=== PATIENT | male | born 1945 | race Caucasian/White ===

== ENCOUNTER → 2017-01-16 | Day surgery (SDC) | payer BC, OTHER ==
[2017-01-11 08:15] VITALS: BMI 25.0
[~2017-01-16] VITALS: Ht 170.2 cm; Wt 75.0 kg
[~2017-01-16] MED LIST: ASPI325T45 PO; CHOL200027 PO; FLUT50SP22 INH; GARLTAB3 PO; GLUCTAB7 PO; LIDOCAINE HCL 2% 2 ML VIAL (20MG/ML) ONE; MELO15TA10 PO; MULT-506 PO; OMEG12006 PO; PROPOFOL IV EMULSION 10 MG/ML 20 ML VIAL IV ONE; SODIUM CHLORIDE 0.9% 500ML 500 ML IV ONE; VITAMIN D PO
[2017-01-16 09:34] VITALS: Ht 170.2 cm; Wt 75.0 kg
--- NOTE | 2017-01-16 09:48 | Endo History and Physical ---
History & Physical Date of Service: Jan 16, 2017. 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, ANAL AREA) Hx Thoracic Surgery: No Hx Orthopedic: No Hx Urinary Tract Surgery: No Family History None Social History Smoking Status: Current Every Day Smoker Hx Substance Use: No Hx Alcohol Use: Yes (OCCASIONALLY) Allergies Coded Allergies: NO KNOWN DRUG ALLERGIES (Verified Allergy, Unknown, ., 01/11/17) Current Medications Reported Home Medications Medications Dose Route/Sig Max Daily Dose Days Date Category [Vitamin D] 1 Tab PO QAM 01/11/17 Reported [Garlic] 1 Tab PO QAM 01/11/17 Reported Florence 3 (Florence-3 Fatty Acids) 1 Cap Cap 1 Cap PO QAM 01/11/17 Reported Multivitamin (Multivitamins) Tab 1 Tab PO QAM 01/11/17 Reported Mobic (Meloxicam) 15 Mg Tab 15 Mg PO QAM 01/11/17 [facility]orted [facility] Fluticasone Propriona (Fluticasone Propionate (Nasal)) 50 Mcg/Act Spr 1 [place] INH DAILY PRN 01/11/17 Reported Glucosamine Chondroitin (Igoskvjwzkz-Mnwgcpzccdl-Mnf C-) 1 Tab Tab 1 Tab PO BID 01/11/17 Reported Aspirin 325 Mg Tab 1 Tab PO QAM 01/11/17 Reported Vital Signs Weight (Kilograms): 75.00 Height (Feet): 5 Height (Inches): 7 Date Time Temp Pulse Resp B/P Pulse Ox O2 Delivery O2 Flow Rate FiO2 01/16/17 09:37 36.6 81 20 123/75 96 Room Air Physical Exam General Appearance: no apparent distress Respiratory/Chest: Auscultation: breath sounds normal Cardiovascular: Heart Auscultation: RRR Abdomen: Inspection & Palpation: soft, no masses Assessment and Plan stable for colonoscopy
--- NOTE | 2017-01-16 10:31 | Discharge Instructions ---
Endoscopy Patient Instructions Date / Procedure(s) Performed Jan 16, 2017. Colonoscopy Allergy Information Coded Allergies: NO KNOWN DRUG ALLERGIES (Verified Allergy, Unknown, ., 01/11/17) Discharge Date / Findings Jan 16, 2017. colon polyp and diverticulosis Medication Instructions Stopped Medication(s): ASPIRIN LAST DOSE 01/14/17 Provider Instructions Activity Restrictions - No exercising or heavy lifting for 24 hours. - Do not drink alcohol the day of the procedure. - Do not drive a car or operate machinery until the day after the procedure. - Do not make any important decisions or sign important papers in 24 hours after the procedure. Following Day: - Return to full activity which may include returning to work/school. Diet Start your diet with liquids and light foods (jello, soup, juice, toast). Then eat your usual diet if not nauseated. Treatment For Common After Affects For mild abdominal pain, bloating, or excessive gas: - Rest - Eat lightly - Lie on right side Follow-Up Information Follow-up with DR ROTH as scheduled Anesthesia Information What You Should Know You have had a procedure that required some medicine to reduce anxiety and discomfort. This treatment is called moderate sedation. After receiving the treatment, you may be sleepy, but you will be able to breathe on your own. The effects of the treatment may last for several hours. Follow these instructions along with Activity/Diet recommendations noted above: * Do NOT do anything where dizziness or clumsiness would be dangerous. * Rest quietly at home today, then you can be up and about tomorrow. * Have a responsible person stay with you the rest of today. * You may have had an I.V. today. If so, you may take the dressing off later today. Recommendations Call your doctor if: * Trouble breathing * Continuous vomiting for more than 24 hours * Temperature above 101 degrees * Severe abdominal pain or bloating * Pain not relieved by pain medicine ordered * There is increased drainage or redness from any incision * A large amount of rectal bleeding greater than 2-3 tablespoons. (If you had a polyp/s removed or have hemorrhoids, a small amount of blood - from the rectum is to be expected.) * You have any unanswered questions or concerns. IN THE EVENT OF A SERIOUS EMERGENCY, GO TO THE NEAREST EMERGENCY ROOM Your discharge instructions were prepared by provider Jamal Pierce. Patient Instructions Signature Page Raulito Magallanes Patient (or Guardian) Signature/Date: I have read and understand the instructions given to me by my caregivers. Caregiver/RN/Doctor Signature/Date: The above-named patient and/or guardian has received patient instructions on this date. + Original Patient Signature Page (only) stays with chart. Please make copy for patient.
--- NOTE | 2017-01-16 10:31 | GI REPORT ---
Procedure Date: 01/16/2017 9:36 AM Procedure: Colonoscopy Indications: Screening for colorectal malignant neoplasm Medicines: See the Anesthesia note for documentation of the administered medications Complications: No immediate complications. Estimated Blood Loss: Estimated blood loss was minimal. Procedure: Pre-Anesthesia Assessment: - Prior to the procedure, a History and Physical was performed, and patient medications, allergies and sensitivities were reviewed. The patient's tolerance of previous anesthesia was reviewed. - The risks and benefits of the procedure and the sedation options and risks were discussed with the patient. All questions were answered and informed consent was obtained. - Patient identification and proposed procedure were verified prior to the procedure by the physician and the nurse. The procedure was verified in the pre-procedure area. - Pre-procedure physical examination revealed no contraindications to sedation. - After reviewing the risks and benefits, the patient was deemed in satisfactory condition to undergo the procedure. After I obtained informed consent, the scope was passed under direct vision. Throughout the procedure, the patient's blood pressure, pulse, and oxygen saturations were monitored continuously. The scope was introduced through the anus and advanced to the terminal ileum, with identification of the appendiceal orifice and IC valve. The colonoscopy was performed without difficulty. The patient tolerated the procedure well. The quality of the bowel preparation was good. Findings: The perianal and digital rectal examinations were normal. The terminal ileum appeared normal. A diminutive polyp was found in the cecum. The polyp was sessile. The polyp was removed with a jumbo cold forceps. Resection and retrieval were complete. Verification of patient identification for the specimen was done by the physician and nurse using the patient's name and medical record number. Estimated blood loss was minimal. Multiple medium-mouthed diverticula were found in the sigmoid colon and in the descending colon. Internal hemorrhoids were found during retroflexion. Impression: - The examined portion of the ileum was normal. - One diminutive polyp in the cecum, removed with a jumbo cold forceps. Resected and retrieved. - Diverticulosis in the sigmoid colon and in the descending colon. - Internal hemorrhoids. Recommendation: - Await pathology results. - Discharge patient to home. Jamal Pierce M.D. Jamal Pierce MD 01/16/2017 10:30:09 AM This report has been signed electronically. Note Initiated On: 01/16/2017 9:36 AM I attest to the content of the Intraoperative Record and orders documented therein, exceptions below
--- NOTE | 2017-01-16 10:53 | Anesthesiology Progress Note ---
Anesthesia Post Op Note Date & Time Jan 16, 2017 at 10:52 Vital Signs Pain Intensity: 0 Vital Signs Past 12 Hours Date Time Temp Pulse Resp B/P Pulse Ox O2 Delivery O2 Flow Rate FiO2 01/16/17 10:47 76 20 100/68 96 Room Air 01/16/17 10:32 36.6 78 20 93/53 96 Room Air 01/16/17 09:37 36.6 81 20 123/75 96 Room Air Notes Mental Status: alert / awake / arousable, participated in evaluation Pt Amnestic to Procedure: Yes Nausea / Vomiting: adequately controlled Pain: adequately controlled Airway Patency, RR, SpO2: stable & adequate BP & HR: stable & adequate Hydration State: stable & adequate Anesthetic Complications: no major complications apparent
[2017-01-16 11:00] VITALS: BP 106/65; PULSE 75; O2SAT 98
== END | disposition home or self-care (01) ==
LOC: C.GI 08:51
PROVIDERS: ATTEND Internal Medicine Gastroenterology
DX: Z12.11 Encounter for screening for malignant neoplasm of colon (principal); D12.0 Benign neoplasm of cecum; K57.30 Diverticulosis of large intestine without perforation or abscess without bleeding; K57.32 Diverticulitis of large intestine without perforation or abscess without bleeding; K64.8 Other hemorrhoids; F17.210 Nicotine dependence, cigarettes, uncomplicated; Z79.82 Long term (current) use of aspirin; Z79.899 Other long term (current) drug therapy

== ENCOUNTER → 2017-03-20 | Outpatient (CLI) | payer BC ==
[~2017-03-20] MED LIST changes: -LIDOCAINE HCL 2% 2 ML VIAL (20MG/ML) ONE; -PROPOFOL IV EMULSION 10 MG/ML 20 ML VIAL IV ONE; -SODIUM CHLORIDE 0.9% 500ML 500 ML IV ONE
[2017-03-20 13:34] LABS: BASO % 0.4 %; BASO ABS # 0.03 K/uL (0-0.2); COMPLETE YES; EOS % 1.3 %; HEMATOCRIT 47.2 % (42-52); IG% 0.1 %; LYMPH % 36.8 %; LYMPH ABS # 2.92 K/uL (1.2-3.4); MEAN CELL VOLUME 96.1 fL (80-100); MEAN CORPUSCULAR HEMOGLOBIN 32.8 pg (25-34); MEAN CORPUSCULAR HGB CONC 34.1 g/dl (32-36); MEAN PLATELET VOLUME 9.7 fL (7.4-10.4); MONO % 9.3 %; NEUT % 52.1 %; PLATELET COUNT 271 K/uL (130-400); RED BLOOD COUNT 4.91 M/uL (4.7-6.1); WHITE BLOOD COUNT 7.93 K/uL (4.8-10.8)
[2017-03-20 14:08] LABS: ALT/SGPT 29 U/L (12-78); BLOOD UREA NITROGEN 13 mg/dl (7-18); BUN/CREATININE RATIO 14.6 (10-20); CARBON DIOXIDE 28 mmol/L (21-32); CHLORIDE 103 mmol/L (98-107); CHOLESTEROL 200 mg/dl (0-200); CREATININE 0.92 mg/dl (0.60-1.40); GLUCOSE 102 mg/dl (70-99); POTASSIUM 4.4 mmol/L (3.5-5.1); SODIUM 139 mmol/L (136-145); TRIGLYCERIDES 321 mg/dl (0-150); VERY LOW DENSITY LIPOPROT CALC 64 mg/dl
[2017-03-20 14:10] LABS: CALCIUM 9.2 mg/dl (8.5-10.1)
[2017-03-20 14:14] LABS: ALB/GLOB RATIO 0.9 (0.9-2); ALKALINE PHOSPHATASE 61 U/L (45-117); AST/SGOT 17 U/L (15-37); CHOLESTEROL/HDL RATIO 5.7; HDL CHOLESTEROL 35 mg/dl; LDL CHOLESTEROL CALCULATED 101 mg/dl
[2017-03-20 14:17] LABS: ESTIMATED AVERAGE GLUCOSE 123 mg/dl; HA1C FLAG Normal (Normal)
--- NOTE | 2017-03-27 07:20 | CODING QUERY MEDICAL NECESSITY ---
SUPPORTING DIAGNOSIS NEEDED A supporting diagnosis is required for the test/procedure performed on this patient in order for us to be reimbursed by the patient's insurance. Please provide a supporting diagnosis for the following test/procedure listed below next to the test name along with your signature. *If there is no additional diagnosis for this patient that would support the following test/procedure please document that below next to the test/procedure. Test(s)/Procedure(s) that require a supporting diagnosis: * HEMOGLOBIN A1C DIAGNOSIS: Provider Signature: Date: Thank you Keara Davenport [employer] Once completed, please kindly fax back to [phone] For questions please call [phone]
== END | disposition home or self-care (01) ==
LOC: C.LABBC 10:06
PROVIDERS: ATTEND Nurse Practitioner Family
DX: K21.9 Gastro-esophageal reflux disease without esophagitis (principal); E78.00 Pure hypercholesterolemia, unspecified; R73.03 Prediabetes; N40.0 Benign prostatic hyperplasia without lower urinary tract symptoms

== ENCOUNTER → 2017-06-26 | Day surgery (SDC) | payer BC ==
[2017-05-29 08:14] VITALS: Ht 170.2 cm; Wt 70.5 kg
[~2017-06-26] VITALS: Ht 170.2 cm; Wt 70.5 kg
[~2017-06-26] MED LIST changes: +500ML BSS 0.3ML EPI 1:1000PF IRRIG ONE; +ACETAMINOPHEN 325 MG TAB PO PRN; +AMVISC PLUS 0.8ML SYRINGE INT OCU ONE; +ATROPINE SULFATE 0.1 MG/ML 5ML SYR IV PRN; +BSS FLUSH ONE; +EpHEDrine SULFATE INJ 50 MG/ML AMP IV PRN; +EpINEphrine INJ 1MG/ML AMP 1 MG/ML AMP ONE; +LACTATED RINGER'S 1000ML 500 ML IV SCH; +LIDOCAINE 3.5% OPH GEL PER APPLICATION CHARGE ONE; +LIDOCAINE HCL 1% MPF 2 ML VIAL ONE; +MIDAZOLAM HCL 1 MG/ML 2ML VIAL ONE; +MIX: 4ML BSS 1ML EPI 1:1000 PF INSTIL ONE; +OCUCOAT 1 ML SOLN IO ONE; +POVIDONE-IODINE OP SOLN 30 ML BTL ONE; +PROPARACAINE 0.5% OP SOLN PER DROP CHARGE OPL SCH; +TOBRAMYCIN/DEXAMETHASONE OPH OINT PER APPLN CHARGE ONE; -VITAMIN D PO
[2017-06-26] MEDS: PHENYLEPHRINE HCL 2.5% OP SOLN PER DROP CHARGE OPL SCH ×2 (08:46→08:51)
[2017-06-26] MEDS: TROPICAMIDE 1% OP SOLN PER DROP CHARGE OPL SCH ×2 (08:47→08:52)
[2017-06-26] MEDS: CYCLOPENTOLATE HCL 1% OP SOLN PER DROP CHARGE OPL SCH ×2 (08:48→08:53)
[2017-06-26] MEDS: KETOROLAC 0.5% OP SOLN PER DROP CHARGE OPL SCH ×2 (08:49→08:54)
[2017-06-26] MEDS: GATIFLOXACIN OP SOLN PER DROP CHARGE OPL SCH ×2 (08:50→09:03)
--- NOTE | 2017-06-26 09:01 | History & Physical Bridge - [place] ---
H&P Re-Evaluation Bridge Note: I have examined the patient, reviewed the History & Physical and in the interval since the performance of the History & Physical I have noted the following changes of clinical significance: No changes noted
--- NOTE | 2017-06-26 09:43 | Discharge Instructions-SurgCtr ---
Discharge Instructions Date of Service Jun 26, 2017. Visit Reason for Visit: Cataract Left Eye Discharge Discharge Diagnosis / Problem: cataract Discharge Goals Goal(s): Improve function Medications Stopped Medications Name(s): METFORMIN HELD FOR THREE DAYS Activity Recommendations Activity Limitations: per Instructions/Follow-up section Anesthesia . Post Anesthesia Instructions: If you have had General Anesthesia or IV Sedation: * Do not drive today. * Resume driving when surgeon permits. * Do not make important decisions or sign legal documents today. * Call surgeon for: 1. Temperature elevations greater than 101 degrees F. 2. Uncontrollable pain. 3. Excessive bleeding. 4. Persistent nausea and vomiting. 5. Medication intolerance (nausea, vomiting or rash). * For nausea and vomiting use only clear liquids such as: tea, soda, bouillon until nausea subsides, then gradually increase diet as tolerated. * If you have any concerns or questions, call your surgeon's office. If physician is unavailable and it is an emergency, call 911 or go to the nearest emergency room. . Diet Recommendations Home Diet: resume previous diet Procedures Procedures Performed: Left Eye Cataract Phacoemulsification With Intraocular Lens Implant Pending Studies Studies pending at discharge: no Medical Emergencies . Who to Call and When: Medical Emergencies: If at any time you feel your situation is an emergency, please call 911 immediately. . Non-Emergent Contact Non-Emergency issues call your: Pharmaceutical Assistant . . "Provider Documentation" section prepared by Matt Lau. .
--- NOTE | 2017-06-26 09:44 | [facility] Operative Report ---
Operative Report Date of Service Jun 26, 2017. Operative Report 1. PREOPERATIVE DIAGNOSIS: Cataract of the right eye. 2. POSTOPERATIVE DIAGNOSIS: Same. 3. PROCEDURE: Phacoemulsification with intraocular lens implantation of the right eye. SURGEON: Dr. Matt Lau. ANESTHESIA: Topical Lidocaine gel, 1% Non- Preserved intracameral Lidocaine, and monitored intravenous sedation. INDICATIONS FOR THE PROCEDURE: The patient is a 72 - year-old male with a history of cataract of the right eye causing significant visual impairment. The details of the proposed procedure were explained to the patient who asked appropriate questions and following discussion of all risks, benefits and alternatives agreed to have the procedure done. 4. OPERATION AND FINDINGS: DESCRIPTION OF PROCEDURE: After informed consent was obtained, the patient was brought to the Operating Room at the [facility]. The patient was placed in a supine position and then the right eye was prepped and draped in the usual sterile fashion for intraocular surgery. A drop of topical Lidocaine gel was placed in the operative eye. A wire lid speculum was then placed in the fornices. A corneal paracentesis was then created temporally. The Non-Preserved Lidocaine was then instilled into the anterior chamber. The anterior chamber was then pressurized with viscoelastic. A 2.0 mm clear corneal incision was then created temporally. A cystotome was inserted into the anterior chamber and used to create a tear in the anterior lens capsule. This capsular tear was then used to create a small flap and the flap was dragged in a counterclockwise direction in order to create a continuous curvilinear capsulorrhexis. Hydrodissection was accomplished with balanced salt solution. Phacoemulsification of the lens nucleus was then performed in a standard nvswyf-iln-swaydle technique. The phaco time was 25 seconds with an average power of 16 %. The remaining cortical material was removed using irrigation aspiration. The capsular bag was then filled with viscoelastic. A [employer] MX60 +19.0 diopters lens was then loaded into the injector and injected into the capsular bag. The remaining viscoelastic was removed with the irrigation aspiration handpiece. The wound was hydrated and then checked and found to be watertight. The intraocular pressure was checked and found to be adequate. The wire lid speculum was removed and the patient's face was cleaned and dried. TobraDex ointment was placed in the inferior fornix. The patient was discharged to the Recovery Room having tolerated the procedure well. There were no complications. The patient will be seen tomorrow in the office for follow-up. I attest to the content of the Intraoperative Record and any orders documented therein. Any exceptions are noted below.
[2017-06-26 09:45] VITALS: TEMP 36.7
--- NOTE | 2017-06-26 10:04 | Anesthesia Progress Nt - [facility] ---
Anesthesia Post Op Note Date & Time Jun 26, 2017 at 10:04 Vital Signs Pain Intensity: 0 Vital Signs Past 12 Hours Date Time Temp Pulse Resp B/P (MAP) Pulse Ox O2 Delivery O2 Flow Rate FiO2 06/26/17 09:45 36.7 56 18 117/79 (92) 96 Room Air 06/26/17 08:37 36.6 59 16 110/78 (89) 95 Room Air Notes Mental Status: alert / awake / arousable, participated in evaluation Pt Amnestic to Procedure: Yes Nausea / Vomiting: adequately controlled Pain: adequately controlled Airway Patency, RR, SpO2: stable & adequate BP & HR: stable & adequate Hydration State: stable & adequate Anesthetic Complications: no major complications apparent
[2017-06-26 10:10] VITALS: BP 124/75; PULSE 57; O2SAT 96
== END | disposition home or self-care (01) ==
LOC: X.SURG 07:57
PROVIDERS: ATTEND Ophthalmology
DX: H25.9 Unspecified age-related cataract (principal); E78.00 Pure hypercholesterolemia, unspecified; Z79.899 Other long term (current) drug therapy

== ENCOUNTER → 2017-09-28 | Outpatient (CLI) | payer BC ==
[~2017-09-28] MED LIST changes: -500ML BSS 0.3ML EPI 1:1000PF IRRIG ONE; -ACETAMINOPHEN 325 MG TAB PO PRN; -AMVISC PLUS 0.8ML SYRINGE INT OCU ONE; +ASPECOTC PO; -ASPI325T45 PO; -ATROPINE SULFATE 0.1 MG/ML 5ML SYR IV PRN; -BSS FLUSH ONE; -EpHEDrine SULFATE INJ 50 MG/ML AMP IV PRN; -EpINEphrine INJ 1MG/ML AMP 1 MG/ML AMP ONE; -LACTATED RINGER'S 1000ML 500 ML IV SCH; -LIDOCAINE 3.5% OPH GEL PER APPLICATION CHARGE ONE; -LIDOCAINE HCL 1% MPF 2 ML VIAL ONE; -MIDAZOLAM HCL 1 MG/ML 2ML VIAL ONE; -MIX: 4ML BSS 1ML EPI 1:1000 PF INSTIL ONE; -OCUCOAT 1 ML SOLN IO ONE; -POVIDONE-IODINE OP SOLN 30 ML BTL ONE; -PROPARACAINE 0.5% OP SOLN PER DROP CHARGE OPL SCH; -TOBRAMYCIN/DEXAMETHASONE OPH OINT PER APPLN CHARGE ONE
[2017-09-28 11:13] LABS: ALBUMIN 3.3 gm/dl (3.4-5.0); ALT/SGPT 30 U/L (12-78); AST/SGOT 19 U/L (15-37); BLOOD UREA NITROGEN 16 mg/dl (7-18); CALCIUM 8.8 mg/dl (8.5-10.1); CARBON DIOXIDE 31 mmol/L (21-32); CHOLESTEROL 176 mg/dl (0-200); CREATININE 0.88 mg/dl (0.60-1.40); GLUCOSE 106 mg/dl (70-99); POTASSIUM 4.5 mmol/L (3.5-5.1); SODIUM 137 mmol/L (136-145); TOTAL PROTEIN 7.2 gm/dl (6.4-8.2)
[2017-09-28 11:14] LABS: ALKALINE PHOSPHATASE 67 U/L (45-117); LDL CHOLESTEROL CALCULATED 94 mg/dl
[2017-09-28 12:05] LABS: HEMOGLOBIN A1C 5.9 % (4.5-5.6)
== END | disposition home or self-care (01) ==
LOC: C.LABBC 07:53
PROVIDERS: ATTEND Nurse Practitioner Family
DX: K21.9 Gastro-esophageal reflux disease without esophagitis (principal); E78.00 Pure hypercholesterolemia, unspecified; R73.03 Prediabetes

== ENCOUNTER 2020-10-28 12:11 | Inpatient (IN) ==
[2020-10-28] MEDS ORDERED: ACETAMINOPHEN 500 MG TAB PO STA (13:02)
[2020-10-28] MEDS ORDERED: SODIUM CHLORIDE 0.9% 1000ML 1,000 ML IV ONE ×3 (13:02→16:27)
--- NOTE | 2020-10-28 13:03 | Emergency Department Note ---
Impression & Plan Sepsis, Nausea, Leukocytosis ED Provider Note NAME: ARTUR BLANCHARD AGE: 75 SEX: M : 1945 ARRIVES VIA: Walk-In INFORMANT: Patient ED PROVIDER(S): Alfredito Wise DO CHIEF COMPLAINT: Weak HPI: Patient is a 75-year-old male who presents the ER for diffuse myalgias and arthralgias and weakness associated with fevers. Symptoms initially started this past Sunday. He has had a runny nose. He has had intermittent headaches as well. Headaches are very mild off and on. No neck pain or stiff neck. No chest pain. No shortness of breath. He admits to nausea and upset stomach. No focal belly pain. Denies any dysuria, urgency or frequency. He was tested for Covid and notes it was negative. He has no other complaints at this time. Telehealth visit with his PCP several days ago. Has been exposed to Covid as his was diagnosed at the end of August and admitted to the hospital. ROS: See above HPI for pertinent positives & negatives. A total of 10 systems reviewed and were otherwise negative. PAST MEDICAL HISTORY:See Below PAST SURGICAL HISTORY:See Below FAMILY HISTORY:See Below SOCIAL HISTORY:See Below HOME MEDICATIONS:See Below ALLERGIES:See Below VITALS:See Below PHYSICAL EXAMINATION: GENERAL: Sitting up in bed, alert, well appearing, well nourished, no distress, non-toxic EYE EXAM: normal conjunctiva. OROPHARYNX: no exudate, no erythema, lips, buccal mucosa, and tongue normal and mucous membranes are moist NECK: supple, no nuchal rigidity, no adenopathy, non-tender LUNGS: Clear to auscultation. Normal chest wall mechanics HEART: no murmurs, S1 normal and S2 normal ABDOMEN: abdomen soft, non-tender, normo-active bowel sounds, no masses, no rebound or guarding. BACK: Back is symmetrical on inspection and there is no deformity, no midline tenderness, no CVA tenderness. SKIN: no rashes and no bruising UPPER EXTREMITIES: upper extremities are grossly normal. LOWER EXTREMITIES: No pitting edema. NEURO EXAM: Normal sensorium, cranial nerves II-XII grossly intact, normal speech, no gross weakness of arms, no gross weakness of legs. MEDICAL DECISION MAKING: Patient is a 75-year-old male who presents the ER for shaking chills and fevers. IV was established blood work was obtained. He has diffuse myalgias and arthralgias. He was found to be febrile initially tachycardic. Labs shows a leukocytosis of 20,000. No significant anemia. INR was unremarkable. BMP along with LFTs bilirubin magnesium were unremarkable. Patient was given 3 L IV fluids, as well as Tylenol and felt significantly better. Lactate was initially elevated and on repeat became normal. He was given a dose of Zosyn. There is no signs of meningitis or encephalitis on exam. Covid was negative. UA with ke tones and epithelial cells. Uncertain of the true cause of his symptoms with a CT of the belly which shows intrahepatic duct dilation. Patient was covered with Zosyn. He notes this has happened to him once before over the summer. He was updated bedside. Discussed with the hospitalist for further evaluation. Patient remained stable throughout the remainder of the stay in the ER. Triage Nursing notes reviewed. Limited review of prior medical records performed Vital Signs: reviewed and remarkable for febrile, tachycardic Differential diagnosis: Differential diagnosis includes etiologies such as sepsis, UTI, pneumonia, metabolic, electrolyte abnormalities, cardiac sources, intracerebral event, toxicologic, neurological, as well as others were entertained. ER treatment provided: See below Diagnostics interpreted by me: ECG: Sinus tachycardia rate of 104 Left axis No PVCs QTC 436 Cardiac Monitoring: An order was placed for continuous cardiac monitoring. The monitor shows a rate of 110 with sinus rhythm. Laboratory studies: As stated above and show below. Imaging studies: Double AP upright 1 view chest shows no focal infiltrate or pneumothorax CT abdomen pelvis shows a dilated intrahepatic bile duct and a left lower lobe pulmonary nodule Consultation(s): With Dr. Atul Guerin for further evaluation Procedures: none Critical Care: I have personally spent 32 minutes of critical care time in the direct management of this patient. This includes bedside care, interpretation of diagnostic studies, and testing, discussion with consultants, patient, and family members, and other required patient management activities. This 32 minutes is in excess of all separately billable procedures. 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 S/P wisdom tooth extraction Family History Father Myocardial infarction ASCVD (arteriosclerotic cardiovascular disease) Pacemaker Mother Diabetes Peripheral vascular disease Denies family history of Ovarian cancer Prostate cancer Breast cancer Colorectal cancer Social History Smoking Status: Current every day smoker Tobacco Type: Cigarettes Age Started Using Tobacco: 23; packs per day: 0.5; Years Smoked: 30; Second Hand Exposure: No; Hx Alcohol Use: Yes Alcohol type: beer and hard liquor Hx Substance Use: No Preferred Language: Armenian Communication Ability: Effective Visual Impairment: No Limitations Hearing Ability: Use of Hearing Aid marital status: Current Living Situation: Spouse current occupational status: retired Feels Safe at Home: Yes Childhood Exposure to Second-Hand Smoke: Yes Dental Care, Regularly: Yes Physical Activity Frequency: 3-4 Times per Week Physical Activity Frequency Comment: walking Seatbelt Use: always Sunscreen Use: No Allergies Allergies Allergy/AdvReac Type Severity Reaction Status Date / Time No Known Allergies Allergy Verified 10/28/20 16:20 Home Meds Home Medications Medication Instructions Recorded Confirmed cholecalciferol (vitamin D3) 50 2,000 unit PO DAILY tab 02/12/19 10/28/20 mcg (2,000 unit) tablet multivitamin 1 tab PO DAILY 02/27/19 10/28/20 garlic 500 mg PO DAILY 03/24/19 10/28/20 omega-3 acid ethyl esters 1 gram 1 cap PO BID cap 05/06/19 10/28/20 capsule aspirin [Ecotrin] 325 mg PO DAILY 10/28/20 10/28/20 glucos sul [id number] 1 cap PO DAILY 10/28/20 10/28/20 [Glucosamine Chondroitin] Previous Rx's Medication Instructions Recorded gabapentin 300 mg capsule 300 mg PO HS #30 cap 06/03/20 meloxicam 15 mg tablet 15 mg PO DAILY #90 tab 06/09/20 Results & Data (ED) Vital Signs Vital Signs - 24 hr 10/28/20 12:20 10/28/20 13:52 10/28/20 13:55 Temperature 38.2 C H Temperature Source Temporal Artery Scan Pulse Rate 118 H 105 H Pulse Rate from SpO2 Sensor 104 H Pulse Rhythm Regular Pulse Strength Normal Respiratory Rate 18 21 Respiratory Effort / Characteristics Non-Labored Spontaneous Respiratory Depth Normal Respiratory Pattern Regular Blood Pressure 129/75 Blood Pressure Mean 93 Blood Pressure Position Sitting Pulse Oximetry 94 94 94 Oxygen Delivery Method Room Air Room Air Sepsis Recent Fever Within 48 Hours Yes Sepsis New/Unexplained Change in Mental Status No Sepsis Action Taken by Nursing No Action Required 10/28/20 14:00 10/28/20 14:01 10/28/20 14:15 Temperature Temperature Source Pulse Rate 102 H 108 H 100 H Pulse Rate from SpO2 Sensor 102 H 107 H 99 H Pulse Rhythm Pulse Strength Respiratory Rate 25 H 17 25 H Respiratory Effort / Characteristics Respiratory Depth Respiratory Pattern Blood Pressure 129/58 L 90/47 L Blood Pressure Mean 81 61 Blood Pressure Position Pulse Oximetry 94 95 94 Oxygen Delivery Method Sepsis Recent Fever Within 48 Hours Sepsis New/Unexplained Change in Mental Status Sepsis Action Taken by Nursing 10/28/20 14:30 10/28/20 14:45 10/28/20 15:00 Temperature Temperature Source Pulse Rate 96 H 96 H 89 Pulse Rate from SpO2 Sensor 97 H 96 H 88 Pulse Rhythm Pulse Strength Respiratory Rate 20 20 20 Respiratory Effort / Characteristics Respiratory Depth Respiratory Pattern Blood Pressure 97/49 L 86/48 L 93/45 L Blood Pressure Mean 65 60 61 Blood Pressure Position Pulse Oximetry 94 93 94 Oxygen Delivery Method Sepsis Recent Fever Within 48 Hours Sepsis New/Unexplained Change in Mental Status Sepsis Action Taken by Nursing 10/28/20 15:15 10/28/20 15:28 10/28/20 15:30 Temperature Temperature Source Pulse Rate 86 Pulse Rate from SpO2 Sensor 102 H 84 84 Pulse Rhythm Pulse Strength Respiratory Rate 15 Respiratory Effort / Characteristics Respiratory Depth Respiratory Pattern Blood Pressure 93/58 L 80/45 L 88/42 L Blood Pressure Mean 69 56 57 Blood Pressure Position Pulse Oximetry 95 95 94 Oxygen Delivery Method Sepsis Recent Fever Within 48 Hours Sepsis New/Unexplained Change in Mental Status Sepsis Action Taken by Nursing 10/28/20 16:00 10/28/20 16:15 10/28/20 16:30 Temperature Temperature Source Pulse Rate 83 80 76 Pulse Rate from SpO2 Sensor 83 80 76 Pulse Rhythm Pulse Strength Respiratory Rate 20 19 22 Respiratory Effort / Characteristics Respiratory Depth Respiratory Pattern Blood Pressure 111/60 94/57 L 105/59 L Blood Pressure Mean 77 69 74 Blood Pressure Position Pulse Oximetry 95 95 96 Oxygen Delivery Method Sepsis Recent Fever Within 48 Hours Sepsis New/Unexplained Change in Mental Status Sepsis Action Taken by Nursing 10/28/20 16:45 10/28/20 17:00 Temperature Temperature Source Pulse Rate 76 Pulse Rate from SpO2 Sensor 76 78 Pulse Rhythm Pulse Strength Respiratory Rate 18 20 Respiratory Effort / Characteristics Respiratory Depth Respiratory Pattern Blood Pressure 106/61 130/68 Blood Pressure Mean 76 88 Blood Pressure Position Pulse Oximetry 96 97 Oxygen Delivery Method Sepsis Recent Fever Within 48 Hours Sepsis New/Unexplained Change in Mental Status Sepsis Action Taken by Nursing Laboratory Data Result diagrams: 10/28/20 13:52 10/28/20 13:52 Lab Results 10/28/20 10/28/20 10/28/20 Range/Units 13:52 13:52 13:52 WBC 20.94 H (4.8-10.8) K/uL RBC 4.30 L (4.7-6.1) M/uL Hgb 14.2 (14.0-18.0) g/dL Hct 41.1 L (42-52) % MCV 95.6 (80-100) fL MCH 33.0 (25-34) pg MCHC 34.5 (32-36) g/dL RDW Std Deviation 47.8 H (36.4-46.3) fL RDW Coeff of Aleisha 13.8 (11.5-14.5) % Plt Count 340 (130-400) K/uL MPV 9.3 (7.4-10.4) fL Immature Gran % (Auto) 0.8 % Neut % (Auto) 80.7 % Lymph % (Auto) 9.4 % Beaver % (Auto) 9.0 % Eos % (Auto) 0.0 % Baso % (Auto) 0.1 % Neut # (Auto) 16.90 H (1.4-6.5) K/uL Lymph # (Auto) 1.97 (1.2-3.4) K/uL Beaver # (Auto) 1.88 H (0.11-0.59) K/uL Eos # (Auto) 0.00 (0-0.5) K/uL Baso # (Auto) 0.02 (0-0.2) K/uL Immature Gran # (Auto) 0.17 H (0.00-0.02) K/uL PT Cancelled INR Cancelled APTT Cancelled PTT Ratio Cancelled Sodium 135 L (136-145) mmol/L Potassium 4.1 (3.5-5.1) mmol/L Chloride 102 (98-107) mmol/L Carbon Dioxide 25 (21-32) mmol/L Anion Gap 8.0 (3-11) BUN 18 (7-18) mg/dl Creatinine 0.99 (0.6-1.4) mg/dl Est Cr Clr Drug Dosing 59.4 ml/min Est GFR ( Amer) 84.8 Est GFR (Non-Af Amer) 73.2 BUN/Creatinine Ratio 18.4 (10-20) Glucose 145 H (70-99) mg/dl Lactate (0.4-2.0) mmol/L Calcium 9.2 (8.5-10.1) mg/dl Magnesium 2.1 (1.8-2.4) mg/dl Total Bilirubin 0.8 (0.2-1) mg/dl AST 19 (15-37) U/L ALT 41 (12-78) U/L Alkaline Phosphatase 72 (45-117) U/L Total Protein 7.5 (6.4-8.2) gm/dl Albumin 2.9 L (3.4-5.0) gm/dl Globulin 4.6 H (2.5-4.0) gm/dl Albumin/Globulin Ratio 0.6 L (0.9-2) Procalcitonin (0-0.5) ng/ml Urine Color Urine Appearance (Clear) Urine pH (4.5-7.5) Ur Specific Niland (1.000-1.030) Urine Protein (Negative) Urine Glucose (UA) (Negative) Urine Ketones (Negative) Urine Blood (Negative) Urine Nitrite (Negative) Urine Bilirubin (Negative) Urine Urobilinogen (Negative) Ur Leukocyte Esterase (Negative) Urine WBC (Auto) (0-5) /hpf Urine RBC (Auto) (0-4) /hpf U Hyaline Cast (Auto) (0-5) /lpf U Epithel Cells (Auto) (0-5) /lpf Urine Bacteria (Auto) (Negative) COVID-19 Eval Order SARS-CoV-2, RNA, NAAT (NEGATIVE) 10/28/20 10/28/20 10/28/20 Range/Units 13:58 13:59 14:00 WBC (4.8-10.8) K/uL RBC (4.7-6.1) M/uL Hgb (14.0-18.0) g/dL Hct (42-52) % MCV (80-100) fL MCH (25-34) pg MCHC (32-36) g/dL RDW Std Deviation (36.4-46.3) fL RDW Coeff of Aleisha (11.5-14.5) % Plt Count (130-400) K/uL MPV (7.4-10.4) fL Immature Gran % (Auto) % Neut % (Auto) % Lymph % (Auto) % Beaver % (Auto) % Eos % (Auto) % Baso % (Auto) % Neut # (Auto) (1.4-6.5) K/uL Lymph # (Auto) (1.2-3.4) K/uL Beaver # (Auto) (0.11-0.59) K/uL Eos # (Auto) (0-0.5) K/uL Baso # (Auto) (0-0.2) K/uL Immature Gran # (Auto) (0.00-0.02) K/uL PT 11.4 INR 1.1 APTT 33.9 H PTT Ratio 1.2 Sodium (136-145) mmol/L Potassium (3.5-5.1) mmol/L Chloride (98-107) mmol/L Carbon Dioxide (21-32) mmol/L Anion Gap (3-11) BUN (7-18) mg/dl Creatinine (0.6-1.4) mg/dl Est Cr Clr Drug Dosing ml/min Est GFR ( Amer) Est GFR (Non-Af Amer) BUN/Creatinine Ratio (10-20) Glucose (70-99) mg/dl Lactate 2.6 H* (0.4-2.0) mmol/L Calcium (8.5-10.1) mg/dl Magnesium (1.8-2.4) mg/dl Total Bilirubin (0.2-1) mg/dl AST (15-37) U/L ALT (12-78) U/L Alkaline Phosphatase (45-117) U/L Total Protein (6.4-8.2) gm/dl Albumin (3.4-5.0) gm/dl Globulin (2.5-4.0) gm/dl Albumin/Globulin Ratio (0.9-2) Procalcitonin (0-0.5) ng/ml Urine Color Urine Appearance (Clear) Urine pH (4.5-7.5) Ur Specific Niland (1.000-1.030) Urine Protein (Negative) Urine Glucose (UA) (Negative) Urine Ketones (Negative) Urine Blood (Negative) Urine Nitrite (Negative) Urine Bilirubin (Negative) Urine Urobilinogen (Negative) Ur Leukocyte Esterase (Negative) Urine WBC (Auto) (0-5) /hpf Urine RBC (Auto) (0-4) /hpf U Hyaline Cast (Auto) (0-5) /lpf U Epithel Cells (Auto) (0-5) /lpf Urine Bacteria (Auto) (Negative) COVID-19 Eval [email or web address] SARS-CoV-2, RNA, NAAT (NEGATIVE) 10/28/20 10/28/20 10/28/20 Range/Units 14:00 15:30 15:41 WBC (4.8-10.8) K/uL RBC (4.7-6.1) M/uL Hgb (14.0-18.0) g/dL Hct (42-52) % MCV (80-100) fL MCH (25-34) pg MCHC (32-36) g/dL RDW Std Deviation (36.4-46.3) fL RDW Coeff of Aleisha (11.5-14.5) % Plt Count (130-400) K/uL MPV (7.4-10.4) fL Immature Gran % (Auto) % Neut % (Auto) % Lymph % (Auto) % Beaver % (Auto) % Eos % (Auto) % Baso % (Auto) % Neut # (Auto) (1.4-6.5) K/uL Lymph # (Auto) (1.2-3.4) K/uL Beaver # (Auto) (0.11-0.59) K/uL Eos # (Auto) (0-0.5) K/uL Baso # (Auto) (0-0.2) K/uL Immature Gran # (Auto) (0.00-0.02) K/uL PT INR APTT PTT Ratio Sodium (136-145) mmol/L Potassium (3.5-5.1) mmol/L Chloride (98-107) mmol/L Carbon Dioxide (21-32) mmol/L Anion Gap (3-11) BUN (7-18) mg/dl Creatinine (0.6-1.4) mg/dl Est Cr Clr Drug Dosing ml/min Est GFR ( Amer) Est GFR (Non-Af Amer) BUN/Creatinine Ratio (10-20) Glucose (70-99) mg/dl Lactate 1.1 (0.4-2.0) mmol/L Calcium (8.5-10.1) mg/dl Magnesium (1.8-2.4) mg/dl Total Bilirubin (0.2-1) mg/dl AST (15-37) U/L ALT (12-78) U/L Alkaline Phosphatase (45-117) U/L Total Protein (6.4-8.2) gm/dl Albumin (3.4-5.0) gm/dl Globulin (2.5-4.0) gm/dl Albumin/Globulin Ratio (0.9-2) Procalcitonin (0-0.5) ng/ml Urine Color Dark Yellow Urine Appearance Clear (Clear) Urine pH 6.5 (4.5-7.5) Ur Specific Niland 1.025 (1.000-1.030) Urine Protein Trace H (Negative) Urine Glucose (UA) Negative (Negative) Urine Ketones 2+ H (Negative) Urine Blood Negative (Negative) Urine Nitrite Negative (Negative) Urine Bilirubin Negative (Negative) Urine Urobilinogen Negative (Negative) Ur Leukocyte Esterase Negative (Negative) Urine WBC (Auto) 1-5 (0-5) /hpf Urine RBC (Auto) 5-10 H (0-4) /hpf U Hyaline Cast (Auto) 1-5 (0-5) /lpf U Epithel Cells (Auto) 20-30 H (0-5) /lpf Urine Bacteria (Auto) Negative (Negative) COVID-19 Eval Order SARS-CoV-2, RNA, NAAT NEGATIVE (NEGATIVE) 10/28/20 Range/Units 16:45 WBC (4.8-10.8) K/uL RBC (4.7-6.1) M/uL Hgb (14.0-18.0) g/dL Hct (42-52) % MCV (80-100) fL MCH (25-34) pg MCHC (32-36) g/dL RDW Std Deviation (36.4-46.3) fL RDW Coeff of Aleisha (11.5-14.5) % Plt Count (130-400) K/uL MPV (7.4-10.4) fL Immature Gran % (Auto) % Neut % (Auto) % Lymph % (Auto) % Beaver % (Auto) % Eos % (Auto) % Baso % (Auto) % Neut # (Auto) (1.4-6.5) K/uL Lymph # (Auto) (1.2-3.4) K/uL Beaver # (Auto) (0.11-0.59) K/uL Eos # (Auto) (0-0.5) K/uL Baso # (Auto) (0-0.2) K/uL Immature Gran # (Auto) (0.00-0.02) K/uL PT INR APTT PTT Ratio Sodium (136-145) mmol/L Potassium (3.5-5.1) mmol/L Chloride (98-107) mmol/L Carbon Dioxide (21-32) mmol/L Anion Gap (3-11) BUN (7-18) mg/dl Creatinine (0.6-1.4) mg/dl Est Cr Clr Drug Dosing ml/min Est GFR ( Amer) Est GFR (Non-Af Amer) BUN/Creatinine Ratio (10-20) Glucose (70-99) mg/dl Lactate (0.4-2.0) mmol/L Calcium (8.5-10.1) mg/dl Magnesium (1.8-2.4) mg/dl Total Bilirubin (0.2-1) mg/dl AST (15-37) U/L ALT (12-78) U/L Alkaline Phosphatase (45-117) U/L Total Protein (6.4-8.2) gm/dl Albumin (3.4-5.0) gm/dl Globulin (2.5-4.0) gm/dl Albumin/Globulin Ratio (0.9-2) Procalcitonin 2.21 H (0-0.5) ng/ml Urine Color Urine Appearance (Clear) Urine pH (4.5-7.5) Ur Specific Niland (1.000-1.030) Urine Protein (Negative) Urine Glucose (UA) (Negative) Urine Ketones (Negative) Urine Blood (Negative) Urine Nitrite (Negative) Urine Bilirubin (Negative) Urine Urobilinogen (Negative) Ur Leukocyte Esterase (Negative) Urine WBC (Auto) (0-5) /hpf Urine RBC (Auto) (0-4) /hpf U Hyaline Cast (Auto) (0-5) /lpf U Epithel Cells (Auto) (0-5) /lpf Urine Bacteria (Auto) (Negative) COVID-19 Eval Order SARS-CoV-2, RNA, NAAT (NEGATIVE) Administered Medications Discontinued Medications Acetaminophen (Acetaminophen 500 Mg Tab) 1,000 mg PO NOW STA Stop: 10/28/20 13:03 Last Admin: 10/28/20 13:55 Dose: 1,000 mg Documented by: [id number] Sodium Chloride (Nss 1000ml) 1,000 mls @ 999 mls/hr IV .Q1H1M ONE Stop: 10/28/20 14:02 Last Infusion: 10/28/20 15:37 Dose: 0 mls/hr Documented by: [id number] Admin: 10/28/20 13:55 Dose: 999 mls/hr Documented by: [id number] Sodium Chloride (Nss 1000ml) 1,000 mls @ 999 mls/hr IV .Q1H1M ONE Stop: 10/28/20 15:27 Last Admin: 10/28/20 16:16 Dose: 999 mls/hr Documented by: [id number] Piperacillin Sod/Tazobactam Sod (Zosyn) 4.5 gm in 120 mls @ 240 mls/hr IV NOW ONE Stop: 10/28/20 14:56 Last Infusion: 10/28/20 17:08 Dose: 0 mls/hr Documented by: [id number] Admin: 10/28/20 16:16 Dose: 240 mls/hr Documented by: [id number] Sodium Chloride (Nss 1000ml) 1,000 mls @ 999 mls/hr IV .Q1H1M ONE Stop: 10/28/20 17:27 Last Admin: 10/28/20 17:08 Dose: 999 mls/hr Documented by: [id number] Ioversol (Ioversol 100ml) 95 ml IV ONCE ONE Stop: 10/28/20 15:52 Last Admin: 10/28/20 15:52 Dose: 95 ml Documented by: [id number] Discharge Plan Visit Data Chief Complaint: Illness Stated Complaint: FEVER/WEAK/SICK STOMACH TESTED NEGATIVE FOR COVID ED Provider: Alfredito Wise Discharge Problem: Sepsis, Nausea, Leukocytosis Forms Stand Alone Forms: [facility] Prescriptions Prescriptions: No Action gabapentin 300 mg capsule 300 mg PO HS Qty: 30 RF: 5 meloxicam 15 mg tablet 15 mg PO DAILY Qty: 90 RF: 1 garlic tablet 500 mg PO DAILY RF: 0 cholecalciferol (vitamin D3) 2,000 unit tablet 2,000 unit PO DAILY RF: 0 multivitamin [Multiple Vitamins] tablet 1 tab PO DAILY RF: 0 omega-3 acid ethyl esters 1 gram capsule 1 cap PO BID RF: 0 aspirin [Ecotrin] 325 mg Tablet,Delayed Release (Dr/Ec) 325 mg PO DAILY RF: 0 Glucosamine Chondroitin 550-30-1 mg Capsule 1 cap PO DAILY RF: 0 Discharge Problem: Sepsis Qualifiers: Sepsis type: sepsis due to unspecified organism Sepsis acute organ dysfunction status: unspecified Qualified Code(s): A41.9 - Sepsis, unspecified organism Leukocytosis Qualifiers: Leukocytosis type: unspecified Qualified Code(s): D72.829 - Elevated white blood cell count, unspecified
--- NOTE | 2020-10-28 13:22 | XRay Report ---
XR chest 1V portable CLINICAL HISTORY: SEPSIS COMPARISON STUDY: 04/18/2020 FINDINGS: The cardiac and mediastinal contours remain stable. There is no failure. There is no focal pulmonary consolidation. There are no pleural effusions. There are a few scattered areas of linear at electasis/scarring.[ IMPRESSION: No active disease in the chest. ACT 112: Negative or not required by law. Electronically signed by: Carlyle Nixon M.D. 10/28/2020 1:21 PM
[2020-10-28 14:09] LABS: Basophils # (auto) 0.02 K/uL (0-0.2); Basophils % (auto) 0.1 %; Hematocrit (blood only) 41.1 % (42-52); Hemoglobin 14.2 g/dL (14.0-18.0); Immature Granulocytes # (auto) 0.17 K/uL (0.00-0.02); Immature Granulocytes % (auto) 0.8 %; Lymphocytes # (auto) 1.97 K/uL (1.2-3.4); Lymphocytes % (auto) 9.4 %; Mean Corpuscular Hgb Conc 34.5 g/dL (32-36); Mean Corpuscular Volume 95.6 fL (80-100); Mean Platelet Volume 9.3 fL (7.4-10.4); Monocytes # (auto) 1.88 K/uL (0.11-0.59); Neutrophils % (auto) 80.7 %; Platelet Count 340 K/uL (130-400); RDW Coefficient of Variation 13.8 % (11.5-14.5); RDW Standard Deviation 47.8 fL (36.4-46.3); White Blood Count 20.94 K/uL (4.8-10.8)
[2020-10-28] MEDS ORDERED: PIPERACILL/TAZOBAC CONSULT ACTIVE PRN ×2 (14:27→19:07)
[2020-10-28] MEDS ORDERED: PIPERACILLIN/TAZOBACTAM 4.5 GM/120 ML BAG IV ONE (14:27)
[2020-10-28 14:30] LABS: Albumin Level 2.9 gm/dl (3.4-5.0); BUN Creatinine Ratio 18.4 (10-20); Calcium 9.2 mg/dl (8.5-10.1); Creatinine Clr Calc Pharmacy 59.4 ml/min; Est GFR (African American) 84.8; Est GFR (Non-African American) 73.2; Magnesium 2.1 mg/dl (1.8-2.4); Potassium 4.1 mmol/L (3.5-5.1)
[2020-10-28 14:33] LABS: Albumin Globulin Ratio 0.6 (0.9-2); Bilirubin,Total 0.8 mg/dl (0.2-1); Globulin 4.6 gm/dl (2.5-4.0); Total Protein 7.5 gm/dl (6.4-8.2)
[2020-10-28 14:40] LABS: INR 1.1 (0.9-1.1); Partial Thromboplastin Ratio 1.2; Partial Thromboplastin Time 33.9 Seconds (21.0-31.0); Prothrombin Time 11.4 Seconds (9.0-12.0)
[2020-10-28] MEDS ORDERED: IOVERSOL 100ml IV ONE (15:51)
[2020-10-28 16:02] LABS: Appearance Urine Clear (Clear); Bacteria Urine Automated Negative (Negative); Bilirubin Urine Negative (Negative); Blood Urine Negative (Negative); Color Urine Dark Yellow; Epithelial Cell Urine Auto 20-30 /lpf (0-5); Glucose Urine UA Negative (Negative); Ketones Urine 2+ (Negative); Leukocyte Esterase Urine Negative (Negative); Nitrite Urine Negative (Negative); Protein Urine Trace (Negative); Specific Gravity Urine 1.025 (1.000-1.030); Urobilinogen Urine Negative (Negative); pH Urine 6.5 (4.5-7.5)
--- NOTE | 2020-10-28 16:15 | CT Scan Report ---
ABDOMEN AND PELVIS CT WITH IV CONTRAST CT DOSE: 321.85 mGy.cm HISTORY: sepsis TECHNIQUE: Multiaxial CT images of the abdomen and pelvis were performed following the use of intrave nous contrast. A dose lowering technique was utilized adhering to the principles of ALARA. COMPARISON STUDY: Abdomen and pelvis CT 11/30/2010. FINDINGS: A 6 mm subpleural nodule within left lower lobe on image 18. Linear groundglass density wit hin the right lung base favors dependent change. No pneumoperitoneum. No pneumatosis. No suspicious l ytic are blastic osseous lesions. There is a small hiatus hernia. Single mildly dilated right intrahe patic bile duct. There is mild hepatic steatosis. No hepatic or splenic masses. The gallbladder, panc reas, adrenal glands, and kidneys are within normal limits. No hydronephrosis. No retroperitoneal lym phadenopathy. Tiny fat-containing umbilical hernia. There is a left circumaortic renal vein. The visu alized appendix is unremarkable. Colonic diverticulosis. No evidence for acute diverticulitis. No sanam dder wall thickening. There is a small posterior bladder diverticulum, unchanged. No bowel wall thick ening or obstruction. No pelvic free fluid. IMPRESSION: 1. No bowel wall thickening or obstruction. 2. Normal appendix. 3. Colonic diverticulosis. No CT evidence for acute diverticulitis. 4. A 6 mm indeterminate pulmonary nodule within the left lower lobe. Please refer to the chart below for recommended follow-up. 5. A single mildly dilated right intrahepatic bile duct. This is of uncertain clinical significance. Correlation with LFTs recommended to exclude the less likely possibility of an obstructive process. Please refer to below summary of Fleischner criteria recommendations for follow-up of incidental CT n odules ([facility], Guidelines for management of small pulmonary nodules detected on CT scans: A sta tement from the Fleischner Society, Radiology 237: [phone].) SOLID NODULES Solitary nodule size: <6 mm * Low risk patients: no follow-up needed * high risk patients: optional CT at 12 months Solitary nodule size: 6-8 mm * Low risk patients: follow-up at 6-12 months, then consider further follow-up at 18-24 months * high risk patients: initial follow-up CT at 6-12 months and then at 18-24 months if no change Solitary nodule size: >8 mm * either low or high risk patients - consider follow-up CT at 3 months, and/or CT-PET, and/or biopsy Multiple nodules size: <6 mm * Low risk patients: no routine follow-up * high risk patients: optional CT at 12 months Multiple nodules size: 6-8 mm * Low risk patients: follow-up at 3-6 months, then consider further follow-up at 18-24 months * high risk patients: follow-up at 3-6 months, then at 18-24 months if no change Multiple nodules size: >8 mm * Low risk patients: follow-up at 3-6 months, then consider further follow-up at 18-24 months * high risk patients: follow-up at 3-6 months, then at 18-24 months if no change Note: newly detected indeterminate nodule in persons 35 years of age or older. * Low risk patients: minimal or absent history of smoking and/or other known risk factors * high risk patients: history of smoking or of other known risk factors (e.g. first degree relative with lung cancer, or exposure to asbestos, radon, uranium) * if a nodule up to 8 mm is partly solid or is ground glass further follow-up is required after 24 m onths to exclude possible slow growing adenocarcinoma (LUZMA) SUBSOLID NODULES Solitary pure ground-glass nodule * nodule size <6 mm - no CT follow-up required * nodule size >=6 mm - follow-up CT at 6-12 months, then every 2 years until 5 years Solitary part-solid nodule * nodule size <6 mm - no CT follow-up required * nodule size >=6 mm - follow-up CT at 3-6 months. If unchanged, and solid component remains <6 mm, then annual follow-up for 5 years Multiple subsolid nodules * nodule size <6 mm - follow-up CT at 3-6 months, consider further follow-up at 2 and 4 years if sta ble * nodule size >=6 mm - follow-up CT at 3-6 months, subsequent management based on the most suspiciou s nodule(s) ACT 112: Negative or not required by law. Electronically signed by: Julian Steele M.D. 10/28/2020 4:14 PM
--- NOTE | 2020-10-28 17:14 | History & Physical Report ---
Date of Service October 28, 2020 Assessment & Plan (1) Sepsis: Mr. Magallanes is a 75-year-old male with a history of Prediabetes, Hypercholesterolemia, GERD, BPH, Anal Carcinoma in Situ, and Low Back Pain s/p Caudal Epidural Steroid Injections (last 1 was 07/01/2020) -- who presents to [facility] today complaining of Fever, Chills, Myalgias, Arthralgias, Intermittent Sinus Pressure, and Expectorating Mucous from his Throat and Upper Chest. He describes a fever and chills on the night of 10/21/2020 with a temperature of 101.8 degrees. He had a telemedicine visit with his PCP on 10/22/2020. He subsequently tested negative for COVID-19 (testing was done because his had COVID 19 in August 2020. Patient was feeling better when he spoke to his PCP that day. Unfortunately last evening, he again developed fever, shaking chills, rigors, myalgias, arthralgias, sinus pressure/headache (responds to Tylenol), and still getting some mucous from his throat. Patient denies any nausea, but he did have 1 episode of emesis described as small. He denies any focal abdominal pain, diarrhea, loose watery stools, or any recent foreign travel. He denies any loss and his sense of taste or smell. He has not had a cough or shortness of breath. He denies any hemoptysis. He denies any stiff neck. He has not had any chest discomfort pleuritic or otherwise. He has not had any actual swelling or erythema of his achy joints. He denies any embedded ticks, he has not had any rash or skin lesions. He denies any open wounds. He denies any urinary symptoms, specifically denying any urinary frequency, urgency, hesitancy, or dysuria. He has not had any recent invasive procedures such as dental work, colonoscopy, cystoscopy, etc.. He did have epidural steroid injections in the past, but the last injection was over 3 months ago. In the ER he is febrile and was transiently hypotensive, BP improved following IVF bolus. Blood cultures have been collected. Urine specimen obtained. His WBC# is > 20,000 with leftward shift. Procalcitonin is elevated, serum Lactate was initially elevated, but is now WNL. Recommend the following: -- Admit to PCU on Telemetry. -- Test for Influenza A&B, RSV, Lyme with reflex WB, and check for SARS CoV2 antibodies. -- Continue IV NSS. -- CT Scan of Sinuses as possible source of infection. -- Daily CBC with Diff. -- Daily CMP. -- Follow Procalcitonin levels. -- Continue IV Zosyn, pharmacy consulted. (2) Leukocytosis: -- As outlined above. (3) Prediabetes: -- Carb consistent diet. -- If BSG's elevated, use Novolog on a sliding scale. (4) Hypercholesterolemia: -- Take Garlic tablets at home. -- Consider adding a statin. (5) Intrahepatic bile duct dilation: -- Uncertain of clinical signifigance. -- Normal LFT's and no evidence or symptoms of hepatobiliary disease otherwise. -- Follow LFT's, consider further imaging. (6) Gastroesophageal reflux disease: -- Currently asymptomatic. -- Maalox as needed. History of Present Illness Chief Complaint: -- Sepsis. -- Fever, Chills, Myalgias, Arthralgias. Primary Care Provider: Chato Gonzales III, DARYL Mr. Magallanes is a 75-year-old male with a history of Prediabetes, Hypercholesterolemia, GERD, BPH, Anal Carcinoma in Situ, and Low Back Pain s/p Caudal Epidural Steroid Injections (last 1 was 07/01/2020) -- who presents to [facility] today complaining of Fever, Chills, Myalgias, Arthralgias, Intermittent Sinus Pressure, and Expectorating Mucous from his Throat and Upper Chest. He describes a fever and chills on the night of 10/21/2020 with a temperature of 101.8 degrees. He had a telemedicine visit with his PCP on 10/22/2020. He subsequently tested negative for COVID-19 (testing was done because his had COVID 19 in August 2020. Patient was feeling better when he spoke to his PCP that day. Unfortunately last evening, he again developed fever, shaking chills, rigors, myalgias, arthralgias, sinus pressure/headache (responds to Tylenol), and still getting some mucous from his throat. Patient denies any nausea, but he did have 1 episode of emesis described as small. He denies any focal abdominal pain, diarrhea, loose watery stools, or any recent foreign travel. He denies any loss and his sense of taste or smell. He has not had a cough or shortness of breath. He denies any hemoptysis. He denies any stiff neck. He has not had any chest discomfort pleuritic or otherwise. He has not had any actual swelling or erythema of his achy joints. He denies any embedded ticks, he has not had any rash or skin lesions. He denies any open wounds. He denies any urinary symptoms, specifically denying any urinary frequency, urgency, hesitancy, or dysuria. He has not had any recent invasive procedures such as dental work, colonoscopy, cystoscopy, etc.. He did have epidural steroid injections in the past, but the last injection was over 3 months ago. He denies any recent sick contacts. Allergies Allergy/AdvReac Type Severity Reaction Status Date / Time No Known Allergies Allergy Verified 10/28/20 16:20 Home Medications Medication Instructions Recorded Confirmed Type cholecalciferol (vitamin D3) 50 2,000 unit PO DAILY tab 02/12/19 10/28/20 His tory mcg (2,000 unit) tablet multivitamin 1 tab PO DAILY 02/27/19 10/28/20 History garlic 500 mg PO DAILY 03/24/19 10/28/20 History omega-3 acid ethyl esters 1 gram 1 cap PO BID cap 05/06/19 10/28/20 History capsule gabapentin 300 mg capsule 300 mg PO HS #30 cap 06/03/20 10/28/20 Rx meloxicam 15 mg tablet 15 mg PO DAILY #90 tab 06/09/20 10/28/20 Rx aspirin [Ecotrin] 325 mg PO DAILY 10/28/20 10/28/20 History glucos sul [id number] 1 cap PO DAILY 10/28/20 10/28/20 History [Glucosamine Chondroitin] Past Med/Surg History Medical History (Updated 10/28/20 @ 17:54 by Siva Camacho PA-C) History of carcinoma in situ of anal canal Surgical History History of cataract surgery History of colonoscopy History of excision of lesion 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 S/P wisdom tooth extraction Family History Father Myocardial infarction ASCVD (arteriosclerotic cardiovascular disease) Pacemaker Mother Diabetes Peripheral vascular disease Denies family history of Ovarian cancer Prostate cancer Breast cancer Colorectal cancer Social History Smoking Status: Unknown if ever smoked Tobacco Type: Cigarettes Age Started Using Tobacco: 23; packs per day: 0.5; Years Smoked: 30; Second Hand Exposure: No; Preferred Language: Lithuanian Communication Ability: Effective Visual Impairment: No Limitations Hearing Ability: Use of Hearing Aid Beliefs That Will Affect Care: None marital status: Current Living Situation: Family current occupational status: retired Other Information That Helps Us Care for You: No Feels Safe at Home: Yes Safety Concerns: Feels Safe At This Time Childhood Exposure to Second-Hand Smoke: Yes Dental Care, Regularly: Yes Physical Activity Frequency: 3-4 Times per Week Physical Activity Frequency Comment: walking Seatbelt Use: always Sunscreen Use: No Assistive Devices: Cane Review of Systems Review of Systems: All systems reviewed & are unremarkable except as noted in Subjective Physical Exam Physical Exam: Patient is febrile, T=38.2 degrees Celsius. BP is 130/68 at 1700. General: Patient in no acute distress. HEENT: Head is atraumatic, normocephalic. Sinuses are non-tender. EOMs intact. Sclerae anicteric. Facies symmetric. No perioral cyanosis. Neck: No JVD. Carotid upstrokes +2 bilaterally. JVP is nt elevated. Chest and Lungs: Clear to auscultation throughout all lung adrian, no wheezes, rales, or rhonchi. CVS: S1 and S2 are regular, distant without murmurs, gallops, or rubs. PMI is nondisplaced. No lifts, heaves, or thrills. No abdominal aortic or renal bruits. Abdominal Exam: Bowel sounds present. No masses, organomegaly, or tenderness. Extremities: No clubbing, cyanosis, or edema. Intact radial pulses bilaterally. Neurologic Exam: Patient is awake, alert, and oriented. Pleasant and cooperative. Answers questions appropriately. Speech is clear. Normal movement in all 4 extremities. Gait pattern was not assessed. Dermatologic Exam: No rashes or dermatologic lesions, No open area. No "bullseye" rash. No splinter hemorrhages. No Jan[place]ay lesions. Results & Data Results & Data ([facility]) Vital Signs (Past 12 Hours) Vital Signs Temp Pulse Resp BP Pulse Ox 10/28/20 16:15 80 19 94/57 L 95 10/28/20 16:00 83 20 111/60 95 10/28/20 15:30 88/42 L 94 10/28/20 15:28 86 15 80/45 L 95 10/28/20 15:15 93/58 L 95 10/28/20 15:00 89 20 93/45 L 94 10/28/20 14:45 96 H 20 86/48 L 93 10/28/20 14:30 96 H 20 97/49 L 94 10/28/20 14:15 100 H 25 H 90/47 L 94 10/28/20 14:01 108 H 17 129/58 L 95 10/28/20 14:00 102 H 25 H 94 10/28/20 13:55 105 H 21 94 10/28/20 13:52 94 10/28/20 12:20 38.2 C H 118 H 18 129/75 94 Laboratory Results Laboratory Results - last 24 hr 10/28/20 10/28/20 10/28/20 13:52 13:52 13:52 WBC 20.94 H RBC 4.30 L Hgb 14.2 Hct 41.1 L MCV 95.6 MCH 33.0 MCHC 34.5 RDW Std Deviation 47.8 H RDW Coeff of Aleisha 13.8 Plt Count 340 MPV 9.3 Immature Gran % (Auto) 0.8 Neut % (Auto) 80.7 Lymph % (Auto) 9.4 Stanton % (Auto) 9.0 Eos % (Auto) 0.0 Baso % (Auto) 0.1 Neut # (Auto) 16.90 H Lymph # (Auto) 1.97 Stanton # (Auto) 1.88 H Eos # (Auto) 0.00 Baso # (Auto) 0.02 Immature Gran # (Auto) 0.17 H PT Cancelled INR Cancelled APTT Cancelled PTT Ratio Cancelled Sodium 135 L Potassium 4.1 Chloride 102 Carbon Dioxide 25 Anion Gap 8.0 BUN 18 Creatinine 0.99 Est Cr Clr Drug Dosing 59.4 Est GFR ( Amer) 84.8 Est GFR (Non-Af Amer) 73.2 BUN/Creatinine Ratio 18.4 Glucose 145 H Lactate Calcium 9.2 Magnesium 2.1 Total Bilirubin 0.8 AST 19 ALT 41 Alkaline Phosphatase 72 Troponin I Total Protein 7.5 Albumin 2.9 L Globulin 4.6 H Albumin/Globulin Ratio 0.6 L Procalcitonin Urine Color Urine Appearance Urine pH Ur Specific [place] Urine Protein Urine Glucose (UA) Urine Ketones Urine Blood Urine Nitrite Urine Bilirubin Urine Urobilinogen Ur Leukocyte Esterase Urine WBC (Auto) Urine RBC (Auto) U Hyaline Cast (Auto) U Epithel Cells (Auto) Urine Bacteria (Auto) COVID-19 Eval Order SARS-CoV-2, RNA, NAAT 10/28/20 10/28/20 10/28/20 13:52 13:58 13:59 WBC RBC Hgb Hct MCV MCH MCHC RDW Std Deviation RDW Coeff of Aleisha Plt Count MPV Immature Gran % (Auto) Neut % (Auto) Lymph % (Auto) Stanton % (Auto) Eos % (Auto) Baso % (Auto) Neut # (Auto) Lymph # (Auto) Stanton # (Auto) Eos # (Auto) Baso # (Auto) Immature Gran # (Auto) PT 11.4 INR 1.1 APTT 33.9 H PTT Ratio 1.2 Sodium Potassium Chloride Carbon Dioxide Anion Gap BUN Creatinine Est Cr Clr Drug Dosing Est GFR ( Amer) Est GFR (Non-Af Amer) BUN/Creatinine Ratio Glucose Lactate 2.6 H* Calcium Magnesium Total Bilirubin AST ALT Alkaline Phosphatase Troponin I Pending Total Protein Albumin Globulin Albumin/Globulin Ratio Procalcitonin Urine Color Urine Appearance Urine pH Ur Specific [place] Urine Protein Urine Glucose (UA) Urine Ketones Urine Blood Urine Nitrite Urine Bilirubin Urine Urobilinogen Ur Leukocyte Esterase Urine WBC (Auto) Urine RBC (Auto) U Hyaline Cast (Auto) U Epithel Cells (Auto) Urine Bacteria (Auto) COVID-19 Eval Order SARS-CoV-2, RNA, NAAT 10/28/20 10/28/20 10/28/20 14:00 14:00 15:30 WBC RBC Hgb Hct MCV MCH MCHC RDW Std Deviation RDW Coeff of Aleisha Plt Count MPV Immature Gran % (Auto) Neut % (Auto) Lymph % (Auto) Stanton % (Auto) Eos % (Auto) Baso % (Auto) Neut # (Auto) Lymph # (Auto) Stanton # (Auto) Eos # (Auto) Baso # (Auto) Immature Gran # (Auto) PT INR APTT PTT Ratio Sodium Potassium Chloride Carbon Dioxide Anion Gap BUN Creatinine Est Cr Clr Drug Dosing Est GFR ( Amer) Est GFR (Non-Af Amer) BUN/Creatinine Ratio Glucose Lactate Calcium Magnesium Total Bilirubin AST ALT Alkaline Phosphatase Troponin I Total Protein Albumin Globulin Albumin/Globulin Ratio Procalcitonin Urine Color Dark Yellow Urine Appearance Clear Urine pH 6.5 Ur Specific [place] 1.025 Urine Protein Trace H Urine Glucose (UA) Negative Urine Ketones 2+ H Urine Blood Negative Urine Nitrite Negative Urine Bilirubin Negative Urine Urobilinogen Negative Ur Leukocyte Esterase Negative Urine WBC (Auto) 1-5 Urine RBC (Auto) 5-10 H U Hyaline Cast (Auto) 1-5 U Epithel Cells (Auto) 20-30 H Urine Bacteria (Auto) Negative COVID-19 Eval Order Covid19 IDNow [facility] SARS-CoV-2, RNA, NAAT NEGATIVE 10/28/20 10/28/20 15:41 16:45 WBC RBC Hgb Hct MCV MCH MCHC RDW Std Deviation RDW Coeff of Aleisha Plt Count MPV Immature Gran % (Auto) Neut % (Auto) Lymph % (Auto) Stanton % (Auto) Eos % (Auto) Baso % (Auto) Neut # (Auto) Lymph # (Auto) Stanton # (Auto) Eos # (Auto) Baso # (Auto) Immature Gran # (Auto) PT INR APTT PTT Ratio Sodium Potassium Chloride Carbon Dioxide Anion Gap BUN Creatinine Est Cr Clr Drug Dosing Est GFR ( Amer) Est GFR (Non-Af Amer) BUN/Creatinine Ratio Glucose Lactate 1.1 Calcium Magnesium Total Bilirubin AST ALT Alkaline Phosphatase Troponin I Total Protein Albumin Globulin Albumin/Globulin Ratio Procalcitonin 2.21 H Urine Color Urine Appearance Urine pH Ur Specific [place] Urine Protein Urine Glucose (UA) Urine Ketones Urine Blood Urine Nitrite Urine Bilirubin Urine Urobilinogen Ur Leukocyte Esterase Urine WBC (Auto) Urine RBC (Auto) U Hyaline Cast (Auto) U Epithel Cells (Auto) Urine Bacteria (Auto) COVID-19 Eval Order SARS-CoV-2, RNA, NAAT Diagnostic Findings CT SCAN Abd/Pelvis 10/28/2020: 1. No bowel wall thickening or obstruction. 2. Normal appendix. 3. Colonic diverticulosis. No CT evidence for acute diverticulitis. 4. A 6 mm indeterminate pulmonary nodule within the left lower lobe. Please refer to the chart below for recommended follow-up. 5. A single mildly dilated right intrahepatic bile duct. This is of uncertain clinical significance. Correlation with LFTs recommended to exclude the less likely possibility of an obstructive process. Medications Administered Discontinued Medications Acetaminophen (Acetaminophen 500 Mg Tab) 1,000 mg PO NOW STA Stop: 10/28/20 13:03 Last Admin: 10/28/20 13:55 Dose: 1,000 mg Documented by: [id number] Sodium Chloride (Nss 1000ml) 1,000 mls @ 999 mls/hr IV .Q1H1M ONE Stop: 10/28/20 14:02 Last Infusion: 10/28/20 15:37 Dose: 0 mls/hr Documented by: [id number] Admin: 10/28/20 13:55 Dose: 999 mls/hr Documented by: [id number] Sodium Chloride (Nss 1000ml) 1,000 mls @ 999 mls/hr IV .Q1H1M ONE Stop: 10/28/20 15:27 Last Admin: 10/28/20 16:16 Dose: 999 mls/hr Documented by: [id number] Piperacillin Sod/Tazobactam Sod (Zosyn) 4.5 gm in 120 mls @ 240 mls/hr IV NOW ONE Stop: 10/28/20 14:56 Last Infusion: 10/28/20 17:08 Dose: 0 mls/hr Documented by: [id number] Admin: 10/28/20 16:16 Dose: 240 mls/hr Documented by: [id number] Sodium Chloride (Nss 1000ml) 1,000 mls @ 999 mls/hr IV .Q1H1M ONE Stop: 10/28/20 17:27 Last Admin: 10/28/20 17:08 Dose: 999 mls/hr Documented by: [id number] Ioversol (Ioversol 100ml) 95 ml IV ONCE ONE Stop: 10/28/20 15:52 Last Admin: 10/28/20 15:52 Dose: 95 ml Documented by: [id number] Code Status & VTE Plan Code Status Full Code VTE Prophylaxis Plan VTE Prophylaxis will be ordered: Yes Supervising Physician Co-Signing Physician Notes Attending Attestation and Admit Note: Pt seen/examined, chart reviewed, care plan d/w LISA Camacho. I agree w/ the zheng components of admission documentation. 75yo male presents with fevers/chills. Had such last Sunday - was tested for COVID-19 -- testing was negative. Fevers/chills resolved, and then symptoms returned again last evening. Of note - when I spoke with pt's she reports that patient had lost his taste/smell in mid-August. This was the same time that his was sick with COVID-19. Patient never had COVID-19 testing in August, however. During my assessment patient was having severe rigors. He was having dyspnea as well but denies dyspnea or cough at home prior to presentation. PMH, PSH, allergies, meds, sochx, famhx - reviewed febrile, BP wnl gen - severe rigors, having dyspnea with moving in the bed, ill-appearing heart - tachy, s1 s2 lungs - CTA b/l, decrease bs left base, no rales abd - soft NT ND BS+ ext - no edema labs - wbc 20 COVID-19 PCR neg COVID serum ab's + LFTs wnl procal 2.2 A/P: 1. recurrent fevers/chills/SIRS - source uncertain. Blood cx's pending; lyme pending; RSV/flu pending. u/a not suggestive of UTI. CT abd/pelvis noted; cxr noted. 2. +COVID-19 serum ab's - patient likely had COVID-19 in August when he lost his taste & smell at that time. I believe he fully recovered from COVID. COVID PCR neg last week and again today. 3. dilated intrahepatic bile duct - check RUQ u/s, r/o biliary/hepatic disease as cause of fevers/chills. LFTs noted to be normal. 4. recent right hip and lower back injections - patient not reporting any pain in these locations. Doubt they are source for his fevers. However, if we cannot find other cause for illness, consider imaging of these locations. 5. dyspnea - repeat cxr in am. Imaging today could be missing early pneumonia. If he has brewing pneumonia will empirically treat with rocephin/doxycycline. updated by phone Chavo Guerin MD PG Care Time/CCT Total # of Minutes Spent Total Time Spent with Patient: Total time spent is greater than 50% in coordination of care (as documented) at patient's floor/unit and/or counseling patient:55 Coding Level of Care Code 11404 Initial Inpt Care Lvl 3 Diagnoses Sepsis A41.9 Sepsis acute organ dysfunction status: unspecified Sepsis type: sepsis due to unspecified organism Leukocytosis D72.829 Leukocytosis type: unspecified Prediabetes R73.03 Hypercholesterolemia E78.00 Intrahepatic bile duct dilation K83.8 Gastroesophageal reflux disease K21.9 Time Spent (min) 75 (1) Leukocytosis Leukocytosis type: unspecified Qualified Code(s): D72.829 - Elevated white blood cell count, unspecified (2) Sepsis Sepsis acute organ dysfunction status: unspecified Sepsis type: sepsis due to unspecified organism Qualified Code(s): A41.9 - Sepsis, unspecified organism
[2020-10-28] MEDS ORDERED: IBUPROFEN 800 MG TAB PO STA (18:00)
[2020-10-28] MEDS ORDERED: POLYETHYLENE (MIRALAX) 17 GM PACK PO PRN (19:07)
[2020-10-28] MEDS ORDERED: MAGNESIUM HYDROXIDE SUSP 30 ML UDC PO PRN (19:07)
[2020-10-28] MEDS ORDERED: ALUMINUM/MAGNESIUM SUSP 30 ML UDC PO PRN (19:07)
[2020-10-28] MEDS ORDERED: ACETAMINOPHEN 325 MG TAB PO PRN (19:07)
[2020-10-28] MEDS ORDERED: NITROGLYCERIN SL 0.4 MG/TAB TAB SL PRN (19:07)
[2020-10-28] MEDS ORDERED: PIPERACILLIN/TAZOBACTAM 3.375 GM in DEXTROSE 5% 100 ML IV SCH (19:07)
[2020-10-28] MEDS ORDERED: ZOLPIDEM TARTRATE 5 MG TAB PO PRN (19:07)
[2020-10-28] MEDS ORDERED: ENOXAPARIN INJ 40 MG/0.4 ML SYR SQ SCH ×2 (19:07→21:00)
[2020-10-28] MEDS ORDERED: PNEUMOCOCCAL ADMINISTRATION CHARGE ONE (19:23)
[2020-10-28] MEDS ORDERED: PNEUMOCOCCAL POLYSACCHARIDES 25 MCG/0.5 ML VIAL/SYR IM ONE (19:23)
[2020-10-28] MEDS ORDERED: INFLUENZA VACCINE HIGH DOSE 65+ 0.7 ML SYR IM ONE (19:23)
[2020-10-28] MEDS ORDERED: INFLUENZA ADMINISTRATION CHARGE ONE (19:23)
[2020-10-28 20:14] LABS: Lyme Ab IgG w/WB Rflx Negative (Negative); Lyme Ab IgM w/WB Rflx Negative (Negative)
[2020-10-28 20:26] LABS: CoV2 Total Antibody Positive (Negative)
--- NOTE | 2020-10-28 20:28 | Ultrasound Report ---
US gallbladder CLINICAL HISTORY: Fever, chills, abnormal CT scan. COMPARISON STUDY: CT scan performed the same day FINDINGS: There is fatty infiltration the pancreas. No focal hepatic masses are visualized. The gallbladder appears sonographically normal. There is no ductal dilatation. The common bile duct m easures 4 mm. There is no right-sided hydronephrosis. IMPRESSION: 1. Normal study. 2. Ultrasound fails to visualize the reported right hepatic lobe dilated duct ACT 112: Negative or not required by law. Electronically signed by: Carlyle Nixon M.D. 10/28/2020 8:27 PM
[2020-10-28] MEDS ORDERED: ALBUTEROL HFA 8 GM INHALER INH PRN (20:32)
--- NOTE | 2020-10-28 20:54 | CT Scan Report ---
CT sinus wo con CLINICAL HISTORY: Fever/Sepsis/sinus pressure COMPARISON STUDY: None. TECHNIQUE: CT scan of the paranasal sinuses was performed in the axial plane. Coronal reconstructed images were obtained and reviewed. A dose lowering technique was utilized adhering to the principles of ALARA. CT DOSE: 685.69 mGy.cm FINDINGS: No orbital lesions are visualized in this noncontrast study. There is no evidence of hydrocephalus. The middle ear cavities are well aerated. There is a small amount of fluid within the sphenoid sinus. There is minor bilateral maxillary sinus mucosal thickening. The ostiomeatal units are patent bilate rally. There is a minimal right mastoid effusion. IMPRESSION: 1. Small amount of fluid in the sphenoid sinus 2. Minor bilateral maxillary sinus mucosal thickening 3. Minimal right mastoid effusion 4. The ostiomeatal units are patent bilaterally ACT 112: Negative or not required by law. Electronically signed by: Carlyle Nixon M.D. 10/28/2020 8:53 PM
[2020-10-28] MEDS ORDERED: cefTRIAXone SODIUM 2,000 MG in DEXTROSE 5% 50 ML IV SCH (21:00)
[2020-10-28] MEDS ORDERED: GABAPENTIN 300 MG CAP PO SCH (21:00)
[2020-10-28] MEDS: SODIUM CHLORIDE 0.9% 1000ML 1,000 ML IV SCH (22:00)
[2020-10-28] MEDS: DOXYCYCLINE HYCLATE 100 MG in DEXTROSE 5% 100 ML IV SCH (22:02)
[2020-10-28] MEDS: OMEGA-3 (PURIFIED FISH OIL) 1 GM CAP PO SCH (22:11)
[2020-10-29] MEDS: SODIUM CHLORIDE 0.9% 1000ML 1,000 ML IV SCH (05:50)
[2020-10-29 06:02] LABS: Influenza A virus by PCR Negative (Negative); Influenza B virus by PCR Negative (Negative); RSV by PCR Negative (Negative)
[2020-10-29 07:09] LABS: Basophils # (auto) 0.03 K/uL (0-0.2); Basophils % (auto) 0.2 %; Eosinophils # (auto) 0.01 K/uL (0-0.5); Eosinophils % (auto) 0.1 %; Hematocrit (blood only) 38.9 % (42-52); Hemoglobin 12.7 g/dL (14.0-18.0); Immature Granulocytes # (auto) 0.05 K/uL (0.00-0.02); Immature Granulocytes % (auto) 0.3 %; Lymphocytes # (auto) 2.17 K/uL (1.2-3.4); Lymphocytes % (auto) 13.4 %; Mean Corpuscular Hemoglobin 31.7 pg (25-34); Mean Corpuscular Hgb Conc 32.6 g/dL (32-36); Mean Platelet Volume 9.4 fL (7.4-10.4); Monocytes # (auto) 1.44 K/uL (0.11-0.59); Monocytes % (auto) 8.9 %; Neutrophils # (auto) 12.46 K/uL (1.4-6.5); Neutrophils % (auto) 77.1 %; Platelet Count 310 K/uL (130-400); RDW Coefficient of Variation 13.9 % (11.5-14.5); RDW Standard Deviation 49.6 fL (36.4-46.3); Red Blood Count 4.01 M/uL (4.7-6.1); White Blood Count 16.16 K/uL (4.8-10.8)
[2020-10-29 07:42] LABS: Albumin Level 2.6 gm/dl (3.4-5.0); BUN Creatinine Ratio 24.9 (10-20); Calcium 8.9 mg/dl (8.5-10.1); Creatinine Clr Calc Pharmacy 78.2 ml/min; Est GFR (African American) 103.1; Potassium 3.5 mmol/L (3.5-5.1)
[2020-10-29 07:45] LABS: Albumin Globulin Ratio 0.6 (0.9-2); Bilirubin,Total 0.7 mg/dl (0.2-1); Total Protein 6.6 gm/dl (6.4-8.2)
[2020-10-29] MEDS: OMEGA-3 (PURIFIED FISH OIL) 1 GM CAP PO SCH (08:00)
[2020-10-29] MEDS: DOXYCYCLINE HYCLATE 100 MG in DEXTROSE 5% 100 ML IV SCH (08:01)
[2020-10-29] MEDS ORDERED: CHOLECALCIFEROL 1,000 UNITS 25 MCG TAB PO SCH (09:00)
[2020-10-29] MEDS ORDERED: MULTIVITAMIN TAB PO SCH (09:00)
[2020-10-29] MEDS ORDERED: MELOXICAM 7.5 MG TAB PO SCH (09:00)
[2020-10-29] MEDS ORDERED: NON-FORMULARY MEDICATION (Glucos Sul 2kcl-Msm-Chond-C-Mn [Glucosamine Chondroitin] 550-30- PO SCH (09:00)
[2020-10-29] MEDS ORDERED: ASPIRIN 325 MG ECTAB PO SCH (09:00)
--- NOTE | 2020-10-29 09:14 | XRay Report ---
XR chest 2V PA/lateral CLINICAL HISTORY: fever, dyspnea; eval for developing pneumonia COMPARISON STUDY: 10/20/2020 FINDINGS: The cardiac and mediastinal contours remain stable. There is apparent air beneath the right hemidiaphragm. This was not visualized the prior study. There is no focal pulmonary consolidation. T here are no pleural effusions. IMPRESSION: 1. Chest x-ray findings suspicious for free intraperitoneal air. 2. No evidence of focal pulmonary consolidation ACT 112: Negative or not required by law. Electronically signed by: Carlyle Nixon M.D. 10/29/2020 9:13 AM
[2020-10-29] MEDS ORDERED: ACETAMINOPHEN 1000 MG/100 ML IV IV ONE (09:51)
[2020-10-29] MEDS ORDERED: PIPERACILL/TAZOBAC CONSULT ACTIVE PRN (09:54)
[2020-10-29] MEDS ORDERED: VANCOMYCIN CONSULT ACTIVE PRN (09:54)
[2020-10-29] MEDS ORDERED: VANCOMYCIN HCL 1,000 MG in SODIUM CHLORIDE 0.9% 250 ML IV SCH (10:00)
--- NOTE | 2020-10-29 10:02 | Hospitalist Progress Note ---
Date of Service October 29, 2020 Assessment & Plan (1) Sepsis: Mr. Magallanes is a 75-year-old male with a history of Prediabetes, Hypercholesterolemia, Anal Carcinoma in Situ, and Low Back Pain s/p Caudal Epidural Steroid Injections (last 1 was 07/01/2020) -- who presents with Fever, Chills, Myalgias, Arthralgias, Intermittent Sinus Pressure, and Expectorating Mucous from his Throat and Upper Chest. He describes a fever and chills on the night of 10/21/2020 with a temperature of 101.8 degrees. He had a telemedicine visit with his PCP on 10/22/2020. He subsequently tested negative for COVID-19 (testing was done because his had COVID 19 in August 2020. Patient was feeling better when he spoke to his PCP that day. On the day of admission, he then developed recurrent fever, shaking chills, rigors, myalgias, arthralgias, sinus pressure/headache (responds to Tylenol), and still getting some mucous from his throat along with one episode of vomiting. He had no abdominal pain till the AM after admission. In the ER he is febrile and was transiently hypotensive, BP improved following IVF bolus. Blood cultures have been collected. Urine specimen obtained. His WBC# is > 20,000 with leftward shift. Procalcitonin is elevated, serum Lactate was initially elevated, but then normalized. At that time a CXR, CT abd/pel, CT sinuses, RUQ US were negative. Lyme titer negative. He was started on ceftriaxone and doxycycline empirically for PNA and tick borne illness. COVID-19/RSV/Flu all NEGATIVE. UA nega for infection. The AM after admission a repeat CXR was obtained which showed free air under the diaphragm. He was having high fevers and LLQ abdominal pain. CT abd/pel revealed acute sigmoid diverticulitis with free intraperitoneal air and inflamed small bowel consistent with peritonitis. Abx broadened to Zosyn and Vanco. PCT now elevated to 22, WBC count down to 16k. Surgery consulted and took pt for ex-lap with partial colectomy, end-colostomy. -transferred to ICU for post-op care -continue NPO status, IVFs -continue IV ZOsyn and Vanc -follow BCxs -pain control with Dilaudid -tylenol prn fevers -f/u pathology -greatly appreciate Surgery management -JONATHAN drain, Britney drain, Lunsford all in place -follow CBC, CMP, Mag, Phos (2) Portal vein thrombosis: noted to have thrombus of a branch of portal vein likely to do with acute peritonitis no systemic anticoagulation at this time consider repeat imaging after recovery from bowel surgery SQ heparin (3) Prediabetes: HgbA1C 6.0% on last check -insulin/hyperglycemia protocol as per ICU (4) Hypercholesterolemia: hold home meds (5) Intrahepatic bile duct dilation: -- Uncertain of clinical signifigance. -- Normal LFT's and no evidence or symptoms of hepatobiliary disease otherwise. CT abd/pel and RUQ US without liver issues but with branch of right portal vein thrombus (6) Peritonitis (acute) generalized: as above, continue abx, now s/p ex-lap and colon resection (7) Perforated bowel: as above, secondary to acute diverticulitis (8) Diverticulitis: as above, acute sigmoid diverticulitis (9) Free intraperitoneal air: as above (10) Ureteral stenosis: noted to have such intraoperatively with difficulty placing Lunsford-used 12 Mongolian f/u with Urology as outpt or sooner if fails TOV here post-op (11) Pulmonary nodule: 6mm nodule LLL noted plan to f/u with CT Chest in 6 months as is current smoker (12) Current smoker: encourage cessation nicotine patch prn (13) DVT prophylaxis: Heparin SQ Holding home vitamins, etc. Dispo-transferred to ICU after surgery Admission and Anticipated Discharge Date Admission Date: October 28, 2020 Subjective Pt noted to have rigors this AM and was having LLQ abd pain that recently started. He had eaten a small amount of breakfast this AM. No further nausea but reports he did vomit once yesterday. Denies CP or SOB. Had a small BM this AM that was nonbloody. No difficulty urinating. CXR image reviewed from this AM and showed free air under diaphragm. I discussed with him need for Surgical evaluation and CT abd/pel. CT A/P revealed free air and acute diverticulitis in descending colon. I discussed his care urgently with Surgery on two occasions today. He continued to spike fevers despite tylenol and adding broad-coverage antibiotics and Surgery decided to take him to the OR. Tele with NSR rates 70-80s Review of Systems Review of Systems: All systems reviewed & are unremarkable except as noted in HPI & below Physical Exam Constitutional: WD/WN, vitals as above (with ongoing rigors) not lethargic Eyes: PERRL, conjunctivae normal, anicteric sclerae ENMT: external ear and nose normal, oropharynx normal Neck: trachea midline, no thyromegaly Respiratory: normal respiratory effort, lungs clear to auscultation Cardiovascular: RRR, no murmur, no edema Chest (Breasts): Chest: normal inspection of chest Gastrointestinal (Abdomen): Inspection/Auscultation: abdomen normal to inspection and + hypoactive bowel sounds; abdomen not distended Percussion/Palpation: + abdomen tender (LLQ without guarding or rebound) and abdomen soft Musculoskeletal: Extremities: extremities normal to inspection; no cyanosis and no clubbing Skin: no rashes, warm and dry Neurologic: moves all extremities and awake; no focal motor deficits Psychiatric: A+Ox3, euthymic affect Lymphatic: no lymphedema Results & Data Results & Data ([facility]) Vital Signs (Past 12 Hours) Vital Signs Temp Pulse Pulse Resp BP Pulse Ox 10/29/20 07:55 37.0 C 77 18 100/63 98 10/29/20 04:32 36.3 C L 60 16 113/71 96 10/29/20 00:04 36.6 C 74 14 93/58 L 95 10/28/20 23:59 75 Laboratory Results 10/29/20 10/29/20 10/29/20 Range/Units Unknown 18:38 06:13 WBC (4.8-10.8) K/uL RBC (4.7-6.1) M/uL Hgb (14.0-18.0) g/dL Hct (42-52) % MCV (80-100) fL MCH (25-34) pg MCHC (32-36) g/dL RDW Std Deviation (36.4-46.3) fL RDW Coeff of Aleisha (11.5-14.5) % Plt Count (130-400) K/uL MPV (7.4-10.4) fL Immature Gran % (Auto) % Neut % (Auto) % Lymph % (Auto) % [place] % (Auto) % Eos % (Auto) % Baso % (Auto) % Neut # (Auto) (1.4-6.5) K/uL Lymph # (Auto) (1.2-3.4) K/uL [place] # (Auto) (0.11-0.59) K/uL Eos # (Auto) (0-0.5) K/uL Baso # (Auto) (0-0.2) K/uL Immature Gran # (Auto) (0.00-0.02) K/uL Absolute Nucleated RBC (0-0) K/uL Nucleated RBC % (auto) % Sodium (136-145) mmol/L Potassium (3.5-5.1) mmol/L Chloride (98-107) mmol/L Carbon Dioxide (21-32) mmol/L Anion Gap (3-11) BUN (7-18) mg/dl Creatinine (0.6-1.4) mg/dl Est Cr Clr Drug Dosing ml/min Est GFR ( Amer) Est GFR (Non-Af Amer) BUN/Creatinine Ratio (10-20) Glucose (70-99) mg/dl POC Glucose 121 H (70-99) mg/dl Calcium (8.5-10.1) mg/dl Total Bilirubin (0.2-1) mg/dl AST (15-37) U/L ALT (12-78) U/L Alkaline Phosphatase (45-117) U/L Total Protein (6.4-8.2) gm/dl Albumin (3.4-5.0) gm/dl Globulin (2.5-4.0) gm/dl Albumin/Globulin Ratio (0.9-2) Procalcitonin (0-0.5) ng/ml Nasal Screen MRSA (PCR) Negative (Negative) Anaplasma Smear A. phagocytophilum DNA Pending Influ A Molecular Assay (Negative) Influ B Molecular Assay (Negative) RSV (Molecular) (Negative) 10/29/20 10/29/20 10/29/20 Range/Units 06:13 06:13 06:13 WBC 16.16 H (4.8-10.8) K/uL RBC 4.01 L (4.7-6.1) M/uL Hgb 12.7 L (14.0-18.0) g/dL Hct 38.9 L (42-52) % MCV 97.0 (80-100) fL MCH 31.7 (25-34) pg MCHC 32.6 (32-36) g/dL RDW Std Deviation 49.6 H (36.4-46.3) fL RDW Coeff of Aleisha 13.9 (11.5-14.5) % Plt Count 310 (130-400) K/uL MPV 9.4 (7.4-10.4) fL Immature Gran % (Auto) 0.3 % Neut % (Auto) 77.1 % Lymph % (Auto) 13.4 % [place] % (Auto) 8.9 % Eos % (Auto) 0.1 % Baso % (Auto) 0.2 % Neut # (Auto) 12.46 H (1.4-6.5) K/uL Lymph # (Auto) 2.17 (1.2-3.4) K/uL [place] # (Auto) 1.44 H (0.11-0.59) K/uL Eos # (Auto) 0.01 (0-0.5) K/uL Baso # (Auto) 0.03 (0-0.2) K/uL Immature Gran # (Auto) 0.05 H (0.00-0.02) K/uL Absolute Nucleated RBC 0.00 (0-0) K/uL Nucleated RBC % (auto) 0.0 % Sodium 142 D (136-145) mmol/L Potassium 3.5 (3.5-5.1) mmol/L Chloride 109 H (98-107) mmol/L Carbon Dioxide 26 (21-32) mmol/L Anion Gap 8.0 (3-11) BUN 19 H (7-18) mg/dl Creatinine 0.74 (0.6-1.4) mg/dl Est Cr Clr Drug Dosing 78.2 ml/min Est GFR ( Amer) 103.1 Est GFR (Non-Af Amer) 89.0 BUN/Creatinine Ratio 24.9 H (10-20) Glucose 89 (70-99) mg/dl POC Glucose (70-99) mg/dl Calcium 8.9 (8.5-10.1) mg/dl Total Bilirubin 0.7 (0.2-1) mg/dl AST 41 H (15-37) U/L ALT 60 (12-78) U/L Alkaline Phosphatase 92 (45-117) U/L Total Protein 6.6 (6.4-8.2) gm/dl Albumin 2.6 L (3.4-5.0) gm/dl Globulin 4.0 (2.5-4.0) gm/dl Albumin/Globulin Ratio 0.6 L (0.9-2) Procalcitonin 22.62 H (0-0.5) ng/ml Nasal Screen MRSA (PCR) (Negative) Anaplasma Smear See Comment A. phagocytophilum DNA Influ A Molecular Assay (Negative) Influ B Molecular Assay (Negative) RSV (Molecular) (Negative) 10/29/20 Range/Units 05:35 WBC (4.8-10.8) K/uL RBC (4.7-6.1) M/uL Hgb (14.0-18.0) g/dL Hct (42-52) % MCV (80-100) fL MCH (25-34) pg MCHC (32-36) g/dL RDW Std Deviation (36.4-46.3) fL RDW Coeff of Aleisha (11.5-14.5) % Plt Count (130-400) K/uL MPV (7.4-10.4) fL Immature Gran % (Auto) % Neut % (Auto) % Lymph % (Auto) % [place] % (Auto) % Eos % (Auto) % Baso % (Auto) % Neut # (Auto) (1.4-6.5) K/uL Lymph # (Auto) (1.2-3.4) K/uL [place] # (Auto) (0.11-0.59) K/uL Eos # (Auto) (0-0.5) K/uL Baso # (Auto) (0-0.2) K/uL Immature Gran # (Auto) (0.00-0.02) K/uL Absolute Nucleated RBC (0-0) K/uL Nucleated RBC % (auto) % Sodium (136-145) mmol/L Potassium (3.5-5.1) mmol/L Chloride (98-107) mmol/L Carbon Dioxide (21-32) mmol/L Anion Gap (3-11) BUN (7-18) mg/dl Creatinine (0.6-1.4) mg/dl Est Cr Clr Drug Dosing ml/min Est GFR ( Amer) Est GFR (Non-Af Amer) BUN/Creatinine Ratio (10-20) Glucose (70-99) mg/dl POC Glucose (70-99) mg/dl Calcium (8.5-10.1) mg/dl Total Bilirubin (0.2-1) mg/dl AST (15-37) U/L ALT (12-78) U/L Alkaline Phosphatase (45-117) U/L Total Protein (6.4-8.2) gm/dl Albumin (3.4-5.0) gm/dl Globulin (2.5-4.0) gm/dl Albumin/Globulin Ratio (0.9-2) Procalcitonin (0-0.5) ng/ml Nasal Screen MRSA (PCR) (Negative) Anaplasma Smear A. phagocytophilum DNA Influ A Molecular Assay Negative (Negative) Influ B Molecular Assay Negative (Negative) RSV (Molecular) Negative (Negative) Diagnostic Findings CT A/P reviewed PG Care Time/CCT Total # of Minutes Spent Total Time Spent with Patient: Total time spent is greater than 50% in coordination of care (as documented) at patient's floor/unit and/or counseling patient: Coding Level of Care Code 13344 Subseq Hosp Care Lvl 3 Diagnoses Sepsis A41.9 Sepsis acute organ dysfunction status: unspecified Sepsis type: sepsis due to unspecified organism Portal vein thrombosis I81 Prediabetes R73.03 Hypercholesterolemia E78.00 Intrahepatic bile duct dilation K83.8 Peritonitis (acute) generalized K65.0 Perforated bowel K63.1 Diverticulitis K57.92 Free intraperitoneal air K66.8 Ureteral stenosis Q62.10 Pulmonary nodule R91.1 Current smoker F17.200 DVT prophylaxis Z29.9 (1) Sepsis Sepsis acute organ dysfunction status: unspecified Sepsis type: sepsis due to unspecified organism Qualified Code(s): A41.9 - Sepsis, unspecified organism
[2020-10-29] MEDS ORDERED: IOVERSOL 100ml IV ONE (10:11)
[2020-10-29] MEDS ORDERED: VANCOMYCIN HCL 1,750 MG in SODIUM CHLORIDE 0.9% 500 ML IV ONE (10:15)
[2020-10-29] MEDS ORDERED: PIPERACILLIN/TAZOBACTAM 4.5 GM in DEXTROSE 5% 100 ML IV ONE (10:15)
[2020-10-29] MEDS ORDERED: SODIUM CHLORIDE 0.9% 1000ML 1,000 ML IV SCH (10:15)
--- NOTE | 2020-10-29 10:31 | CT Scan Report ---
CT SCAN OF THE ABDOMEN AND PELVIS WITH IV CONTRAST CLINICAL HISTORY: Intraperitoneal free air seen by chest x-ray. COMPARISON STUDY: Abdominal CT dated 10/28/2020 in 11/30/2010. Chest x-ray dated 10/29/2020. TECHNIQUE: Following the IV administration of 94 cc of Optiray 320, CT scan of the abdomen and pelvi s is performed from the lung bases to the proximal femora. Images are reviewed in the axial, sagittal , and coronal planes. IV contrast was administered without complication. A dose lowering technique wa s utilized adhering to the principles of ALARA. CT DOSE: 395.75 mGy.cm FINDINGS: Lung bases: The heart is mildly enlarged and without pericardial effusion. The coronary arteries are densely calcified. A 6 mm pulmonary nodule is again seen in the left lower lobe on image #1. There is bibasilar scarring/atelectasis. No airspace consolidation is seen typical for pneumonia and there is no pleural effusion. There is a small hiatal hernia. Liver: The contrast-enhanced liver is normal in size, contour, and attenuation. There is no intrahepa tic biliary ductal dilatation. There is thrombus within a branch of the right portal vein, best seen on image #89. The main portal vein and the central portal veins are patent. Hepatic veins are clear. Gallbladder: Unremarkable. Spleen: Normal in size and attenuation. Pancreas: Mildly atrophic and grossly unremarkable. Adrenal glands: Unremarkable. Kidneys: The contrast enhanced kidneys demonstrate mild cortical atrophy and are without hydronephros is. The kidneys enhance symmetrically. Abdominal vasculature: The abdominal aorta is normal in course and caliber noting moderate atheroscle rotic calcification. Bowel: There is moderate to advanced colonic diverticulosis. There is mild wall thickening with surro unding inflammation involving the proximal sigmoid colon which likely represents acute diverticulitis . Additionally, there are thick-walled and hyperemic loops of adjacent small bowel in the upper pelvi s and lower abdomen seen on images #[id number]. There is no pneumatosis intestinalis or portal venous ga s. The appendix is well-visualized and normal. Peritoneum: There are numerous small foci of intraperitoneal free air seen below the diaphragm and in the ventral abdomen. A small fat-containing umbilical hernia is noted. There is no abdominal ascites . Lymphadenopathy: None. Pelvic viscera: The bladder is filled with excreted IV contrast. The wall appears thickened and trabe culated indicating chronic outlet obstruction. A posteriorly oriented diverticulum on the right measu res up to 3 cm. The prostate gland is mildly enlarged and heterogeneous. Skeletal structures: The skeletal structures are osteopenic. Mild lumbosacral spondylosis is observed . No lytic or blastic lesions are seen. There are healed left-sided rib fractures. IMPRESSION: 1. Findings are consistent with mild acute diverticulitis of the sigmoid colon. This represents a sig nificant change from yesterday. 2. There are numerous small foci of intraperitoneal free air scattered throughout the abdomen consist ent with perforation. This is new from yesterday. 3. No organized fluid collection is seen to suggest abscess. 4. There are mildly thick-walled and hyperemic loops of adjacent small bowel in the lower abdomen and pelvis. This is likely related to peritonitis/adjacent diverticulitis. 5. There is thrombus within intrahepatic branches of the right portal vein. The main portal vein and the central portal veins are clear. 6. Mild cardiomegaly. 7. Additional findings as above. ACT 112: Negative or not required by law. Electronically signed by: Artie Rowe M.D. 10/29/2020 10:29 AM
[2020-10-29] MEDS ORDERED: MoRPHine SULFATE 2 MG/ML CARP IV PRN (10:45)
--- NOTE | 2020-10-29 10:46 | Surgery Consultation ---
Date of Consultation October 29, 2020 Assessment & Plan (1) Free intraperitoneal air: This is a 75yM with a PMH of pre-DM, HLD, GERD who presented to the [facility] ED on 10/28/20 with complaints of fevers and myalgia's. Initial workup with a CT a/p revealed findings of colonic diverticulosis. WBC yesterday 20 and lactate 1.1. Vital signs improved with IVF resuscitation and the start of IV abx. Today a CXR revealed findings concerning for pneumoperitoneum. A follow up CT a/p obtained showed findings of mild acute diverticulitis of the sigmoid colon along with numerous small foci of intraperitoneal free air scattered throughout the abdomen consistent with perforation which is new from yesterday. There is no signs of abscess or fluid collection. Patient also has a thrombus within intrahepatic branches of the right portal vein. Surgery was consulted given findings. Today patient is complaining of a little more LLQ pain. On examination abdomen is soft with ttp in the LLQ. His abx have been adjusted to IV vanco/zosyn. Vital signs are improved compared to yesterday. For now would recommend giving patient a trial of conservative management. Keep NPO for bowel rest, continue IV abx, and IVF. We will continue to follow closely in the event patient's condition worsens indicating the need for urgent surgical intervention. This was discussed with the patient. Patient was seen and examined with Dr. Mills. History of Present Illness Attending Physician: Jackie Titus MD History of Present Illness This is a 75yM with a PMH of pre-DM, HLD, GERD who presented to the [facility] ED on 10/28/20 with complaints of fevers and myalgia's. On arrival patient also endorsed nausea with a small bout of emesis. Covid testing negative. Workup in the ER revealed a WBC of 20, tachycardia, with fever to 38.7, and a CT a/p showing colonic diverticulosis. A sinus CT was performed as patient also having sinus pressure that showed small amount of fluid in the sphenoid sinus, minor bilateral maxillary sinus mucosal thickening, and minimal right mastoid effusion. Patient was treated with IVF and started on IV abx and was beginning to feel better. He was admitted under the hospitalist service. Today a CXR was obtained to rule out pulmonary source of his fevers/WBC which revealed evidence of free intraperitoneal air. Surgery was consulted and a stat CT a/p was obtained. Today he does complain of more left lower quadrant abdominal pain. Dr. Mills-see information above. Patient is seen in his hospital room in his bed in no distress, awake alert responsive. He says his abdominal pain has subsided significantly-he did receive some Tylenol. His vital signs are stable His repeat CAT scan does show a small amount of free air and evidence in the left lower quadrant of some perisigmoid small bowel inflammation-likely consistent with acute diverticulitis. There is no fluid or abscess, there is no evidence of extraluminal gas in this area. His pain is isolated to the left lower quadrant and his abdomen is soft with active bowel sounds. At the present time the patient is stable-he has been placed back on Zosyn and is being kept n.p.o. for now. We will monitor him closely and if he does deteriorate he will require exploratory laparotomy and likely temporary colostomy. Allergies Allergy/AdvReac Type Severity Reaction Status Date / Time No Known Allergies Allergy Verified 10/28/20 16:20 Home Medications Medication Instructions Recorded Confirmed Type cholecalciferol (vitamin D3) 50 2,000 unit PO DAILY tab 02/12/19 10/28/20 History mcg (2,000 unit) tablet multivitamin 1 tab PO DAILY 02/27/19 10/28/20 History garlic 500 mg PO DAILY 03/24/19 10/28/20 History omega-3 acid ethyl esters 1 gram 1 cap PO BID cap 05/06/19 10/28/20 History capsule gabapentin 300 mg capsule 300 mg PO HS #30 cap 06/03/20 10/28/20 Rx meloxicam 15 mg tablet 15 mg PO DAILY #90 tab 06/09/20 10/28/20 Rx aspirin [Ecotrin] 325 mg PO DAILY 10/28/20 10/28/20 History glucos sul [id number]-Mn 1 cap PO DAILY 10/28/20 10/28/20 History [Glucosamine Chondroitin] Patient History Medical History (Updated 10/29/20 @ 10:56 by Fiona Isaacs PA-C) History of carcinoma in situ of anal canal Surgical History History of cataract surgery History of colonoscopy History of excision of lesion 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 S/P wisdom tooth extraction Family History Father Myocardial infarction ASCVD (arteriosclerotic cardiovascular disease) Pacemaker Mother Diabetes Peripheral vascular disease Denies family history of Ovarian cancer Prostate cancer Breast cancer Colorectal cancer Social History Smoking Status: Unknown if ever smoked Tobacco Type: Cigarettes Age Started Using Tobacco: 23; packs per day: 0.5; Years Smoked: 30; Second Hand Exposure: No; Preferred Language: Austrian Communication Ability: Effective Visual Impairment: No Limitations Hearing Ability: Use of Hearing Aid Beliefs That Will Affect Care: None marital status: Current Living Situation: Family current occupational status: retired Other Information That Helps Us Care for You: No Feels Safe at Home: Yes Safety Concerns: Feels Safe At This Time Childhood Exposure to Second-Hand Smoke: Yes Dental Care, Regularly: Yes Physical Activity Frequency: 3-4 Times per Week Physical Activity Frequency Comment: walking Seatbelt Use: always Sunscreen Use: No Assistive Devices: None Review of Systems Constitutional: + fever and + body aches Respiratory: no dyspnea Cardiovascular: no chest pain Gastrointestinal: + abdominal pain (left lower abdomen), + nausea and + vomiting Physical Exam Physical Exam: awake/alert Constitutional: well developed and well nourished; no acute distress Respiratory: normal respiratory effort Cardiovascular: Rate/Rhythm: regular rate Gastrointestinal (Abdomen): Inspection/Auscultation: abdomen not distended Percussion/Palpation: + abdomen tender (ttp in LLQ) and abdomen soft Results & Data ([facility]) Vital Signs (Past 12 Hours) Vital Signs Temp Pulse Pulse Resp BP Pulse Ox 10/29/20 07:55 37.0 C 77 18 100/63 98 10/29/20 04:32 36.3 C L 60 16 113/71 96 10/29/20 00:04 36.6 C 74 14 93/58 L 95 10/28/20 23:[address] SCAN OF THE ABDOMEN AND PELVIS WITH IV CONTRAST CLINICAL HISTORY: Intraperitoneal free air seen by chest x-ray. COMPARISON STUDY: Abdominal CT dated 10/28/2020 in 11/30/2010. Chest x-ray dated 10/29/2020. TECHNIQUE: Following the IV administration of 94 cc of Optiray 320, CT scan of the abdomen and pelvis is performed from the lung bases to the proximal femora. Images are reviewed in the axial, sagittal, and coronal planes. IV contrast was administered without complication. A dose lowering technique was utilized adhering to the principles of ALARA. CT DOSE: 395.75 mGy.cm FINDINGS: Lung bases: The heart is mildly enlarged and without pericardial effusion. The coronary arteries are densely calcified. A 6 mm pulmonary nodule is again seen in the left lower lobe on image #1. There is bibasilar scarring/atelectasis. No airspace consolidation is seen typical for pneumonia and there is no pleural effusion. There is a small hiatal hernia. Liver: The contrast-enhanced liver is normal in size, contour, and attenuation. There is no intrahepatic biliary ductal dilatation. There is thrombus within a branch of the right portal vein, best seen on image #89. The main portal vein and the central portal veins are patent. Hepatic veins are clear. Gallbladder: Unremarkable. Spleen: Normal in size and attenuation. Pancreas: Mildly atrophic and grossly unremarkable. Adrenal glands: Unremarkable. Kidneys: The contrast enhanced kidneys demonstrate mild cortical atrophy and are without hydronephrosis. The kidneys enhance symmetrically. Abdominal vasculature: The abdominal aorta is normal in course and caliber noting moderate atherosclerotic calcification. Bowel: There is moderate to advanced colonic diverticulosis. There is mild wall thickening with surrounding inflammation involving the proximal sigmoid colon which likely represents acute diverticulitis. Additionally, there are thick- walled and hyperemic loops of adjacent small bowel in the upper pelvis and lower abdomen seen on images #[id number]. There is no pneumatosis intestinalis or portal venous gas. The appendix is well-visualized and normal. Peritoneum: There are numerous small foci of intraperitoneal free air seen below the diaphragm and in the ventral abdomen. A small fat-containing umbilical hernia is noted. There is no abdominal ascites. Lymphadenopathy: None. Pelvic viscera: The bladder is filled with excreted IV contrast. The wall appears thickened and trabeculated indicating chronic outlet obstruction. A posteriorly oriented diverticulum on the right measures up to 3 cm. The prostate gland is mildly enlarged and heterogeneous. Skeletal structures: The skeletal structures are osteopenic. Mild lumbosacral spondylosis is observed. No lytic or blastic lesions are seen. There are healed left-sided rib fractures. IMPRESSION: 1. Findings are consistent with mild acute diverticulitis of the sigmoid colon. This represents a significant change from yesterday. 2. There are numerous small foci of intraperitoneal free air scattered throughout the abdomen consistent with perforation. This is new from yesterday. 3. No organized fluid collection is seen to suggest abscess. 4. There are mildly thick-walled and hyperemic loops of adjacent small bowel in the lower abdomen and pelvis. This is likely related to peritonitis/adjacent diverticulitis. 5. There is thrombus within intrahepatic branches of the right portal vein. The main portal vein and the central portal veins are clear. 6. Mild cardiomegaly. 7. Additional findings as above. ACT 112: Negative or not required by law. Electronically signed by: Artie Rowe M.D. 10/29/2020 10:29 AM PG Care Time/CCT Total # of Minutes Spent Total Time Spent with Patient: Total time spent is greater than 50% in coordination of care (as documented) at patient's floor/unit and/or counseling patient: Coding Level of Care Code 11787 Initial Inpt Care Lvl 1 Diagnoses Free intraperitoneal air K66.8
--- NOTE | 2020-10-29 11:19 | Pharmacy Report ---
Pharmacy Abx Initial Consult - Date of Service October 29, 2020 - Pharmacy Dosing Scope Date of Consult: 10/29/20 Consultation requested by: Dr. Titus Pharmacy is consulted to initiate vancomycin and Zosyn IV dosing therapy, order appropriate labs and adjust drug dose/frequency. - Subjective The patient is a 75 year old M admitted on 10/28/20 17:07. - Objective Height: 5 ft 7 in Weight: 73.3 kg Vital Signs (Past 12hrs): Vital Signs Temp Pulse Pulse Resp BP Pulse Ox 10/29/20 07:55 37.0 C 77 18 100/63 98 10/29/20 04:32 36.3 C L 60 16 113/71 96 10/29/20 00:04 36.6 C 74 14 93/58 L 95 10/28/20 23:59 75 Lab Results (24hrs): Laboratory Tests (24 Hours) 10/29/20 10/29/20 10/29/20 06:13 06:13 06:13 WBC 16.16 H Neut # (Auto) 12.46 H Creatinine 0.74 Est Cr Clr Drug Dosing 78.2 Procalcitonin 22.62 H 10/28/20 10/28/20 10/28/20 16:45 13:52 13:52 WBC 20.94 H Neut # (Auto) 16.90 H Creatinine 0.99 Est Cr Clr Drug Dosing 59.4 Procalcitonin 2.21 H Micro Results: 10/28/20 13:58 Aerobic Blood Culture - Pending Blood Anaerobic Blood Culture - Pending 10/28/20 13:52 Aerobic Blood Culture - Pending Blood Anaerobic Blood Culture - Pending - Assessment & Plan Assessment 75 year old M presented on 10/28 with CC of fever, chills, myalgias, and arthralgias. Abdominal/pelvis CT today revealed mild acute diverticulitis and numerous small foci of intraperitoneal free air scattered throughout the abdomen consistent with perforation (new finding). Empiric vancomycin and Zosyn initiated at this time. Leukocytosis noted with left-shift, today WBC of 16 and neutrophil count of 12. Blood cultures x 2 ordered and pending (10/28). Procalcitonin significantly elevated today (2 -> 22 ng/mL). Renal function appears to be near baseline. Plan Vancomycin IV * Patient meets criteria for vancomycin AUC dosing nomogram * AUC/NATHAN is the preferred PK/PD target for vancomycin * Target AUC/NATHAN = 400-600 * AUC guided dosing is effective and associated with decreased risk of nephrotoxicity Piperacillin/tazobactam * 4.5 g bolus administered over 30 minutes, then 3.375 g IV extended infusion every 8 hours for CrCl greater than 20 mL/min Pharmacy will continue to follow and will adjust dose/frequency as necessary. Thank you.
--- NOTE | 2020-10-29 13:02 | Electrocardiogram Report ---
Test Reason : Blood Pressure : / mmHG Vent. Rate : 104 BPM Atrial Rate : 104 BPM P-R Int : 144 ms QRS Dur : 090 ms QT Int : 332 ms P-R-T Axes : 049 -39 040 degrees QTc Int : 436 ms Sinus tachycardia Left axis deviation Abnormal ECG When compared with ECG of 18-APR-2020 15:00, Minimal criteria for Inferior infarct are no longer Present Confirmed by Fox Vidal ([id number]) on 10/29/2020 1:01:54 PM Referred By: REFERRED SELF Confirmed By:Miguel Vidal
--- NOTE | 2020-10-29 14:06 | Surgery Progress Note ---
Date of Service October 29, 2020 Assessment & Plan (1) Free intraperitoneal air: Patient continues with spiking high fevers today, he also has some chills I believe we need to proceed ahead with abdominal exploration possible bowel resection possible ostomy Drainage of intra-abdominal infection Patient does understand and wishes to proceed I am currently trying to locate his and discussed this with her Admission and Anticipated Discharge Date Admission Date: October 28, 2020 Subjective Please see assessment and plan Results & Data ([facility]) Vital Signs (Past 12 Hours) Vital Signs Temp Pulse Resp BP Pulse Ox 10/29/20 13:12 152/65 H 10/29/20 13:00 39.4 C H 10/29/20 12:09 36.5 C 84 18 133/61 98 10/29/20 07:55 37.0 C 77 18 100/63 98 10/29/20 04:32 36.3 C L 60 16 113/71 96 PG Care Time/CCT Total # of Minutes Spent Total Time Spent with Patient: Total time spent is greater than 50% in coordination of care (as documented) at patient's floor/unit and/or counseling patient: Coding Level of Care Code None Diagnoses Free intraperitoneal air K66.8
--- NOTE | 2020-10-29 14:41 | Anesthesiology Consultation ---
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 History Surgery Operation Date: 10/29/20 08:50 Proposed Procedures p Laparotomy Bowel Resection with Abscess Drainage - Humberto Mills MD, FACS Height/Weight Height: 5 ft 7 in Weight: 73.3 kg Allergies Allergy/AdvReac Type Severity Reaction Status Date / Time No Known Allergies Allergy Verified 10/28/20 16:20 Medications Home Medications Medication Instructions Recorded Confirmed Last Taken cholecalciferol (vitamin D3) 50 2,000 unit PO DAILY tab 02/12/19 10/28/20 10/27/20 mcg (2,000 unit) tablet multivitamin 1 tab PO DAILY 02/27/19 10/28/20 10/27/20 garlic 500 mg PO DAILY 03/24/19 10/28/20 10/27/20 omega-3 acid ethyl esters 1 gram 1 cap PO BID cap 05/06/19 10/28/20 10/27/20 capsule gabapentin 300 mg capsule 300 mg PO HS #30 cap 06/03/20 10/28/20 10/27/20 meloxicam 15 mg tablet 15 mg PO DAILY #90 tab 06/09/20 10/28/20 10/27/20 aspirin [Ecotrin] 325 mg PO DAILY 10/28/20 10/28/20 10/27/20 glucos sul [id number]-C-Mn 1 cap PO DAILY 10/28/20 10/28/20 10/27/20 [Glucosamine Chondroitin] Active Medications Generic Name Dose Route Start Last Admin Trade Name Mitulq PRN Reason Stop Dose Admin Aspirin 325 mg 10/29/20 09:00 10/29/20 08:00 Aspirin 325 Mg Ectab PO 11/28/20 08:59 325 mg DAILY ROBER Administration Enoxaparin Sodium 40 mg 10/28/20 21:00 10/28/20 22:12 Enoxaparin Inj 40 Mg/0.4 Ml Syr SQ 11/27/20 20:59 40 mg Q24H ROBER Administration Gabapentin 300 mg 10/28/20 21:00 10/28/20 22:09 Gabapentin 300 Mg Cap PO 11/27/20 20:59 300 mg HS ROBER Administration Sodium Chloride 1,000 mls @ 125 mls/hr 10/29/20 10:15 10/29/20 10:28 Nss 1000ml IV 11/28/20 10:14 125 mls/hr .Q8H ROBER Administration Meloxicam 15 mg 10/29/20 09:00 10/29/20 08:01 Meloxicam 7.5 Mg Tab PO 11/28/20 08:59 15 mg DAILY ROBER Administration Multivitamins 1 tab 10/29/20 09:00 10/29/20 08:01 Multivitamin Tab PO 11/28/20 08:59 1 tab DAILY ROBER Administration Vitamin D 2,000 units 10/29/20 09:00 10/29/20 08:01 Cholecalciferol 1,000 Units 25 Mcg Tab PO 11/28/20 08:59 2,000 units DAILY ROBER Administration Past Medical History Medical History (Updated 10/29/20 @ 14:43 by Quentin Ray DO) History of carcinoma in situ of anal canal Past Family History Family History Father Myocardial infarction ASCVD (arteriosclerotic cardiovascular disease) Pacemaker Mother Diabetes Peripheral vascular disease Denies family history of Ovarian cancer Prostate cancer Breast cancer Colorectal cancer Past Surgical History Surgical History History of cataract surgery History of colonoscopy History of excision of lesion 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 S/P wisdom tooth extraction Social History Smoking Status: Unknown if ever smoked tobacco type: cigarettes Alcohol type: beer and hard liquor Physical Exam Vital Signs Last Vital Signs Temp 102.6 F H 10/29/20 14:18 Pulse 84 10/29/20 12:09 Resp 18 10/29/20 12:09 BP 152/65 H 10/29/20 13:12 Pulse Ox 98 10/29/20 12:09 Testing Laboratory Results 10/29/20 06:13 10/29/20 06:13 PT 11.4 Seconds (9.0-12.0) 10/28/20 13:59 INR 1.1 (0.9-1.1) 10/28/20 13:59 APTT 33.9 Seconds (21.0-31.0) H 10/28/20 13:59 Urine Color Dark Yellow 10/28/20 15:30 Urine Appearance Clear (Clear) 10/28/20 15:30 Urine pH 6.5 (4.5-7.5) 10/28/20 15:30 Ur Specific [place] 1.025 (1.000-1.030) 10/28/20 15:30 Urine Protein Trace (Negative) H 10/28/20 15:30 Urine Glucose (UA) Negative (Negative) 10/28/20 15:30 Urine Ketones 2+ (Negative) H 10/28/20 15:30 Urine Nitrite Negative (Negative) 10/28/20 15:30 Ur Leukocyte Esterase Negative (Negative) 10/28/20 15:30 Urine WBC (Auto) 1-5 /hpf (0-5) 10/28/20 15:30 Urine RBC (Auto) 5-10 /hpf (0-4) H 10/28/20 15:30 U Hyaline Cast (Auto) 1-5 /lpf (0-5) 10/28/20 15:30 U Epithel Cells (Auto) 20-30 /lpf (0-5) H 10/28/20 15:30 Urine Bacteria (Auto) Negative (Negative) 10/28/20 15:30 10/28/20 13:52 Aerobic Blood Culture - Preliminary Blood No growth in Aerobic bottle after 24 hours. Anaerobic Blood Culture - Preliminary No growth in Anaerobic bottle after 24 hours. Electrocardiogram Date: 10/28/20 Sinus tachycardia, rate 104 bpm Left axis deviation Abnormal ECG When compared with ECG of 18-APR-2020 15:00, Minimal criteria for Inferior infarct are no longer Present Confirmed by Fox Vidal ([id number]) on 10/29/2020 1:01:54 PM Chest X-Ray Date: 10/29/20 IMPRESSION: 1. Chest x-ray findings suspicious for free intraperitoneal air. 2. No evidence of focal pulmonary consolidation
[2020-10-29] MEDS ORDERED: GLYCOPYRROLATE 0.2 MG/ML VIAL ONE ×2 (14:42→16:53)
[2020-10-29] MEDS ORDERED: LIDOCAINE HCL 2% 2 ML VIAL/AMP(20MG/ML) INFIL ONE (14:42)
[2020-10-29] MEDS ORDERED: PROPOFOL IV EMULSION 10 MG/ML 20 ML VIAL IV ONE (14:42)
[2020-10-29] MEDS ORDERED: ROCURONIUM BROMIDE 10 MG/ML 5 ML VIAL IV ONE ×4 (14:42→16:53)
[2020-10-29] MEDS ORDERED: fentaNYL citrate 100 MCG/2 ML VIAL ONE ×2 (14:42→15:48)
[2020-10-29] MEDS ORDERED: NEOSTIGMINE METHYLSULFATE 5 MG/5 ML SYR ONE (14:42)
[2020-10-29] MEDS ORDERED: ONDANSETRON INJ 2 MG/ML 2 ML VIAL ONE (14:42)
[2020-10-29] MEDS ORDERED: fentaNYL citrate 100 MCG/2 ML VIAL IV PRN ×2 (14:44→15:02)
[2020-10-29] MEDS ORDERED: ePHEDrine sulfate 50 MG/ML AMP IV PRN ×2 (14:44→15:02)
[2020-10-29] MEDS ORDERED: ONDANSETRON INJ 2 MG/ML 2 ML VIAL IV PRN ×2 (14:44→15:02)
[2020-10-29] MEDS ORDERED: ATROPINE SULFATE 0.1 MG/ML 10ML SYR IV PRN ×2 (14:44→15:02)
[2020-10-29] MEDS ORDERED: HYDROmorphone INJ 2 MG/ML SYR/VIAL IV PRN (15:02)
[2020-10-29] MEDS ORDERED: PHENYLEPHRINE HCL 10 MG/ML VIAL ONE (16:39)
--- NOTE | 2020-10-29 17:02 | Post Operative Brief Note ---
PG Immediate Post Op with CF Date of Surgery October 29, 2020 Pre & Post Diagnosis Operation Date: 10/29/20 08:50 Pre-Op Diagnosis: perforated diverticulitis Post-Op Diagnosis: perforated diverticulitis, peritonitis I identified the patient and participated in the time-out.: Yes Procedure Operation Date: 10/29/20 08:50 Actual Procedures p Exploratory Laparotomy; abdominal wash out; colectomy; ostomy(Not Applicable) - Humberto Mills MD, FACS Surgeon Humberto Mills MD, FACS Professional Architect [place] Estimated Blood Loss 20 Findings Consistent with Post-Op Diagnosis Specimens Specimen Description: Permanent Specimen: A: Portion of colon; silk suture distal Drains Lunsford Catheter
[2020-10-29] MEDS ORDERED: ICU PROTOCOL FOR HYPERGLYCEMIA PRN (17:03)
--- NOTE | 2020-10-29 17:41 | Anesthesiology Progress Note ---
Date of Service October 29, 2020 Anesthesia Post Procedure Vital Signs Vital Signs: Temp Pulse Pulse Resp BP BP Pulse Ox 10/29/20 17:35 85 17 125/64 98 10/29/20 17:25 88 20 125/69 98 10/29/20 17:15 82 20 111/64 98 10/29/20 17:08 37.3 C 81 15 113/64 98 10/29/20 14:58 38.4 C H 94 H 18 116/60 94 10/29/20 14:18 39.2 C H 10/29/20 13:12 152/65 H 10/29/20 13:00 39.4 C H 10/29/20 12:09 36.5 C 84 18 133/61 98 10/29/20 07:55 37.0 C 77 18 100/63 98 10/29/20 04:32 36.3 C L 60 16 113/71 96 10/29/20 00:04 36.6 C 74 14 93/58 L 95 10/28/20 23:59 75 10/28/20 20:00 117 H 10/28/20 19:10 38.7 C H 118 H 20 112/62 93 10/28/20 18:01 88 24 124/66 98 10/28/20 17:45 82 17 143/80 H 98 Pain Intensity Abdomen: Pain Intensity: 1 Transfer of Care Handoff Completed per policy Notes Mental Status: alert / awake / arousable and participated in evaluation Patient Amnestic to Procedure: Yes Nausea / Vomiting: adequately controlled Pain: adequately controlled Airway Patency, RR, SpO2: stable & adequate BP & HR: stable & adequate Hydration State: stable & adequate Anesthetic Complications: no major complications apparent and Pt Satisfied with anesthetic care
[2020-10-29] MEDS ORDERED: PROMETHAZINE HCL 25 MG in SODIUM CHLORIDE 0.9% 50 ML IV PRN (18:03)
[2020-10-29] MEDS ORDERED: PROMETHAZINE HCL 12.5 MG in SODIUM CHLORIDE 0.9% 50 ML IV PRN (18:03)
[2020-10-29] MEDS: HYDROmorphone INJ 0.5 MG/0.5 ML SYR IV PRN (18:17)
[2020-10-29] MEDS: PIPERACILLIN/TAZOBACTAM 3.375 GM in DEXTROSE 5% 100 ML IV SCH (18:18)
[2020-10-29] MEDS: NSS + 20MEQ KCL 20 MEQ/1,000 ML BAG IV SCH (18:25)
--- NOTE | 2020-10-29 18:54 | Operative Report (OR) ---
DATE OF OPERATION: 10/29/2020 NAME OF OPERATION: Exploratory laparotomy, colon resection, colostomy and abdominal washout. PREOPERATIVE DIAGNOSIS: Perforated diverticulitis. POSTOPERATIVE DIAGNOSES: Perforated diverticulitis with peritonitis. STAFF SURGEON: Humberto Mills MD. OPERATOR CAVITY PUMP: Jose Angel [place] PA-C. ANESTHESIA: General. DESCRIPTION OF PROCEDURE: The patient was brought in the operating room and placed on the operating table in supine position. His abdomen was prepped and draped in usual fashion. We did place a 12-Yi Lunsford catheter, the patient did have a ureteral stenosis. A midline incision was made below the umbilicus, carrying dissection down into the abdomen. The patient's colon was very inflamed. In the left lower quadrant descending left colon, he had an area of perforation with exudate and peritonitis in the surrounding tissue and mild peritonitis involving small bowel loops. This part of the colon was mobilized with some difficulty secondary to the extensive chronic diverticulosis, which shortened his mesentery. We transected the rectosigmoid using an Endo-PRIYANKA stapler and then oversewed the rectum using 2-0 Prolene suture. The patient's perforation was relatively high in the left colon. Therefore, we had to mobilize the mid left colon extending the incision above the umbilicus. At this point, we performed a bowel resection at the area of perforation and then brought up the colon through the left abdomen as an end colostomy. It was secured to the fascia using 2-0 chromic suture and to the skin using 2-0 chromic suture. This was done at the end. At this point, the abdomen was washed out with saline solution and then Mefoxin antibiotic. A 19 round Feliciano-Castro drain was placed through the right lower quadrant, secured using 3-0 nylon suture, placed into the pelvis and left lower quadrant. The peritoneum was reapproximated using running #1 chromic suture and the fascia was reapproximated using both running and interrupted #1 PDS suture. Half-inch Britney drain was placed in the subcutaneous space, secured to the skin using 4-0 nylon suture. Skin was reapproximated using 4-0 nylon suture and eulalio. Sterile dressings were applied. Stoma bag applied. The patient was transferred to recovery room in stable condition. My compounding assistant helped with prepping, draping, performance of the operation and closure of the wounds. I attest to the content of the Intraoperative Record and any orders documented therein. Any exception s are noted below.
[2020-10-29] MEDS: ONDANSETRON INJ 2 MG/ML 2 ML VIAL IV PRN (19:22)
[2020-10-29] MEDS: HYDROmorphone INJ 1 MG/ML SYRINGE IV PRN ×2 (19:22→22:41)
--- NOTE | 2020-10-29 20:10 | Critical Care Consultation ---
Date of Consultation October 29, 2020 Assessment & Plan (1) Admitted to intensive care unit: Impression: 75-year-old male presents to the ICU postop for acute perforated diverticulitis and peritonitis now status post exploratory laparotomy with abdominal washout and colectomy and ostomy. CAM ICU: Negative Cardiac - Currently hemodynamically stable without use of vasopressors and normal sinus rhythm on monitor. Continuous monitoring on telemetry Continue ASA Pain management: Dilaudid as needed Nausea: Phenergan as needed Respiratory - Patient reports current smoking with half pack per day. No history of pulmonary disease. Lungs clear to auscultation. Currently maintaining sats on 2 L nasal cannula, continuous monitoring on pulse ox. Wean oxygen as tolerated GI - Perforated diverticulitis and peritonitisnow status post exploratory laparotomy and abdominal washout with colectomy and ostomy. -Abdominal exam as above -Strict n.p.o. for now -We will follow surgery recommendations -Admitted to ICU for close observation and hemodynamic monitoring overnight -Continue IV fluid resuscitation -Continue antibiotics as below GERDIV famotidine RENAL/LYTES - Creatinine within normal limits, monitor routine BMPs and replete electrolytes as indicated - BPHcontinue home meds when able to take p.o. Strict I's and O's ENDO - History of prediabetes, currently euglycemic. ICU hyperglycemic protocol No history of thyroid disease HEME - H&H unremarkable, monitor routine CBCs. EBL 20 from surgery. ID - Sepsispatient with significant leukocytosis and fevers, found to have perforated diverticulitis Zosyn now status post surgical intervention with washout, colectomy and ostomy. -Blood cultures pending -Urinalysis unremarkable -Continue broad-spectrum antibiotics Vanco and Zosyn LINES/IV ACCESS - Peripheral IVs DVT PROPHYLAXIS - SCDs, heparin Thank you for allowing us to participate in the care of this patient. Please refer to my attending physician's documentation for any further recommendations. (2) Leukocytosis: (3) Prediabetes: (4) Hypercholesterolemia: (5) Gastroesophageal reflux disease: (6) BPH (benign prostatic hyperplasia): (7) Nausea: (8) Sepsis: (9) Intrahepatic bile duct dilation: (10) Free intraperitoneal air: (11) Diverticulitis: (12) Perforated bowel: (13) Peritonitis (acute) generalized: History of Present Illness Attending Physician: Jackie Titus MD History of Present Illness The patient is a 75-year-old male with a past medical history including BPH, prediabetes, GERD, lumbar stenosis who presented to the emergency department on 10/28 with complaints of fever and myalgia, and nausea and vomiting. He had leukocytosis and tachycardia and was found to be febrile. CT the abdomen revealed colonic diverticulosis and he was treated with IV fluids and antibiotics and admitted to the floor. This morning the patient had a chest x- ray that revealed evidence of intraperitoneal air and he was sent for a CT which showed a small amount of free air and evidence of small bowel inflammation consistent with acute diverticulitis. Patient continued to have fevers throughout the day and decision was made for general surgery to take him for an ex lap this afternoon. He will underwent exploratory laparotomy with abdominal washout; colectomy and ostomy for perforated diverticulitis and peritonitis for which he now presents to the ICU postop. Currently the patient is alert and oriented and appears comfortable on exam. He complains of mild to moderate pain in the abdomen and abdominal tenderness with light touch. He is hemodynamically stable and maintaining oxygen saturation on 2 L nasal cannula, is not requiring vasopressors. Patient confirms previously reported symptoms of fever, nausea and vomiting but currently asymptomatic. He reports mild shortness of breath but respiratory effort is nonlabored. He reports mild abdominal discomfort and tenderness with light palpation. He currently denies headache, dizziness, congestion or sore throat, chest pain, nausea or vomiting or diarrhea. Patient to remain in ICU overnight for further monitoring postoperatively at this time. Would expect he can downgrade in the a.m. if no acute events overnight. Allergies Allergy/AdvReac Type Severity Reaction Status Date / Time No Known Allergies Allergy Verified 10/28/20 16:20 Home Medications Medication Instructions Recorded Confirmed Type cholecalciferol (vitamin D3) 50 2,000 unit PO DAILY tab 02/12/19 10/28/20 History mcg (2,000 unit) tablet multivitamin 1 tab PO DAILY 02/27/19 10/28/20 History garlic 500 mg PO DAILY 03/24/19 10/28/20 History omega-3 acid ethyl esters 1 gram 1 cap PO BID cap 05/06/19 10/28/20 History capsule gabapentin 300 mg capsule 300 mg PO HS #30 cap 06/03/20 10/28/20 Rx meloxicam 15 mg tablet 15 mg PO DAILY #90 tab 06/09/20 10/28/20 Rx aspirin [Ecotrin] 325 mg PO DAILY 10/28/20 10/28/20 History glucos sul [id number] 1 cap PO DAILY 10/28/20 10/28/20 History [Glucosamine Chondroitin] Patient History Medical History (Updated 10/29/20 @ 20:58 by DARYL Uriarte) History of carcinoma in situ of anal canal Surgical History History of cataract surgery History of colonoscopy History of excision of lesion 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 S/P wisdom tooth extraction Family History Father Myocardial infarction ASCVD (arteriosclerotic cardiovascular disease) Pacemaker Mother Diabetes Peripheral vascular disease Denies family history of Ovarian cancer Prostate cancer Breast cancer Colorectal cancer Social History Smoking Status: Unknown if ever smoked Tobacco Type: Cigarettes Age Started Using Tobacco: 23; packs per day: 0.5; Years Smoked: 30; Second Hand Exposure: No; Preferred Language: Frisian Communication Ability: Effective Visual Impairment: No Limitations Hearing Ability: Use of Hearing Aid Beliefs That Will Affect Care: None marital status: Current Living Situation: Family current occupational status: retired Other Information That Helps Us Care for You: No Feels Safe at Home: Yes Safety Concerns: Feels Safe At This Time Childhood Exposure to Second-Hand Smoke: Yes Dental Care, Regularly: Yes Physical Activity Frequency: 3-4 Times per Week Physical Activity Frequency Comment: walking Seatbelt Use: always Sunscreen Use: No Assistive Devices: None Review of Systems Review of Systems: All systems reviewed & are unremarkable except as noted in HPI & below Physical Exam Constitutional: WD/WN, vitals as above cooperative and comfortable Eyes: PERRL, conjunctivae normal, anicteric sclerae ENMT: external ear and nose normal, oropharynx normal Neck: trachea midline, no thyromegaly Respiratory: normal respiratory effort, lungs clear to auscultation Cardiovascular: RRR, no murmur, no edema Heart Sounds: normal S1 and normal S2 Vessels: no JVD Extremities: normal capillary refill; no edema Gastrointestinal (Abdomen): There is a colostomy in the left upper quadrant which is producing scant amounts of serosanguineous drainage and appears healthy with bright pink coloration. Midline surgical incision with dressing intact and without significant drainage. Abdomen tender to palpation in all quadrants. Bowel sounds hypoactive in all 4 quadrants. No abdominal distention and abdomen is soft. Skin: no rashes, warm and dry Neurologic: PERRL, EOMI, accommodation nl, no face palsy, no dysarthria Psychiatric: A+Ox3, euthymic affect Results & Data Results & Data ([facility]) Vital Signs (Past 12 Hours) Vital Signs Temp Pulse Pulse Resp BP BP Pulse Ox 10/29/20 18:45 82 12 112/64 91 10/29/20 18:00 37.5 C 82 17 121/69 95 10/29/20 17:45 37.8 C H 82 23 120/69 95 10/29/20 17:35 85 17 125/64 98 10/29/20 17:25 88 20 125/69 98 10/29/20 17:15 82 20 111/64 98 10/29/20 17:08 37.3 C 81 15 113/64 98 10/29/20 14:58 38.4 C H 94 H 18 116/60 94 10/29/20 14:18 39.2 C H 10/29/20 13:12 152/65 H 10/29/20 13:00 39.4 C H 10/29/20 12:09 36.5 C 84 18 133/61 98 Coding Level of Care Code 43389 Inpt Consult Level 5 Diagnoses Admitted to intensive care unit Z78.9 Leukocytosis D72.829 Leukocytosis type: unspecified Prediabetes R73.03 Hypercholesterolemia E78.00 Gastroesophageal reflux disease K21.9 BPH (benign prostatic hyperplasia) N40.0 Nausea R11.0 Sepsis A41.9 Sepsis acute organ dysfunction status: unspecified Sepsis type: sepsis due to unspecified organism Intrahepatic bile duct dilation K83.8 Free intraperitoneal air K66.8 Diverticulitis K57.92 Perforated bowel K63.1 Peritonitis (acute) generalized K65.0 (1) Leukocytosis Leukocytosis type: unspecified Qualified Code(s): D72.829 - Elevated white blood cell count, unspecified (2) Sepsis Sepsis acute organ dysfunction status: unspecified Sepsis type: sepsis due to unspecified organism Qualified Code(s): A41.9 - Sepsis, unspecified organism
[2020-10-29] MEDS ORDERED: VANCOMYCIN HCL 1,250 MG in SODIUM CHLORIDE 0.9% 250 ML IV SCH (22:00)
[2020-10-30] MEDS: PIPERACILLIN/TAZOBACTAM 3.375 GM in DEXTROSE 5% 100 ML IV SCH ×4 (00:02→23:19)
[2020-10-30] MEDS: NSS + 20MEQ KCL 20 MEQ/1,000 ML BAG IV SCH ×3 (04:29→23:19)
[2020-10-30] MEDS: HYDROmorphone INJ 0.5 MG/0.5 ML SYR IV PRN ×2 (04:30→21:33)
[2020-10-30 05:21] LABS: Basophils # (auto) 0.01 K/uL (0-0.2); Basophils % (auto) 0.1 %; Hematocrit (blood only) 35.1 % (42-52); Hemoglobin 11.7 g/dL (14.0-18.0); Immature Granulocytes # (auto) 0.03 K/uL (0.00-0.02); Immature Granulocytes % (auto) 0.2 %; Lymphocytes # (auto) 1.36 K/uL (1.2-3.4); Lymphocytes % (auto) 9.3 %; Mean Corpuscular Hemoglobin 32.1 pg (25-34); Mean Corpuscular Hgb Conc 33.3 g/dL (32-36); Mean Corpuscular Volume 96.2 fL (80-100); Mean Platelet Volume 9.4 fL (7.4-10.4); Monocytes # (auto) 0.53 K/uL (0.11-0.59); Monocytes % (auto) 3.6 %; Neutrophils # (auto) 12.71 K/uL (1.4-6.5); Neutrophils % (auto) 86.8 %; Platelet Count 299 K/uL (130-400); RDW Standard Deviation 49.8 fL (36.4-46.3); Red Blood Count 3.65 M/uL (4.7-6.1); White Blood Count 14.64 K/uL (4.8-10.8)
--- NOTE | 2020-10-30 06:06 | Surgery Progress Note ---
Date of Service October 30, 2020 Assessment & Plan (1) Perforated bowel: Patient required colostomy secondary to perforated diverticulitis. We will keep patient n.p.o. until his bowel function returns Continue antibiotics Continue pain control measures Increase activity as able Dr. Mills-please see above-patient has been afebrile since his operation. He is awake and alert his vital signs are stable We will give him some ice chips and popsicles for today-possibly advance his diet tomorrow. Continue [place] catheter. May be out of bed to chair-continue ICU care for now-if bed needed we may consider [facility] floor- Admission and Anticipated Discharge Date Admission Date: October 28, 2020 Subjective Patient notes he is doing well. He denies any fevers, shakes, chills. He has not had any nausea or vomiting since his surgery. He notes he does have some postoperative pain but it is improved from what he was experiencing preoperatively. Case was discussed with the bedside nurse and she notes that the patient had an uneventful night and no acute issues have been identified. Physical Exam Constitutional: well developed and well nourished; no acute distress Respiratory: normal respiratory effort; no respiratory distress and no labored breathing Gastrointestinal (Abdomen): Abdomen is tender to palpation near surgical incisions. Bowel sounds are hypoactive. Patient's colostomy is viable and pink. No stool noted in the collection bag. Results & Data ([facility]) Vital Signs (Past 12 Hours) Vital Signs Temp Pulse Resp BP Pulse Ox Pulse Ox 10/30/20 04:00 36.8 C 58 L 17 96 10/30/20 03:30 65 14 94 10/30/20 03:28 61 19 103/59 L 95 10/30/20 03:00 68 20 95 10/30/20 02:30 65 20 94 10/30/20 02:28 63 18 102/58 L 95 10/30/20 02:00 68 14 94 10/30/20 01:30 67 15 97 10/30/20 01:29 64 24 117/65 99 10/30/20 01:15 70 18 101/61 95 10/30/20 01:00 70 18 95 10/30/20 00:46 74 19 93 10/30/20 00:45 75 16 107/61 92 10/30/20 00:30 75 18 92 01/30/21 00:15 76 14 107/66 93 10/30/20 00:00 37.2 C 75 14 92 10/29/20 23:46 75 18 93 10/29/20 23:45 78 16 114/68 94 10/29/20 23:30 79 12 93 10/29/20 23:15 79 16 104/63 92 10/29/20 23:00 79 17 95 10/29/20 22:45 79 20 109/63 95 10/29/20 22:30 79 14 92 10/29/20 22:15 81 23 122/66 95 10/29/20 22:00 79 16 94 10/29/20 21:45 71 18 114/65 92 10/29/20 21:30 80 24 93 10/29/20 21:15 79 16 107/63 92 10/29/20 21:00 80 20 92 10/29/20 20:45 83 17 117/66 94 10/29/20 20:30 81 15 93 10/29/20 20:15 84 13 117/65 92 10/29/20 20:00 37.5 C 80 20 93 10/29/20 19:45 84 15 127/67 92 10/29/20 19:30 79 15 94 10/29/20 19:15 82 17 117/59 L 93 10/29/20 19:07 92 10/29/20 19:00 86 15 92 10/29/20 18:46 82 16 92 10/29/20 18:45 82 12 112/64 91 PG Care Time/CCT Total # of Minutes Spent Total Time Spent with Patient: Total time spent is greater than 50% in coordination of care (as documented) at patient's floor/unit and/or counseling patient: Coding Level of Care Code None Diagnoses Perforated bowel K63.1
[2020-10-30 06:14] LABS: Albumin Globulin Ratio 0.6 (0.9-2); Albumin Level 2.2 gm/dl (3.4-5.0); BUN Creatinine Ratio 31.5 (10-20); Bilirubin,Total 0.6 mg/dl (0.2-1); Calcium 7.8 mg/dl (8.5-10.1); Creatinine Clr Calc Pharmacy 86.3 ml/min; Est GFR (African American) 107.4; Est GFR (Non-African American) 92.7; Globulin 3.9 gm/dl (2.5-4.0); Magnesium 2.3 mg/dl (1.8-2.4); Potassium 4.3 mmol/L (3.5-5.1); Total Protein 6.1 gm/dl (6.4-8.2)
--- NOTE | 2020-10-30 07:53 | Critical Care Progress Note ---
Date of Service October 30, 2020 Assessment & Plan (1) Admitted to intensive care unit: Impression: 75-year-old male presents to the ICU postop for acute perforated diverticulitis and peritonitis now status post exploratory laparotomy with abdominal washout and colectomy and ostomy. CAM ICU: Negative Cardiac - Currently hemodynamically stable without use of vasopressors and normal sinus rhythm on monitor. Continuous monitoring on telemetry Continue ASA Pain management: Dilaudid as needed Nausea: Phenergan as needed Respiratory - Patient reports current smoking with half pack per day. No history of pulmonary disease. Lungs clear to auscultation. Currently maintaining sats on 2 L nasal cannula, continuous monitoring on pulse ox. Wean oxygen as tolerated GI - Perforated diverticulitis and peritonitisnow status post exploratory laparotomy and abdominal washout with colectomy and ostomy. -Abdominal exam as above -Okay for ice chips and popsicle as per surgery. Possibly advance diet tomorrow. -We will follow surgery recommendations -Admitted to ICU for close observation and hemodynamic monitoring overnight -Continue IV fluid resuscitation -Continue antibiotics as below -Thrombus was noted in the intrahepatic branches of the right portal vein. We will need to discuss with surgery regarding full dose anticoagulation. GERDIV famotidine RENAL/LYTES - Creatinine within normal limits, monitor routine BMPs and replete electrolytes as indicated - BPHcontinue home meds when able to take p.o. Strict I's and O's ENDO - History of prediabetes, currently euglycemic. ICU hyperglycemic protocol No history of thyroid disease HEME - H&H unremarkable, monitor routine CBCs. EBL 20 from surgery. ID - Sepsispatient with significant leukocytosis and fevers, found to have perforated diverticulitis Zosyn now status post surgical intervention with washout, colectomy and ostomy. -Blood cultures pending -Urinalysis unremarkable -Continue Zosyn. I have discontinued the vancomycin as his MRSA screen was negative. -Procalcitonin is trending down. LINES/IV ACCESS - Peripheral IVs DVT PROPHYLAXIS - SCDs, heparin 5000 units twice daily (2) Leukocytosis: (3) Prediabetes: (4) Hypercholesterolemia: (5) Gastroesophageal reflux disease: (6) BPH (benign prostatic hyperplasia): (7) Nausea: (8) Sepsis: (9) Intrahepatic bile duct dilation: (10) Free intraperitoneal air: (11) Diverticulitis: (12) Perforated bowel: (13) Peritonitis (acute) generalized: (14) Portal vein thrombosis: Admission and Anticipated Discharge Date Admission Date: October 28, 2020 Subjective Patient doing well this morning. Denies any significant abdominal pain. He is requesting ice chips and a popsicle. Pain is well controlled with IV medications. No chest pain. No fevers. Review of Systems Review of Systems: All systems reviewed & are unremarkable except as noted in HPI & below Physical Exam Constitutional: WD/WN, vitals as above cooperative and comfortable Eyes: PERRL, conjunctivae normal, anicteric sclerae ENMT: external ear and nose normal, oropharynx normal Neck: trachea midline, no thyromegaly Respiratory: normal respiratory effort, lungs clear to auscultation Cardiovascular: RRR, no murmur, no edema Heart Sounds: normal S1 and normal S2 Vessels: no JVD Extremities: normal capillary refill; no edema Gastrointestinal (Abdomen): There is a colostomy in the left upper quadrant which is producing scant amounts of serosanguineous drainage and appears healthy with bright pink coloration. Midline surgical incision with dressing intact and without significant drainage. Abdomen tender to palpation in all quadrants. Bowel sounds hypoactive in all 4 quadrants. No abdominal distention and abdomen is soft. Skin: no rashes, warm and dry Neurologic: PERRL, EOMI, accommodation nl, no face palsy, no dysarthria Psychiatric: A+Ox3, euthymic affect Results & Data Results & Data ([facility]) Vital Signs (Past 12 Hours) Vital Signs Temp Pulse Resp BP Pulse Ox 10/30/20 06:30 72 23 96 10/30/20 06:29 68 26 H 117/56 L 96 10/30/20 06:00 79 14 92 10/30/20 05:30 61 16 94 10/30/20 05:28 67 23 112/64 94 10/30/20 05:00 64 15 94 10/30/20 04:30 57 L 21 95 10/30/20 04:28 61 18 106/59 L 95 10/30/20 04:00 98.2 F 58 L 17 96 10/30/20 03:30 65 14 94 10/30/20 03:28 61 19 103/59 L 95 10/30/20 03:00 68 20 95 10/30/20 02:30 65 20 94 10/30/20 02:28 63 18 102/58 L 95 10/30/20 02:00 68 14 94 10/30/20 01:30 67 15 97 10/30/20 01:29 64 24 117/65 99 10/30/20 01:15 70 18 101/61 95 10/30/20 01:00 70 18 95 10/30/20 00:46 74 19 93 10/30/20 00:45 75 16 107/61 92 10/30/20 00:30 75 18 92 10/30/20 00:15 76 14 107/66 93 10/30/20 00:00 99.0 F 75 14 92 10/29/20 23:46 75 18 93 10/29/20 23:45 78 16 114/68 94 10/29/20 23:30 79 12 93 10/29/20 23:15 79 16 104/63 92 10/29/20 23:00 79 17 95 10/29/20 22:45 79 20 109/63 95 10/29/20 22:30 79 14 92 10/29/20 22:15 81 23 122/66 95 10/29/20 22:00 79 16 94 10/29/20 21:45 71 18 114/65 92 10/29/20 21:30 80 24 93 10/29/20 21:15 79 16 107/63 92 10/29/20 21:00 80 20 92 10/29/20 20:45 83 17 117/66 94 10/29/20 20:30 81 15 93 10/29/20 20:15 84 13 117/65 92 10/29/20 20:00 99.5 F 80 20 93 reviewed the vital signs, labs and imaging Coding Level of Care Code 43298 Subseq Hosp Care Lvl 3 Diagnoses Admitted to intensive care unit Z78.9 Leukocytosis D72.829 Leukocytosis type: unspecified Prediabetes R73.03 Hypercholesterolemia E78.00 Gastroesophageal reflux disease K21.9 BPH (benign prostatic hyperplasia) N40.0 Nausea R11.0 Sepsis A41.9 Sepsis acute organ dysfunction status: unspecified Sepsis type: sepsis due to unspecified organism Intrahepatic bile duct dilation K83.8 Free intraperitoneal air K66.8 Diverticulitis K57.92 Perforated bowel K63.1 Peritonitis (acute) generalized K65.0 Portal vein thrombosis I81 (1) Leukocytosis Leukocytosis type: unspecified Qualified Code(s): D72.829 - Elevated white blood cell count, unspecified (2) Sepsis Sepsis acute organ dysfunction status: unspecified Sepsis type: sepsis due to unspecified organism Qualified Code(s): A41.9 - Sepsis, unspecified organism
[2020-10-30] MEDS: FAMOTIDINE 20 MG in SYRINGE 3 ML IV SCH ×2 (08:48→21:33)
[2020-10-30] MEDS: HEPARIN SOD 5,000 UNIT/0.5 ML VIAL SQ SCH ×2 (08:49→21:33)
[2020-10-30] MEDS: HYDROmorphone INJ 1 MG/ML SYRINGE IV PRN ×3 (09:08→17:35)
--- NOTE | 2020-10-30 18:30 | Hospitalist Progress Note ---
Date of Service October 30, 2020 Assessment & Plan (1) Sepsis: Mr. Magallanes is a 75-year-old male with a history of Prediabetes, Hypercholesterolemia, Anal Carcinoma in Situ, and Low Back Pain s/p Caudal Epidural Steroid Injections (last 1 was 07/01/2020) -- who presents with Fever, Chills, Myalgias, Arthralgias, Intermittent Sinus Pressure, and Expectorating Mucous from his Throat and Upper Chest. He describes a fever and chills on the night of 10/21/2020 with a temperature of 101.8 degrees. He had a telemedicine visit with his PCP on 10/22/2020. He subsequently tested negative for COVID-19 (testing was done because his had COVID 19 in August 2020. Patient was feeling better when he spoke to his PCP that day. On the day of admission, he then developed recurrent fever, shaking chills, rigors, myalgias, arthralgias, sinus pressure/headache and still getting some mucous from his throat along with one episode of vomiting. He had no abdominal pain till the AM after admission. In the ER he is febrile and was transiently hypotensive, BP improved following IVF bolus. Blood cultures have been collected. Urine specimen obtained. His WBC# is > 20,000 with leftward shift. Procalcitonin is elevated, serum Lactate was initially elevated, but then normalized. At that time a CXR, CT abd/pel, CT sinuses, RUQ US were negative. Lyme titer negative. He was started on ceftriaxone and doxycycline empirically for PNA and tick borne illness. COVID- 19/RSV/Flu all NEGATIVE. UA neg for infection. The AM after admission a repeat CXR was obtained which showed free air under the diaphragm. He was having high fevers and LLQ abdominal pain. CT abd/pel revealed acute sigmoid diverticulitis with free intraperitoneal air and inflamed small bowel consistent with peritonitis. Abx broadened to Zosyn and Vanco. PCT became elevated to 22, WBC count down to 16k. Surgery consulted and took pt for ex-lap with partial colectomy, end-colostomy on 10/29. Now POD #1 and doing very well. Tolerating ice chips and popsicles only. -Continued stay in ICU for post-op care -continue ice chips and popsicles only, IVFs -continue IV ZOsyn but can discontinue vancomycin as MRSA swab is negative -follow BCxs-no growth to date -pain control with Dilaudid -tylenol prn fevers -f/u pathology -greatly appreciate Surgery management -JONATHAN drain, Britney drain, Lunsford all in place -follow CBC, CMP, Mag, Phos (2) Portal vein thrombosis: noted to have thrombus of a branch of portal vein likely to do with acute peritonitis, but also had Covid-19 presumably about 1 month ago which makes him hypercoagulable no systemic anticoagulation at this time due to recent exlap consider repeat imaging after recovery from bowel surgery versus starting therapeutic anticoagulation with heparin drip Will likely need anticoagulation for least 3 months SQ heparin at DVT prophylaxis dosing only for now (3) Prediabetes: HgbA1C 6.0% on last check -insulin/hyperglycemia protocol as per ICU (4) Hypercholesterolemia: hold home meds (5) Intrahepatic bile duct dilation: -- Uncertain of clinical signifigance. -- Normal LFT's and no evidence or symptoms of hepatobiliary disease otherwise. CT abd/pel and RUQ US without liver issues but with branch of right portal vein thrombus (6) Peritonitis (acute) generalized: as above, continue abx, now s/p ex-lap and colon resection (7) Perforated bowel: as above, secondary to acute diverticulitis (8) Diverticulitis: as above, acute sigmoid diverticulitis (9) Free intraperitoneal air: as above (10) Ureteral stenosis: noted to have such intraoperatively with difficulty placing Lunsford-used 12 [place] f/u with Urology as outpt or sooner if fails TOV here post-op Patient reports that he was circumcised later in childhood and had a urethral stricture at that time that was dilated but has never had any difficulty since then with urination (11) Pulmonary nodule: 6mm nodule LLL noted plan to f/u with CT Chest in 6 months as is current smoker (12) Current smoker: encourage cessation nicotine patch prn (13) DVT prophylaxis: Heparin SQ Holding home vitamins, etc. Dispo-continued stay in ICU overnight likely downgrade to medical/surgical floor tomorrow Admission and Anticipated Discharge Date Admission Date: October 28, 2020 Subjective Patient doing well today, was out of bed to the chair for 4 5 hours. He had some ice chips and a popsicle. He has some abdominal pain and has been taking Dilaudid. Denies chest pain or shortness of breath, no other complaints. Telemetry with normal sinus rhythm Review of Systems Review of Systems: All systems reviewed & are unremarkable except as noted in HPI & below Physical Exam Constitutional: WD/WN, vitals as above Eyes: + anicteric sclerae Neck: trachea midline, no thyromegaly Respiratory: normal respiratory effort, lungs clear to auscultation Cardiovascular: RRR, no murmur, no edema Chest (Breasts): Chest: normal inspection of chest Gastrointestinal (Abdomen): Inspection/Auscultation: + hypoactive bowel sounds; + abdomen abnormal to inspection (Dressing in place over mid abdomen, JONATHAN drain with serosanguineous fluid) Percussion/Palpation: + abdomen tender (Minimal around incision site) and abdomen soft; no guarding Colostomy in place Musculoskeletal: Extremities: extremities normal to inspection; no cyanosis and no clubbing Skin: no rashes, warm and dry Neurologic: moves all extremities and awake; no focal motor deficits Psychiatric: A+Ox3, euthymic affect Genitourinary: no testicular masses, no penis abnormality (With Lunsford catheter in place draining clear yellow urine) Lymphatic: no lymphedema Results & Data Results & Data ([facility]) Vital Signs (Past 12 Hours) Vital Signs Pulse Resp BP Pulse Ox 10/30/20 17:49 66 26 H 139/70 98 10/30/20 17:30 69 18 86 L 10/30/20 17:00 64 20 96 10/30/20 16:30 57 L 20 95 10/30/20 16:29 57 L 19 101/81 95 10/30/20 16:00 58 L 10 L 95 10/30/20 15:30 72 21 96 10/30/20 15:29 70 22 124/67 96 10/30/20 15:00 76 25 H 82 L 10/30/20 14:30 63 20 96 10/30/20 14:29 63 20 113/75 95 10/30/20 14:00 73 20 92 10/30/20 13:30 73 13 95 10/30/20 13:29 76 15 111/85 95 10/30/20 13:16 73 28 H 129/79 95 10/30/20 13:00 64 18 96 10/30/20 12:30 56 L 19 95 10/30/20 12:29 55 L 14 116/69 96 10/30/20 12:00 54 L 19 96 10/30/20 11:30 57 L 17 96 10/30/20 11:29 56 L 21 96/67 L 88 L 10/30/20 11:00 60 14 93 10/30/20 10:30 57 L 16 97 10/30/20 10:29 58 L 16 92/60 L 97 10/30/20 10:00 70 21 96 10/30/20 09:30 66 22 97 10/30/20 09:29 73 18 123/65 96 10/30/20 09:00 59 L 26 H 97 10/30/20 08:30 60 8 L 97 10/30/20 08:29 59 L 16 104/61 97 10/30/20 08:00 55 L 22 97 10/30/20 07:30 63 10 L 97 10/30/20 07:29 56 L 6 L 102/60 97 10/30/20 07:00 60 19 96 10/30/20 06:45 66 22 96 10/30/20 06:30 72 23 96 Laboratory Results 10/30/20 10/30/20 10/30/20 Range/Units 05:59 04:38 04:38 WBC (4.8-10.8) K/uL RBC (4.7-6.1) M/uL Hgb (14.0-18.0) g/dL Hct (42-52) % MCV (80-100) fL MCH (25-34) pg MCHC (32-36) g/dL RDW Std Deviation (36.4-46.3) fL RDW Coeff of Aleisha (11.5-14.5) % Plt Count (130-400) K/uL MPV (7.4-10.4) fL Immature Gran % (Auto) % Neut % (Auto) % Lymph % (Auto) % [place] % (Auto) % Eos % (Auto) % Baso % (Auto) % Neut # (Auto) (1.4-6.5) K/uL Lymph # (Auto) (1.2-3.4) K/uL [place] # (Auto) (0.11-0.59) K/uL Eos # (Auto) (0-0.5) K/uL Baso # (Auto) (0-0.2) K/uL Immature Gran # (Auto) (0.00-0.02) K/uL Sodium 141 (136-145) mmol/L Potassium 4.3 D (3.5-5.1) mmol/L Chloride 114 H (98-107) mmol/L Carbon Dioxide 21 (21-32) mmol/L Anion Gap 6.0 (3-11) BUN 21 H (7-18) mg/dl Creatinine 0.67 (0.6-1.4) mg/dl Est Cr Clr Drug Dosing 86.3 ml/min Est GFR ( Amer) 107.4 Est GFR (Non-Af Amer) 92.7 BUN/Creatinine Ratio 31.5 H (10-20) Glucose 145 H (70-99) mg/dl POC Glucose 128 H (70-99) mg/dl Calcium 7.8 L (8.5-10.1) mg/dl Phosphorus 3.0 (2.5-4.9) mg/dl Magnesium 2.3 (1.8-2.4) mg/dl Total Bilirubin 0.6 (0.2-1) mg/dl AST 27 (15-37) U/L ALT 48 (12-78) U/L Alkaline Phosphatase 67 (45-117) U/L Total Protein 6.1 L (6.4-8.2) gm/dl Albumin 2.2 L (3.4-5.0) gm/dl Globulin 3.9 (2.5-4.0) gm/dl Albumin/Globulin Ratio 0.6 L (0.9-2) Procalcitonin 16.79 H (0-0.5) ng/ml Nasal Screen MRSA (PCR) (Negative) 10/30/20 10/29/20 10/29/20 Range/Units 04:38 Unknown 23:42 WBC 14.64 H (4.8-10.8) K/uL RBC 3.65 L (4.7-6.1) M/uL Hgb 11.7 L (14.0-18.0) g/dL Hct 35.1 L (42-52) % MCV 96.2 (80-100) fL MCH 32.1 (25-34) pg MCHC 33.3 (32-36) g/dL RDW Std Deviation 49.8 H (36.4-46.3) fL RDW Coeff of Aleisha 14.0 (11.5-14.5) % Plt Count 299 (130-400) K/uL MPV 9.4 (7.4-10.4) fL Immature Gran % (Auto) 0.2 % Neut % (Auto) 86.8 % Lymph % (Auto) 9.3 % [place] % (Auto) 3.6 % Eos % (Auto) 0.0 % Baso % (Auto) 0.1 % Neut # (Auto) 12.71 H (1.4-6.5) K/uL Lymph # (Auto) 1.36 (1.2-3.4) K/uL [place] # (Auto) 0.53 (0.11-0.59) K/uL Eos # (Auto) 0.00 (0-0.5) K/uL Baso # (Auto) 0.01 (0-0.2) K/uL Immature Gran # (Auto) 0.03 H (0.00-0.02) K/uL Sodium (136-145) mmol/L Potassium (3.5-5.1) mmol/L Chloride (98-107) mmol/L Carbon Dioxide (21-32) mmol/L Anion Gap (3-11) BUN (7-18) mg/dl Creatinine (0.6-1.4) mg/dl Est Cr Clr Drug Dosing ml/min Est GFR ( Amer) Est GFR (Non-Af Amer) BUN/Creatinine Ratio (10-20) Glucose (70-99) mg/dl POC Glucose 130 H (70-99) mg/dl Calcium (8.5-10.1) mg/dl Phosphorus (2.5-4.9) mg/dl Magnesium (1.8-2.4) mg/dl Total Bilirubin (0.2-1) mg/dl AST (15-37) U/L ALT (12-78) U/L Alkaline Phosphatase (45-117) U/L Total Protein (6.4-8.2) gm/dl Albumin (3.4-5.0) gm/dl Globulin (2.5-4.0) gm/dl Albumin/Globulin Ratio (0.9-2) Procalcitonin (0-0.5) ng/ml Nasal Screen MRSA (PCR) Negative (Negative) Blood cultures-no growth to date PG Care Time/CCT Total # of Minutes Spent Total Time Spent with Patient: Total time spent is greater than 50% in coordination of care (as documented) at patient's floor/unit and/or counseling patient: Coding Level of Care Code 26650 Subseq Hosp Care Lvl 3 Diagnoses Sepsis A41.9 Sepsis acute organ dysfunction status: unspecified Sepsis type: sepsis due to unspecified organism Portal vein thrombosis I81 Prediabetes R73.03 Hypercholesterolemia E78.00 Intrahepatic bile duct dilation K83.8 Peritonitis (acute) generalized K65.0 Perforated bowel K63.1 Diverticulitis K57.92 Free intraperitoneal air K66.8 Ureteral stenosis Q62.10 Pulmonary nodule R91.1 Current smoker F17.200 DVT prophylaxis Z29.9 (1) Sepsis Sepsis acute organ dysfunction status: unspecified Sepsis type: sepsis due to unspecified organism Qualified Code(s): A41.9 - Sepsis, unspecified organism
[2020-10-31] MEDS: HYDROmorphone INJ 1 MG/ML SYRINGE IV PRN ×2 (02:56→17:49)
[2020-10-31 05:10] LABS: Basophils # (auto) 0.01 K/uL (0-0.2); Basophils % (auto) 0.1 %; Hematocrit (blood only) 34.2 % (42-52); Hemoglobin 11.3 g/dL (14.0-18.0); Immature Granulocytes # (auto) 0.04 K/uL (0.00-0.02); Immature Granulocytes % (auto) 0.3 %; Lymphocytes # (auto) 2.47 K/uL (1.2-3.4); Lymphocytes % (auto) 17.3 %; Mean Corpuscular Hemoglobin 31.9 pg (25-34); Mean Corpuscular Volume 96.6 fL (80-100); Mean Platelet Volume 9.3 fL (7.4-10.4); Monocytes # (auto) 0.94 K/uL (0.11-0.59); Monocytes % (auto) 6.6 %; Neutrophils # (auto) 10.79 K/uL (1.4-6.5); Neutrophils % (auto) 75.7 %; Platelet Count 348 K/uL (130-400); RDW Standard Deviation 49.9 fL (36.4-46.3); Red Blood Count 3.54 M/uL (4.7-6.1); White Blood Count 14.25 K/uL (4.8-10.8)
--- NOTE | 2020-10-31 05:45 | Surgery Progress Note ---
Date of Service October 31, 2020 Assessment & Plan (1) Perforated bowel: Patient is postoperative day #2. He required colostomy secondary to perforated diverticulitis We will consider advancing to clear liquids today We will continue antibiotics as ordered We will continue analgesics We will advance his activity as tolerated He is receiving subcutaneous heparin for DVT prophylaxis Dr. Millspatient doing very well his vital signs are stable-try him on some clear liquids Will transfer him to the [facility] floor. Continue Lunsford for now. Order physical therapy Monitor for DI function. Continue IV antibiotics. Continue on subcu heparin for now Admission and Anticipated Discharge Date Admission Date: October 28, 2020 Subjective Patient reports an uneventful night. He denies any nausea or vomiting. He denies any fever shakes or chills. He does have some pain in his abdomen at his surgical site. He denies shortness of breath. I discussed with the nurse and she does not know any issues that require immediate attention. Physical Exam Constitutional: well developed and well nourished; no acute distress Respiratory: normal respiratory effort; no respiratory distress and no labored breathing Gastrointestinal (Abdomen): Bowel sounds are hypoactive. Abdomen is tender to palpation near his surgical incisions. Patient's ostomy was examined and is noted to be pink and viable. There is a small amount of stool in the collection bag. Musculoskeletal: No calf tenderness Results & Data ([facility]) Vital Signs (Past 12 Hours) Vital Signs Temp Pulse Pulse Resp BP BP Pulse Ox 10/31/20 03:09 37.2 C 77 20 127/81 97 10/31/20 00:00 36.9 C 80 20 139/76 96 10/30/20 22:00 76 22 123/83 97 10/30/20 19:45 37.0 C 77 20 134/72 98 10/30/20 18:30 75 23 96 10/30/20 18:00 78 24 96 10/30/20 17:50 80 25 H 97 10/30/20 17:49 66 26 H 139/70 98 PG Care Time/CCT Total # of Minutes Spent Total Time Spent with Patient: Total time spent is greater than 50% in coordination of care (as documented) at patient's floor/unit and/or counseling patient: Coding Level of Care Code None Diagnoses Perforated bowel K63.1
[2020-10-31 05:50] LABS: Albumin Level 2.1 gm/dl (3.4-5.0); BUN Creatinine Ratio 36.8 (10-20); Calcium 7.8 mg/dl (8.5-10.1); Creatinine Clr Calc Pharmacy 90.4 ml/min; Est GFR (African American) 109.5; Est GFR (Non-African American) 94.4; Magnesium 2.4 mg/dl (1.8-2.4); Potassium 4.2 mmol/L (3.5-5.1)
[2020-10-31 05:55] LABS: Albumin Globulin Ratio 0.6 (0.9-2); Bilirubin,Total 0.5 mg/dl (0.2-1); Globulin 3.6 gm/dl (2.5-4.0); Phosphorus 1.9 mg/dl (2.5-4.9); Total Protein 5.7 gm/dl (6.4-8.2)
[2020-10-31] MEDS: HEPARIN SOD 5,000 UNIT/0.5 ML VIAL SQ SCH ×2 (07:00→20:18)
[2020-10-31] MEDS: PIPERACILLIN/TAZOBACTAM 3.375 GM in DEXTROSE 5% 100 ML IV SCH ×2 (07:00→16:10)
[2020-10-31] MEDS: FAMOTIDINE 20 MG in SYRINGE 3 ML IV SCH ×2 (07:00→20:18)
[2020-10-31] MEDS ORDERED: SODIUM PHOSPHATE 3 MMOL/1 ML INFUSION IV STA (07:47)
--- NOTE | 2020-10-31 07:49 | Hospitalist Progress Note ---
Date of Service October 31, 2020 Assessment & Plan (1) Sepsis: Mr. Magallanes is a 75-year-old male with a history of Prediabetes, Hypercholesterolemia, Anal Carcinoma in Situ, and Low Back Pain s/p Caudal Epidural Steroid Injections (last 1 was 07/01/2020) -- who presents with Fever, Chills, Myalgias, Arthralgias, Intermittent Sinus Pressure, and Expectorating Mucous from his Throat and Upper Chest. He describes a fever and chills on the night of 10/21/2020 with a temperature of 101.8 degrees. He had a telemedicine visit with his PCP on 10/22/2020. He subsequently tested negative for COVID-19 (testing was done because his had COVID 19 in August 2020. Patient was feeling better when he spoke to his PCP that day. On the day of admission, he then developed recurrent fever, shaking chills, rigors, myalgias, arthralgias, sinus pressure/headache and still getting some mucous from his throat along with one episode of vomiting. He had no abdominal pain till the AM after admission. In the ER he is febrile and was transiently hypotensive, BP improved following IVF bolus. Blood cultures have been collected. Urine specimen obtained. His WBC# is > 20,000 with leftward shift. Procalcitonin is elevated, serum Lactate was initially elevated, but then normalized. At that time a CXR, CT abd/pel, CT sinuses, RUQ US were negative. Lyme titer negative. He was started on ceftriaxone and doxycycline empirically for PNA and tick borne illness. COVID- 19/RSV/Flu all NEGATIVE. UA neg for infection. The AM after admission a repeat CXR was obtained which showed free air under the diaphragm. He was having high fevers and LLQ abdominal pain. CT abd/pel revealed acute sigmoid diverticulitis with free intraperitoneal air and inflamed small bowel consistent with peritonitis. Abx broadened to Zosyn and Vanco. PCT became elevated to 22, WBC count down to 16k. Surgery consulted and took pt for ex-lap with partial colectomy, end-colostomy on 10/29. Now POD #2 and doing very well. Tolerating small amounts of clear liquids today as advanced by surgery. Has low appetite, intermittent nausea. -Transferred out of ICU to medical/surgical floor -continue clear liquids -Continue IV fluid hydration but decrease to 70 mL/h -continue IV Zosyn -follow BCxs-no growth to date -pain control with Dilaudid -f/u pathology -greatly appreciate Surgery management -JONATHAN drain, Morse drain, Lunsford all in place -follow CBC, CMP, Mag, Phos in the morning (2) Portal vein thrombosis: noted to have thrombus of a branch of portal vein Possibly secondary to acute peritonitis, but also had Covid-19 presumably about 1 month ago which makes him hypercoagulable no systemic anticoagulation at this time due to recent exlap-surgery wants him to remain on subcu heparin only for now consider repeat imaging after recovery from bowel surgery versus starting therapeutic anticoagulation with heparin drip when okay with surgery Will likely need anticoagulation for least 3 months SQ heparin at DVT prophylaxis dosing only for now (3) Peritonitis (acute) generalized: as above, continue abx, now s/p ex-lap and colon resection (4) Perforated bowel: as above, secondary to acute diverticulitis (5) Diverticulitis: as above, acute sigmoid diverticulitis (6) Free intraperitoneal air: as above (7) Hypophosphatemia: Replete today with IV phosphorus Follow phosphorus level in the morning (8) Hypercholesterolemia: hold home meds (9) Intrahepatic bile duct dilation: -- Uncertain of clinical signifigance. -- Normal LFT's and no evidence or symptoms of hepatobiliary disease otherwise. CT abd/pel and RUQ US without liver issues but with branch of right portal vein thrombus (10) Ureteral stenosis: noted to have such intraoperatively with difficulty placing Lunsford-used 12 [place] f/u with Urology as outpt or sooner if fails TOV here post-op Patient reports that he was circumcised later in childhood and had a urethral stricture at that time that was dilated but has never had any difficulty since then with urination (11) Pulmonary nodule: 6mm nodule LLL noted plan to f/u with CT Chest in 6 months as is current smoker (12) Current smoker: encouraged cessation He declines nicotine patch at this time (13) Prediabetes: HgbA1C 6.0% on last check Blood glucose on morning labs is normal No need for insulin (14) DVT prophylaxis: Heparin SQ Holding home vitamins, etc. Dispo-stable for downgrade to medical/surgical floor today, expect at least 3-4 more days stay and then may need rehab versus home with home health PT/OT consults ordered Admission and Anticipated Discharge Date Admission Date: October 28, 2020 Subjective Patient reports he is feeling well today, has some pain but it is controlled with pain medication. An occasional wave of nausea but is tolerating ice chips and water and is about to try joy joaquin. Denies chest pain or shortness of breath. Otherwise he is joking around and wants me to draw him a diagram of what body parts were removed during his surgery. He was doing well and was transferred out of the ICU to the medical/surgical floor by the surgeon this morning. Review of Systems Review of Systems: All systems reviewed & are unremarkable except as noted in HPI & below Physical Exam Constitutional: WD/WN, vitals as above Eyes: + anicteric sclerae Neck: trachea midline, no thyromegaly Respiratory: normal respiratory effort, lungs clear to auscultation Cardiovascular: RRR, no murmur, no edema Chest (Breasts): Chest: normal inspection of chest Gastrointestinal (Abdomen): Inspection/Auscultation: normal bowel sounds and + hypoactive bowel sounds; + abdomen abnormal to inspection (Dressing in place over mid abdomen, JONATHAN drain with serosanguineous fluid) Percussion/Palpation: + abdomen tender (Minimal around incision site) and abdomen soft; no guarding With colostomy bag in place with scant amount of pink liquid Musculoskeletal: Extremities: extremities normal to inspection; no cyanosis and no clubbing Skin: no rashes, warm and dry Neurologic: moves all extremities and awake; no focal motor deficits Psychiatric: A+Ox3, euthymic affect Lymphatic: no lymphedema Results & Data Results & Data ([facility]) Vital Signs (Past 12 Hours) Vital Signs Temp Pulse Pulse Resp BP BP Pulse Ox 10/31/20 07:17 75 18 129/111 H 10/31/20 07:00 77 19 93 10/31/20 06:30 74 20 94 10/31/20 06:20 79 22 136/79 96 10/31/20 06:00 66 81 13 136/79 93 10/31/20 03:09 37.2 C 77 20 127/81 97 10/31/20 00:00 36.9 C 80 20 139/76 96 10/30/20 22:00 76 22 123/83 97 Laboratory Results 10/31/20 10/31/20 Range/Units 04:36 04:36 WBC 14.25 H (4.8-10.8) K/uL RBC 3.54 L (4.7-6.1) M/uL Hgb 11.3 L (14.0-18.0) g/dL Hct 34.2 L (42-52) % MCV 96.6 (80-100) fL MCH 31.9 (25-34) pg MCHC 33.0 (32-36) g/dL RDW Std Deviation 49.9 H (36.4-46.3) fL RDW Coeff of Aleisha 14.0 (11.5-14.5) % Plt Count 348 (130-400) K/uL MPV 9.3 (7.4-10.4) fL Immature Gran % (Auto) 0.3 % Neut % (Auto) 75.7 % Lymph % (Auto) 17.3 % [place] % (Auto) 6.6 % Eos % (Auto) 0.0 % Baso % (Auto) 0.1 % Neut # (Auto) 10.79 H (1.4-6.5) K/uL Lymph # (Auto) 2.47 (1.2-3.4) K/uL [place] # (Auto) 0.94 H (0.11-0.59) K/uL Eos # (Auto) 0.00 (0-0.5) K/uL Baso # (Auto) 0.01 (0-0.2) K/uL Immature Gran # (Auto) 0.04 H (0.00-0.02) K/uL Sodium 143 (136-145) mmol/L Potassium 4.2 (3.5-5.1) mmol/L Chloride 116 H (98-107) mmol/L Carbon Dioxide 22 (21-32) mmol/L Anion Gap 5.0 (3-11) BUN 24 H (7-18) mg/dl Creatinine 0.64 (0.6-1.4) mg/dl Est Cr Clr Drug Dosing 90.4 ml/min Est GFR ( Amer) 109.5 Est GFR (Non-Af Amer) 94.4 BUN/Creatinine Ratio 36.8 H (10-20) Glucose 99 (70-99) mg/dl Calcium 7.8 L (8.5-10.1) mg/dl Phosphorus 1.9 L D (2.5-4.9) mg/dl Magnesium 2.4 (1.8-2.4) mg/dl Total Bilirubin 0.5 (0.2-1) mg/dl AST 28 (15-37) U/L ALT 43 (12-78) U/L Alkaline Phosphatase 60 (45-117) U/L Total Protein 5.7 L (6.4-8.2) gm/dl Albumin 2.1 L (3.4-5.0) gm/dl Globulin 3.6 (2.5-4.0) gm/dl Albumin/Globulin Ratio 0.6 L (0.9-2) PG Care Time/CCT Total # of Minutes Spent Total Time Spent with Patient: Total time spent is greater than 50% in coordination of care (as documented) at patient's floor/unit and/or counseling patient: Coding Level of Care Code 97452 Subseq Hosp Care Lvl 3 Diagnoses Sepsis A41.9 Sepsis acute organ dysfunction status: unspecified Sepsis type: sepsis due to unspecified organism Portal vein thrombosis I81 Peritonitis (acute) generalized K65.0 Perforated bowel K63.1 Diverticulitis K57.92 Free intraperitoneal air K66.8 Hypophosphatemia E83.39 Hypercholesterolemia E78.00 Intrahepatic bile duct dilation K83.8 Ureteral stenosis Q62.10 Pulmonary nodule R91.1 Current smoker F17.200 Prediabetes R73.03 DVT prophylaxis Z29.9 (1) Sepsis Sepsis acute organ dysfunction status: unspecified Sepsis type: sepsis due to unspecified organism Qualified Code(s): A41.9 - Sepsis, unspecified organism
[2020-10-31] MEDS ORDERED: SODIUM PHOSPHATE 15 MMOL in SODIUM CHLORIDE 0.9% 250 ML IV ONE (08:00)
[2020-10-31] MEDS: HYDROmorphone INJ 0.5 MG/0.5 ML SYR IV PRN ×2 (08:53→12:58)
[2020-10-31] MEDS ORDERED: VANCOMYCIN TROUGH ONE (09:30)
[2020-10-31] MEDS: NSS + 20MEQ KCL 20 MEQ/1,000 ML BAG IV SCH (13:51)
[2020-11-01] MEDS: PIPERACILLIN/TAZOBACTAM 3.375 GM in DEXTROSE 5% 100 ML IV SCH ×3 (01:05→16:22)
[2020-11-01] MEDS: NSS + 20MEQ KCL 20 MEQ/1,000 ML BAG IV SCH ×2 (01:22→02:36)
[2020-11-01] MEDS: HYDROmorphone INJ 0.5 MG/0.5 ML SYR IV PRN (04:19)
[2020-11-01] MEDS: ONDANSETRON INJ 2 MG/ML 2 ML VIAL IV PRN (04:20)
[2020-11-01] MEDS ORDERED: HYDROCODONE/ACETAMOPHEN 5/325MG TAB PO PRN ×3 (06:02→09:34)
[2020-11-01 06:35] LABS: Basophils # (auto) 0.01 K/uL (0-0.2); Basophils % (auto) 0.1 %; Eosinophils # (auto) 0.01 K/uL (0-0.5); Eosinophils % (auto) 0.1 %; Hematocrit (blood only) 33.2 % (42-52); Hemoglobin 11.2 g/dL (14.0-18.0); Immature Granulocytes # (auto) 0.03 K/uL (0.00-0.02); Immature Granulocytes % (auto) 0.3 %; Lymphocytes # (auto) 2.11 K/uL (1.2-3.4); Lymphocytes % (auto) 20.1 %; Mean Corpuscular Hemoglobin 32.5 pg (25-34); Mean Corpuscular Hgb Conc 33.7 g/dL (32-36); Mean Corpuscular Volume 96.2 fL (80-100); Mean Platelet Volume 9.2 fL (7.4-10.4); Monocytes # (auto) 0.87 K/uL (0.11-0.59); Monocytes % (auto) 8.3 %; Neutrophils # (auto) 7.45 K/uL (1.4-6.5); Neutrophils % (auto) 71.1 %; Platelet Count 366 K/uL (130-400); Red Blood Count 3.45 M/uL (4.7-6.1); White Blood Count 10.48 K/uL (4.8-10.8)
[2020-11-01 07:22] LABS: Albumin Globulin Ratio 0.6 (0.9-2); Albumin Level 2.2 gm/dl (3.4-5.0); BUN Creatinine Ratio 22.5 (10-20); Bilirubin,Total 0.7 mg/dl (0.2-1); Calcium 7.8 mg/dl (8.5-10.1); Est GFR (African American) 113.2; Est GFR (Non-African American) 97.7; Globulin 3.5 gm/dl (2.5-4.0); Magnesium 2.2 mg/dl (1.8-2.4); Phosphorus 2.5 mg/dl (2.5-4.9); Potassium 4.1 mmol/L (3.5-5.1); Total Protein 5.7 gm/dl (6.4-8.2)
[2020-11-01] MEDS: HYDROmorphone INJ 1 MG/ML SYRINGE IV PRN (07:49)
--- NOTE | 2020-11-01 08:35 | Hospitalist Progress Note ---
Date of Service November 01, 2020 Assessment & Plan (1) Peritonitis (acute) generalized: Patient is a 75 year old male with PMHx nicotine use, BPH, Hypercholesterolemia, GERD, who presented initially with fever, chills, myalgias and arthralgias found to have acute diverticulitis of the sigmoid colon and intraperitoneal free air throughout the abdomen consistent with perforation of the bowel. Sepsis and Peritonitis secondary to diverticulitis and perforated bowel -Diverticulitis and bowel perforation initially noted on CT abdomen/pelvis on 10/29/20 -General Surgery was consulted -S/P Ex-lap and ostomy on 10/29/20 -Will continue with IV Zosyn for antibiotic coverage, likely transition to PO Augmentin for 10-14 complete antibiotic course -IV Dilaudid and PO norco for pain. -Diet advanced today -PT/OT -Ostomy care to be taught to patient prior to discharge Portal Vein Thrombosis -Noted on abdomen/pelvis CT with thrombus within intrahepatic branches of the R portal vein -Will require anticoagulation x3 months once -Will hold until OK from surgery to start anticoagulation Hypercholesterolemia -Will resume home meds in AM now that patient is taking PO Pulmonary nodule -6mm nodule in the LLL -Repeat CT chest in 6 months Dispo: Med/Surg FEN: Low fiber diet DVT: Subq Heparin 5000 Code: Full Admission and Anticipated Discharge Date Admission Date: October 28, 2020 Supervising Physician Co-Signing Physician Notes I personally examined the patient and verified all zheng points of history and exam, discussed case, and agree with decision making with Dr Cano. feeling better stomach gurgling. 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 Patient noted that he was feeling much better in regards to no longer having any fevers, chills, rigors since his surgery, though still rates his abdominal pain and discomfort a 6-8/10 this morning in the LLQ. He states he has started to try eating and has been able to keep down liquids and jello. Notes that he has had output in his ostomy bag. Review of Systems Constitutional: no fever, no chills and no fatigue Eyes: no photophobia and no worsening vision Ear, Nose, Mouth, Throat: no dizziness Respiratory: no cough, no chest congestion, no dyspnea, no dyspnea on exertion and no pain on inspiration Cardiovascular: no chest pain, no chest pain at rest, no radiating jaw, neck or arm pain, no dyspnea, no dyspnea on exertion, no palpitations, no lightheadedness, no edema and no calf pain Gastrointestinal: + abdominal pain; no nausea and no vomiting Genitourinary: no dysuria Musculoskeletal: no muscle weakness Neurologic: no headache(s) Physical Exam Constitutional: WD/WN, vitals as above Eyes: PERRL, conjunctivae normal, anicteric sclerae Respiratory: normal respiratory effort, lungs clear to auscultation Cardiovascular: RRR, no murmur, no edema Gastrointestinal (Abdomen): Inspection/Auscultation: abdomen normal to inspection, normal bowel sounds and + abdominal surgical incision (dressings clean and dry, ostomy site non-erythematous and w/o discharge); abdomen not distended Percussion/Palpation: + abdomen tender (mildly in LUQ and LLQ ) and abdomen soft; no guarding and abdomen not rigid Results & Data Results & Data ([facility]) Vital Signs (Past 12 Hours) Vital Signs Temp Pulse Resp BP Pulse Ox 11/01/20 07:34 37.1 C 52 L 18 126/75 95 10/31/20 23:27 37.5 C 75 16 129/75 95 Resident Activity Tracking Resident Involvement: Resident Care Provided Care Provided: Adult Hospital Medicine
--- NOTE | 2020-11-01 09:37 | Surgery Progress Note ---
Date of Service November 01, 2020 Assessment & Plan (1) H/O colectomy: Patient progressing well-colostomy beginning to function Remove Lunsford catheter Advance his diet Stop his IV fluids Continue IV antibiotics Patient needs to ambulate Admission and Anticipated Discharge Date Admission Date: October 28, 2020 Results & Data ([facility]) Vital Signs (Past 12 Hours) Vital Signs Temp Pulse Resp BP Pulse Ox 11/01/20 07:34 37.1 C 52 L 18 126/75 95 10/31/20 23:27 37.5 C 75 16 129/75 95 PG Care Time/CCT Total # of Minutes Spent Total Time Spent with Patient: Total time spent is greater than 50% in coordination of care (as documented) at patient's floor/unit and/or counseling patient: Coding Level of Care Code None Diagnoses H/O colectomy Z90.49
[2020-11-01] MEDS: FAMOTIDINE 20 MG in SYRINGE 3 ML IV SCH ×2 (09:47→20:35)
[2020-11-01] MEDS: HEPARIN SOD 5,000 UNIT/0.5 ML VIAL SQ SCH ×2 (09:48→20:33)
[2020-11-01] MEDS: HYDROCODONE/ACETAMOPHEN 5/325MG TAB PO PRN ×2 (16:25→20:35)
--- NOTE | 2020-11-01 16:27 | Billing Data ---
Date of Service November 01, 2020 Coding Level of Care Code 17050 Subseq Hosp Care Lvl 3
[2020-11-02] MEDS: PIPERACILLIN/TAZOBACTAM 3.375 GM in DEXTROSE 5% 100 ML IV SCH ×4 (00:41→23:47)
[2020-11-02] MEDS: HYDROCODONE/ACETAMOPHEN 5/325MG TAB PO PRN ×3 (06:19→20:10)
--- NOTE | 2020-11-02 06:54 | Hospitalist Progress Note ---
Date of Service November 02, 2020 Assessment & Plan (1) Peritonitis (acute) generalized: Patient is a 75 year old male with PMHx nicotine use, BPH, Hypercholesterolemia, GERD, who presented initially with fever, chills, myalgias and arthralgias found to have acute diverticulitis of the sigmoid colon and intraperitoneal free air throughout the abdomen consistent with perforation of the bowel. Sepsis and Peritonitis secondary to diverticulitis and perforated bowel -Diverticulitis and bowel perforation initially noted on CT abdomen/pelvis on 10/29/20 -General Surgery was consulted -S/P Ex-lap and ostomy on 10/29/20 -Will continue with IV Zosyn for antibiotic coverage, likely transition to PO Augmentin for 10-14 complete antibiotic course upon discharge -IV Dilaudid and PO norco for pain. -Tolerating diet -PT/OT -Ostomy care to be taught to patient prior to discharge -Lunsford removed 11/01/20 Portal Vein Thrombosis -Noted on abdomen/pelvis CT with thrombus within intrahepatic branches of the R portal vein -Will require anticoagulation x3 months once -Plan to start anticoagulation prior to discharge, likely with DOAC Hypercholesterolemia -Resume home fish oil Pulmonary nodule -6mm nodule in the LLL -Repeat CT chest in 6 months Dispo: Med/Surg FEN: Low fiber diet DVT: Lovenox 40mg QD Code: Full Admission and Anticipated Discharge Date Admission Date: October 28, 2020 Supervising Physician Co-Signing Physician Notes I personally examined the patient and verified all zheng points of history and exam, discussed case, and agree with decision making with Dr Cano. continues to slowly feel better. eating a little better still just no appetite but able to eat. belly pain reasonable, meds help. vitals noted nad heent nc at mmm breathing unlabored no accessory muscles good effort skin no rashes no pallor or icterus neuro no focal deficits peritonitis due to perforated diverticulitis -continues to improve. continue abx, continue current care. portal vein thrombosis - anticoagulation once safe (in next few days), but far less urgent/more nebulous benefit given overall situation otherwise as above Subjective Patient evaluated at the bedside this AM. Noting slightly improved abdominal discomfort that is well controlled with oral analgesics. Has been able to eat and keep down solid food with minimal discomfort. Notes he is not eating as much though because "I don't have an appetite." Denies any fever, chills, SOB, chest pain. Review of Systems Constitutional: no fever, no chills and no fatigue Eyes: no photophobia and no worsening vision Ear, Nose, Mouth, Throat: no dizziness Respiratory: no cough, no chest congestion, no dyspnea, no dyspnea on exertion and no pain on inspiration Cardiovascular: no chest pain, no chest pain at rest, no radiating jaw, neck or arm pain, no dyspnea, no dyspnea on exertion, no palpitations, no lightheadedness, no edema and no calf pain Gastrointestinal: + abdominal pain; no nausea and no vomiting Genitourinary: no dysuria Musculoskeletal: no muscle weakness Neurologic: no headache(s) Physical Exam Constitutional: WD/WN, vitals as above Eyes: PERRL, conjunctivae normal, anicteric sclerae ENMT: external ear and nose normal, oropharynx normal Neck: trachea midline, no thyromegaly Respiratory: normal respiratory effort, lungs clear to auscultation Cardiovascular: RRR, no murmur, no edema Gastrointestinal (Abdomen): Inspection/Auscultation: abdomen normal to inspection, normal bowel sounds and + abdominal surgical incision (Clean, Dry, intact, no erythema or discharge noted); abdomen not distended Percussion/Palpation: + abdomen tender (mildly in LUQ and LLQ ) and abdomen soft; no guarding and abdomen not rigid Results & Data Results & Data ([facility]) Vital Signs (Past 12 Hours) Vital Signs Temp Pulse Resp BP Pulse Ox 11/02/20 00:06 36.9 C 71 16 143/81 H 94 Resident Activity Tracking Resident Involvement: Resident Care Provided Care Provided: Adult [facility] Medicine
[2020-11-02 07:37] LABS: Basophils # (auto) 0.01 K/uL (0-0.2); Basophils % (auto) 0.1 %; Eosinophils # (auto) 0.04 K/uL (0-0.5); Eosinophils % (auto) 0.4 %; Hemoglobin 11.6 g/dL (14.0-18.0); Immature Granulocytes # (auto) 0.02 K/uL (0.00-0.02); Immature Granulocytes % (auto) 0.2 %; Lymphocytes # (auto) 2.09 K/uL (1.2-3.4); Lymphocytes % (auto) 22.2 %; Mean Corpuscular Hemoglobin 32.2 pg (25-34); Mean Corpuscular Hgb Conc 34.1 g/dL (32-36); Mean Corpuscular Volume 94.4 fL (80-100); Mean Platelet Volume 9.3 fL (7.4-10.4); Monocytes # (auto) 0.76 K/uL (0.11-0.59); Monocytes % (auto) 8.1 %; Neutrophils # (auto) 6.48 K/uL (1.4-6.5); Platelet Count 408 K/uL (130-400); RDW Coefficient of Variation 13.6 % (11.5-14.5); RDW Standard Deviation 47.4 fL (36.4-46.3)
--- NOTE | 2020-11-02 07:38 | Surgery Progress Note ---
Date of Service November 02, 2020 Assessment & Plan (1) H/O colectomy: Patient appears to be tolerating his diet relatively well He is voiding well He is on IV antibiotics with a history of sepsis from his perforated diverticulitis He continues to have drains in place-subcutaneous and a pelvic JONATHAN drain I have switched him to subcu Lovenox once daily-May consider anticoagulation tomorrow however I do not want the patient on Lovenox and Coumadin-we need to be very careful Possible discharge later in the week /Sunday-the patient needs help with his colostomy care and will need visiting nurse Admission and Anticipated Discharge Date Admission Date: October 28, 2020 Results & Data ([facility]) Vital Signs (Past 12 Hours) Vital Signs Temp Pulse Resp BP Pulse Ox 11/02/20 00:06 36.9 C 71 16 143/81 H 94 PG Care Time/CCT Total # of Minutes Spent Total Time Spent with Patient: Total time spent is greater than 50% in coordination of care (as documented) at patient's floor/unit and/or counseling patient: Coding Level of Care Code None Diagnoses H/O colectomy Z90.49
[2020-11-02] MEDS: FAMOTIDINE 20 MG in SYRINGE 3 ML IV SCH ×2 (08:06→20:10)
[2020-11-02] MEDS: ENOXAPARIN INJ 40 MG/0.4 ML SYR SQ SCH (08:36)
--- NOTE | 2020-11-02 16:29 | Billing Data ---
Date of Service November 02, 2020 Coding Level of Care Code 75085 Subseq Hosp Care Lvl 2
--- NOTE | 2020-11-02 16:30 | Billing Data ---
Date of Service November 02, 2020 Coding Level of Care Code 34067 Subseq Hosp Care Lvl 3
[2020-11-02] MEDS: OMEGA-3 (PURIFIED FISH OIL) 1 GM CAP PO SCH (20:10)
[2020-11-02] MEDS: ONDANSETRON INJ 2 MG/ML 2 ML VIAL IV PRN (20:12)
[2020-11-03 07:02] LABS: Basophils # (auto) 0.01 K/uL (0-0.2); Basophils % (auto) 0.1 %; Eosinophils # (auto) 0.11 K/uL (0-0.5); Eosinophils % (auto) 1.1 %; Hematocrit (blood only) 35.8 % (42-52); Hemoglobin 12.2 g/dL (14.0-18.0); Immature Granulocytes # (auto) 0.02 K/uL (0.00-0.02); Immature Granulocytes % (auto) 0.2 %; Lymphocytes % (auto) 23.1 %; Mean Corpuscular Hemoglobin 32.2 pg (25-34); Mean Corpuscular Hgb Conc 34.1 g/dL (32-36); Mean Corpuscular Volume 94.5 fL (80-100); Mean Platelet Volume 9.3 fL (7.4-10.4); Monocytes # (auto) 1.03 K/uL (0.11-0.59); Monocytes % (auto) 10.4 %; Neutrophils # (auto) 6.47 K/uL (1.4-6.5); Neutrophils % (auto) 65.1 %; Platelet Count 463 K/uL (130-400); RDW Coefficient of Variation 13.5 % (11.5-14.5); RDW Standard Deviation 46.6 fL (36.4-46.3); Red Blood Count 3.79 M/uL (4.7-6.1); White Blood Count 9.94 K/uL (4.8-10.8)
--- NOTE | 2020-11-03 07:21 | Hospitalist Progress Note ---
Date of Service November 03, 2020 Assessment & Plan (1) Peritonitis (acute) generalized: Patient is a 75 year old male with PMHx nicotine use, BPH, Hypercholesterolemia, GERD, who presented initially with fever, chills, myalgias and arthralgias found to have acute diverticulitis of the sigmoid colon and intraperitoneal free air throughout the abdomen consistent with perforation of the bowel. Sepsis and Peritonitis secondary to diverticulitis and perforated bowel -Diverticulitis and bowel perforation initially noted on CT abdomen/pelvis on 10/29/20 -General Surgery was consulted -S/P Ex-lap and ostomy on 10/29/20 -Will continue with IV Zosyn for antibiotic coverage, likely transition to PO Augmentin 875mg BID for 10-14 complete antibiotic course upon discharge -PO norco for pain, well controlled -Tolerating diet -PT/OT -Ostomy care to be taught to patient prior to discharge -Lunsford removed 11/01/20 Portal Vein Thrombosis -Noted on abdomen/pelvis CT with thrombus within intrahepatic branches of the R portal vein -Will require anticoagulation x3 months once -Will start with Xarelto 15mg QD for anticoagulation Hypercholesterolemia -Continue home fish oil Pulmonary nodule -6mm nodule in the LLL -Repeat CT chest in 6 months Dispo: Med/Surg FEN: Low fiber diet DVT: Xarelto Code: Full Admission and Anticipated Discharge Date Admission Date: October 28, 2020 Supervising Physician Co-Signing Physician Notes I personally examined the patient and verified all zheng points of history and exam, discussed case, and agree with decision making with Dr Cano. getting dressing changed when i enter. having drains pulled hurt, otherwise doing ok vitals noted nad heent nc at mmm breathing unlabored no accessory muscles good effort skin no rashes no pallor or icterus neuro no focal deficits. wound appears healing well peritonitis due to perforated diverticulitis -continues to improve. continue IV abx for now, probably change to augmentin in 1-2 days, continue current care. portal vein thrombosis - start DOAC otherwise as above Subjective Patient evaluated at the bedside this AM. Very talkative and interested in social interaction. Noting improvement in his pain over all. Discussion of addition of blood thinner today in regards to treatment of his portal vein thro mbosis. Patient agreeable, noted that his has been on blood thinners for her DVT. No fever, chills, SOB, chest pain. Review of Systems Review of Systems: All systems reviewed & are unremarkable except as noted in Subjective Physical Exam Constitutional: WD/WN, vitals as above Eyes: PERRL, conjunctivae normal, anicteric sclerae ENMT: external ear and nose normal, oropharynx normal Neck: trachea midline, no thyromegaly Respiratory: normal respiratory effort, lungs clear to auscultation Cardiovascular: RRR, no murmur, no edema Gastrointestinal (Abdomen): Inspection/Auscultation: abdomen normal to inspection, normal bowel sounds and + abdominal surgical incision (dressing clean, dry, intact); abdomen not distended Percussion/Palpation: + abdomen tender (mildly in LUQ and LLQ ) and abdomen soft; no guarding and abdomen not rigid Results & Data Results & Data ([facility]) Vital Signs (Past 12 Hours) Vital Signs Temp Pulse Resp BP Pulse Ox 11/02/20 23:03 37.1 C 71 18 124/71 93 Resident Activity Tracking Resident Involvement: Resident Care Provided Care Provided: Adult Hospital Medicine
[2020-11-03 07:46] LABS: BUN Creatinine Ratio 10.6 (10-20); Calcium 8.4 mg/dl (8.5-10.1); Creatinine Clr Calc Pharmacy 82.6 ml/min; Est GFR (African American) 105.5; Potassium 3.8 mmol/L (3.5-5.1)
[2020-11-03] MEDS: ENOXAPARIN INJ 40 MG/0.4 ML SYR SQ SCH (07:47)
[2020-11-03] MEDS: HYDROCODONE/ACETAMOPHEN 5/325MG TAB PO PRN ×2 (07:48→19:47)
[2020-11-03] MEDS: FAMOTIDINE 20 MG in SYRINGE 3 ML IV SCH (07:48)
[2020-11-03] MEDS: OMEGA-3 (PURIFIED FISH OIL) 1 GM CAP PO SCH ×2 (07:49→21:50)
[2020-11-03] MEDS: PIPERACILLIN/TAZOBACTAM 3.375 GM in DEXTROSE 5% 100 ML IV SCH ×3 (07:49→23:38)
--- NOTE | 2020-11-03 07:52 | Surgery Progress Note ---
Date of Service November 03, 2020 Assessment & Plan (1) H/O colectomy: Patient tolerating his diet colostomy is functioning He does not have much desire in caring for his colostomy He is in training IV antibiotics continue Possible discharge in 1 to 2 days-Augmentin 875 twice daily Medical team to begin anticoagulation Admission and Anticipated Discharge Date Admission Date: October 28, 2020 Results & Data ([facility]) Vital Signs (Past 12 Hours) Vital Signs Temp Pulse Resp BP Pulse Ox 11/02/20 23:03 37.1 C 71 18 124/71 93 PG Care Time/CCT Total # of Minutes Spent Total Time Spent with Patient: Total time spent is greater than 50% in coordination of care (as documented) at patient's floor/unit and/or counseling patient: Coding Level of Care Code None Diagnoses H/O colectomy Z90.49
[2020-11-03] MEDS: ONDANSETRON INJ 2 MG/ML 2 ML VIAL IV PRN ×2 (15:21→21:50)
--- NOTE | 2020-11-03 18:17 | Billing Data ---
Date of Service November 03, 2020 Coding Level of Care Code 63671 Subseq Hosp Care Lvl 3
--- NOTE | 2020-11-04 07:17 | Hospitalist Progress Note ---
Date of Service November 04, 2020 Assessment & Plan (1) Peritonitis (acute) generalized: Patient is a 75 year old male with PMHx nicotine use, BPH, Hypercholesterolemia, GERD, who presented initially with fever, chills, myalgias and arthralgias found to have acute diverticulitis of the sigmoid colon and intraperitoneal free air throughout the abdomen consistent with perforation of the bowel. Sepsis and Peritonitis secondary to diverticulitis and perforated bowel -Diverticulitis and bowel perforation initially noted on CT abdomen/pelvis on 10/29/20 -General Surgery was consulted -S/P Ex-lap and ostomy on 10/29/20 -Will continue with IV Zosyn for antibiotic coverage, likely transition to PO Augmentin 875mg BID for 10-14 complete antibiotic course upon discharge -PO norco for pain, well controlled -Tolerating diet -PT/OT -Ostomy care to be taught to patient prior to discharge -Lunsford removed 11/01/20 -Plan for rehab at [facility], tentative discharge 11/06/20 Portal Vein Thrombosis -Noted on abdomen/pelvis CT with thrombus within intrahepatic branches of the R portal vein -Will require anticoagulation x3 months once -Continue Xarelto 15mg QD for anticoagulation Hypercholesterolemia -Continue home fish oil Pulmonary nodule -6mm nodule in the LLL -Repeat CT chest in 6 months Dispo: Med/Surg, plan for DC to [facility] tentatively 11/06/20 FEN: Low fiber diet DVT: Xarelto Code: Full Admission and Anticipated Discharge Date Admission Date: October 28, 2020 Supervising Physician Co-Signing Physician Notes I personally examined the patient and verified all zheng points of history and exam, discussed case, and agree with decision making with Dr Cano. resting comfortably nad vitals noted nad heent nc at mmm breathing unlabored no accessory muscles good effort skin no rashes no pallor or icterus neuro no focal deficits. peritonitis due to perforated diverticulitis -continues to improve. continue abx portal vein thrombosis - DOAC otherwise as above, for [facility] once bed available Subjective Patient evaluated at the bedside. Noting improvement in his abdominal pain tod ay. States he is hesitant to clean his own ostomy. No fever, chills, SOB, chest pain, nausea, vomiting. Review of Systems Review of Systems: All systems reviewed & are unremarkable except as noted in Subjective Physical Exam Constitutional: WD/WN, vitals as above Eyes: PERRL, conjunctivae normal, anicteric sclerae ENMT: external ear and nose normal, oropharynx normal Neck: trachea midline, no thyromegaly Respiratory: normal respiratory effort, lungs clear to auscultation Cardiovascular: RRR, no murmur, no edema Gastrointestinal (Abdomen): Inspection/Auscultation: abdomen normal to inspection, normal bowel sounds and + abdominal surgical incision (dressing clean, dry, intact); abdomen not distended Percussion/Palpation: + abdomen tender (mildly in LUQ and LLQ, improving ) and abdomen soft; no guarding and abdomen not rigid Psychiatric: A+Ox3, euthymic affect Results & Data Results & Data ([facility]) Vital Signs (Past 12 Hours) Vital Signs Temp Pulse Resp BP Pulse Ox 11/03/20 23:33 37.1 C 62 18 127/81 93 Resident Activity Tracking Resident Involvement: Resident Care Provided Care Provided: Adult Hospital Medicine
[2020-11-04] MEDS: OMEGA-3 (PURIFIED FISH OIL) 1 GM CAP PO SCH ×2 (07:45→20:47)
[2020-11-04] MEDS: HYDROCODONE/ACETAMOPHEN 5/325MG TAB PO PRN ×4 (07:47→23:17)
[2020-11-04] MEDS: PIPERACILLIN/TAZOBACTAM 3.375 GM in DEXTROSE 5% 100 ML IV SCH ×3 (07:52→23:18)
[2020-11-04] MEDS: RIVAROXABAN 15 MG TAB PO SCH (07:52)
--- NOTE | 2020-11-04 08:52 | Surgery Progress Note ---
Date of Service November 04, 2020 Assessment & Plan (1) H/O colectomy: Doing well He is unable to take care of his colostomy Somewhat weak is not unexpected It appears he may be going to [facility] for a week or 2 which would be very helpful New IV antibiotics for now switch to p.o. on discharge, drains have been removed Is required some care drain sites in his incision Admission and Anticipated Discharge Date Admission Date: October 28, 2020 Results & Data ([facility]) Vital Signs (Past 12 Hours) Vital Signs Temp Pulse Resp BP Pulse Ox 11/04/20 08:00 36.5 C 76 16 142/85 H 93 11/03/20 23:33 37.1 C 62 18 127/81 93 PG Care Time/CCT Total # of Minutes Spent Total Time Spent with Patient: Total time spent is greater than 50% in coordination of care (as documented) at patient's floor/unit and/or counseling patient: Coding Level of Care Code None Diagnoses H/O colectomy Z90.49
--- NOTE | 2020-11-04 18:47 | Billing Data ---
Date of Service November 04, 2020 Coding Level of Care Code 65499 Subseq Hosp Care Lvl 2
[2020-11-05 06:55] LABS: Calcium 8.6 mg/dl (8.5-10.1); Creatinine Clr Calc Pharmacy 77.1 ml/min; Est GFR (African American) 102.6; Est GFR (Non-African American) 88.5; Potassium 3.9 mmol/L (3.5-5.1)
[2020-11-05] MEDS: HYDROCODONE/ACETAMOPHEN 5/325MG TAB PO PRN ×3 (07:59→20:26)
[2020-11-05] MEDS: OMEGA-3 (PURIFIED FISH OIL) 1 GM CAP PO SCH ×2 (08:01→20:27)
[2020-11-05] MEDS: RIVAROXABAN 15 MG TAB PO SCH (08:29)
[2020-11-05] MEDS: AMOXICILLIN/CLAVULANATE 875 MG TAB PO SCH ×2 (08:29→17:13)
--- NOTE | 2020-11-05 09:53 | Surgery Progress Note ---
Date of Service November 05, 2020 Assessment & Plan (1) H/O colectomy: Pt with some nausea this AM that is improving. He is otherwise tolerating a diet and having + ostomy function Patient's VSS Surgical incisions c/d/i; continue daily packing to superior/inferior portions of midline incision with wet-to-dry 1/4" nu-gauze; cover with dry 4x4 gauze and adhere with medipore tape Patient still needs ostomy teaching prior to discharge; may benefit from getting involved for teaching Plan to discharge on course of Augmentin Appears plans in place to go to [facility] upon discharge either today vs tomorrow Follow up with Dr. Mills within 1-2 weeks [facility] surgeons covering over the weekend Admission and Anticipated Discharge Date Admission Date: October 28, 2020 Subjective Patient states he is feeling a little nauseated today. He did eat breakfast and says it is getting better. He is curious about his plans for discharge. Physical Exam Physical Exam: awake/alert Gastrointestinal (Abdomen): Inspection/Auscultation: + abdominal surgical incision (c/d/i with eulalio/sutures in place, no signs of infection) Percussion/Palpation: abdomen soft; abdomen nontender + gas and stool contents in ostomy bag Results & Data ([facility]) Vital Signs (Past 12 Hours) Vital Signs Temp Pulse Pulse Resp BP Pulse Ox 11/05/20 07:29 37.2 C 78 18 157/90 H 93 11/04/20 23:12 37.1 C 78 16 141/86 H 93 PG Care Time/CCT Total # of Minutes Spent Total Time Spent with Patient: Total time spent is greater than 50% in coordination of care (as documented) at patient's floor/unit and/or counseling patient: Coding Level of Care Code None Diagnoses H/O colectomy Z90.49
--- NOTE | 2020-11-05 12:15 | Hospitalist Progress Note ---
Date of Service November 05, 2020 Assessment & Plan (1) Peritonitis (acute) generalized: Patient is a 75 year old male with PMHx nicotine use, BPH, Hypercholesterolemia, GERD, who presented initially with fever, chills, myalgias and arthralgias found to have acute diverticulitis of the sigmoid colon and intraperitoneal free air throughout the abdomen consistent with perforation of the bowel. Sepsis and Peritonitis secondary to diverticulitis and perforated bowel -Diverticulitis and bowel perforation on presentation 10/29 S/P Ex-lap and ostomy -Initially on IV Zosyn transitioned to PO Augmentin 875mg BID for 10-14 days to complete course will need outpatient primary care and surgery follow up -PO norco for pain, well controlled -Tolerating diet -Plan for rehab at [facility] medically stable for discharge Portal Vein Thrombosis -Noted on abdomen/pelvis CT with thrombus within intrahepatic branches of the R portal vein -Will require anticoagulation x3 months -Continue Xarelto 15mg QD for anticoagulation Hypercholesterolemia -Continue home fish oil Pulmonary nodule -6mm nodule in the LLL -Repeat CT chest in 6 months Dispo: Med/Surg, plan for DC to [facility] when bed ready FEN: Low fiber diet DVT: Xarelto Code: Full Admission and Anticipated Discharge Date Admission Date: October 28, 2020 Supervising Physician Co-Signing Physician Notes I personally examined the patient and verified all zheng points of history and exam, discussed case, and agree with decision making with Dr Butts. No new problems. No new complaints. For [facility] Sunday now unfortunately due to their bureaucracy. vitals noted nad heent nc at mmm breathing unlabored no accessory muscles good effort skin no rashes no pallor or icterus neuro no focal deficits. Abdomen soft only mildly distended nontender, wounds appear clean dry and intact, no erythema peritonitis due to perforated diverticulitis -continues to improve. continue abxstable for SNFchanged to p.o. Augmentin portal vein thrombosis - DOAC otherwise as above, for [facility] once bed available Subjective Mr. Magallanes doing pretty well today, complaining of some mild nausea but otherwise his pain is doing well. Just some discomfort at incision site when folks are pushing on his belly. He denies any fevers or chills and is wondering when he's going to be able to leave. No acute concerns. Review of Systems Review of Systems: All systems reviewed & are unremarkable except as noted in HPI & below Physical Exam Constitutional: WD/WN, vitals as above Eyes: PERRL, conjunctivae normal, anicteric sclerae ENMT: external ear and nose normal, oropharynx normal Neck: trachea midline, no thyromegaly Respiratory: normal respiratory effort, lungs clear to auscultation Cardiovascular: RRR, no murmur, no edema Gastrointestinal (Abdomen): Inspection/Auscultation: abdomen normal to inspection, + abdomen distended (Mildly distended), normal bowel sounds and + abdominal surgical incision (dressing clean, dry, intact) Percussion/Palpation: + abdomen tender (Particularly on left side,but mild) and abdomen soft; no guarding and abdomen not rigid Ostomy in place draining brown stool, bowel sounds normal. Psychiatric: A+Ox3, euthymic affect Results & Data Results & Data ([facility]) Vital Signs (Past 12 Hours) Vital Signs Temp Pulse Resp BP Pulse Ox 11/05/20 07:29 37.2 C 78 18 157/90 H 93 Resident Activity Tracking Resident Involvement: Resident Care Provided Care Provided: Adult Hospital Medicine
--- NOTE | 2020-11-05 16:14 | Billing Data ---
Date of Service November 05, 2020 Coding Level of Care Code 28918 Subseq Hosp Care Lvl 2
[2020-11-06] MEDS: HYDROCODONE/ACETAMOPHEN 5/325MG TAB PO PRN ×3 (04:39→17:25)
[2020-11-06] MEDS ORDERED: ACETAMINOPHEN 500 MG TAB PO PRN (06:41)
[2020-11-06] MEDS ORDERED: HYDROmorphone INJ 0.5 MG/0.5 ML SYR IV PRN (06:42)
[2020-11-06 07:08] LABS: Basophils # (auto) 0.02 K/uL (0-0.2); Basophils % (auto) 0.2 %; Eosinophils # (auto) 0.13 K/uL (0-0.5); Eosinophils % (auto) 1.5 %; Hematocrit (blood only) 38.6 % (42-52); Hemoglobin 12.8 g/dL (14.0-18.0); Immature Granulocytes # (auto) 0.03 K/uL (0.00-0.02); Immature Granulocytes % (auto) 0.3 %; Lymphocytes # (auto) 1.96 K/uL (1.2-3.4); Lymphocytes % (auto) 22.3 %; Mean Corpuscular Hemoglobin 31.8 pg (25-34); Mean Corpuscular Hgb Conc 33.2 g/dL (32-36); Mean Corpuscular Volume 95.8 fL (80-100); Mean Platelet Volume 9.1 fL (7.4-10.4); Monocytes % (auto) 10.2 %; Neutrophils # (auto) 5.75 K/uL (1.4-6.5); Neutrophils % (auto) 65.5 %; Platelet Count 524 K/uL (130-400); RDW Coefficient of Variation 14.1 % (11.5-14.5); RDW Standard Deviation 49.2 fL (36.4-46.3); Red Blood Count 4.03 M/uL (4.7-6.1); White Blood Count 8.79 K/uL (4.8-10.8)
[2020-11-06 07:40] LABS: BUN Creatinine Ratio 14.5 (10-20); Calcium 9.2 mg/dl (8.5-10.1); Creatinine Clr Calc Pharmacy 107.1 ml/min; Est GFR (African American) 117.4; Est GFR (Non-African American) 101.3; Potassium 3.8 mmol/L (3.5-5.1)
[2020-11-06] MEDS: OMEGA-3 (PURIFIED FISH OIL) 1 GM CAP PO SCH ×2 (07:57→20:12)
[2020-11-06] MEDS: RIVAROXABAN 15 MG TAB PO SCH (07:58)
[2020-11-06] MEDS: AMOXICILLIN/CLAVULANATE 875 MG TAB PO SCH ×2 (07:59→17:25)
--- NOTE | 2020-11-06 11:27 | Hospitalist Progress Note ---
Date of Service November 06, 2020 Assessment & Plan (1) Peritonitis (acute) generalized: Patient is a 75 year old male with PMHx nicotine use, BPH, Hypercholesterolemia, GERD, who presented initially with fever, chills, myalgias and arthralgias found to have acute diverticulitis of the sigmoid colon and intraperitoneal free air throughout the abdomen consistent with perforation of the bowel. Sepsis and Peritonitis secondary to diverticulitis and perforated bowel -Diverticulitis and bowel perforation on presentation 10/29 S/P Ex-lap and ostomy -Initially on IV Zosyn transitioned to PO Augmentin 875mg BID for 10-14 days to complete course will need outpatient primary care and surgery follow up -PO norco for pain, well controlled -Tolerating diet -Plan for rehab at [facility] as soon as they will accept him. medically stable for discharge Portal Vein Thrombosis -Noted on abdomen/pelvis CT with thrombus within intrahepatic branches of the R portal vein -Will require anticoagulation x3 months -Continue Xarelto 15mg QD for anticoagulation Hypercholesterolemia -Continue home fish oil Pulmonary nodule -6mm nodule in the LLL -Repeat CT chest in 6 months Dispo: Med/Surg, plan for DC to [facility] when bed ready FEN: Low fiber diet DVT: Xarelto Code: Full Admission and Anticipated Discharge Date Admission Date: October 28, 2020 Supervising Physician Co-Signing Physician Notes I personally examined the patient and verified all zheng points of history and exam, discussed case, and agree with decision making with Dr Butts. Abdomen doing better, less pain. No new complaints. vitals noted nad heent nc at mmm breathing unlabored no accessory muscles good effort skin no rashes no pallor or icterus neuro no focal deficits. Abdomen soft only mildly distended nontender, wounds appear clean dry and intact, no erythema peritonitis due to perforated diverticulitis -continues to improve. On p.o. antibiotics. portal vein thrombosis - DOAC, probably for about 3 months depending on his progress. otherwise as above, for [facility] once bed available (appears to be Sunday) Vineet Cabezas is doing well today, no new complaints, nausea from yesterday totally resolved. He is ready to get to SNF so he can be closer to getting home. Review of Systems Review of Systems: All systems reviewed & are unremarkable except as noted in HPI & below Physical Exam Constitutional: WD/WN, vitals as above Eyes: PERRL, conjunctivae normal, anicteric sclerae ENMT: external ear and nose normal, oropharynx normal Neck: trachea midline, no thyromegaly Respiratory: normal respiratory effort, lungs clear to auscultation Cardiovascular: RRR, no murmur, no edema Gastrointestinal (Abdomen): Inspection/Auscultation: abdomen normal to inspection, + abdomen distended (Mildly distended), normal bowel sounds and + abdominal surgical incision (dressing clean, dry, intact) Percussion/Palpation: + abdomen tender (Particularly on left side,but mild) and abdomen soft; no guarding and abdomen not rigid Colostomy in place, draining dark brown stool Psychiatric: A+Ox3, euthymic affect Results & Data Results & Data ([facility]) Vital Signs (Past 12 Hours) Vital Signs Temp Pulse Resp BP Pulse Ox 11/06/20 07:09 37.1 C 82 18 155/81 H 93 Resident Activity Tracking Resident Involvement: Resident Care Provided Care Provided: Adult Hospital Medicine
--- NOTE | 2020-11-06 14:29 | Surgery Progress Note ---
Date of Service colectomy:stoma, pt is doing better, no nausea, no fever, tolerated diet, November 06, 2020 Assessment & Plan Admission and Anticipated Discharge Date Admission Date: October 28, 2020 Supervising Physician Co-Signing Physician Notes I personally examined the patient and verified all zheng points of history and exam, discussed case, and agree with decision making with Dr Butts. No new problems. No new complaints. For [facility] Sunday now unfortunately due to their bureaucracy. vitals noted nad heent nc at mmm breathing unlabored no accessory muscles good effort skin no rashes no pallor or icterus neuro no focal deficits. Abdomen soft only mildly distended nontender, wounds appear clean dry and intact, no erythema peritonitis due to perforated diverticulitis -continues to improve. continue abxstable for SNFchanged to p.o. Augmentin portal vein thrombosis - DOAC otherwise as above, for [facility] once bed available Dr. Serrano, 11/06/2020 2:58PM F/U colectomy, colostomy, doing, pt will be discharged on Sunday. will F/U Subjective Mr. Magallanes doing pretty well today, complaining of some mild nausea but otherwise his pain is doing well. Just some discomfort at incision site when folks are pushing on his belly. He denies any fevers or chills and is wondering when he's going to be able to leave. No acute concerns. Physical Exam Constitutional: WD/WN, vitals as above well developed and well nourished Respiratory: normal respiratory effort, lungs clear to auscultation Cardiovascular: RRR, no murmur, no edema Gastrointestinal (Abdomen): normal bowel sounds, soft, nontender, no hepatosplenomegaly packing middle incision, no redness, no drainage, colostomy is working, Musculoskeletal: no cyanosis or clubbing, extremities motor strength 5/5 Neurologic: awake Psychiatric: Orientation: alert and oriented x 3 Results & Data ([facility]) Vital Signs (Past 12 Hours) Vital Signs Temp Pulse Resp BP Pulse Ox 11/06/20 07:09 37.1 C 82 18 155/81 H 93 Laboratory Results Abnormal lab results 11/06/20 11/06/20 Range/Units 06:11 06:11 RBC 4.03 L (4.7-6.1) M/uL Hgb 12.8 L (14.0-18.0) g/dL Hct 38.6 L (42-52) % RDW Std Deviation 49.2 H (36.4-46.3) fL Plt Count 524 H (130-400) K/uL Moore # (Auto) 0.90 H (0.11-0.59) K/uL Immature Gran # (Auto) 0.03 H (0.00-0.02) K/uL Creatinine 0.54 L (0.6-1.4) mg/dl Glucose 103 H (70-99) mg/dl
[2020-11-06] MEDS: ONDANSETRON INJ 2 MG/ML 2 ML VIAL IV PRN (17:21)
--- NOTE | 2020-11-06 19:18 | Billing Data ---
Date of Service November 06, 2020 Coding Level of Care Code 54669 Subseq Hosp Care Lvl 2
[2020-11-06] MEDS: DOCUSATE SODIUM 100 MG CAP PO SCH (20:13)
[2020-11-07] MEDS: HYDROCODONE/ACETAMOPHEN 5/325MG TAB PO PRN ×4 (00:03→19:56)
[2020-11-07 07:58] LABS: Basophils # (auto) 0.04 K/uL (0-0.2); Basophils % (auto) 0.4 %; Eosinophils # (auto) 0.12 K/uL (0-0.5); Eosinophils % (auto) 1.3 %; Hemoglobin 13.3 g/dL (14.0-18.0); Immature Granulocytes # (auto) 0.02 K/uL (0.00-0.02); Immature Granulocytes % (auto) 0.2 %; Lymphocytes # (auto) 2.58 K/uL (1.2-3.4); Mean Corpuscular Hgb Conc 33.3 g/dL (32-36); Mean Corpuscular Volume 96.2 fL (80-100); Mean Platelet Volume 8.8 fL (7.4-10.4); Monocytes # (auto) 0.84 K/uL (0.11-0.59); Monocytes % (auto) 8.8 %; Neutrophils # (auto) 5.97 K/uL (1.4-6.5); Neutrophils % (auto) 62.3 %; Platelet Count 467 K/uL (130-400); RDW Standard Deviation 48.7 fL (36.4-46.3); Red Blood Count 4.16 M/uL (4.7-6.1); White Blood Count 9.57 K/uL (4.8-10.8)
[2020-11-07 08:17] LABS: BUN Creatinine Ratio 13.1 (10-20); Calcium 9.4 mg/dl (8.5-10.1); Creatinine Clr Calc Pharmacy 80.3 ml/min; Est GFR (African American) 104.3; Potassium 4.1 mmol/L (3.5-5.1)
[2020-11-07] MEDS: DOCUSATE SODIUM 100 MG CAP PO SCH ×2 (08:57→19:58)
[2020-11-07] MEDS: AMOXICILLIN/CLAVULANATE 875 MG TAB PO SCH ×2 (08:57→16:59)
[2020-11-07] MEDS: RIVAROXABAN 15 MG TAB PO SCH (08:58)
[2020-11-07] MEDS: OMEGA-3 (PURIFIED FISH OIL) 1 GM CAP PO SCH ×2 (08:58→19:58)
--- NOTE | 2020-11-07 09:35 | Surgery Progress Note ---
Date of Service F/U S/P colectomy:stoma, pt is doing better, no nausea, no fever, tolerated diet, November 07, 2020 Assessment & Plan Admission and Anticipated Discharge Date Admission Date: October 28, 2020 Supervising Physician Co-Signing Physician Notes I personally examined the patient and verified all zheng points of history and exam, discussed case, and agree with decision making with Dr Butts. Abdomen doing better, less pain. No new complaints. vitals noted nad heent nc at mmm breathing unlabored no accessory muscles good effort skin no rashes no pallor or icterus neuro no focal deficits. Abdomen soft only mildly distended nontender, wounds appear clean dry and intact, no erythema peritonitis due to perforated diverticulitis -continues to improve. On p.o. antibiotics. portal vein thrombosis - DOAC, probably for about 3 months depending on his progress. otherwise as above, for [facility] once bed available (appears to be Sunday) Dr. Serrano, 11/07/2020 9:31AM F/U S/P colectomy:stoma, pt is doing better, no nausea, no fever, tolerated diet, pt can be discharged from [facility], teach pt for colostomy dressing change, F/U [facility] wound care center, F/U DR. Mills 2 weeks, Subjective Raulito is doing well today, no new complaints, nausea from yesterday totally resolved. He is ready to get to SNF so he can be closer to getting home. Physical Exam Constitutional: WD/WN, vitals as above well developed and well nourished Respiratory: normal respiratory effort, lungs clear to auscultation Cardiovascular: RRR, no murmur, no edema Gastrointestinal (Abdomen): normal bowel sounds, soft, nontender, no hepatosplenomegaly incision dry, no redness, colostomy is working, NT, ND, no distend, Musculoskeletal: no cyanosis or clubbing, extremities motor strength 5/5 Neurologic: awake Psychiatric: Orientation: alert and oriented x 3 Results & Data ([facility]) Vital Signs (Past 12 Hours) Vital Signs Temp Pulse Pulse Resp BP BP Pulse Ox 11/07/20 07:52 36.9 C 72 16 137/82 90 11/06/20 23:13 36.7 C 80 19 137/79 92 Laboratory Results Abnormal lab results 11/07/20 11/07/20 Range/Units 07:45 07:45 RBC 4.16 L (4.7-6.1) M/uL Hgb 13.3 L (14.0-18.0) g/dL Hct 40.0 L (42-52) % RDW Std Deviation 48.7 H (36.4-46.3) fL Plt Count 467 H (130-400) K/uL [place] # (Auto) 0.84 H (0.11-0.59) K/uL Glucose 101 H (70-99) mg/dl
--- NOTE | 2020-11-07 15:37 | Hospitalist Progress Note ---
Date of Service November 07, 2020 Assessment & Plan (1) Peritonitis (acute) generalized: Patient is a 75 year old male with PMHx nicotine use, BPH, Hypercholesterolemia, GERD, who presented initially with fever, chills, myalgias and arthralgias found to have acute diverticulitis of the sigmoid colon and intraperitoneal free air throughout the abdomen consistent with perforation of the bowel. Sepsis and Peritonitis secondary to diverticulitis and perforated bowel -Diverticulitis and bowel perforation on presentation 10/29 S/P Ex-lap and ostomy -Initially on IV Zosyn transitioned to PO Augmentin 875mg BID for 10-14 days to complete course will need outpatient primary care and surgery follow up -PO norco for pain, well controlled -Tolerating diet -Plan for rehab at [facility] as soon as they will accept him. medically stable for discharge Portal Vein Thrombosis -Noted on abdomen/pelvis CT with thrombus within intrahepatic branches of the R portal vein -Will require anticoagulation x3 months -Continue Xarelto 15mg QD for anticoagulation Hypercholesterolemia -Continue home fish oil Pulmonary nodule -6mm nodule in the LLL -Repeat CT chest in 6 months Dispo: Med/Surg, plan for DC to [facility] when bed ready FEN: Low fiber diet DVT: Xarelto Code: Full Admission and Anticipated Discharge Date Admission Date: October 28, 2020 Supervising Physician Co-Signing Physician Notes I personally examined the patient and verified all zheng points of history and exam, discussed case, and agree with decision making with Dr Butts. pain off and on. oob. vitals noted nad heent nc at mmm breathing unlabored no accessory muscles good effort skin no rashes no pallor or icterus neuro no focal deficits. Abdomen soft only mildly distended nontender, wounds appear clean dry and intact, no erythema peritonitis due to perforated diverticulitis -continues to improve. pain off and on. continue pain meds but exam reassuring. On p.o. antibiotics. portal vein thrombosis - DOAC, probably for about 3 months depending on his progress. otherwise as above, for [facility] once bed available (appears to be Sunday) Subjective patient with some pain complaints today, but has been trying not to take his pain meds. [place] relieves pain almost completely. He has been working on getting out of bed and up to chair. Wants to get to SNF so he can get home. No other concerns. Review of Systems Review of Systems: All systems reviewed & are unremarkable except as noted in HPI & below Physical Exam Constitutional: WD/WN, vitals as above Eyes: PERRL, conjunctivae normal, anicteric sclerae ENMT: external ear and nose normal, oropharynx normal Neck: trachea midline, no thyromegaly Respiratory: normal respiratory effort, lungs clear to auscultation Cardiovascular: RRR, no murmur, no edema Gastrointestinal (Abdomen): Inspection/Auscultation: abdomen normal to inspection, + abdomen distended (Mildly distended), normal bowel sounds and + abdominal surgical incision (dressing clean, dry, intact) Percussion/Palpation: + abdomen tender (Particularly on left side,but mild) and abdomen soft; no guarding and abdomen not rigid Psychiatric: A+Ox3, euthymic affect Results & Data Results & Data ([facility]) Vital Signs (Past 12 Hours) Vital Signs Temp Pulse Resp BP BP Pulse Ox 11/07/20 14:58 36.9 C 79 16 136/82 94 11/07/20 07:52 36.9 C 72 16 137/82 90 Resident Activity Tracking Resident Involvement: Resident Care Provided Care Provided: Adult Hospital Medicine
--- NOTE | 2020-11-07 18:39 | Billing Data ---
Date of Service November 07, 2020 Coding Level of Care Code 04312 Subseq Hosp Care Lvl 2
[2020-11-08] MEDS: HYDROCODONE/ACETAMOPHEN 5/325MG TAB PO PRN ×2 (05:45→13:54)
[2020-11-08 06:31] LABS: Creatinine Clr Calc Pharmacy 79.2 ml/min; Est GFR (African American) 103.7; Est GFR (Non-African American) 89.5
[2020-11-08] MEDS: AMOXICILLIN/CLAVULANATE 875 MG TAB PO SCH (07:39)
--- NOTE | 2020-11-08 08:47 | Surgery Progress Note ---
Date of Service November 08, 2020 Assessment & Plan (1) H/O colectomy: Patient tolerating diet well Colostomy functioning Wound care ongoing Oral antibiotics Awaiting bed at [facility] Admission and Anticipated Discharge Date Admission Date: October 28, 2020 Results & Data ([facility]) Vital Signs (Past 12 Hours) Vital Signs Temp Pulse Pulse Resp BP Pulse Ox 11/08/20 07:09 36.6 C 74 16 150/83 H 93 11/07/20 22:42 36.9 C 70 16 127/77 93 PG Care Time/CCT Total # of Minutes Spent Total Time Spent with Patient: Total time spent is greater than 50% in coordination of care (as documented) at patient's floor/unit and/or counseling patient: Coding Level of Care Code None Diagnoses H/O colectomy Z90.49
[2020-11-08] MEDS: OMEGA-3 (PURIFIED FISH OIL) 1 GM CAP PO SCH (08:51)
[2020-11-08] MEDS: DOCUSATE SODIUM 100 MG CAP PO SCH (08:51)
[2020-11-08] MEDS: RIVAROXABAN 15 MG TAB PO SCH (08:52)
--- NOTE | 2020-11-08 09:25 | Discharge Summary ---
Date of Service November 08, 2020 Admission HPI Per Admitting Provider Mr. Magallanes is a 75-year-old male with a history of Prediabetes, Hypercholesterolemia, GERD, BPH, Anal Carcinoma in Situ, and Low Back Pain s/p Caudal Epidural Steroid Injections (last 1 was 07/01/2020) -- who presents to [facility] today complaining of Fever, Chills, Myalgias, Arthralgias, Intermittent Sinus Pressure, and Expectorating Mucous from his Throat and Upper Chest. He describes a fever and chills on the night of 10/21/2020 with a temperature of 101.8 degrees. He had a telemedicine visit with his PCP on 10/22/2020. He subsequently tested negative for COVID-19 (testing was done because his had COVID 19 in August 2020. Patient was feeling better when he spoke to his PCP that day. Unfortunately last evening, he again developed fever, shaking chills, rigors, myalgias, arthralgias, sinus pressure/headache (responds to Tylenol), and still getting some mucous from his throat. Patient denies any nausea, but he did have 1 episode of emesis described as small. He denies any focal abdominal pain, diarrhea, loose watery stools, or any recent foreign travel. He denies any loss and his sense of taste or smell. He has not had a cough or shortness of breath. He denies any hemoptysis. He denies any stiff neck. He has not had any chest discomfort pleuritic or otherwise. He has not had any actual swelling or erythema of his achy joints. He denies any embedded ticks, he has not had any rash or skin lesions. He denies any open wounds. He denies any urinary symptoms, specifically denying any urinary frequency, urgency, hesitancy, or dysuria. He has not had any recent invasive procedures such as dental work, colonoscopy, cystoscopy, etc.. He did have epidural steroid injections in the past, but the last injection was over 3 months ago. He denies any recent sick contacts. Admission Exam Per Admitting Provider Patient is febrile, T=38.2 degrees Celsius. BP is 130/68 at 1700. General: Patient in no acute distress. HEENT: Head is atraumatic, normocephalic. Sinuses are non-tender. EOMs intact. Sclerae anicteric. Facies symmetric. No perioral cyanosis. Neck: No JVD. Carotid upstrokes +2 bilaterally. JVP is nt elevated. Chest and Lungs: Clear to auscultation throughout all lung adrian, no wheezes, rales, or rhonchi. CVS: S1 and S2 are regular, distant without murmurs, gallops, or rubs. PMI is nondisplaced. No lifts, heaves, or thrills. No abdominal aortic or renal bruits. Abdominal Exam: Bowel sounds present. No masses, organomegaly, or tenderness. Extremities: No clubbing, cyanosis, or edema. Intact radial pulses bilaterally. Neurologic Exam: Patient is awake, alert, and oriented. Pleasant and cooperative. Answers questions appropriately. Speech is clear. Normal movement in all 4 extremities. Gait pattern was not assessed. Dermatologic Exam: No rashes or dermatologic lesions, No open area. No "bullseye" rash. No splinter hemorrhages. No Janeway lesions. Principal Diagnosis Sepsis secondary to peritonitis in the setting of perforated diverticulitis Discharge Exam General: No acute distress HEENT: Normocephalic atraumatic Neck: No significant lymphadenopathy, trachea midline, normal to visual inspection Cardiac: Regular rate and rhythm, normal S1, normal S2, I did not appreciated any significant murmurs rubs or gallops, I did not appreciate any significant pedal edema, No calf tenderness, capillary refill is less than 3 seconds Respiratory: Clear to auscultation bilaterally with symmetrical chest rise, I did not appreciate any significant wheezes, rales, rhonchi, no increased work of breathing GI: Normal bowel sounds, soft, nontender in all 4 quadrants, nondistended, ostomy site clean dry and intact with good output MSK: No sensory or motor changes, moves all extremities without issue, extremities are warm and well-perfused Skin: [place], clean, dry, intact. Psych: Calm, cooperative, logical thought process Discharge Data Allergies Allergy/AdvReac Type Severity Reaction Status Date / Time No Known Allergies Allergy Verified 10/28/20 16:20 Consultations 10/28/20 16:28 ED Decision to Admit Stat 10/29/20 09:30 Consult General Surgery Stat 10/29/20 17:03 Consult Case Management - Discharge Planning Routine Consult Special Service Representative Routine Procedures Performed Operation Date: 10/29/20 08:50 Actual Procedures p Exploratory Laparotomy; abdominal wash out; colectomy; ostomy(Not Applicable) - Humberto Mills MD, FACS Ordered Studies 10/28/20 13:02 CT abd pelvis IV con only Stat 10/28/20 18:45 US gallbladder Urgent 10/28/20 19:07 CT sinus wo con Routine 10/29/20 09:30 CT abd pelvis IV con only Stat Hospital Course (1) Peritonitis (acute) generalized: Patient is a 75 year old male with PMHx nicotine use, BPH, Hypercholesterolemia, GERD, who presented initially with fever, chills, myalgias and arthralgias found to have acute diverticulitis of the sigmoid colon and intraperitoneal free air throughout the abdomen consistent with perforation of the bowel. Sepsis and Peritonitis secondary to diverticulitis and perforated bowel Patient presented to the hospital and was admitted with sepsis. Subsequently diagnosised as sepsis secondary to peritonitis in the setting of diverticulitis and perforated bowel. On 10/29 he underwent ex lap and ostomy he tolerated the procedure well and did well in the immediate postoperative period. He was started on IV Zosyn and subsequently transitioned to p.o. Augmentin 875 mg p.o. twice daily to be completed on 11/15/2020. His pain has been well controlled with p.o. Littcarr, he has been tolerating his diet, voiding, stooling. He is being discharged from the hospital to complete rehab at [facility]. 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 In the postoperative period patient was started on rivaroxaban 15 mg p.o. daily, will require anticoagulation for 3 months and then a discussion with his family doctor regarding discontinuation.. -Continue Xarelto 15mg QD for anticoagulation Hypercholesterolemia -Continued home fish oil Pulmonary nodule -6mm nodule in the LLL -Repeat CT chest in 6 months Dispo: [facility] FEN: Low fiber diet DVT: Xarelto Code: Full Total Time Total Time Spent Total Time Spent (In Minutes): 46 Discharge Plan Discharge Items Patient Disposition: Transfer [facility] Fac Reason For Visit: SEPSIS Discharge Diagnosis: Perforated colon, peritonitis Activity: Per Instructions section Activity Comment: light activity for 4 weeks Lifting: No more than 10 pounds Bathing Comment: may shower; no soaking in tubs/pools Sexual Activity: When tolerated Exercise/Sports: Wait until after follow-up appointment Exercise Comment: light activity for 4 weeks Non-emergency contact: Primary Care Provider and Surgeon Call non-emergency contact if: you have any medication questions, your symptoms worsen, your pain is worsening, you have a fever, your temperature is above 101.5, your wound has increased redness, your wound has increased drainage and your wound pain has increased Follow-up/Referrals: Humberto Mills MD, FACS [Physician] - Chato Gonzales III, CRNP [Primary Care Provider] - Diet: Regular Addtl Attending Provider Instructions: SPECIAL CARE INSTRUCTIONS: * Cover incisions and change daily for comfort/drainage. * Empty drain 2-3 times per day and record. * May use ibuprofen for pain as tolerated. * Expect some swelling and bruising. Call your doctor if: * Temperature above 101 degrees * Pain not relieved by pain medicine ordered * There is increased drainage or redness from any incision * You have any unanswered questions or concerns [phone]. FOLLOW UP VISIT: If not already scheduled, please call the office for a follow-up visit. For next week-staple removal OFFICE PHONE NUMBER: Dr. Mills Office Patient is a 75 year old male with PMHx nicotine use, BPH, Hypercholesterolemia, GERD, who presented initially with fever, chills, myalgias and arthralgias found to have acute diverticulitis of the sigmoid colon and intraperitoneal free air throughout the abdomen consistent with perforation of the bowel. Sepsis and Peritonitis secondary to diverticulitis and perforated bowel Patient presented to the hospital and was admitted with sepsis. Subsequently diagnosised as sepsis secondary to peritonitis in the setting of diverticulitis and perforated bowel. On 10/29 he underwent ex lap and ostomy he tolerated the procedure well and did well in the immediate postoperative period. He was started on IV Zosyn and subsequently transitioned to p.o. Augmentin 875 mg p.o. twice daily to be completed on 11/15/2020. His pain has been well controlled with p.o. Littcarr, he has been tolerating his diet, voiding, stooling. He will be discharged from the hospital to complete rehab at [facility]. 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 In the postoperative period patient was started on rivaroxaban 15 mg p.o. daily, will require anticoagulation for 3 months and then a discussion with his family doctor regarding discontinuation.. -Continue Xarelto 15mg QD for anticoagulation Hypercholesterolemia -Continued home fish oil Pulmonary nodule -6mm nodule in the LLL -Repeat CT chest in 6 months Dispo: [facility] FEN: Low fiber diet DVT: Xarelto Code: Full Pending Studies at Discharge: Yes Studies:: surgical pathology Stand-Alone Forms: My [facility] Skilled Items Patient informed of condition?: Yes DNR: No Discharge Level of Care: Acute rehab Communicable Disease: No Discharge Prognosis: Stable Lines: None Urinary Catheter: No Medications and DC Order Prescriptions: New amoxicillin-pot clavulanate [Augmentin] 875-125 mg Tablet 1 tab PO BIDM Qty: 7 RF: 0 hydrocodone-acetaminophen 5-325 mg tablet 1 - 2 tab PO Q6H PRN (Reason: pain) Qty: 30 RF: 0 amoxicillin-pot clavulanate [Augmentin] 875-125 mg tablet 1 tab PO BID 7 Days Qty: 14 RF: 0 Continued gabapentin 300 mg capsule 300 mg PO HS Qty: 30 RF: 5 meloxicam 15 mg tablet 15 mg PO DAILY Qty: 90 RF: 1 garlic tablet 500 mg PO DAILY RF: 0 cholecalciferol (vitamin D3) 2,000 unit tablet 2,000 unit PO DAILY RF: 0 multivitamin [Multiple Vitamins] tablet 1 tab PO DAILY RF: 0 omega-3 acid ethyl esters 1 gram capsule 1 cap PO BID RF: 0 aspirin [Ecotrin] 325 mg Tablet,Delayed Release (Dr/Ec) 325 mg PO DAILY RF: 0 Glucosamine Chondroitin 550-30-1 mg Capsule 1 cap PO DAILY RF: 0 Discharge Orders: Discharge Order (Routine); Ordered 11/08/20 Ordered By: Smith Garcia Admission Data Admit Date/Time: 10/28/20 17:07 Attending Provider: Sarita Conley Admit Provider: Chavo Guerin Primary Care Provider: Chato Gonzales III Other Providers: Chavo Guerin ; Humberto Mills ; Jon Lazo ; Aliya Cueva at [place] ; Alfredito Coronado ; [place] Other Interventions: Discharge Summary Assessment (RN) Last Done: 11/08/20 12:37 Supervising Physician Co-Signing Physician Notes Resident Physician Supervision Note: I independently interviewed and examined the patient and verified the zheng history and physical, reviewed labs and image studies, discussed the case with the resident Dr. Garcia and agree with the findings and care plan. Resident Activity Tracking Resident Involvement: Resident Care Provided Care Provided: Adult Hospital Medicine
--- NOTE | 2020-11-18 13:27 | Coding Query ---
To promote full compliance with coding requirements relating to patient care, provider participation is requested in all cases of rn admission uncertainty. Please assist us with the question(s) below: Coding Question(s): The diagnosis below was documented in the H&P through Progress Note on 10/31/20, then subsequently fell off all further documentation. Please indicate if it is still a possible diagnosis or ruled out. Physician's Response(s): POSSIBLE PNEUMONIA ( ) Diagnosed and POA ( ) Diagnosed and not POA ( x ) Ruled out ( ) Other (please specify) MTDD
== END 2020-11-08 14:16 | DRG 853 ==
LOC: ED 12:11 → 2S 17:07 → SUATTDRO 17:07 → 2S 18:15 → 1E 10-29 17:03 → 3W 10-31 08:40

== ENCOUNTER 2021-03-28 06:48 | Inpatient (IN) ==
--- NOTE | 2021-03-22 12:30 | Anesthesiology Consultation ---
Date of Service March 22, 2021 Assessment & Plan (1) Encounter for pre-operative examination: Chart Review Chart Review: Acceptable Risk for Surgery (pending preop Covid testing results ) and Patient NOT seen in Pre Admission Testing -PRP ordered for AM of surgery. Will leave to anesthesia's discretion if EKG and/or CXR needed repeated DOS Per nursing assessment 03/22/2021, patient admits to travel to [place] in [facility] visiting family. Patient is vaccinated. No known Covid infection in the past 90 days. No known Covid positive contacts or Covid related symptoms. Preop Covid testing scheduled 03/24/2021 = will await results. Exploratory laparotomy, abdominal washout, colectomy, colostomy 10/28/2020 = done under [place]. DL x1 with MAC #3 blade grade 2 view 3 with cricoidchanged to Viveros #2 with MDA successful ETT placement. History Surgery Operation Date: 03/28/21 10:15 Proposed Procedures p Open Colostomy Closure with Colorectal Anastomosis - Humberto Mills MD, FACS Height/Weight Height: 5 ft 7 in Weight: 65.771 kg Allergies Allergy/AdvReac Type Severity Reaction Status Date / Time No Known Allergies Allergy Verified 03/22/21 11:06 Medications Home Medications Medication Instructions Recorded Confirmed Last Taken cholecalciferol (vitamin D3) 50 2,000 unit PO BID tab 02/12/19 03/22/21 02/15/21 mcg (2,000 unit) tablet multivitamin 1 tab PO QAM 02/27/19 03/22/21 02/15/21 garlic 500 mg PO BID 03/24/19 03/22/21 02/15/21 omega-3 acid ethyl esters 1 gram 1 cap PO BID cap 05/06/19 03/22/21 02/15/21 capsule gabapentin 300 mg capsule 300 mg PO HS #30 cap 06/03/20 03/22/21 02/15/21 meloxicam 15 mg tablet 15 mg PO DAILY #90 tab 06/09/20 03/22/21 02/15/21 Glucosamine Chondroitin 1 cap PO BID 10/28/20 03/22/21 02/15/21 aspirin [Ecotrin] 325 mg PO QAM 10/28/20 03/22/21 02/15/21 acetaminophen 325 mg tablet 650 mg PO QID PRN tab 11/19/20 03/22/21 Unknown zinc 50 mg tablet 50 mg PO DAILY 11/19/20 03/22/21 02/15/21 ostomy pouch filter #90 ea 01/03/21 02/03/21 Unknown Past Medical History Medical History (Updated 03/22/21 @ 12:29 by Lala Childress PA-C) Anal carcinoma History of per records BPH (benign prostatic hyperplasia) Colostomy present PLANS FOR REVERSAL 03/28/21 Elevated cholesterol HX Gastroesophageal reflux disease H/O blood clots 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) Oct 2020 while admitted for sepsis secondary to perforated diverticula- was on Xarelto- has since been d/c'ed History of bleeding ulcers Hx of diverticulitis of colon Hx of perforation which resulted in sepsis and admission to [facility] Oct 2020 - had subsequent colostomy Lung collapse HX 1996 (NO SURGERY) Osteoarthritis Prediabetes Past Family History Family History Father ASCVD (arteriosclerotic cardiovascular disease) Myocardial infarction Pacemaker Mother Diabetes Peripheral vascular disease Family history of diabetes mellitus Brother Family history of diabetes mellitus Other No family history of adverse response to anesthesia Denies family history of Ovarian cancer Prostate cancer Breast cancer Colorectal cancer Past Surgical History Surgical History H/O exploratory laparotomy (10/29/20) Exploratory laparotomy, colon resection, colostomy and abdominal washout. 10/29/20 Dr. 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 (NODULE) Hx of vasectomy [place] teeth removed Social History Smoking Status: Current every day smoker tobacco type: cigarettes Smoking cigarettes per day: 1/2ppd Do You Dip or Chew Tobacco: No Hx Alcohol Use: No Alcohol type: beer alcohol intake frequency: a few times a week Hx Substance Use: No substance use type: does not use Lab Results Anesthesia Preop Results Results Anesthesia Widget: WBC 6.93 K/uL (4.8-10.8) 02/15/21 Hgb 15.1 g/dL (14.0-18.0) 02/15/21 Hct 45.5 % (42-52) 02/15/21 Plt 313 K/uL (130-400) 02/15/21 BUN 19 mg/dl (7-18) H 02/15/21 Creat 0.92 mg/dl (0.6-1.4) 02/15/21 Testing Electrocardiogram Date: 10/28/20 Sinus tachycardia at 104 bpm. Left axis deviation. When compared to EKG from April 18imal criteria for inferior infarct are no longer present per cardio. (Pt admitted for sepsis at time of EKG) Chest X-Ray Date: 10/28/20 Chest x-rays finding suspicious for free intraperitoneal air. No evidence of local pulmonary consolidation. (Pt admitted for sepsis/perforated diverticula at time of CXR) Stress Test Date: 05/19/19 Type: exercise (Echo) Resting EF: 60-65% Resting LV Function: normal Resting RWMA: + none Valvular Disease: no significant valvular disease Negative stress echo for ischemia at 85% MPHR. Negative exercise EKG for ischemia at 80% MPHR. Poor exercise tolerance. 5 METS achieved. No LVH. Type I diastolic dysfunction.
[~2021-03-28 06:48] MED LIST changes: -ASPECOTC PO; -CHOL200027 PO; -FLUT50SP22 INH; -GARLTAB3 PO; -GLUCTAB7 PO; +LR 15ML/HR IV SCH; -MELO15TA10 PO; -MULT-506 PO; -OMEG12006 PO
[2021-03-28] MEDS ORDERED: cefOXitin 2,000 MG in DEXTROSE 5% 50 ML IV SCH (07:00)
[2021-03-28] MEDS ORDERED: LIDOCAINE 2% 2 ML VIAL/AMP(20MG/ML) INFIL ONE (07:34)
[2021-03-28] MEDS ORDERED: GLYCOPYRROLATE 0.2 MG/ML VIAL ONE (07:34)
[2021-03-28] MEDS ORDERED: ONDANSETRON INJ 2 MG/ML 2 ML VIAL ONE (07:34)
[2021-03-28] MEDS ORDERED: fentaNYL citrate 100 MCG/2 ML VIAL ONE ×2 (07:34→10:57)
[2021-03-28] MEDS ORDERED: MIDAZOLAM HCL 1 MG/ML 2ML VIAL ONE (07:34)
[2021-03-28] MEDS ORDERED: NEOSTIGMINE METHYLSULFATE 1 MG/ML 10ML VIAL ONE (07:34)
[2021-03-28] MEDS ORDERED: DEXAMETHASONE SOD INJ 4 MG/ML VIAL ONE (07:34)
[2021-03-28] MEDS ORDERED: PROPOFOL IV EMULSION 10 MG/ML 20 ML VIAL IV ONE (07:34)
[2021-03-28] MEDS ORDERED: BUPIVACAINE 0.5 % 5 MG/1 ML MPF 30ML VIAL ONE (08:00)
[2021-03-28 08:24] LABS: BUN Creatinine Ratio 19.7 (10-20); Calcium 9.3 mg/dl (8.5-10.1); Creatinine Clr Calc Pharmacy 79.2 ml/min; Est GFR (African American) 103.7 ml/min; Est GFR (Non-African American) 89.5 ml/min; Potassium 4.2 mmol/L (3.5-5.1)
[2021-03-28] MEDS ORDERED: ONDANSETRON INJ 2 MG/ML 2 ML VIAL IV PRN (08:24)
[2021-03-28] MEDS ORDERED: ATROPINE SULFATE 0.1 MG/ML 10ML SYR IV PRN (08:24)
[2021-03-28] MEDS ORDERED: ePHEDrine sulfate 50 MG/ML AMP IV PRN (08:24)
[2021-03-28] MEDS ORDERED: PROMETHAZINE HCL 12.5 MG in SODIUM CHLORIDE 0.9% 50 ML IV PRN ×2 (08:24→13:45)
[2021-03-28] MEDS ORDERED: fentaNYL citrate 100 MCG/2 ML VIAL IV PRN ×2 (08:24→12:53)
[2021-03-28] MEDS ORDERED: HYDROmorphone INJ 2 MG/ML SYR/VIAL IV PRN (08:24)
[2021-03-28] MEDS ORDERED: METOCLOPRAMIDE HCL INJ 5 MG/ML 2 ML VIAL IV PRN (08:24)
[2021-03-28] MEDS ORDERED: ePHEDrine sulfate 50 MG/ML SYR ONE (09:09)
[2021-03-28] MEDS ORDERED: ACETAMINOPHEN 1000 MG/100 ML IV IV ONE (09:15)
[2021-03-28] MEDS ORDERED: HYDROmorphone INJ 2 MG/ML SYR/VIAL ONE (11:51)
--- NOTE | 2021-03-28 11:54 | Post Operative Brief Note ---
PG Immediate Post Op with CF Date of Surgery March 28, 2021 Pre & Post Diagnosis Operation Date: 03/28/21 08:40 Pre-Op Diagnosis: colostomy Post-Op Diagnosis: colostomy, small bowel adhesions I identified the patient and participated in the time-out.: Yes Procedure Operation Date: 03/28/21 08:40 Actual Procedures p Laparoscopic Assisted Open Colostomy Closure with Colorectal Anastomosis(Not Applicable) - Humberto Mills MD, FACS Laparoscopy, laparotomy with lysis of adhesions/enterolysis, small bowel resection with anastomosis, partial colectomy Reversal colostomy with colorectal anastomosis Surgeon Humberto Mills MD, FACS [employer] [place] Estimated Blood Loss 20 Findings Consistent with Post-Op Diagnosis Specimens Specimen Description: a. segment of small bowel b rectosigmoid -suture is proximal c. transverse and descending colon Drains Lunsford Catheter and Feliciano-Castro Drain
[2021-03-28] MEDS ORDERED: ACETAMINOPHEN 1,000 MG/100 ML VIAL IV ONE (11:55)
--- NOTE | 2021-03-28 12:54 | Anesthesiology Progress Note ---
Date of Service March 28, 2021 Anesthesia Post Procedure Vital Signs Vital Signs: Temp Pulse Pulse Resp BP BP Pulse Ox 03/28/21 12:50 74 14 98/65 L 96 03/28/21 12:40 36.4 C L 80 14 108/67 96 03/28/21 12:30 81 14 108/63 97 03/28/21 12:20 75 14 113/59 L 97 03/28/21 12:13 36.0 C L 75 12 117/65 100 03/28/21 07:48 36.5 C 61 18 128/75 98 Pain Intensity Abdomen: Pain Intensity: 8 Transfer of Care Handoff Completed per policy Notes Mental Status: alert / awake / arousable and participated in evaluation Patient Amnestic to Procedure: Yes Nausea / Vomiting: adequately controlled Pain: adequately controlled Airway Patency, RR, SpO2: stable & adequate BP & HR: stable & adequate Hydration State: stable & adequate Anesthetic Complications: no major complications apparent
--- NOTE | 2021-03-28 14:07 | Operative Report (OR) ---
DATE OF PROCEDURE: 03/28/2021 NAME OF THE PROCEDURE: Laparoscopy, laparotomy, lysis of adhesions with enterolysis, small bowel res ection with anastomosis, partial colectomy, colorectal anastomosis with reversal of colostomy. STAFF SURGEON: Humberto Mills MD. MUSIC ORCHESTRATOR: Jose Angel [place] PA-C. ANESTHESIA: General. DESCRIPTION OF PROCEDURE: The patient was brought in the operating room and placed on the operating table in supine position. He was then placed in lithotomy in a modified manner using the fins. Nasog astric tube and Lunsford catheter were placed. I did have to dilate his urethra some with a hemostat to have the Lunsford placed. The patient did have a colostomy on the left side. I placed a Prolene sutur e there to occlude the colostomy. A midline incision was made just above the umbilicus, carrying dissection down and placing a balloon cannula producing pneumoperitoneum. Camera was passed. The patient did have some adhesions to the a nterior abdominal wall. Three 5 mm ports were placed, one in right upper quadrant, right lower quad rant, left lower quadrant. At this point, we did use the heating device to mobilize the left colon. At one point, I came in contact with significant adhesions. I felt like we should just open and ther efore, we did. We made the incision higher through the umbilical area down to the symphysis pubis entering the abdom inal cavity. At this point, we mobilized the small bowel. It was severely adherent with 2 loops to the rectal stump and there was some question on the CAT scan whether he had a fistula. On mobilizing the small bowel, in one segment, I felt that we should do a small bowel resection, the other segment appeared to be viable. I did place some seromuscular sutures of 3-0 silk. The small bowel segment I did resect approximately 2 inches of small bowel with a [id number] anastomosis using a PRIYANKA 60 sta pler. The enteric defect was closed in 2 layers using 2-0 chromic for the mucosal layer and 3-0 silk for the seromuscular layer. The small bowel was completely viable. At this point, we mobilized the sigmoid colon and rectum. The patient had significant diverticulosis . We did take the colon down to the area of the rectosigmoid junction and excised the colon. It was marked with a suture proximal. At this point, we mobilized the stoma away from the skin and fascia and then we had to mobilize the left colon, splenic flexure and distal transverse colon as well as th e mid transverse colon. The patient had a very large diverticula of the descending colon. This was taken to the distal transverse colon, then the distal transverse colon brought down to the rectum whe re a colorectal anastomosis was performed in a side-to-end fashion using 2 layers, 3-0 silk for the s eromuscular layer, 2-0 chromic for the mucosal layer. At this point, the abdomen was irrigated. A 15 round Feliciano-Castro drain placed into the pelvis, sec ured to the skin using 3-0 nylon suture. Colostomy site was closed, posterior layer closed using int errupted 0 chromic, anterior fascia closed using interrupted #1 PDS. The fascia was closed in the mi dline using both interrupted and running #1 PDS. A quarter-inch Britney drain placed in the lower pa rt of the subcutaneous space, secured to the skin using 4-0 nylon suture and eulalio for the midline incision and then some 4-0 nylon sutures for the umbilical area. The skin at the colostomy was close d loosely using 2-0 nylon suture. The port sites were closed using 4-0 nylon suture. The patient was transferred to recovery room in stable condition. Lunsford in place, drain in place. Christine singh baking assistant did help with prepping and draping the abdominal operation and closure of the wounds. Job ID: [id number]
[2021-03-28] MEDS: NSS + 20MEQ KCL 20 MEQ/1,000 ML BAG IV SCH (15:42)
[2021-03-28] MEDS: HYDROmorphone INJ 0.5 MG/0.5 ML SYR IV PRN ×2 (15:42→20:45)
--- NOTE | 2021-03-28 16:15 | Consultation ---
Date of Consultation March 28, 2021 Assessment & Plan (1) H/O colectomy: Status post laparotomy with lysis of adhesions and enterolysis, small bowel resection, partial colectomy and reversal of colostomy on 03/[address] Mills This is now 5 months status post exploratory laparotomy, colon resection, colostomy and abdominal washout for perforated diverticulitis in 10/2020. Postoperative management as per general surgery Keep n.p.o. Continue IV fluids -Pain control Follow CBC, CMP, electrolytes Antiemetics as needed Continue cefoxitin 1 g IV every 6 hours as per surgery Maintain Luns[place] catheter for now (2) Current smoker: Counseled extensively on cessation Can add nicotine patch if needed (3) Hypercholesterolemia: Holding home omega-3 fish oil Hold home aspirin (4) Portal vein thrombosis: Recently completed 3-4 months of treatment with Xarelto for a thrombus of a branch of the portal vein This was thought to be secondary to acute illness with perforated diverticulitis back in October 2020 as well as he recently had Covid-19 just before that Repeat CT abdomen/pelvis on 03/25 shows persistent thrombus, but this is likely chronic at this point (5) Prediabetes: Hemoglobin A1c 6.0% 1 year ago Blood sugars here are acceptable No need for Accu-Cheks or insulin (6) BPH (benign prostatic hyperplasia): Noted in the chart but also noted on previous hospitalization have difficulty with Lunsford catheter placement CT abdomen/pelvis on 03/25 also notes evidence of chronic bladder outlet obstruction as well as enlarged heterogenous prostate gland with median lobe hypertrophy Follow for urinary retention after Luns[place] catheter is removed Should follow-up with urology as an outpatient (7) Lumbar spinal stenosis: Holding home gabapentin while n.p.o. Restart home dose when able to to avoid withdrawal although it is a low dose (8) DVT prophylaxis: Heparin SQ, SCDs Disposition-continued stay medical/surgical floor Hospital service will follow along History of Present Illness Requesting Physician: Dr. Mills Reason for Consultation: Postop medical management Attending Physician: Humberto Mills MD, [facility] History of Present Illness This patient is a 75-year-old male with a history of perforated diverticulitis status post colostomy, portal vein thrombosis recently completed 3 months of Xarelto, anal cancer, GERD, PUD, prediabetes, BPH, hyperlipidemia, and current smoker who is admitted to the hospital status post laparotomy with lysis of adhesions with enterolysis, small bowel resection with anastomosis, partial colectomy, and colorectal anastomosis with reversal of colostomy with Dr. Mills on 03/28. When I saw him, he reported some pain in the abdomen but was overall doing fairly well and had just received pain medicine. He denied chest pain or shortness of breath. He was a little bit drowsy due to pain medicine but easily woke up and was answering questions. Allergies Allergy/AdvReac Type Severity Reaction Status Date / Time No Known Allergies Allergy Verified 03/28/21 07:42 Home Medications Medication Instructions Recorded Confirmed Type cholecalciferol (vitamin D3) 50 2,000 unit PO BID tab 02/12/19 03/28/21 History mcg (2,000 unit) tablet multivitamin 1 tab PO QAM 02/27/19 03/28/21 History garlic 500 mg PO BID 03/24/19 03/28/21 History omega-3 acid ethyl esters 1 gram 1 cap PO BID cap 05/06/19 03/28/21 History capsule gabapentin 300 mg capsule 300 mg PO HS #30 cap 06/03/20 03/28/21 Rx meloxicam 15 mg tablet 15 mg PO DAILY #90 tab 06/09/20 03/28/21 Rx Glucosamine Chondroitin 1 cap PO BID 10/28/20 03/28/21 History acetaminophen 325 mg tablet 650 mg PO QID PRN tab 11/19/20 03/28/21 History zinc 50 mg tablet 50 mg PO DAILY 11/19/20 03/28/21 History ostomy pouch filter #90 ea 01/03/21 02/03/21 Rx aspirin 325 mg PO DAILY 03/28/21 03/28/21 History Patient History Medical History Anal carcinoma History of per records BPH (benign prostatic hyperplasia) Colostomy present PLANS FOR REVERSAL 03/28/21 Elevated cholesterol HX Gastroesophageal reflux disease H/O blood clots 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) Oct 2020 while admitted for sepsis secondary to perforated diverticula- was on Xarelto- has since been d/c'ed History of bleeding ulcers Hx of diverticulitis of colon Hx of perforation which resulted in sepsis and admission to [facility] Oct 2020 - had subsequent colostomy Lung collapse HX 1996 (NO SURGERY) Osteoarthritis Prediabetes Surgical History H/O exploratory laparotomy (10/29/20) Exploratory laparotomy, colon resection, colostomy and abdominal washout. 10/29/20 Dr. 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 (NODULE) Hx of vasectomy Ray teeth removed Family History Father ASCVD (arteriosclerotic cardiovascular disease) Myocardial infarction Pacemaker Mother Diabetes Peripheral vascular disease Family history of diabetes mellitus Brother Family history of diabetes mellitus Other No family history of adverse response to anesthesia Denies family history of Ovarian cancer Prostate cancer Breast cancer Colorectal cancer Social History (Updated 03/28/21 @ 22:16 by Jackie Titus MD) Smoking Status: Current every day smoker (STARTED AT 23 YEARS OLD) Tobacco Type: Cigarettes Age Started Using Tobacco: 23; packs per day: 0.5; Years Smoked: 30; Cigarettes Per Day: 1/2ppd; Second Hand Exposure: No; Do You Dip or Chew Tobacco: No; Tobacco Cessation Education Requested by Patient: No Hx Alcohol Use: Yes Alcohol type: beer Alcohol Intake Frequency: 4 or More x per/Week Alcohol Intake Frequency Comment: 2-3 beers daily Preferred Language: Zambian Communication Ability: Effective Visual Impairment: No Limitations Hearing Ability: Use of Hearing Aid In Store Banker Required: No Beliefs That Will Affect Care: None marital status: Current Living Situation: Family current occupational status: retired Other Information That Helps Us Care for You: No Feels Safe at Home: Yes Safety Concerns: Feels Safe At This Time Childhood Exposure to Second-Hand Smoke: Yes Dental Care, Regularly: Yes Physical Activity Frequency: 3-4 Times per Week Physical Activity Frequency Comment: walking Seatbelt Use: always Sunscreen Use: No Assistive Devices: Glasses and Hearing Aid - Bilateral Review of Systems Review of Systems: All systems reviewed & are unremarkable except as noted in HPI & below Physical Exam Constitutional: WD/WN, vitals as above Eyes: + anicteric sclerae ENMT: external ear and nose normal, oropharynx normal Neck: trachea midline, no thyromegaly Respiratory: normal respiratory effort, lungs clear to auscultation Cardiovascular: RRR, no murmur, no edema Chest (Breasts): Chest: normal inspection of chest Gastrointestinal (Abdomen): Inspection/Auscultation: + hypoactive bowel sounds; + abdomen abnormal to inspection (Large dressing over entire abdomen clean dry and intact, not removed) and abdomen not distended Percussion/Palpation: + abdomen tender (Mild without guarding) and abdomen soft Musculoskeletal: Extremities: extremities normal to inspection; no cyanosis and no clubbing Skin: no rashes, warm and dry Neurologic: moves all extremities and awake; no focal motor deficits Psychiatric: A+Ox3, euthymic affect Lymphatic: no lymphedema Results & Data ([facility]) Vital Signs (Past 12 Hours) Vital Signs Temp Pulse Pulse Resp BP BP Pulse Ox 03/28/21 15:52 36.2 C L 82 17 121/72 98 03/28/21 14:33 77 16 111/68 97 03/28/21 14:01 73 14 110/68 96 03/28/21 13:15 36.4 C L 72 14 110/64 96 03/28/21 13:00 66 14 115/63 95 03/28/21 12:50 74 14 98/65 L 96 03/28/21 12:40 36.4 C L 80 14 108/67 96 03/28/21 12:30 81 14 108/63 97 03/28/21 12:20 75 14 113/59 L 97 03/28/21 12:13 36.0 C L 75 12 117/65 100 03/28/21 07:48 36.5 C 61 18 128/75 98 Laboratory Results 03/28/21 03/28/21 03/28/21 Range/Units 07:49 07:41 07:22 Sodium 138 (136-145) mmol/L Potassium 4.2 (3.5-5.1) mmol/L Chloride 105 (98-107) mmol/L Carbon Dioxide 29 (21-32) mmol/L Anion Gap 5.0 (3-11) BUN 14 (7-18) mg/dl Creatinine 0.73 (0.6-1.4) mg/dl Est Cr Clr Drug Dosing 79.2 ml/min Est GFR ( Amer) 103.7 ml/min Est GFR (Non-Af Amer) 89.5 ml/min BUN/Creatinine Ratio 19.7 (10-20) Glucose 101 H (70-99) mg/dl POC Glucose 107 H (70-99) mg/dl Calcium 9.3 (8.5-10.1) mg/dl COVID-19 Eval Order SARS-CoV-2, RNA, NAAT NEGATIVE (NEGATIVE) 03/28/21 Range/Units 07:22 Sodium (136-145) mmol/L Potassium (3.5-5.1) mmol/L Chloride (98-107) mmol/L Carbon Dioxide (21-32) mmol/L Anion Gap (3-11) BUN (7-18) mg/dl Creatinine (0.6-1.4) mg/dl Est Cr Clr Drug Dosing ml/min Est GFR ( Amer) ml/min Est GFR (Non-Af Amer) ml/min BUN/Creatinine Ratio (10-20) Glucose (70-99) mg/dl POC Glucose (70-99) mg/dl Calcium (8.5-10.1) mg/dl COVID-19 Eval Order Covid19 IDNow [facility] SARS-CoV-2, RNA, NAAT (NEGATIVE) PG Care Time/CCT Total # of Minutes Spent Total Time Spent with Patient: Total time spent is greater than 50% in coordination of care (as documented) at patient's floor/unit and/or counseling patient: Coding Level of Care Code 24595 Inpt Consult Level 3 Diagnoses H/O colectomy Z90.49 Current smoker F17.200 Hypercholesterolemia E78.00 Portal vein thrombosis I81 Prediabetes R73.03 BPH (benign prostatic hyperplasia) N40.0 Lumbar spinal stenosis M48.061 DVT prophylaxis Z29.9
[2021-03-29] MEDS: HYDROmorphone INJ 0.5 MG/0.5 ML SYR IV PRN ×2 (01:11→05:42)
[2021-03-29] MEDS: NSS + 20MEQ KCL 20 MEQ/1,000 ML BAG IV SCH ×2 (03:43→15:57)
[2021-03-29 06:29] LABS: Basophils # (auto) 0.01 K/uL (0-0.2); Basophils % (auto) 0.1 %; Hematocrit (blood only) 39.7 % (42-52); Hemoglobin 13.5 g/dL (14.0-18.0); Immature Granulocytes # (auto) 0.04 K/uL (0.00-0.02); Immature Granulocytes % (auto) 0.3 %; Lymphocytes # (auto) 2.96 K/uL (1.2-3.4); Lymphocytes % (auto) 19.3 %; Mean Corpuscular Hemoglobin 31.8 pg (25-34); Mean Corpuscular Volume 93.4 fL (80-100); Mean Platelet Volume 9.2 fL (7.4-10.4); Monocytes # (auto) 1.42 K/uL (0.11-0.59); Monocytes % (auto) 9.2 %; Neutrophils # (auto) 10.94 K/uL (1.4-6.5); Neutrophils % (auto) 71.1 %; Platelet Count 241 K/uL (130-400); RDW Coefficient of Variation 14.1 % (11.5-14.5); RDW Standard Deviation 48.3 fL (36.4-46.3); Red Blood Count 4.25 M/uL (4.7-6.1); White Blood Count 15.37 K/uL (4.8-10.8)
[2021-03-29] MEDS ORDERED: ACETAMINOPHEN 1,000 MG/100 ML VIAL IV PRN (06:30)
--- NOTE | 2021-03-29 06:34 | Surgery Progress Note ---
Date of Service March 29, 2021 Assessment & Plan (1) H/O exploratory laparotomy: Patient required small bowel resection with anastomosis and colon resection with anastomosis He required significant mobilization of the colon up to the transverse colon because of diverticulosis I suspect he may develop an ileus although he is likely better off without the NG tube for now Ice and IV meds only Leave Lunsford until discontinued by physician Ambulate Check a.m. labs Admission and Anticipated Discharge Date Admission Date: March 28, 2021 Results & Data ([facility]) Vital Signs (Past 12 Hours) Vital Signs Temp Pulse Resp BP Pulse Ox 03/29/21 04:02 37.0 C 93 H 17 120/69 94 03/28/21 22:34 37.2 C 99 H 17 117/67 94 03/28/21 20:47 36.9 C 96 H 17 148/77 H 92 03/28/21 19:17 95 PG Care Time/CCT Total # of Minutes Spent Total Time Spent with Patient: Total time spent is greater than 50% in coordination of care (as documented) at patient's floor/unit and/or counseling patient: Coding Level of Care Code None Diagnoses H/O exploratory laparotomy Z98.890
[2021-03-29 06:45] LABS: Albumin Level 2.4 gm/dl (3.4-5.0); BUN Creatinine Ratio 24.3 (10-20); Calcium 8.1 mg/dl (8.5-10.1); Creatinine Clr Calc Pharmacy 94.8 ml/min; Est GFR (African American) 111.6 ml/min; Est GFR (Non-African American) 96.3 ml/min; Magnesium 1.7 mg/dl (1.8-2.4); Potassium 4.3 mmol/L (3.5-5.1)
[2021-03-29 06:47] LABS: Albumin Globulin Ratio 0.7 (0.9-2); Bilirubin,Total 0.8 mg/dl (0.2-1); Globulin 3.4 gm/dl (2.5-4.0); Phosphorus 2.6 mg/dl (2.5-4.9); Total Protein 5.8 gm/dl (6.4-8.2)
[2021-03-29] MEDS: HYDROmorphone INJ 1 MG/ML SYRINGE IV PRN ×3 (08:14→20:18)
[2021-03-29] MEDS: HEPARIN SOD 5,000 UNIT/0.5 ML VIAL SQ SCH ×2 (08:24→20:18)
--- NOTE | 2021-03-29 08:48 | Hospitalist Progress Note ---
Date of Service March 29, 2021 Assessment & Plan (1) H/O colectomy: POD#1 s/p laparotomy with lysis of adhesions and enterolysis, small bowel resection, partial colectomy and reversal of colostomy on 03/[address] Mills. EBL 20cc. Pre-op h/h 15.1/45.5 (This is now 5 months status post exploratory laparotomy, colon resection, colostomy and abdominal washout for perforated diverticulitis in 10/2020) Postoperative management as per general surgery -- likely with post-operative ileus but per surgery holding off on NGT at this time Ambulation encouraged. Continue NPO x ice chips/IV meds for now. NOW PASSING GAS THIS AFTERNOON Pain control Follow CBC, CMP, electrolytes --> Hypomagnesemia Mag 1.7 and replacement with IV to keep >2.0. Ordered 20mg IV Lasix by primary during same period Antiemetics as needed Continue cefoxitin 1 g IV every 6 hours as per surgery Maintain [place] catheter for now until directed by primary for removal -- hopefully tomorrow as patient increases ambulation (2) Current smoker: Counseled extensively on cessation Can add nicotine patch if needed (3) Hypercholesterolemia: Holding home omega-3 fish oil Hold home aspirin (4) Portal vein thrombosis: Recently completed 3-4 months of treatment with Xarelto for a thrombus of a branch of the portal vein This was thought to be secondary to acute illness with perforated diverticulitis back in October 2020 as well as he recently had Covid-19 just before that Repeat CT abdomen/pelvis on 03/25 shows persistent thrombus, but this is likely chronic at this point (5) Prediabetes: Hemoglobin A1c 6.0% 1 year ago Blood sugars here are acceptable No need for Accu-Cheks or insulin (6) BPH (benign prostatic hyperplasia): Noted in the chart but also noted on previous hospitalization have difficulty with Luns[place] catheter placement CT abdomen/pelvis on 03/25 also notes evidence of chronic bladder outlet obstruction as well as enlarged heterogenous prostate gland with median lobe hypertrophy Follow for urinary retention after Luns[place] catheter is removed Should follow-up with urology as an outpatient (7) Lumbar spinal stenosis: Holding home gabapentin while n.p.o. Restart home dose when able to to avoid withdrawal although it is a low dose, hopefully by tomorrow (8) DVT prophylaxis: Heparin SQ, SCDs Disposition-continued stay medical/surgical floor Hospital service will follow along while inpatient Admission and Anticipated Discharge Date Admission Date: March 28, 2021 Subjective Patient evaluated this afternoon. Feeling alright. Pain reported but tolerable with ordered medications. Has been up to chair but not ambulated in the halls yet. Passing gas this afternoon but no BM yet. Continues to have ice chips to wet mouth but no food. Very happy about reversal of colostomy as he had been dealing with this since November. Plans on walking either later tonight or tomorrow. Discussed to alert RN if flatus ceases or pain increases. Questions/concerns addressed at this time. Review of Systems Review of Systems: All systems reviewed & are unremarkable except as noted in HPI & below Physical Exam Constitutional: WD/WN, vitals as above (resting in bed upon arrival) Eyes: + anicteric sclerae ENMT: external ear and nose normal, oropharynx normal Neck: trachea midline, no thyromegaly Respiratory: normal respiratory effort, lungs clear to auscultation Cardiovascular: RRR, no murmur, no edema Chest (Breasts): Chest: normal inspection of chest Gastrointestinal (Abdomen): Inspection/Auscultation: + hypoactive bowel sounds; + abdomen abnormal to inspection (Large dressing over entire abdomen clean dry and intact, not removed) and abdomen not distended Percussion/Palpation: + abdomen tender (Mild without guarding) and abdomen soft Musculoskeletal: Extremities: extremities normal to inspection; no cyanosis and no clubbing Skin: no rashes, warm and dry Neurologic: moves all extremities and awake; no focal motor deficits Psychiatric: A+Ox3, euthymic affect Lymphatic: no lymphedema Results & Data Results & Data ([facility]) Vital Signs (Past 12 Hours) Vital Signs Temp Pulse Resp BP Pulse Ox 03/29/21 08:30 37.2 C 82 16 95/64 L 93 03/29/21 04:02 37.0 C 93 H 17 120/69 94 03/28/21 22:34 37.2 C 99 H 17 117/67 94 Laboratory Results 03/29/21 03/29/21 Range/Units 05:52 05:52 WBC 15.37 H (4.8-10.8) K/uL RBC 4.25 L (4.7-6.1) M/uL Hgb 13.5 L (14.0-18.0) g/dL Hct 39.7 L (42-52) % MCV 93.4 (80-100) fL MCH 31.8 (25-34) pg MCHC 34.0 (32-36) g/dL RDW Std Deviation 48.3 H (36.4-46.3) fL RDW Coeff of Aleisha 14.1 (11.5-14.5) % Plt Count 241 (130-400) K/uL MPV 9.2 (7.4-10.4) fL Immature Gran % (Auto) 0.3 % Neut % (Auto) 71.1 % Lymph % (Auto) 19.3 % [place] % (Auto) 9.2 % Eos % (Auto) 0.0 % Baso % (Auto) 0.1 % Neut # (Auto) 10.94 H (1.4-6.5) K/uL Lymph # (Auto) 2.96 (1.2-3.4) K/uL [place] # (Auto) 1.42 H (0.11-0.59) K/uL Eos # (Auto) 0.00 (0-0.5) K/uL Baso # (Auto) 0.01 (0-0.2) K/uL Immature Gran # (Auto) 0.04 H (0.00-0.02) K/uL Sodium 137 (136-145) mmol/L Potassium 4.3 (3.5-5.1) mmol/L Chloride 106 (98-107) mmol/L Carbon Dioxide 28 (21-32) mmol/L Anion Gap 3.0 (3-11) BUN 15 (7-18) mg/dl Creatinine 0.61 (0.6-1.4) mg/dl Est Cr Clr Drug Dosing 94.8 ml/min Est GFR ( Amer) 111.6 ml/min Est GFR (Non-Af Amer) 96.3 ml/min BUN/Creatinine Ratio 24.3 H (10-20) Glucose 105 H (70-99) mg/dl Calcium 8.1 L (8.5-10.1) mg/dl Phosphorus 2.6 (2.5-4.9) mg/dl Magnesium 1.7 L (1.8-2.4) mg/dl Total Bilirubin 0.8 (0.2-1) mg/dl AST 15 (15-37) U/L ALT 19 (12-78) U/L Alkaline Phosphatase 54 (45-117) U/L Total Protein 5.8 L (6.4-8.2) gm/dl Albumin 2.4 L (3.4-5.0) gm/dl Globulin 3.4 (2.5-4.0) gm/dl Albumin/Globulin Ratio 0.7 L (0.9-2) PG Care Time/CCT Total # of Minutes Spent Total Time Spent with Patient: Total time spent is greater than 50% in coordination of care (as documented) at patient's floor/unit and/or counseling patient: Coding Level of Care Code 13817 Subseq Hosp Care Lvl 3 Diagnoses H/O colectomy Z90.49 Current smoker F17.200 Hypercholesterolemia E78.00 Portal vein thrombosis I81 Prediabetes R73.03 BPH (benign prostatic hyperplasia) N40.0 Lumbar spinal stenosis M48.061 DVT prophylaxis Z29.9
[2021-03-29] MEDS ORDERED: FUROSEMIDE 20 MG in SYRINGE 0 ML IV ONE (09:30)
[2021-03-29] MEDS: MAGNESIUM SULFATE / D5W 1 GM/100 ML BAG IV SCH ×3 (10:55→14:34)
[2021-03-29] MEDS: KETOROLAC TROMETHAMINE 15 MG/ML VIAL IV PRN (16:05)
[2021-03-29 17:20] LABS: Potassium 4.3 mmol/L (3.5-5.1)
[2021-03-29 17:21] LABS: Magnesium 2.4 mg/dl (1.8-2.4)
[2021-03-30] MEDS: HYDROmorphone INJ 1 MG/ML SYRINGE IV PRN ×2 (01:05→05:28)
[2021-03-30] MEDS: NSS + 20MEQ KCL 20 MEQ/1,000 ML BAG IV SCH ×2 (04:24→19:33)
--- NOTE | 2021-03-30 06:20 | Surgery Progress Note ---
Date of Service March 30, 2021 Assessment & Plan (1) H/O colectomy: Status post colostomy reversal with partial colectomy Small bowel resection with small bowel anastomosis Patient is doing relatively well, he seems to be receiving significant Dilaudid which we will try to limit As this will limit his GI function Patient needs to walk in the hallway We will DC his [place] Continue IV fluids Continue n.p.o.-patient has 2 anastomoses 1 in the small bowel and one in the colon Awaiting some GI function Check a.m. labs -especially Phos and mag Admission and Anticipated Discharge Date Admission Date: March 28, 2021 Results & Data ([facility]) Vital Signs (Past 12 Hours) Vital Signs Temp Pulse Resp BP Pulse Ox 03/29/21 23:02 37.4 C 95 H 18 152/81 H 92 PG Care Time/CCT Total # of Minutes Spent Total Time Spent with Patient: Total time spent is greater than 50% in coordination of care (as documented) at patient's floor/unit and/or counseling patient: Coding Level of Care Code None Diagnoses H/O colectomy Z90.49
[2021-03-30 06:25] LABS: Basophils # (auto) 0.02 K/uL (0-0.2); Basophils % (auto) 0.2 %; Eosinophils # (auto) 0.02 K/uL (0-0.5); Eosinophils % (auto) 0.2 %; Hematocrit (blood only) 38.3 % (42-52); Hemoglobin 13.1 g/dL (14.0-18.0); Immature Granulocytes # (auto) 0.02 K/uL (0.00-0.02); Immature Granulocytes % (auto) 0.2 %; Lymphocytes # (auto) 2.74 K/uL (1.2-3.4); Lymphocytes % (auto) 22.2 %; Mean Corpuscular Hemoglobin 31.8 pg (25-34); Mean Corpuscular Hgb Conc 34.2 g/dL (32-36); Mean Platelet Volume 9.2 fL (7.4-10.4); Monocytes # (auto) 1.16 K/uL (0.11-0.59); Monocytes % (auto) 9.4 %; Neutrophils # (auto) 8.41 K/uL (1.4-6.5); Neutrophils % (auto) 67.8 %; Platelet Count 239 K/uL (130-400); RDW Coefficient of Variation 13.9 % (11.5-14.5); RDW Standard Deviation 47.7 fL (36.4-46.3); Red Blood Count 4.12 M/uL (4.7-6.1); White Blood Count 12.37 K/uL (4.8-10.8)
[2021-03-30 06:41] LABS: BUN Creatinine Ratio 20.7 (10-20); Creatinine Clr Calc Pharmacy 103.3 ml/min; Est GFR (African American) 115.6 ml/min; Est GFR (Non-African American) 99.8 ml/min; Magnesium 2.1 mg/dl (1.8-2.4); Potassium 4.1 mmol/L (3.5-5.1)
[2021-03-30 06:42] LABS: Phosphorus 2.3 mg/dl (2.5-4.9)
[2021-03-30] MEDS ORDERED: POTASSIUM PHOS 3 MMOL/1 ML INFUSION IV STA (08:14)
--- NOTE | 2021-03-30 08:15 | Hospitalist Progress Note ---
Date of Service March 30, 2021 Assessment & Plan (1) H/O colectomy: POD#2 s/p laparotomy with lysis of adhesions and enterolysis, small bowel resection, partial colectomy and reversal of colostomy on 03/[address] Mills. SBO-SBO anastomosis EBL 20cc. Pre-op h/h 15.1/45.5 (This is now 5 months status post exploratory laparotomy, colon resection, colostomy and abdominal washout for perforated diverticulitis in 10/2020) Postoperative management as per general surgery -- likely with post-operative ileus but per surgery holding off on NGT at this time Ambulation encouraged. Limiting dilaudid as much as possible Continue NPO x ice chips/IV meds for now. Continues to pass gas, hypoactive BS Hypomagnesemia Mag 1.7 and replacement with IV to keep >2.0. Repeat wnl Phos low 2.3 -- ordered K phos and will monitor AM labs IVF continued Antiemetics as needed Continue cefoxitin 1 g IV every 6 hours as per surgery Follow CBC, CMP, electrolytes L[place] removed this morning -- monitor for retention (2) Current smoker: Counseled extensively on cessation Can add nicotine patch if needed (3) Hypercholesterolemia: Holding home omega-3 fish oil Hold home aspirin (4) Portal vein thrombosis: Recently completed 3-4 months of treatment with Xarelto for a thrombus of a branch of the portal vein This was thought to be secondary to acute illness with perforated diverticulitis back in October 2020 as well as he recently had Covid-19 just before that Repeat CT abdomen/pelvis on 03/25 shows persistent thrombus, but this is likely chronic at this point (5) Prediabetes: Hemoglobin A1c 6.0% 1 year ago Blood sugars here are acceptable No need for Accu-Cheks or insulin (6) BPH (benign prostatic hyperplasia): Noted in the chart but also noted on previous hospitalization have difficulty with Luns[place] catheter placement CT abdomen/pelvis on 03/25 also notes evidence of chronic bladder outlet obstruction as well as enlarged heterogenous prostate gland with median lobe hypertrophy Follow for urinary retention after Luns[place] catheter is removed Should follow-up with urology as an outpatient (7) Lumbar spinal stenosis: Holding home gabapentin while n.p.o. Restart home dose when able to to avoid withdrawal although it is a low dose, hopefully by tomorrow (8) DVT prophylaxis: Heparin SQ, SCDs Disposition-continued stay medical/surgical floor Hospital service will follow along while inpatient Admission and Anticipated Discharge Date Admission Date: March 28, 2021 Subjective Patient evaluated this morning. Doing well. Little more pain with movement but controlled with ordered medications. Passing gas, tolerating ice chips. Slightly sore throat from airway from surgery, blood tinged sputum x 1 this morning, nothing since that time. Would like lozenge to moisten mouth. Will get up with nursing this morning once finishes his 'power nap' and encouraged frequent ambulation. No fever, chills, chest pain, shortness of breath, nausea, vomiting. Lunsford removed this morning just before entry and has not urinated just yet but will continue to monitor. Review of Systems Review of Systems: All systems reviewed & are unremarkable except as noted in HPI & below Physical Exam Constitutional: WD/WN, vitals as above (resting in bed upon arrival) Eyes: + anicteric sclerae ENMT: external ear and nose normal, oropharynx normal Neck: trachea midline, no thyromegaly Respiratory: normal respiratory effort, lungs clear to auscultation Cardiovascular: RRR, no murmur, no edema Chest (Breasts): Chest: normal inspection of chest Gastrointestinal (Abdomen): Inspection/Auscultation: + hypoactive bowel sounds; + abdomen abnormal to inspection (Large dressing over abdomen- c/d/i, not removed. JONATHAN serosang drainage) and abdomen not distended Percussion/Palpation: + abdomen tender (Mild-mod without guarding) and abdomen soft Musculoskeletal: Extremities: extremities normal to inspection; no cyanosis and no clubbing Skin: no rashes, warm and dry Neurologic: moves all extremities and awake; no focal motor deficits Psychiatric: A+Ox3, euthymic affect Lymphatic: no lymphedema Results & Data Results & Data ([facility]) Vital Signs (Past 12 Hours) Vital Signs Temp Pulse Pulse Resp BP Pulse Ox 03/30/21 07:20 37.0 C 93 H 14 155/83 H 92 03/29/21 23:02 37.4 C 95 H 18 152/81 H 92 Laboratory Results 03/30/21 03/30/21 03/29/21 Range/Units 05:58 05:58 16:46 WBC 12.37 H (4.8-10.8) K/uL RBC 4.12 L (4.7-6.1) M/uL Hgb 13.1 L (14.0-18.0) g/dL Hct 38.3 L (42-52) % MCV 93.0 (80-100) fL MCH 31.8 (25-34) pg MCHC 34.2 (32-36) g/dL RDW Std Deviation 47.7 H (36.4-46.3) fL RDW Coeff of Aleisha 13.9 (11.5-14.5) % Plt Count 239 (130-400) K/uL MPV 9.2 (7.4-10.4) fL Immature Gran % (Auto) 0.2 % Neut % (Auto) 67.8 % Lymph % (Auto) 22.2 % Andrew % (Auto) 9.4 % Eos % (Auto) 0.2 % Baso % (Auto) 0.2 % Neut # (Auto) 8.41 H (1.4-6.5) K/uL Lymph # (Auto) 2.74 (1.2-3.4) K/uL Andrew # (Auto) 1.16 H (0.11-0.59) K/uL Eos # (Auto) 0.02 (0-0.5) K/uL Baso # (Auto) 0.02 (0-0.2) K/uL Immature Gran # (Auto) 0.02 (0.00-0.02) K/uL Sodium 135 L (136-145) mmol/L Potassium 4.1 4.3 (3.5-5.1) mmol/L Chloride 103 (98-107) mmol/L Carbon Dioxide 29 (21-32) mmol/L Anion Gap 3.0 (3-11) BUN 12 (7-18) mg/dl Creatinine 0.56 L (0.6-1.4) mg/dl Est Cr Clr Drug Dosing 103.3 ml/min Est GFR ( Amer) 115.6 ml/min Est GFR (Non-Af Amer) 99.8 ml/min BUN/Creatinine Ratio 20.7 H (10-20) Glucose 90 (70-99) mg/dl Calcium 8.0 L (8.5-10.1) mg/dl Phosphorus 2.3 L (2.5-4.9) mg/dl Magnesium 2.1 2.4 (1.8-2.4) mg/dl PG Care Time/CCT Total # of Minutes Spent Total Time Spent with Patient: Total time spent is greater than 50% in coordination of care (as documented) at patient's floor/unit and/or counseling patient: Coding Level of Care Code 31441 Subseq Hosp Care Lvl 3 Diagnoses H/O colectomy Z90.49 Current smoker F17.200 Hypercholesterolemia E78.00 Portal vein thrombosis I81 Prediabetes R73.03 BPH (benign prostatic hyperplasia) N40.0 Lumbar spinal stenosis M48.061 DVT prophylaxis Z29.9
[2021-03-30] MEDS ORDERED: POTASSIUM PHOSPHATE 15 MMOL in SODIUM CHLORIDE 0.9% 250 ML IV ONE (08:30)
[2021-03-30] MEDS: HEPARIN SOD 5,000 UNIT/0.5 ML VIAL SQ SCH ×2 (08:39→21:05)
[2021-03-30] MEDS: HYDROmorphone INJ 0.5 MG/0.5 ML SYR IV PRN (09:21)
[2021-03-30] MEDS ORDERED: Nursing to Pharmacy Communication SCH (10:15)
[2021-03-30] MEDS ORDERED: COUGH DROP (SUGAR FREE) LOZ 24 LOZ/1 BOX BUCCAL PRN (10:39)
[2021-03-30] MEDS: ONDANSETRON INJ 2 MG/ML 2 ML VIAL IV PRN ×2 (12:43→19:36)
[2021-03-30] MEDS: KETOROLAC TROMETHAMINE 15 MG/ML VIAL IV PRN ×2 (13:52→22:44)
[2021-03-31] MEDS: ONDANSETRON INJ 2 MG/ML 2 ML VIAL IV PRN ×2 (05:48→18:12)
[2021-03-31 06:08] LABS: Basophils # (auto) 0.02 K/uL (0-0.2); Basophils % (auto) 0.2 %; Eosinophils # (auto) 0.04 K/uL (0-0.5); Eosinophils % (auto) 0.4 %; Hematocrit (blood only) 38.5 % (42-52); Hemoglobin 13.1 g/dL (14.0-18.0); Immature Granulocytes # (auto) 0.02 K/uL (0.00-0.02); Immature Granulocytes % (auto) 0.2 %; Lymphocytes # (auto) 2.16 K/uL (1.2-3.4); Mean Corpuscular Hemoglobin 31.5 pg (25-34); Mean Corpuscular Volume 92.5 fL (80-100); Monocytes # (auto) 0.94 K/uL (0.11-0.59); Monocytes % (auto) 9.2 %; Neutrophils # (auto) 7.09 K/uL (1.4-6.5); Platelet Count 249 K/uL (130-400); RDW Coefficient of Variation 13.4 % (11.5-14.5); RDW Standard Deviation 45.2 fL (36.4-46.3); Red Blood Count 4.16 M/uL (4.7-6.1); White Blood Count 10.27 K/uL (4.8-10.8)
[2021-03-31] MEDS ORDERED: LORazepam 0.5 MG/1 ML VIAL IV PRN (06:14)
--- NOTE | 2021-03-31 06:18 | Surgery Progress Note ---
Date of Service March 31, 2021 Assessment & Plan (1) H/O colectomy: Likely has a mild ileus and also to anastomoses Can try some popsicles and [place] ice May try promethazine for nausea but this will make him drowsy He does not seem to want to walk in the hallway He is taking less pain medication which is good We will stop his antibiotics Try to encourage him to ambulate Await return of GI function Admission and Anticipated Discharge Date Admission Date: March 28, 2021 Subjective Patient is awake and alert says he is having nausea-received some Zofran Says he is passing flatus No overt emesis Wants more than ice chips He is somewhat frustrated Physical Exam Physical Exam: Abdomen is not significantly distended Has decreased bowel sounds Drain is serous Results & Data ([facility]) Vital Signs (Past 12 Hours) Vital Signs Temp Pulse Resp BP Pulse Ox 03/30/21 22:33 36.8 C 88 16 152/79 H 92 PG Care Time/CCT Total # of Minutes Spent Total Time Spent with Patient: Total time spent is greater than 50% in coordination of care (as documented) at patient's floor/unit and/or counseling patient: Coding Level of Care Code None Diagnoses H/O colectomy Z90.49
[2021-03-31 06:27] LABS: Albumin Level 2.4 gm/dl (3.4-5.0); BUN Creatinine Ratio 25.8 (10-20); Calcium 8.2 mg/dl (8.5-10.1); Est GFR (African American) 122.2 ml/min; Est GFR (Non-African American) 105.4 ml/min; Magnesium 1.9 mg/dl (1.8-2.4); Potassium 4.2 mmol/L (3.5-5.1)
[2021-03-31 06:30] LABS: Albumin Globulin Ratio 0.6 (0.9-2); Bilirubin,Total 0.8 mg/dl (0.2-1); Globulin 3.7 gm/dl (2.5-4.0); Phosphorus 2.7 mg/dl (2.5-4.9); Total Protein 6.1 gm/dl (6.4-8.2)
[2021-03-31] MEDS ORDERED: METOCLOPRAMIDE HCL INJ 5 MG/ML 2 ML VIAL IV ONE (07:30)
[2021-03-31] MEDS: KETOROLAC TROMETHAMINE 15 MG/ML VIAL IV PRN (07:55)
[2021-03-31] MEDS: NSS + 20MEQ KCL 20 MEQ/1,000 ML BAG IV SCH ×2 (07:55→21:04)
[2021-03-31] MEDS: HEPARIN SOD 5,000 UNIT/0.5 ML VIAL SQ SCH ×2 (07:56→21:05)
--- NOTE | 2021-03-31 08:43 | Hospitalist Progress Note ---
Date of Service March 31, 2021 Assessment & Plan (1) H/O colectomy: POD#3 s/p laparotomy with lysis of adhesions and enterolysis, small bowel resection, partial colectomy and reversal of colostomy on 03/[address] Mills. SBO-SBO anastomosis EBL 20cc. Pre-op h/h 15.1/45.5 (This is now 5 months status post exploratory laparotomy, colon resection, colostomy and abdominal washout for perforated diverticulitis in 10/2020) Postoperative management as per general surgery -- likely with post-operative ileus but per surgery holding off on NGT at this time Ambulation encouraged -- walked halls last night Limiting dilaudid as much as possible Continue NPO x ice chips/IV meds for now. Continues to pass gas, hypoactive BS Hypomagnesemia Mag 1.7 and replacement with IV to keep >2.0. Repeat wnl Phos low 2.3 and now wnl with replacement IVF continued but given dose of lasix 20mg IV for overload/low Cr Antiemetics as needed, add phenergan. Got dose of reglan by primary service Hgb stable 13.1 WBC now 10.27k wnl Abx completed with cefoxitin Follow CBC, CMP, electrolytes (2) Current smoker: Counseled extensively on cessation Can add nicotine patch if needed (3) Hypercholesterolemia: Holding home omega-3 fish oil Hold home aspirin (4) Portal vein thrombosis: Recently completed 3-4 months of treatment with Xarelto for a thrombus of a branch of the portal vein This was thought to be secondary to acute illness with perforated diverticulitis back in October 2020 as well as he recently had Covid-19 just before that Repeat CT abdomen/pelvis on 03/25 shows persistent thrombus, but this is likely chronic at this point (5) Prediabetes: Hemoglobin A1c 6.0% 1 year ago Blood sugars here are acceptable No need for Accu-Cheks or insulin (6) BPH (benign prostatic hyperplasia): Noted in the chart but also noted on previous hospitalization have difficulty with [place] catheter placement CT abdomen/pelvis on 03/25 also notes evidence of chronic bladder outlet obstruction as well as enlarged heterogenous prostate gland with median lobe hypertrophy Follow for urinary retention after [place] catheter is removed --> UO 1.72ml/kg/hr, acceptable Should follow-up with urology as an outpatient (7) Lumbar spinal stenosis: Holding home gabapentin while n.p.o. Restart home dose when able to to avoid withdrawal although it is a low dose, hopefully by tomorrow (8) DVT prophylaxis: Heparin SQ, SCDs ENCOURAGING AMBULATION Disposition-continued stay medical/surgical floor Hospital service will follow along while inpatient Admission and Anticipated Discharge Date Admission Date: March 28, 2021 Subjective Patient evaluated this morning. Pain slightly decreased compared to yesterday. Did walk halls last night but has not been up yet today. Had been nauseous overnight and didn't get much sleep but no emesis. Will add Phenergan if needed. He was ordered a dose of Reglan by surgical service. Discussed likely ileus and ambulation will help. No fever, chills, chest pain,shortness of breath, dysuria at this time. Review of Systems Review of Systems: All systems reviewed & are unremarkable except as noted in HPI & below Physical Exam Constitutional: WD/WN, vitals as above (resting in bed upon arrival) Eyes: + anicteric sclerae ENMT: external ear and nose normal, oropharynx normal Neck: trachea midline, no thyromegaly Respiratory: normal respiratory effort, lungs clear to auscultation Cardiovascular: RRR, no murmur, no edema Chest (Breasts): Chest: normal inspection of chest Gastrointestinal (Abdomen): Inspection/Auscultation: + hypoactive bowel sounds; + abdomen abnormal to inspection (Large dressing over abdomen- c/d/i, not removed. JONATHAN serosang drainage) and abdomen not distended Percussion/Palpation: + abdomen tender (Mild without guarding) and abdomen soft Musculoskeletal: Extremities: extremities normal to inspection; no cyanosis and no clubbing Skin: no rashes, warm and dry Neurologic: moves all extremities and awake; no focal motor deficits Psychiatric: A+Ox3, euthymic affect Lymphatic: no lymphedema Results & Data Results & Data ([facility]) Vital Signs (Past 12 Hours) Vital Signs Temp Pulse Resp BP BP Pulse Ox 03/31/21 07:15 36.9 C 79 16 154/83 H 95 03/30/21 22:33 36.8 C 88 16 152/79 H 92 Laboratory Results 03/31/21 03/31/21 Range/Units 05:45 05:45 WBC 10.27 (4.8-10.8) K/uL RBC 4.16 L (4.7-6.1) M/uL Hgb 13.1 L (14.0-18.0) g/dL Hct 38.5 L (42-52) % MCV 92.5 (80-100) fL MCH 31.5 (25-34) pg MCHC 34.0 (32-36) g/dL RDW Std Deviation 45.2 (36.4-46.3) fL RDW Coeff of Aleisha 13.4 (11.5-14.5) % Plt Count 249 (130-400) K/uL MPV 9.0 (7.4-10.4) fL Immature Gran % (Auto) 0.2 % Neut % (Auto) 69.0 % Lymph % (Auto) 21.0 % [place] % (Auto) 9.2 % Eos % (Auto) 0.4 % Baso % (Auto) 0.2 % Neut # (Auto) 7.09 H (1.4-6.5) K/uL Lymph # (Auto) 2.16 (1.2-3.4) K/uL [place] # (Auto) 0.94 H (0.11-0.59) K/uL Eos # (Auto) 0.04 (0-0.5) K/uL Baso # (Auto) 0.02 (0-0.2) K/uL Immature Gran # (Auto) 0.02 (0.00-0.02) K/uL Sodium 134 L (136-145) mmol/L Potassium 4.2 (3.5-5.1) mmol/L Chloride 104 (98-107) mmol/L Carbon Dioxide 25 (21-32) mmol/L Anion Gap 5.0 (3-11) BUN 13 (7-18) mg/dl Creatinine 0.49 L (0.6-1.4) mg/dl Est Cr Clr Drug Dosing 118.0 ml/min Est GFR ( Amer) 122.2 ml/min Est GFR (Non-Af Amer) 105.4 ml/min BUN/Creatinine Ratio 25.8 H (10-20) Glucose 86 (70-99) mg/dl Calcium 8.2 L (8.5-10.1) mg/dl Phosphorus 2.7 (2.5-4.9) mg/dl Magnesium 1.9 (1.8-2.4) mg/dl Total Bilirubin 0.8 (0.2-1) mg/dl AST 26 (15-37) U/L ALT 19 (12-78) U/L Alkaline Phosphatase 58 (45-117) U/L Total Protein 6.1 L (6.4-8.2) gm/dl Albumin 2.4 L (3.4-5.0) gm/dl Globulin 3.7 (2.5-4.0) gm/dl Albumin/Globulin Ratio 0.6 L (0.9-2) PG Care Time/CCT Total # of Minutes Spent Total Time Spent with Patient: Total time spent is greater than 50% in coordination of care (as documented) at patient's floor/unit and/or counseling patient: Coding Level of Care Code 22990 Subseq Hosp Care Lvl 2 Diagnoses H/O colectomy Z90.49 Current smoker F17.200 Hypercholesterolemia E78.00 Portal vein thrombosis I81 Prediabetes R73.03 BPH (benign prostatic hyperplasia) N40.0 Lumbar spinal stenosis M48.061 DVT prophylaxis Z29.9
[2021-03-31] MEDS ORDERED: FUROSEMIDE 20 MG in SYRINGE 0 ML IV ONE (09:00)
[2021-03-31] MEDS ORDERED: PROMETHAZINE HCL 12.5 MG in SODIUM CHLORIDE 0.9% 50 ML IV PRN (10:01)
--- NOTE | 2021-04-01 07:02 | Surgery Progress Note ---
Date of Service April 01, 2021 Assessment & Plan (1) H/O colectomy: Status post small bowel resection with anastomosis and partial colectomy with reversal of colostomy Patient continues to have some nausea but no significant emesis We will try some clear liquids Advance diet very slowly over the weekend We will place him on some Reglan twice daily Continue IV fluids for now Leave JONATHAN drain and [place] drain for now Dr. King is covering over the weekend Admission and Anticipated Discharge Date Admission Date: March 28, 2021 Results & Data ([facility]) Vital Signs (Past 12 Hours) Vital Signs Temp Pulse Resp BP Pulse Ox 03/31/21 22:00 37.2 C 70 18 156/82 H 94 PG Care Time/CCT Total # of Minutes Spent Total Time Spent with Patient: Total time spent is greater than 50% in coordination of care (as documented) at patient's floor/unit and/or counseling patient: Coding Level of Care Code None Diagnoses H/O colectomy Z90.49
[2021-04-01] MEDS: HEPARIN SOD 5,000 UNIT/0.5 ML VIAL SQ SCH ×2 (07:47→20:50)
[2021-04-01] MEDS: NSS + 20MEQ KCL 20 MEQ/1,000 ML BAG IV SCH ×2 (07:48→23:48)
[2021-04-01] MEDS: METOCLOPRAMIDE HCL INJ 5 MG/ML 2 ML VIAL IV SCH ×2 (07:48→20:51)
--- NOTE | 2021-04-01 08:36 | Hospitalist Progress Note ---
Date of Service April 01, 2021 Assessment & Plan (1) H/O colectomy: POD#4 s/p laparotomy with lysis of adhesions and enterolysis, small bowel resection, partial colectomy and reversal of colostomy on 03/[address] Mills. SBO-SBO anastomosis EBL 20cc. Pre-op h/h 15.1/45.5 (This is now 5 months status post exploratory laparotomy, colon resection, colostomy and abdominal washout for perforated diverticulitis in 10/2020) Advanced to clear liquid diet today by primary service as he continues to pass gas but no BM. Placed on reglan BID by primary I ordered mag 2gm IV for mag 1.8 this am to get >2 Increased discomfort following this but no emesis -- he wants to avoid NGT but I did message primary about possible need for insertion [place] unable to get warm this morning with chills -- no fever initially but this afternoon temp up to 38.5C WBC 10.7 and not on any further abx. will add diff to am CBC Ordered KUB -- pending Blood cultures obtained, alerted general surgery, awaiting response Only got dose of toradol yesterday morning and nothing until today but he did state help with this Has not been ambulating much but did take a lap in halls yesterday and up into chair x3 today Continue to monitor daily labs (2) Current smoker: Counseled extensively on cessation Can add nicotine patch if needed (3) Hypercholesterolemia: Holding home omega-3 fish oil Hold home aspirin (4) Portal vein thrombosis: Recently completed 3-4 months of treatment with Xarelto for a thrombus of a branch of the portal vein This was thought to be secondary to acute illness with perforated diverticulitis back in October 2020 as well as he recently had Covid-19 just before that Repeat CT abdomen/pelvis on 03/25 shows persistent thrombus, but this is likely chronic at this point (5) Prediabetes: Hemoglobin A1c 6.0% 1 year ago Blood sugars here are acceptable No need for Accu-Cheks or insulin (6) BPH (benign prostatic hyperplasia): Noted in the chart but also noted on previous hospitalization have difficulty with [place] catheter placement CT abdomen/pelvis on 03/25 also notes evidence of chronic bladder outlet obstruction as well as enlarged heterogenous prostate gland with median lobe hypertrophy Follow for urinary retention after S[place] catheter is removed --> UO 0.84ml/kg/hr, acceptable Should follow-up with urology as an outpatient (7) Lumbar spinal stenosis: Holding home gabapentin while n.p.o. Restart home dose when able to to avoid withdrawal although it is a low dose (8) DVT prophylaxis: Heparin SQ, SCDs ENCOURAGING AMBULATION Disposition-continued stay medical/surgical floor Hospital service will follow along while inpatient (9) Ileus, postoperative: complication of surgery, pain control ambulation as above possible SBO today and obtaining KUB -- alerted primary service Admission and Anticipated Discharge Date Admission Date: March 28, 2021 Subjective Patient evaluated this afternoon. Patient states he has had jellos, lao ice, two bites of broth from soup but nothing more than that, joy joaquin. He states he is passing gas but has increased pain. Had not been given anything for pain since yesterday but got a dose this morning with some improvement. Nauseous but attempting to hold himself off from vomiting as it would be "too much for his body". Discussed NGT for decompression -- he is adamantly against this but will discuss this with Dr. Mills. Will obtain KUB. He was placed on Reglan scheduled for motility as well as ordered magnesium replacement which should hopefully help as well. Will order Pepcid IVP daily to help with reflux if this is contributing as he has not been on GI prophylaxis. Endorses feeling cold and has warm blanket on but no fever. No chest pain or shortness of breath. No dysuria at this time. Questions/concerns addressed. Review of Systems Review of Systems: All systems reviewed & are unremarkable except as noted in HPI & below Physical Exam Physical Exam: laying in bed resting upon entry to room. well developed/well nourished male, NAD while laying flat under multiple blankets. Thermostat up the whole way in the room. ENT: mmm Resp: CTAB, no w/c/d CV: RRR, no m/r/g ABD: + absent-hypoactive bowel sounds, + abdomen abnormal to inspection (dressing c/d/i, JONATHAN with serosang drainage), tender to palpation throughout, voluntary guarding without rigidity Neuro/MSK: moves all extremities Psych: AOx3 : No sosa Results & Data Results & Data ([facility]) Vital Signs (Past 12 Hours) Vital Signs Temp Pulse Resp BP BP Pulse Ox 04/01/21 07:20 36.9 C 80 16 163/87 H 95 03/31/21 22:00 37.2 C 70 18 156/82 H 94 Laboratory Results 04/01/21 04/01/21 Range/Units 08:50 08:50 WBC 10.73 (4.8-10.8) K/uL RBC 4.21 L (4.7-6.1) M/uL Hgb 13.6 L (14.0-18.0) g/dL Hct 39.3 L (42-52) % MCV 93.3 (80-100) fL MCH 32.3 (25-34) pg MCHC 34.6 (32-36) g/dL RDW Std Deviation 45.3 (36.4-46.3) fL RDW Coeff of Aleisha 13.2 (11.5-14.5) % Plt Count 316 (130-400) K/uL MPV 9.2 (7.4-10.4) fL Sodium 136 (136-145) mmol/L Potassium 4.2 (3.5-5.1) mmol/L Chloride 105 (98-107) mmol/L Carbon Dioxide 20 L (21-32) mmol/L Anion Gap 11.0 (3-11) BUN 15 (7-18) mg/dl Creatinine 0.43 L (0.6-1.4) mg/dl Est Cr Clr Drug Dosing 134.5 ml/min Est GFR ( Amer) 128.9 ml/min Est GFR (Non-Af Amer) 111.2 ml/min BUN/Creatinine Ratio 34.2 H (10-20) Glucose 94 (70-99) mg/dl Calcium 8.3 L (8.5-10.1) mg/dl Phosphorus 2.5 (2.5-4.9) mg/dl Magnesium 1.8 (1.8-2.4) mg/dl PG Care Time/CCT Total # of Minutes Spent Total Time Spent with Patient: Total time spent is greater than 50% in coordination of care (as documented) at patient's floor/unit and/or counseling patient: Coding Level of Care Code 84664 Subseq Hosp Care Lvl 3 Diagnoses H/O colectomy Z90.49 Current smoker F17.200 Hypercholesterolemia E78.00 Portal vein thrombosis I81 Prediabetes R73.03 BPH (benign prostatic hyperplasia) N40.0 Lumbar spinal stenosis M48.061 DVT prophylaxis Z29.9 Ileus, postoperative K91.89; K56.7
[2021-04-01 09:25] LABS: Hematocrit (blood only) 39.3 % (42-52); Hemoglobin 13.6 g/dL (14.0-18.0); Mean Corpuscular Hemoglobin 32.3 pg (25-34); Mean Corpuscular Hgb Conc 34.6 g/dL (32-36); Mean Corpuscular Volume 93.3 fL (80-100); Mean Platelet Volume 9.2 fL (7.4-10.4); Platelet Count 316 K/uL (130-400); RDW Coefficient of Variation 13.2 % (11.5-14.5); RDW Standard Deviation 45.3 fL (36.4-46.3); Red Blood Count 4.21 M/uL (4.7-6.1); White Blood Count 10.73 K/uL (4.8-10.8)
[2021-04-01 09:52] LABS: BUN Creatinine Ratio 34.2 (10-20); Calcium 8.3 mg/dl (8.5-10.1); Creatinine Clr Calc Pharmacy 134.5 ml/min; Est GFR (African American) 128.9 ml/min; Est GFR (Non-African American) 111.2 ml/min; Magnesium 1.8 mg/dl (1.8-2.4); Phosphorus 2.5 mg/dl (2.5-4.9); Potassium 4.2 mmol/L (3.5-5.1)
[2021-04-01] MEDS: KETOROLAC TROMETHAMINE 15 MG/ML VIAL IV PRN ×3 (12:27→23:48)
[2021-04-01] MEDS: MAGNESIUM SULFATE / D5W 1 GM/100 ML BAG IV SCH ×2 (14:16→16:09)
[2021-04-01] MEDS: FAMOTIDINE 20 MG in SYRINGE 3 ML IV SCH (14:45)
--- NOTE | 2021-04-01 15:26 | XRay Report ---
KUB CLINICAL HISTORY: Abdominal pain, hypoactive/absent BS. Status post laparoscopy with bowel resection and colostomy reversal on March 28, 2021. COMPARISON STUDY: CT of the abdomen and pelvis March 25, 2021. FINDINGS: Surgical drains are in place. There are skin eulalio. There is oral contrast within portion s of the colon. There is no evidence for a bowel obstruction. Note is made of contrast within several right colon diverticula. Sensitivity for detection of free air is diminished on this supine exam. Parvin cency projects over the upper abdomen on the second image. IMPRESSION: 1. No evidence for a bowel obstruction. 2. Lucency projecting over the upper abdomen. This may be artifactual. Pneumoperitoneum could appear similar however would not be unexpected given recent surgery. ACT 112: Negative or not required by law. Electronically signed by: Filippo Castillo M.D. 04/01/2021 3:24 PM
[2021-04-01] MEDS: ACETAMINOPHEN 1000 MG/100 ML IV IV PRN (15:29)
[2021-04-01 16:05] LABS: Basophils # (auto) 0.02 K/uL (0-0.2); Basophils % (auto) 0.2 %; Eosinophils # (auto) 0.05 K/uL (0-0.5); Eosinophils % (auto) 0.5 %; Immature Granulocytes # (auto) 0.02 K/uL (0.00-0.02); Immature Granulocytes % (auto) 0.2 %; Lymphocytes # (auto) 1.91 K/uL (1.2-3.4); Lymphocytes % (auto) 18.3 %; Monocytes # (auto) 0.83 K/uL (0.11-0.59); Neutrophils % (auto) 72.8 %
--- NOTE | 2021-04-01 17:57 | XRay Report ---
XR chest 1V portable HISTORY: fever COMPARISON: KUB 04/01/2021. FINDINGS: Redemonstration of the pneumoperitoneum. This favors expected postoperative change given th e recent abdominal surgery. No pneumothorax. No pleural effusions. The heart is top normal in size. A few left basilar linear densities consistent with subsegmental atelectasis/scarring. No new focal tori ng consolidations to suggest pneumonia. No evidence for pulmonary edema. IMPRESSION: 1. Redemonstration of the pneumoperitoneum. This favors expected postoperative change given the recen t abdominal surgery. 2. No new focal lung consolidations to suggest pneumonia. ACT 112: Negative or not required by law. Electronically signed by: Julian Steele M.D. 04/01/2021 5:56 PM
[2021-04-01 18:36] LABS: Eosinophils # (auto) 0.01 K/uL (0-0.5); Eosinophils % (auto) 0.1 %; Hematocrit (blood only) 39.5 % (42-52); Hemoglobin 13.9 g/dL (14.0-18.0); Immature Granulocytes # (auto) 0.05 K/uL (0.00-0.02); Immature Granulocytes % (auto) 0.4 %; Lymphocytes # (auto) 1.11 K/uL (1.2-3.4); Lymphocytes % (auto) 7.8 %; Mean Corpuscular Hemoglobin 31.9 pg (25-34); Mean Corpuscular Hgb Conc 35.2 g/dL (32-36); Mean Corpuscular Volume 90.6 fL (80-100); Monocytes # (auto) 0.73 K/uL (0.11-0.59); Monocytes % (auto) 5.1 %; Neutrophils # (auto) 12.35 K/uL (1.4-6.5); Neutrophils % (auto) 86.6 %; Platelet Count 289 K/uL (130-400); RDW Coefficient of Variation 13.1 % (11.5-14.5); RDW Standard Deviation 43.3 fL (36.4-46.3); Red Blood Count 4.36 M/uL (4.7-6.1); White Blood Count 14.25 K/uL (4.8-10.8)
[2021-04-01 18:53] LABS: Calcium 8.2 mg/dl (8.5-10.1); Creatinine Clr Calc Pharmacy 81.5 ml/min; Est GFR (African American) 104.9 ml/min; Est GFR (Non-African American) 90.5 ml/min
--- NOTE | 2021-04-02 05:57 | Surgery Progress Note ---
Date of Service April 02, 2021 Assessment & Plan (1) H/O exploratory laparotomy: Postoperative day #5 colostomy reversal We will maintain the patient on clear liquids for the present time until his appetite improves and until about improved bowel function is noted. Continue JONATHAN drain Continue analgesics Encourage use of incentive spirometer and increased ambulation Subcutaneous heparin is in place for DVT prevention Admission and Anticipated Discharge Date Admission Date: March 28, 2021 Supervising Physician Co-Signing Physician Notes pnt s&e, agree with above. s/p colostomy takedown and small bowel resection. Fever yesterday, resolved with tylenol. initially refused labs and heparin this morning. passing flatus, tolerating liquids but not hungry. toradol overnight and tylenol yesterday helps with pain. on exam afvss. nad, aaox3. abs soft, appropriately ttp, no guarding or rebound. incisions healing well, no infection. drain with ss drainage. labs eventually drawn and show wbc 16. kub/cxr yesterday with residual pneumoperitoneum. Will monitor today, if worsening leukocytosis or fevers perform ct with iv and oral contrast tomorrow. continue clears for now. encourage is, ambulation, oobtc as patient has not been moving around much per his report. Subjective Patient is resting comfortably in bed. He notes overnight he was able to tolerate clear liquids without any nausea or vomiting. He does note a poor appetite. He has not had a bowel movement since surgery but notes he is passing flatus. He says he has been able to ambulate without difficulty. Physical Exam Gastrointestinal (Abdomen): Bowel sounds are hypoactive. His abdomen is soft and nondistended. There is pain with palpation near surgical incisions. Results & Data ([facility]) Vital Signs (Past 12 Hours) Vital Signs Temp Pulse Resp BP Pulse Ox 04/02/21 00:25 37 C 89 16 125/80 94 PG Care Time/CCT Total # of Minutes Spent Total Time Spent with Patient: Total time spent is greater than 50% in venue coordinator rdination of care (as documented) at patient's floor/unit and/or counseling patient: Coding Level of Care Code None Diagnoses H/O exploratory laparotomy Z98.890
[2021-04-02 07:02] LABS: Appearance Urine Clear (Clear); Blood Urine Negative (Negative); Color Urine Dark Yellow; Glucose Urine UA Trace (Negative); Ketones Urine 1+ (Negative); Leukocyte Esterase Urine Negative (Negative); Nitrite Urine Negative (Negative); Protein Urine Negative (Negative); Specific Gravity Urine 1.021 (1.000-1.030); Urobilinogen Urine Negative (Negative)
[2021-04-02 07:07] LABS: Bilirubin Urine 1+ (Negative)
[2021-04-02 09:12] LABS: Basophils # (auto) 0.01 K/uL (0-0.2); Basophils % (auto) 0.1 %; Hematocrit (blood only) 37.5 % (42-52); Hemoglobin 13.1 g/dL (14.0-18.0); Immature Granulocytes # (auto) 0.03 K/uL (0.00-0.02); Immature Granulocytes % (auto) 0.2 %; Lymphocytes # (auto) 1.29 K/uL (1.2-3.4); Mean Corpuscular Hemoglobin 31.6 pg (25-34); Mean Corpuscular Hgb Conc 34.9 g/dL (32-36); Mean Corpuscular Volume 90.6 fL (80-100); Mean Platelet Volume 8.8 fL (7.4-10.4); Neutrophils # (auto) 13.98 K/uL (1.4-6.5); Neutrophils % (auto) 86.7 %; Platelet Count 296 K/uL (130-400); RDW Coefficient of Variation 13.3 % (11.5-14.5); RDW Standard Deviation 43.8 fL (36.4-46.3); Red Blood Count 4.14 M/uL (4.7-6.1); White Blood Count 16.11 K/uL (4.8-10.8)
[2021-04-02] MEDS: ACETAMINOPHEN 1000 MG/100 ML IV IV PRN ×2 (09:19→17:00)
[2021-04-02] MEDS: FAMOTIDINE 20 MG in SYRINGE 3 ML IV SCH ×2 (09:20→21:00)
[2021-04-02] MEDS: METOCLOPRAMIDE HCL INJ 5 MG/ML 2 ML VIAL IV SCH ×2 (09:20→20:59)
[2021-04-02] MEDS: HEPARIN SOD 5,000 UNIT/0.5 ML VIAL SQ SCH ×2 (09:20→21:00)
--- NOTE | 2021-04-02 09:33 | Hospitalist Progress Note ---
Date of Service April 02, 2021 Assessment & Plan (1) H/O colectomy: POD#5 s/p laparotomy with lysis of adhesions and enterolysis, small bowel resection, partial colectomy and reversal of colostomy on 03/[address] Mills. SBO-SBO anastomosis EBL 20cc. Pre-op h/h 15.1/45.5 (This is now 5 months status post exploratory laparotomy, colon resection, colostomy and abdominal washout for perforated diverticulitis in 10/2020) Clear liquid diet but not much appetite WBC 16.1k today -- CXR yesterday clear. UA without obv infection. Possible reactive given ileus but did have temp 39.5C yesterday (thermostat all the way up and repeat wnl...however low grade 37.6C this morning likely atelectasis) Of note, CTA/P from 03/25 There is wall thickening with surrounding inflammatory change involving the proximal aspect of the sigmoid stump. 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 Blood cultures pending -- monitor KUB without obstruction Continues to pass flatus, no BM Continues on reglan IV BID per primary NSS @ 80cc/hr for 500cc today for decreased appetite Famotidine added yesterday and increasing to BID today for continued reflux symptoms but improved compared to yesterday Given 2gm IV mag for 1.8 yesterday --> repeat wnl 2.1 Continue supportive care, electrolyte replacement per primary service To ambulate with this afternoon and discussed increased ambulation should help (2) Current smoker: Counseled extensively on cessation Can add nicotine patch if needed (3) Hypercholesterolemia: Holding home omega-3 fish oil Hold home aspirin (4) Portal vein thrombosis: Recently completed 3-4 months of treatment with Xarelto for a thrombus of a branch of the portal vein This was thought to be secondary to acute illness with perforated diverticulitis back in October 2020 as well as he recently had Covid-19 just before that Repeat CT abdomen/pelvis on 03/25 shows persistent thrombus, but this is likely chronic at this point --> consideration for repeat imaging given fever however pain decreased and only temp 37.6C since that point. If repeat temp will repeat abd imaging with discussion with surgery prior (5) Prediabetes: Hemoglobin A1c 6.0% 1 year ago Blood sugars here are acceptable No need for Accu-Cheks or insulin (6) BPH (benign prostatic hyperplasia): Noted in the chart but also noted on previous hospitalization have difficulty with Sosa catheter placement CT abdomen/pelvis on 03/25 also notes evidence of chronic bladder outlet obstruction as well as enlarged heterogenous prostate gland with median lobe hypertrophy Follow for urinary retention after Sosa catheter is removed --> UO Should follow-up with urology as an outpatient (7) Lumbar spinal stenosis: Holding home gabapentin while n.p.o. Restart home dose when able to to avoid withdrawal although it is a low dose --> resuming for today (8) DVT prophylaxis: Heparin SQ, SCDs ENCOURAGING AMBULATION Disposition-continued stay medical/surgical floor Hospital service will follow along while inpatient (9) Ileus, postoperative: complication of surgery, pain control ambulation as above possible SBO today and obtaining KUB -- alerted primary service KUB without obstruction Passing gas Tolerating clears Further management per surgery Admission and Anticipated Discharge Date Admission Date: March 28, 2021 Subjective Patient evaluated this morning. Pain better today. Some nausea but no emesis. Decreased reflux with the famotidine and will increase to BID. WBC elevated but he states he is feeling best compared to previous days. Discussed will continue to monitor for now but if develops worsening fevers would rec repeat imaging. He notes passing lots of gas and more to come currently. He does endorse some depression regarding things not moving as quickly but states he spoke with his son and maybe had some unrealistic expectations and is better now. He plans on walking with his this afternoon -- discussed more ambulation the better. No further fever, chills, chest pain, shortness of breath. Was seen by surgery PA who undid his dressing and stated everything looked good. Questions/concerns addressed at this time. Rib pain prior, improving. Probably from gas from belly surgery as resolving but pneumo noted on KUB yesterday. Physical Exam Physical Exam: laying in bed resting upon entry to room. well developed/well nourished male, NAD , appears more comfortable today ENT: mmm Resp: CTAB with fine bibasilar crackles improved with cough, decreased respiratory effort CV: RRR, no m/r/g ABD: + hypoactive bowel sounds RLQ/RUQ, +BS LLQ, + abdomen abnormal to inspection (dressing c/d/i, JONATHAN with serosang drainage), tender to palpation throughout (less), voluntary guarding without rigidity Neuro/MSK: moves all extremities Psych: AOx3 : No sosa but has urinal with darkened urine Results & Data Results & Data ([facility]) Vital Signs (Past 12 Hours) Vital Signs Temp Pulse Resp BP BP Pulse Ox 04/02/21 07:43 37.6 C H 83 18 145/82 H 95 04/02/21 00:25 37 C 89 16 125/80 94 Laboratory Results 04/02/21 04/02/21 04/02/21 Range/Units Unknown 08:54 08:54 WBC (4.8-10.8) K/uL RBC (4.7-6.1) M/uL Hgb (14.0-18.0) g/dL Hct (42-52) % MCV (80-100) fL MCH (25-34) pg MCHC (32-36) g/dL RDW Std Deviation (36.4-46.3) fL RDW Coeff of Aleisha (11.5-14.5) % Plt Count (130-400) K/uL MPV (7.4-10.4) fL Immature Gran % (Auto) % Neut % (Auto) % Lymph % (Auto) % [place] % (Auto) % Eos % (Auto) % Baso % (Auto) % Neut # (Auto) (1.4-6.5) K/uL Lymph # (Auto) (1.2-3.4) K/uL [place] # (Auto) (0.11-0.59) K/uL Eos # (Auto) (0-0.5) K/uL Baso # (Auto) (0-0.2) K/uL Immature Gran # (Auto) (0.00-0.02) K/uL Sodium 135 L (136-145) mmol/L Potassium 4.0 (3.5-5.1) mmol/L Chloride 105 (98-107) mmol/L Carbon Dioxide 24 (21-32) mmol/L Anion Gap 6.0 (3-11) BUN 14 (7-18) mg/dl Creatinine 0.56 L (0.6-1.4) mg/dl Est Cr Clr Drug Dosing 103.3 ml/min Est GFR ( Amer) 115.6 ml/min Est GFR (Non-Af Amer) 99.8 ml/min BUN/Creatinine Ratio 24.3 H (10-20) Glucose 127 H (70-99) mg/dl Calcium 8.2 L (8.5-10.1) mg/dl Phosphorus 2.6 (2.5-4.9) mg/dl Magnesium 2.1 (1.8-2.4) mg/dl Total Bilirubin 0.9 (0.2-1) mg/dl Direct Bilirubin 0.4 H (0-0.2) mg/dl AST 13 L (15-37) U/L ALT 20 (12-78) U/L Alkaline Phosphatase 53 (45-117) U/L Total Protein 5.9 L (6.4-8.2) gm/dl Albumin 2.2 L (3.4-5.0) gm/dl Urine Color Dark Yellow Urine Appearance Clear (Clear) Urine pH 6.0 (4.5-7.5) Ur Specific [place] 1.021 (1.000-1.030) Urine Protein Negative (Negative) Urine Glucose (UA) Trace H (Negative) Urine Ketones 1+ H (Negative) Urine Blood Negative (Negative) Urine Nitrite Negative (Negative) Urine Bilirubin 1+ H (Negative) Urine Urobilinogen Negative (Negative) Ur Leukocyte Esterase Negative (Negative) 04/02/21 04/01/21 04/01/21 Range/Units 08:54 18:21 18:21 WBC 16.11 H 14.25 H (4.8-10.8) K/uL RBC 4.14 L 4.36 L (4.7-6.1) M/uL Hgb 13.1 L 13.9 L (14.0-18.0) g/dL Hct 37.5 L 39.5 L (42-52) % MCV 90.6 90.6 (80-100) fL MCH 31.6 31.9 (25-34) pg MCHC 34.9 35.2 (32-36) g/dL RDW Std Deviation 43.8 43.3 (36.4-46.3) fL RDW Coeff of Aleisha 13.3 13.1 (11.5-14.5) % Plt Count 296 289 (130-400) K/uL MPV 8.8 9.0 (7.4-10.4) fL Immature Gran % (Auto) 0.2 0.4 % Neut % (Auto) 86.7 86.6 % Lymph % (Auto) 8.0 7.8 % [place] % (Auto) 5.0 5.1 % Eos % (Auto) 0.0 0.1 % Baso % (Auto) 0.1 0.0 % Neut # (Auto) 13.98 H 12.35 H (1.4-6.5) K/uL Lymph # (Auto) 1.29 1.11 L (1.2-3.4) K/uL [place] # (Auto) 0.80 H 0.73 H (0.11-0.59) K/uL Eos # (Auto) 0.00 0.01 (0-0.5) K/uL Baso # (Auto) 0.01 0.00 (0-0.2) K/uL Immature Gran # (Auto) 0.03 H 0.05 H (0.00-0.02) K/uL Sodium 132 L (136-145) mmol/L Potassium 4.0 (3.5-5.1) mmol/L Chloride 102 (98-107) mmol/L Carbon Dioxide 25 (21-32) mmol/L Anion Gap 5.0 (3-11) BUN 14 (7-18) mg/dl Creatinine 0.71 (0.6-1.4) mg/dl Est Cr Clr Drug Dosing 81.5 ml/min Est GFR ( Amer) 104.9 ml/min Est GFR (Non-Af Amer) 90.5 ml/min BUN/Creatinine Ratio 20.0 (10-20) Glucose 242 H (70-99) mg/dl Calcium 8.2 L (8.5-10.1) mg/dl Phosphorus (2.5-4.9) mg/dl Magnesium (1.8-2.4) mg/dl Total Bilirubin (0.2-1) mg/dl Direct Bilirubin (0-0.2) mg/dl AST (15-37) U/L ALT (12-78) U/L Alkaline Phosphatase (45-117) U/L Total Protein (6.4-8.2) gm/dl Albumin (3.4-5.0) gm/dl Urine Color Urine Appearance (Clear) Urine pH (4.5-7.5) Ur Specific [place] (1.000-1.030) Urine Protein (Negative) Urine Glucose (UA) (Negative) Urine Ketones (Negative) Urine Blood (Negative) Urine Nitrite (Negative) Urine Bilirubin (Negative) Urine Urobilinogen (Negative) Ur Leukocyte Esterase (Negative) 04/01/21 Range/Units 08:50 WBC 10.73 (4.8-10.8) K/uL RBC 4.21 L (4.7-6.1) M/uL Hgb 13.6 L (14.0-18.0) g/dL Hct 39.3 L (42-52) % MCV 93.3 (80-100) fL MCH 32.3 (25-34) pg MCHC 34.6 (32-36) g/dL RDW Std Deviation 45.3 (36.4-46.3) fL RDW Coeff of Aleisha 13.2 (11.5-14.5) % Plt Count 316 (130-400) K/uL MPV 9.2 (7.4-10.4) fL Immature Gran % (Auto) 0.2 % Neut % (Auto) 72.8 % Lymph % (Auto) 18.3 % [place] % (Auto) 8.0 % Eos % (Auto) 0.5 % Baso % (Auto) 0.2 % Neut # (Auto) 7.60 H (1.4-6.5) K/uL Lymph # (Auto) 1.91 (1.2-3.4) K/uL [place] # (Auto) 0.83 H (0.11-0.59) K/uL Eos # (Auto) 0.05 (0-0.5) K/uL Baso # (Auto) 0.02 (0-0.2) K/uL Immature Gran # (Auto) 0.02 (0.00-0.02) K/uL Sodium (136-145) mmol/L Potassium (3.5-5.1) mmol/L Chloride (98-107) mmol/L Carbon Dioxide (21-32) mmol/L Anion Gap (3-11) BUN (7-18) mg/dl Creatinine (0.6-1.4) mg/dl Est Cr Clr Drug Dosing ml/min Est GFR ( Amer) ml/min Est GFR (Non-Af Amer) ml/min BUN/Creatinine Ratio (10-20) Glucose (70-99) mg/dl Calcium (8.5-10.1) mg/dl Phosphorus (2.5-4.9) mg/dl Magnesium (1.8-2.4) mg/dl Total Bilirubin (0.2-1) mg/dl Direct Bilirubin (0-0.2) mg/dl AST (15-37) U/L ALT (12-78) U/L Alkaline Phosphatase (45-117) U/L Total Protein (6.4-8.2) gm/dl Albumin (3.4-5.0) gm/dl Urine Color Urine Appearance (Clear) Urine pH (4.5-7.5) Ur Specific [place] (1.000-1.030) Urine Protein (Negative) Urine Glucose (UA) (Negative) Urine Ketones (Negative) Urine Blood (Negative) Urine Nitrite (Negative) Urine Bilirubin (Negative) Urine Urobilinogen (Negative) Ur Leukocyte Esterase (Negative) Diagnostic Findings KUB X-Ray 04/01/21 14:13 KUB CLINICAL HISTORY: Abdominal pain, hypoactive/absent BS. Status post laparoscopy with bowel resection and colostomy reversal on March 28, 2021. COMPARISON STUDY: CT of the abdomen and pelvis March 25, 2021. FINDINGS: Surgical drains are in place. There are skin eulalio. There is oral contrast within portions of the colon. There is no evidence for a bowel obst ruction. Note is made of contrast within several right colon diverticula. Sensitivity for detection of free air is diminished on this supine exam. Lucency projects over the upper abdomen on the second image. IMPRESSION: 1. No evidence for a bowel obstruction. 2. Lucency projecting over the upper abdomen. This may be artifactual. Pneumoperitoneum could appear similar however would not be unexpected given recent surgery. ACT 112: Negative or not required by law. Electronically signed by: Filippo Castillo M.D. 04/01/2021 3:24 PM Chest X-Ray 04/01/21 16:37 XR chest 1V portable HISTORY: fever COMPARISON: KUB 04/01/2021. FINDINGS: Redemonstration of the pneumoperitoneum. This favors expected postoperative change given the recent abdominal surgery. No pneumothorax. No pleural effusions. The heart is top normal in size. A few left basilar linear densities consistent with subsegmental atelectasis/scarring. No new focal lung consolidations to suggest pneumonia. No evidence for pulmonary edema. IMPRESSION: 1. Redemonstration of the pneumoperitoneum. This favors expected postoperative change given the recent abdominal surgery. 2. No new focal lung consolidations to suggest pneumonia. ACT 112: Negative or not required by law. Electronically signed by: Julian Steele M.D. 04/01/2021 5:56 PM PG Care Time/CCT Total # of Minutes Spent Total Time Spent with Patient: Total time spent is greater than 50% in coordination of care (as documented) at patient's floor/unit and/or counseling patient: Coding Level of Care Code 26664 Subseq Hosp Care Lvl 2 Diagnoses H/O colectomy Z90.49 Current smoker F17.200 Hypercholesterolemia E78.00 Portal vein thrombosis I81 Prediabetes R73.03 BPH (benign prostatic hyperplasia) N40.0 Lumbar spinal stenosis M48.061 DVT prophylaxis Z29.9 Ileus, postoperative K91.89; K56.7
[2021-04-02 09:35] LABS: BUN Creatinine Ratio 24.3 (10-20); Calcium 8.2 mg/dl (8.5-10.1); Creatinine Clr Calc Pharmacy 103.3 ml/min; Est GFR (African American) 115.6 ml/min; Est GFR (Non-African American) 99.8 ml/min; Magnesium 2.1 mg/dl (1.8-2.4); Phosphorus 2.6 mg/dl (2.5-4.9)
[2021-04-02 10:24] LABS: Albumin Level 2.2 gm/dl (3.4-5.0); Bilirubin Direct 0.4 mg/dl (0-0.2); Bilirubin,Total 0.9 mg/dl (0.2-1); Total Protein 5.9 gm/dl (6.4-8.2)
[2021-04-02] MEDS ORDERED: SODIUM CHLORIDE 0.9% 500 ML IV SCH (12:30)
[2021-04-02] MEDS: NSS + 20MEQ KCL 20 MEQ/1,000 ML BAG IV SCH ×2 (13:54→21:24)
[2021-04-02] MEDS: HYDROmorphone INJ 0.5 MG/0.5 ML SYR IV PRN ×2 (15:30→20:57)
[2021-04-02] MEDS: KETOROLAC TROMETHAMINE 15 MG/ML VIAL IV PRN (19:46)
[2021-04-02] MEDS ORDERED: GABAPENTIN 300 MG CAP PO SCH (21:00)
[2021-04-02] MEDS ORDERED: KETOROLAC TROMETHAMINE 15 MG/ML VIAL IV ONE (21:21)
--- NOTE | 2021-04-03 00:09 | Communication Note ---
Date of Service: April 03, 2021 I was notified by nurse that patient was having worsening abdominal pain as well as the patient feeling "feverish". Upon assessment the nurse notes that the patient was noted hemodynamically stable and afebrile. He notes earlier in the evening the patient did receive 1000 mg of Tylenol along with Ativan and 15 mg of Toradol. She noted that the patient was complaining of worsening abdominal pain. You have labs show the patient's creatinine is normal. I instructed her to give an additional 15 mg of IV Toradol for pain control. Shortly thereafter I visited the patient at the bedside and he noted that his abdominal pain had markedly improved. He was again noted to be afebrile. His abdomen was examined and was noted be tender to palpation near surgical incisions which were clean dry and intact. I discussed with the nurse and the patient. We will continue to monitor him clinically overnight. Patient again has worsening abdominal pain, any fevers, or any episodes of diaphoresis or sweating we will order stat labs and if his white blood cell count remains elevated will consider performing CT scan of his abdomen with oral and IV contrast. Otherwise will await morning labs which are ordered for 4:00 AM this morning.
[2021-04-03 04:31] LABS: BUN Creatinine Ratio 29.9 (10-20); Calcium 7.8 mg/dl (8.5-10.1); Creatinine Clr Calc Pharmacy 96.4 ml/min; Est GFR (African American) 112.4 ml/min; Potassium 3.8 mmol/L (3.5-5.1)
[2021-04-03 04:32] LABS: Hematocrit (blood only) 37.3 % (42-52); Hemoglobin 13.1 g/dL (14.0-18.0); Mean Corpuscular Hemoglobin 31.6 pg (25-34); Mean Corpuscular Hgb Conc 35.1 g/dL (32-36); Mean Corpuscular Volume 89.9 fL (80-100); Mean Platelet Volume 8.8 fL (7.4-10.4); Platelet Count 290 K/uL (130-400); RDW Coefficient of Variation 13.6 % (11.5-14.5); RDW Standard Deviation 44.9 fL (36.4-46.3); Red Blood Count 4.15 M/uL (4.7-6.1); White Blood Count 2.25 K/uL (4.8-10.8)
[2021-04-03 04:50] LABS: Dohle Bodies 1+; Immature Granulocytes # (auto) 0.01 K/uL (0.00-0.02); Immature Granulocytes % (auto) 0.4 %; Lymphocytes # (auto) 0.43 K/uL (1.2-3.4); Lymphocytes % (auto) 19.1 %; Monocytes # (auto) 0.14 K/uL (0.11-0.59); Monocytes % (auto) 6.2 %; Neutrophils # (auto) 1.67 K/uL (1.4-6.5); Neutrophils % (auto) 74.3 %
--- NOTE | 2021-04-03 04:57 | Surgery Progress Note ---
Date of Service April 03, 2021 Assessment & Plan (1) H/O colectomy: Patient is status post colostomy reversal on 03/28/2021. Patient was noted to have leukocytosis yesterday with a white blood cell count of 16,000. Due to this lab value, his abdominal pain, and the fact that he has been febrile on several occasions we will proceed as follows: We will check stat labs. CBC result did show that his leukocytosis had resolved. Due to the significant change in his white blood cell count I will repeat this lab to ensure that this is not a lab error. Patient's creatinine is noted to be within the normal range. We will perform a CT scan of the abdomen and pelvis utilizing IV and oral contr ast to evaluate for intra-abdominal abscess. As we are scanning the patient's abdomen we will also get a CT scan of his chest to evaluate for PE particularly in light of his tachycardia. Patient has been receiving subcutaneous heparin for DVT prevention but he has not been very mobile since his surgery. I have discussed with the CT scan department and they note that performing a PE study will not utilize any additional contrast numbers were also required with abdominal CT scan. Patient does have a 20-gauge IV in and CT notes that this may work for the PE study however would be preferable to have a least an 18-gauge. I discussed with RN and IV team has been notified to place a larger IV. We will make the patient n.p.o. for the present time We will await CT scan results with further recommendations to follow Admission and Anticipated Discharge Date Admission Date: March 28, 2021 Supervising Physician Co-Signing Physician Notes pnt s&e, agree with above. s/p colostomy takedown and small bowel resection. Had another fever overnight with some tachycardia. Also some increased abdominal pain, mostly on right. Fever resolved with tylenol. on exam currently af with mild tachycardia to 101. abd mildly distended, soft, ttp in rlq. miguel with ss drainage, incision with marissa, no infection. labs with wbc down to [address] personally reviewed with pneumoperitoneum which is more than expected post op, but no contrast extravasation. RLQ stranding and inflammatory changes of bowel. See full report below. At this point it is unclear if this represents a anastomotic leak or other etiology as there was less severe inflammation of his bowel on CT Mar. Will plan on npo, iv abx, fluids, and close observation. Will likely need tpn. currently stable, if clinically deteriorates then takeback to OR. Subjective The patient notes intermittent lower abdominal pain with varying severity that does seem to respond to analgesics when provided. Patient denies any nausea or vomiting. I was notified by the nurse that patient again was noted to be febrile at this time with an axillary temperature of 38.9. Patient was also noted to be tachycardic. No hypoxic episodes were reported. No additional concerns were noted by the RN. Physical Exam Constitutional: no acute distress Cardiovascular: Rate/Rhythm: regular rate, regular rhythm and + tachycardic Gastrointestinal (Abdomen): Abdomen is nondistended. Bowel sounds are hypoactive. Patient did have pain with palpation of his lower abdomen near surgical incisions. Results & Data ([facility]) Vital Signs (Past 12 Hours) Vital Signs Temp Pulse Resp BP BP Pulse Ox 04/03/21 03:36 38.9 C H 128 H 20 127/65 92 04/02/21 23:19 36.6 C 102 H 16 109/68 94 PG Care Time/CCT Total # of Minutes Spent Total Time Spent with Patient: Total time spent is greater than 50% in coordination of care (as documented) at patient's floor/unit and/or counseling patient: Coding Level of Care Code None Diagnoses H/O colectomy Z90.49
[2021-04-03] MEDS: ACETAMINOPHEN 1000 MG/100 ML IV IV PRN ×2 (05:02→12:06)
[2021-04-03 05:15] LABS: Hematocrit (blood only) 38.4 % (42-52); Hemoglobin 13.5 g/dL (14.0-18.0); Mean Corpuscular Hemoglobin 32.5 pg (25-34); Mean Corpuscular Hgb Conc 35.2 g/dL (32-36); Mean Corpuscular Volume 92.3 fL (80-100); Mean Platelet Volume 8.9 fL (7.4-10.4); Platelet Count 327 K/uL (130-400); RDW Coefficient of Variation 13.7 % (11.5-14.5); Red Blood Count 4.16 M/uL (4.7-6.1); White Blood Count 3.49 K/uL (4.8-10.8)
[2021-04-03] MEDS: HYDROmorphone INJ 0.5 MG/0.5 ML SYR IV PRN ×2 (05:31→20:29)
[2021-04-03 05:49] LABS: Dohle Bodies 1+; Echinocytes 1+; Eosinophils # (auto) 0.02 K/uL (0-0.5); Eosinophils % (auto) 0.6 %; Immature Granulocytes # (auto) 0.01 K/uL (0.00-0.02); Immature Granulocytes % (auto) 0.3 %; Lymphocytes # (auto) 0.55 K/uL (1.2-3.4); Lymphocytes % (auto) 15.8 %; Monocytes # (auto) 0.22 K/uL (0.11-0.59); Monocytes % (auto) 6.3 %; Neutrophils # (auto) 2.69 K/uL (1.4-6.5)
[2021-04-03] MEDS ORDERED: OPTIRAY 320 125ml IV ONE (06:03)
--- NOTE | 2021-04-03 07:39 | Hospitalist Progress Note ---
Date of Service April 03, 2021 Assessment & Plan (1) H/O colectomy: POD#6 s/p laparotomy with lysis of adhesions and enterolysis, small bowel resection, partial colectomy and reversal of colostomy on 03/[address] Mills. SBO-SBO anastomosis EBL 20cc. Pre-op h/h 15.1/45.5 (This is now 5 months status post exploratory laparotomy, colon resection, colostomy and abdominal washout for perforated diverticulitis in 10/2020) Of note, CTA/P from 03/25 There is wall thickening with surrounding inflammatory change involving the proximal aspect of the sigmoid stump. 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 UA x 2 without obv infxn Blood cultures obtained -- pending Had re-eval by general surgery following, how felt was doing alright and abd exam benign at that time Temp again 37.6C yesterday and WBC continued to climb, 16.1k Temp up to 38.9C this morning Repeat blood cultures (RN held abx while being drawn) Eval by general surgery this am Stat CTAP and CTA for PE obtained CTA NEGATIVE for PE but does show consolidation within lower lobes posteriorly favoring compressive atelectasis from pleural effusions CTA/P: * 1. Moderate to large amount of pneumoperitoneum. This is greater than expected given the recent surgery on 03/20/2021. A bowel perforation or anastomotic leak must be considered given the amount of pneumoperitoneum. There is a small amount of extraluminal gas and fluid adjacent to the sigmoid anastomosis. Again, this is nonspecific and could be seen in the immediate postoperative phase. Clinical correlation recommended. * 2. Bowel wall thickening involving the proximal colon and terminal ileum. This is consistent with a nonspecific ileocolitis and could be due to the postoperative change, and adjacent peritonitis, or inflammatory/infectious process. * 3. A 2.2 cm focus of fluid within the deep pelvis anterior to the rectum with partial peripheral enhancement. This is adjacent to the distal intraperitoneal drain. This favors a postoperative fluid collection. A small developing abscess is considered less likely but not entirely excluded. * 4. Multiple additional thickened loops of small bowel consistent with a nonspecific enteritis. This could also be due to the recent postoperative change. * 5. Mild gallbladder distention. No gallbladder wall thickening. (Tbili 0.6 , AST/ALT/ALP wnl) * 6. Trace bilateral pleural effusions. * 7. Additional findings as described above. Placed on Zosyn WBC currently 3.4k, +Dohle bodies Lactic, repeat blood cultures pending Repeat temp currently 37.2C IV Tylenol ordered for fever, pain Famotidine BID scheduled Reglan IV BID on per primary service --> discontinued IVF increased to 125c/hr for low urine output, elevated Tbili, infxn NOW NPO again Ordering additional 2gm IV mag for 1.8 to keep >2 Continue to monitor, electrolyte replacement as needed (2) Current smoker: Counseled extensively on cessation Can add nicotine patch if needed (3) Hypercholesterolemia: Holding home omega-3 fish oil Hold home aspirin (4) Portal vein thrombosis: Recently completed 3-4 months of treatment with Xarelto for a thrombus of a branch of the portal vein This was thought to be secondary to acute illness with perforated diverticulitis back in October 2020 as well as he recently had Covid-19 just before that Repeat CT abdomen/pelvis on 03/25 shows persistent thrombus, but this is likely chronic at this point --> consideration for repeat imaging given fever however pain decreased and only temp 37.6C since that point --> see above regarding continued fever (5) Prediabetes: Hemoglobin A1c 6.0% 1 year ago Blood sugars here are acceptable No need for Accu-Cheks or insulin (6) BPH (benign prostatic hyperplasia): Noted in the chart but also noted on previous hospitalization have difficulty with [place] catheter placement CT abdomen/pelvis on 03/25 also notes evidence of chronic bladder outlet obstruction as well as enlarged heterogenous prostate gland with median lobe hypertrophy Follow for urinary retention after [place] catheter is removed --> UO has decreased and darkened. IV increased to 125cc/hr Will need to monitor for pulmonary edema given compressive atelectasis b/l effusions Cr stable 0.6 Should follow-up with urology as an outpatient (7) Lumbar spinal stenosis: Holding home gabapentin while n.p.o. Restart home dose when able to to avoid withdrawal although it is a low dose --> holding (8) Ileus, postoperative: SEE ABOVE CONCERNS FOR PERF/abscess abx as above (9) DVT prophylaxis: Heparin SQ, SCDs ENCOURAGING AMBULATION Disposition-continued stay medical/surgical floor Hospital service will follow along while inpatient Admission and Anticipated Discharge Date Admission Date: March 28, 2021 Subjective Patient evaluated this morning. Pain 7/10 to lower and right abdomen. Passing gas but decreased. Nausea but no reported vomiting. Does appear to have some intermittent confusion but no focal deficit at this time. Fever this morning and he notes "you took lots of blood from me today". Little short of breath but no cough. Discussed if shortness of breath worsens to let RN know and we could consider dose of lasix but would hold off for now given likely infection in belly. Seen by general surgery this morning. Placed on antibiotics and recs to continue to monitor at this time with CTAP showing increased pneumoperitoneum and possible abscess deep pelvis. Questions addressed at this time. Review of Systems Review of Systems: All systems reviewed & are unremarkable except as noted in HPI & below Physical Exam Physical Exam: laying in bed resting upon entry to room, warm to the touch, no acute distress laying flat. fatigued, BP 98/6 Ent: slightly dry mm Resp: diminished in the bases with fine bibasilar crackles posterior adrian bilaterally, no wheezing, cough, tachypnea. 92% on RA CV: regular rhythm, tachycardia 102bpm, no m/r/g Abd: surgical dressing with Giovanny drain with serosang drainage, +distension tympanic to percussion, diffusely tender ( greater RLQ and deep pelvis), voluntary guarding without rebound Neuro: AOx3, intermittent confusion : urinal with darkened urine Results & Data Results & Data ([facility]) Vital Signs (Past 12 Hours) Vital Signs Temp Pulse Resp BP BP Pulse Ox 04/03/21 03:36 38.9 C H 128 H 20 127/65 92 04/02/21 23:19 36.6 C 102 H 16 109/68 94 Laboratory Results 04/03/21 04/03/21 04/03/21 Range/Units 08:09 08:06 05:02 WBC 3.49 L (4.8-10.8) K/uL RBC 4.16 L (4.7-6.1) M/uL Hgb 13.5 L (14.0-18.0) g/dL Hct 38.4 L (42-52) % MCV 92.3 (80-100) fL MCH 32.5 (25-34) pg MCHC 35.2 (32-36) g/dL RDW Std Deviation 46.0 (36.4-46.3) fL RDW Coeff of Alesiha 13.7 (11.5-14.5) % Plt Count 327 (130-400) K/uL MPV 8.9 (7.4-10.4) fL Immature Gran % (Auto) 0.3 % Neut % (Auto) 77.0 % Lymph % (Auto) 15.8 % Sampson % (Auto) 6.3 % Eos % (Auto) 0.6 % Baso % (Auto) 0.0 % Neut # (Auto) 2.69 (1.4-6.5) K/uL Lymph # (Auto) 0.55 L (1.2-3.4) K/uL Sampson # (Auto) 0.22 (0.11-0.59) K/uL Eos # (Auto) 0.02 (0-0.5) K/uL Baso # (Auto) 0.00 (0-0.2) K/uL Immature Gran # (Auto) 0.01 (0.00-0.02) K/uL Dohle Bodies 1+ Echinocytes 1+ Sodium (136-145) mmol/L Potassium (3.5-5.1) mmol/L Chloride (98-107) mmol/L Carbon Dioxide (21-32) mmol/L Anion Gap (3-11) BUN (7-18) mg/dl Creatinine (0.6-1.4) mg/dl Est Cr Clr Drug Dosing ml/min Est GFR ( Amer) ml/min Est GFR (Non-Af Amer) ml/min BUN/Creatinine Ratio (10-20) Glucose (70-99) mg/dl Lactate 1.5 (0.4-2.0) mmol/L Calcium (8.5-10.1) mg/dl Phosphorus 3.2 (2.5-4.9) mg/dl Magnesium 1.8 (1.8-2.4) mg/dl Total Bilirubin 1.0 (0.2-1) mg/dl Direct Bilirubin 0.6 H (0-0.2) mg/dl AST 13 L (15-37) U/L ALT 16 (12-78) U/L Alkaline Phosphatase 47 (45-117) U/L Total Protein 5.4 L (6.4-8.2) gm/dl Albumin 1.8 L (3.4-5.0) gm/dl 04/03/21 04/03/21 Range/Units 03:57 03:57 WBC 2.25 L D (4.8-10.8) K/uL RBC 4.15 L (4.7-6.1) M/uL Hgb 13.1 L (14.0-18.0) g/dL Hct 37.3 L (42-52) % MCV 89.9 (80-100) fL MCH 31.6 (25-34) pg MCHC 35.1 (32-36) g/dL RDW Std Deviation 44.9 (36.4-46.3) fL RDW Coeff of Aleisha 13.6 (11.5-14.5) % Plt Count 290 (130-400) K/uL MPV 8.8 (7.4-10.4) fL Immature Gran % (Auto) 0.4 % Neut % (Auto) 74.3 % Lymph % (Auto) 19.1 % Sampson % (Auto) 6.2 % Eos % (Auto) 0.0 % Baso % (Auto) 0.0 % Neut # (Auto) 1.67 (1.4-6.5) K/uL Lymph # (Auto) 0.43 L (1.2-3.4) K/uL Sampson # (Auto) 0.14 (0.11-0.59) K/uL Eos # (Auto) 0.00 (0-0.5) K/uL Baso # (Auto) 0.00 (0-0.2) K/uL Immature Gran # (Auto) 0.01 (0.00-0.02) K/uL Dohle Bodies 1+ Echinocytes Sodium 138 (136-145) mmol/L Potassium 3.8 (3.5-5.1) mmol/L Chloride 109 H (98-107) mmol/L Carbon Dioxide 26 (21-32) mmol/L Anion Gap 3.0 (3-11) BUN 18 (7-18) mg/dl Creatinine 0.60 (0.6-1.4) mg/dl Est Cr Clr Drug Dosing 96.4 ml/min Est GFR ( Amer) 112.4 ml/min Est GFR (Non-Af Amer) 97.0 ml/min BUN/Creatinine Ratio 29.9 H (10-20) Glucose 145 H (70-99) mg/dl Lactate (0.4-2.0) mmol/L Calcium 7.8 L (8.5-10.1) mg/dl Phosphorus (2.5-4.9) mg/dl Magnesium (1.8-2.4) mg/dl Total Bilirubin (0.2-1) mg/dl Direct Bilirubin (0-0.2) mg/dl AST (15-37) U/L ALT (12-78) U/L Alkaline Phosphatase (45-117) U/L Total Protein (6.4-8.2) gm/dl Albumin (3.4-5.0) gm/dl Diagnostic Findings Abdomen/Pelvis CT 04/03/21 03:[address] WITH IV AND ORAL CONTRAST CT DOSE: 551.81 mGy.cm HISTORY: Recent colostomy reversal. Generalized abdominal pain. eval for abdominal abscess TECHNIQUE: Multiaxial CT images of the abdomen and pelvis were performed following the use of intravenous and oral contrast. A dose lowering technique was utilized adhering to the principles of ALARA. COMPARISON STUDY: Abdomen and pelvis CT 03/25/2021. FINDINGS: There are small bilateral pleural effusions. Consolidation within the lower lobes posteriorly favor compressive atelectasis. The heart is mildly enlarged. Moderate to large amount of pneumoperitoneum is noted. There is a small amount of ascites seen predominantly along the right side of the abdomen. Gas within the bladder may be due to recent catheterization. The bladder is mildly distended. There is a midline subcutaneous surgical drain and midline skin eulalio from the recent surgery. There is also a percutaneous drainage ca theter seen terminating in the left perirectal location. Immediately adjacent to the distal aspect of the catheter within the deep pelvis there is a 2.2 cm focal fluid collection on image 395. This demonstrates partial peripheral enhancement. This favors a small amount of postoperative fluid. A small developing abscess could also have a similar appearance. There is a small right-sided bladder dive rticulum. Patient is status post interval left-sided colostomy takedown with a sigmoid anastomosis. Mild bowel wall thickening at the sigmoid anastomosis. There is also mild bowel wall thickening, a small amount of extra luminal gas, and surrounding inflammatory change/edema at this location. Again, this is nonspecific but can be seen in the immediate postoperative phase. There is thickening of the terminal ileum and proximal colon/cecum. The small bowel loops proximal to the distal ileum are mildly distended. There are a few additional mildly thickened loops of small bowel within the abdomen. The gallbladder is mildly distended. No hepatic or splenic masses. The adrenal glands, pancreas, and kidneys are unremarkable. No hydronephrosis. No retroperitoneal lymphadenopathy. Mild calcified plaque within the normal caliber abdominal aorta. There is an anastomotic suture material seen within the small bowel the right lower quadrant. IMPRESSION: 1. Moderate to large amount of pneumoperitoneum. This is greater than expected given the recent surgery on 03/20/2021. A bowel perforation or anastomotic leak must be considered given the amount of pneumoperitoneum. There is a small amount of extraluminal gas and fluid adjacent to the sigmoid anastomosis. Again, this is nonspecific and could be seen in the immediate postoperative phase. Clinical correlation recommended. 2. Bowel wall thickening involving the proximal colon and terminal ileum. This is consistent with a nonspecific ileocolitis and could be due to the postoperative change, and adjacent peritonitis, or inflammatory/infectious process. 3. A 2.2 cm focus of fluid within the deep pelvis anterior to the rectum with partial peripheral enhancement. This is adjacent to the distal intraperitoneal drain. This favors a postoperative fluid collection. A small developing abscess is considered less likely but not entirely excluded. 4. Multiple additional thickened loops of small bowel consistent with a nonspecific enteritis. This could also be due to the recent postoperative change. 5. Mild gallbladder distention. No gallbladder wall thickening. 6. Trace bilateral pleural effusions. 7. Additional findings as described above. ACT 112: Negative or not required by law. Electronically signed by: Julian Steele M.D. 04/03/2021 8:25 AM Chest CTA 04/03/21 04:34 CHEST CTA for PULMONARY ARTERIES CT DOSE: HISTORY: Atypical chest pain. Shortness of breath. TECHNIQUE: Multiaxial CT images of the chest were performed following the intravenous administration of contrast to evaluate the pulmonary arteries. Maximal intensity projection images were also obtained. A dose lowering technique was utilized adhering to the principles of ALARA. COMPARISON STUDY: None. FINDINGS: Please refer the same day abdomen and pelvis CT for further evaluation of the abdominal structures. No pneumothorax. A 5 mm nodular density along the left major fissure on image 144. This is likely benign given the location. There is a similar-appearing 5 mm nodular density along the left major fissure on image 114. Small bilateral pleural effusions. No mediastinal or hilar lymphadenopathy. Mild thickening within the distal esophagus and a small hiatus hernia. The heart is mildly enlarged. No pericardial effusions. Normal caliber thoracic aorta with no evidence for dissection. No filling defects within the pulmonary arteries to suggest pulmonary embolus. Old, healed left-sided rib fractures. No suspicious lytic or blastic osseous lesions. Consolidation within the lower lobes posteriorly likely represent compressive atelectasis from the pleural fusions. IMPRESSION: 1. No evidence for pulmonary embolus. 2. Mild cardiomegaly. 3. Small bilateral pleural effusions. 4. Consolidation within the lower lobes posteriorly favor compressive atelectasis from the pleural effusions. 5. Please refer the same day abdomen and pelvis CT for further evaluation of the abdominal structures. ACT 112: Negative or not required by law. Electronically signed by: Julian Steele M.D. 04/03/2021 8:12 AM PG Care Time/CCT Total # of Minutes Spent Total Time Spent with Patient: Total time spent is greater than 50% in coordination of care (as documented) at patient's floor/unit and/or counseling patient: Coding Level of Care Code 02661 Subseq Hosp Care Lvl 3 Diagnoses H/O colectomy Z90.49 Current smoker F17.200 Hypercholesterolemia E78.00 Portal vein thrombosis I81 Prediabetes R73.03 BPH (benign prostatic hyperplasia) N40.0 Lumbar spinal stenosis M48.061 Ileus, postoperative K91.89; K56.7 DVT prophylaxis Z29.9
[2021-04-03] MEDS ORDERED: PIPERACILL/TAZOBAC CONSULT ACTIVE PRN (08:08)
--- NOTE | 2021-04-03 08:14 | CT Scan Report ---
CHEST CTA for PULMONARY ARTERIES CT DOSE: HISTORY: Atypical chest pain. Shortness of breath. TECHNIQUE: Multiaxial CT images of the chest were performed following the intravenous administration of contrast to evaluate the pulmonary arteries. Maximal intensity projection images were also obtaine d. A dose lowering technique was utilized adhering to the principles of ALARA. COMPARISON STUDY: None. FINDINGS: Please refer the same day abdomen and pelvis CT for further evaluation of the abdominal str uctures. No pneumothorax. A 5 mm nodular density along the left major fissure on image 144. This is l ikely benign given the location. There is a similar-appearing 5 mm nodular density along the left hema or fissure on image 114. Small bilateral pleural effusions. No mediastinal or hilar lymphadenopathy. Mild thickening within the distal esophagus and a small hiatus hernia. The heart is mildly enlarged. No pericardial effusions. Normal caliber thoracic aorta with no evidence for dissection. No filling d efects within the pulmonary arteries to suggest pulmonary embolus. Old, healed left-sided rib fractur es. No suspicious lytic or blastic osseous lesions. Consolidation within the lower lobes posteriorly likely represent compressive atelectasis from the pleural fusions. IMPRESSION: 1. No evidence for pulmonary embolus. 2. Mild cardiomegaly. 3. Small bilateral pleural effusions. 4. Consolidation within the lower lobes posteriorly favor compressive atelectasis from the pleural ef fusions. 5. Please refer the same day abdomen and pelvis CT for further evaluation of the abdominal structures . ACT 112: Negative or not required by law. Electronically signed by: Julian Steele M.D. 04/03/2021 8:12 AM
[2021-04-03] MEDS ORDERED: PIPERACILLIN/TAZOBACTAM 4.5 GM in DEXTROSE 5% 100 ML IV SCH (08:15)
--- NOTE | 2021-04-03 08:26 | CT Scan Report ---
ABDOMEN AND PELVIS CT WITH IV AND ORAL CONTRAST CT DOSE: 551.81 mGy.cm HISTORY: Recent colostomy reversal. Generalized abdominal pain. eval for abdominal abscess TECHNIQUE: Multiaxial CT images of the abdomen and pelvis were performed following the use of intrave nous and oral contrast. A dose lowering technique was utilized adhering to the principles of ALARA. COMPARISON STUDY: Abdomen and pelvis CT 03/25/2021. FINDINGS: There are small bilateral pleural effusions. Consolidation within the lower lobes posterior ly favor compressive atelectasis. The heart is mildly enlarged. Moderate to large amount of pneumoper itoneum is noted. There is a small amount of ascites seen predominantly along the right side of the a bdomen. Gas within the bladder may be due to recent catheterization. The bladder is mildly distended. There is a midline subcutaneous surgical drain and midline skin eulalio from the recent surgery. The re is also a percutaneous drainage catheter seen terminating in the left perirectal location. Immedia tely adjacent to the distal aspect of the catheter within the deep pelvis there is a 2.2 cm focal flu id collection on image 395. This demonstrates partial peripheral enhancement. This favors a small merlene unt of postoperative fluid. A small developing abscess could also have a similar appearance. There is a small right-sided bladder diverticulum. Patient is status post interval left-sided colostomy taked own with a sigmoid anastomosis. Mild bowel wall thickening at the sigmoid anastomosis. There is also mild bowel wall thickening, a small amount of extra luminal gas, and surrounding inflammatory change/ edema at this location. Again, this is nonspecific but can be seen in the immediate postoperative pha se. There is thickening of the terminal ileum and proximal colon/cecum. The small bowel loops proxima l to the distal ileum are mildly distended. There are a few additional mildly thickened loops of smal l bowel within the abdomen. The gallbladder is mildly distended. No hepatic or splenic masses. The ad renal glands, pancreas, and kidneys are unremarkable. No hydronephrosis. No retroperitoneal lymphaden opathy. Mild calcified plaque within the normal caliber abdominal aorta. There is an anastomotic sutu re material seen within the small bowel the right lower quadrant. IMPRESSION: 1. Moderate to large amount of pneumoperitoneum. This is greater than expected given the recent surge ry on 03/20/2021. A bowel perforation or anastomotic leak must be considered given the amount of pneum operitoneum. There is a small amount of extraluminal gas and fluid adjacent to the sigmoid anastomosi s. Again, this is nonspecific and could be seen in the immediate postoperative phase. Clinical correl ation recommended. 2. Bowel wall thickening involving the proximal colon and terminal ileum. This is consistent with a n onspecific ileocolitis and could be due to the postoperative change, and adjacent peritonitis, or inf lammatory/infectious process. 3. A 2.2 cm focus of fluid within the deep pelvis anterior to the rectum with partial peripheral enha ncement. This is adjacent to the distal intraperitoneal drain. This favors a postoperative fluid katherine ection. A small developing abscess is considered less likely but not entirely excluded. 4. Multiple additional thickened loops of small bowel consistent with a nonspecific enteritis. This c ould also be due to the recent postoperative change. 5. Mild gallbladder distention. No gallbladder wall thickening. 6. Trace bilateral pleural effusions. 7. Additional findings as described above. ACT 112: Negative or not required by law. Electronically signed by: Julian Steele M.D. 04/03/2021 8:25 AM
[2021-04-03] MEDS ORDERED: PIPERACILLIN/TAZOBACTAM 3.375 GM in DEXTROSE 5% 100 ML IV STA (08:27)
[2021-04-03 08:53] LABS: Albumin Level 1.8 gm/dl (3.4-5.0); Bilirubin Direct 0.6 mg/dl (0-0.2); Magnesium 1.8 mg/dl (1.8-2.4); Phosphorus 3.2 mg/dl (2.5-4.9); Total Protein 5.4 gm/dl (6.4-8.2)
[2021-04-03] MEDS: HEPARIN SOD 5,000 UNIT/0.5 ML VIAL SQ SCH ×2 (08:59→21:16)
[2021-04-03] MEDS: FAMOTIDINE 20 MG in SYRINGE 3 ML IV SCH ×2 (08:59→21:15)
[2021-04-03] MEDS: MAGNESIUM SULFATE / D5W 1 GM/100 ML BAG IV SCH ×2 (10:48→13:31)
--- NOTE | 2021-04-03 13:18 | Surgery Progress Note ---
Date of Service April 03, 2021 Assessment & Plan (1) H/O colectomy: Patient has become somewhat more confused His heart rate has increased and his blood pressure is somewhat lower I am concerned about intra-abdominal infection His CT scan did not show active leakage but I do feel he requires urgent abdominal exploration Abdominal washout with drainage , possible bowel resection and stoma I have discussed this with the patient and his We will proceed as soon as possible-he will require ICU management postoperatively Admission and Anticipated Discharge Date Admission Date: March 28, 2021 Results & Data ([facility]) Vital Signs (Past 12 Hours) Vital Signs Temp Pulse Resp BP BP Pulse Ox 04/03/21 08:15 37.2 C 101 H 16 98/64 L 92 04/03/21 03:36 38.9 C H 128 H 20 127/65 92 PG Care Time/CCT Total # of Minutes Spent Total Time Spent with Patient: Total time spent is greater than 50% in coordination of care (as documented) at patient's floor/unit and/or counseling patient: Coding Level of Care Code None Diagnoses H/O colectomy Z90.49
[2021-04-03] MEDS ORDERED: SUGAMMADEX SODIUM 200 MG/2 ML VIAL IV ONE (13:31)
[2021-04-03] MEDS ORDERED: PROPOFOL IV EMULSION 10 MG/ML 20 ML VIAL IV ONE (13:39)
[2021-04-03] MEDS ORDERED: LIDOCAINE 2% 2 ML VIAL/AMP(20MG/ML) INFIL ONE (13:39)
[2021-04-03] MEDS ORDERED: fentaNYL citrate 100 MCG/2 ML VIAL ONE (13:39)
[2021-04-03] MEDS ORDERED: DEXAMETHASONE SOD INJ 4 MG/ML VIAL ONE ×2 (13:39→14:22)
[2021-04-03] MEDS ORDERED: ROCURONIUM BROMIDE 10 MG/ML 5 ML VIAL IV ONE (13:39)
[2021-04-03] MEDS ORDERED: ONDANSETRON INJ 2 MG/ML 2 ML VIAL ONE (13:39)
[2021-04-03] MEDS ORDERED: HYDROmorphone INJ 2 MG/ML SYR/VIAL IV PRN (13:57)
[2021-04-03] MEDS ORDERED: ONDANSETRON INJ 2 MG/ML 2 ML VIAL IV PRN (13:57)
[2021-04-03] MEDS ORDERED: ATROPINE SULFATE 0.1 MG/ML 10ML SYR IV PRN (13:57)
[2021-04-03] MEDS ORDERED: ePHEDrine sulfate 50 MG/ML AMP IV PRN (13:57)
[2021-04-03] MEDS ORDERED: fentaNYL citrate 100 MCG/2 ML VIAL IV PRN (13:57)
--- NOTE | 2021-04-03 13:57 | Anesthesiology Consultation ---
Date of Service April 03, 2021 Assessment & Plan ASA [id number] Proposed Anesthesia Anesthesia Type: General Risk / Benefits Reviewed With: PT / POA / Parent / Guardian, Accepts Plan and Informed Consent Obtained History Surgery Operation Date: 03/28/21 08:40 Proposed Procedures p Laparoscopic Assisted Open Colostomy Closure with Colorectal Anastomosis - Humberto Mills MD, FACS Operation Date: 04/03/21 13:05 Proposed Procedures p Exploratory Laparotomy - Humberto Mills MD, FACS Height/Weight Height: 5 ft 7 in Weight: 66.1 kg Allergies Allergy/AdvReac Type Severity Reaction Status Date / Time No Known Allergies Allergy Verified 03/28/21 07:42 Medications Home Medications Medication Instructions Recorded Confirmed Last Taken cholecalciferol (vitamin D3) 50 2,000 unit PO BID tab 02/12/19 03/28/21 03/27/21 18:00 mcg (2,000 unit) tablet multivitamin 1 tab PO QAM 02/27/19 03/28/21 03/27/21 10:00 garlic 500 mg PO BID 03/24/19 03/28/21 03/27/21 18:00 omega-3 acid ethyl esters 1 gram 1 cap PO BID cap 05/06/19 03/28/21 03/27/21 10:00 capsule gabapentin 300 mg capsule 300 mg PO HS #30 cap 06/03/20 03/28/21 03/27/21 22:00 meloxicam 15 mg tablet 15 mg PO DAILY #90 tab 06/09/20 03/28/21 03/27/21 10:00 Glucosamine Chondroitin 1 cap PO BID 10/28/20 03/28/21 03/27/21 18:00 acetaminophen 325 mg tablet 650 mg PO QID PRN tab 11/19/20 03/28/21 Unknown zinc 50 mg tablet 50 mg PO DAILY 11/19/20 03/28/21 03/27/21 12:00 ostomy pouch filter #90 ea 01/03/21 02/03/21 Unknown aspirin 325 mg PO DAILY 03/28/21 03/28/21 03/27/21 10:00 Active Medications Generic Name Dose Route Start Last Admin Trade Name Freq PRN Reason Stop Dose Admin Acetaminophen 1,000 mg 04/01/21 15:18 04/03/21 12:06 Acetaminophen 1000 Mg/100 Ml Iv IV 04/04/21 15:17 1,000 mg Q8H PRN Administration fever or pain Gabapentin 300 mg 04/02/21 21:00 04/02/21 21:00 Gabapentin 300 Mg Cap PO 05/02/21 20:59 300 mg QPM ROBER Administration Heparin Sodium (Porcine) 5,000 units 03/29/21 09:00 04/03/21 08:59 Heparin Sod 5,000 Unit/0.5 Ml Vial SQ 04/28/21 08:59 5,000 units Q12 ROBER Administration Hydromorphone HCl 0.5 mg 03/28/21 13:45 04/03/21 05:31 Hydromorphone Inj 0.5 Mg/0.5 Ml Syr IV 04/11/21 13:44 0.5 mg Q3HWA PRN Administration Pain Promethazine HCl 12.5 mg/ 50.5 mls @ 204 mls/hr 03/28/21 13:45 03/31/21 21:58 Sodium Chloride IV 04/27/21 13:44 Infused Q6H PRN Infusion Nausea And Vomiting Potassium Chloride/Sodium Chloride 20 meq in 1,000 mls @ 125 mls/hr 03/28/21 14:00 04/02/21 21:24 Normal Saline W/20 Meq Kcl IV 04/27/21 13:59 80 mls/hr .Q8H ROBER Administration Lorazepam 0.5 mg in 1 mls @ 1 mls/min 03/31/21 06:14 04/02/21 16:00 Ativan IV 04/30/21 06:13 1 mls/min Q6 PRN Administration Anxiety Famotidine 20 mg/ Syringe 5 mls @ 2.5 mls/min 04/02/21 21:00 04/03/21 08:59 IV 05/02/21 20:59 2.5 mls/min BID ROBER Administration Magnesium Sulfate/Dextrose 1 gm in 100 mls @ 50 mls/hr 04/03/21 11:00 04/03/21 13:31 Magnesium Sulfate / D5w IV 04/03/21 14:59 50 mls/hr Q2H ROBER Administration Menthol 1 bk 03/30/21 10:39 03/30/21 11:10 Cough Drop (Sugar Free) Bk 24 Bk/1 Box BUCCAL 04/29/21 10:38 1 bk PRN PRN Administration SORE THROAT Ondansetron HCl 4 mg 03/28/21 13:45 03/31/21 18:12 Ondansetron Inj 2 Mg/Ml 2 Ml Vial IV 04/27/21 13:44 4 mg [id number] PRN Administration Nausea NPO Date Last Intake of Fluids: 03/27/21 Time Last Intake of Fluids: 22:30 Date Last Intake of Solids: 03/27/21 Time Last Intake of Solids: 22:30 Past Medical History Medical History Anal carcinoma History of per records BPH (benign prostatic hyperplasia) Colostomy present PLANS FOR REVERSAL 03/28/21 Elevated cholesterol HX Gastroesophageal reflux disease H/O blood clots 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) Oct 2020 while admitted for sepsis secondary to perforated diverticula- was on Xarelto- has since been d/c'ed History of bleeding ulcers Hx of diverticulitis of colon Hx of perforation which resulted in sepsis and admission to [facility] Oct 2020 - had subsequent colostomy Lumbar spinal stenosis Lung collapse HX 1996 (NO SURGERY) Osteoarthritis Prediabetes Exercise / Class Metabolic Activity II 4-5 Yardwork/Stairs/Walk up hill Past Family History Family History Father ASCVD (arteriosclerotic cardiovascular disease) Myocardial infarction Pacemaker Mother Diabetes Peripheral vascular disease Family history of diabetes mellitus Brother Family history of diabetes mellitus Other No family history of adverse response to anesthesia Denies family history of Ovarian cancer Prostate cancer Breast cancer Colorectal cancer Past Surgical History Surgical History H/O exploratory laparotomy (10/29/20) Exploratory laparotomy, colon resection, colostomy and abdominal washout. 10/29/20 Dr. 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 Dr. Mills Mcqueeney teeth removed Past Anesthesia History No Hx of Anesthesia Complications and No Family Hx of Anesthesia Complications History of PONV No Hx of PONV and No Hx of Motion Sickness Social History Smoking Status: Current every day smoker (STARTED AT 23 YEARS OLD) tobacco type: cigarettes Smoking cigarettes per day: 1/2ppd Do You Dip or Chew Tobacco: No Hx Alcohol Use: Yes Alcohol type: beer alcohol intake frequency: a few times a week substance use type: does not use Review of Systems denies fever/cough/ colds/ chest pain/ SOB/ RANDOLPH denies RANDOLPH Physical Exam Vital Signs Last Vital Signs Temp 37.2 C 04/03/21 08:15 Pulse 101 H 04/03/21 08:15 Resp 16 04/03/21 08:15 BP 98/64 L 04/03/21 08:15 Pulse Ox 92 04/03/21 08:15 ENMT Mouth: no TMJ abnormality and no dentition abnormality Thyromental Distance: > or= 3.5 Finger Breadths Mallampati Class: II Neck neck extension not limited Respiratory normal respiratory effort; no respiratory distress Auscultation: lungs clear to auscultation bilaterally Cardiovascular Rate/Rhythm: regular rate and regular rhythm Neurologic moves all extremities Psychiatric Orientation: alert and oriented x 3 Testing Laboratory Results 04/03/21 05:02 04/03/21 03:57 Urine Color Dark Yellow 04/02/21 Unknown Urine Appearance Clear (Clear) 04/02/21 Unknown Urine pH 6.0 (4.5-7.5) 04/02/21 Unknown Ur Specific [place] 1.021 (1.000-1.030) 04/02/21 Unknown Urine Protein Negative (Negative) 04/02/21 Unknown Urine Glucose (UA) Trace (Negative) H 04/02/21 Unknown Urine Ketones 1+ (Negative) H 04/02/21 Unknown Urine Nitrite Negative (Negative) 04/02/21 Unknown Ur Leukocyte Esterase Negative (Negative) 04/02/21 Unknown 04/01/21 16:02 Aerobic Blood Culture - Preliminary Blood No growth in Aerobic bottle after 24 hours. Anaerobic Blood Culture - Preliminary No growth in Anaerobic bottle after 24 hours. 04/01/21 15:51 Aerobic Blood Culture - Preliminary Blood No growth in Aerobic bottle after 24 hours. Anaerobic Blood Culture - Preliminary No growth in Anaerobic bottle after 24 hours. Electrocardiogram Date: 10/28/20 Sinus tachycardia at 104 bpm. Left axis deviation. When compared to EKG from April 18, 2020minimal criteria for inferior infarct are no longer present per cardio. (Pt admitted for sepsis at time of EKG) Chest X-Ray Date: 10/28/20 Chest x-rays finding suspicious for free intraperitoneal air. No evidence of local pulmonary consolidation. (Pt admitted for sepsis/perforated diverticula at time of CXR) Stress Test Date: 05/19/19 Type: exercise (Echo) Resting EF: 60-65% Resting LV Function: normal Resting RWMA: + none Valvular Disease: no significant valvular disease Negative stress echo for ischemia at 85% MPHR. Negative exercise EKG for ischemia at 80% MPHR. Poor exercise tolerance. 5 METS achieved. No LVH. Type I diastolic dysfunction.
[2021-04-03] MEDS ORDERED: SUCCINYLCHOLINE CHLORIDE 20 MG/ML 10 ML VIAL IV ONE (14:22)
[2021-04-03] MEDS ORDERED: PHENYLEPHRINE HCL 10 MG/ML VIAL ONE (14:22)
--- NOTE | 2021-04-03 15:55 | Post Operative Brief Note ---
PG Immediate Post Op with CF Date of Surgery April 03, 2021 Pre & Post Diagnosis Operation Date: 03/28/21 08:40 Pre-Op Diagnosis: colostomy Post-Op Diagnosis: colostomy Operation Date: 04/03/21 13:05 Pre-Op Diagnosis: Peritonitis Post-Op Diagnosis: Colorectal anastomotic dehiscence with diffuse peritonitis and feculent ascites I identified the patient and participated in the time-out.: Yes Procedure Operation Date: 03/28/21 08:40 Actual Procedures p Laparoscopic Assisted Open Colostomy Closure with Colorectal Anastomosis(Not Applicable) - Humberto Mills MD, FACS Operation Date: 04/03/21 13:05 Actual Procedures p Exploratory Laparotomy(Not Applicable) - Humberto Mills MD, FACS Exploratory laparotomy, abdominal washout, takedown of colorectal anastomosis and colostomy Drain placement Surgeon Humberto Mills MD, FACS Supervisor [employer] [place] Estimated Blood Loss 20 Findings Consistent with Post-Op Diagnosis Specimens Specimen Description: a. segment of small bowel b rectosigmoid -suture is proximal c. transverse and descending colon Drains [place] Catheter and Feliciano-Castro Drain
[2021-04-03] MEDS ORDERED: ACETAMINOPHEN 1,000 MG/100 ML VIAL IV ONE (16:01)
[2021-04-03] MEDS ORDERED: ICU PROTOCOL FOR HYPERGLYCEMIA PRN (16:01)
--- NOTE | 2021-04-03 16:44 | Anesthesiology Progress Note ---
Date of Service April 03, 2021 Anesthesia Post Procedure Vital Signs Vital Signs: Temp Pulse Pulse Resp BP BP Pulse Ox 04/03/21 16:40 98 H 19 109/70 97 04/03/21 16:30 97 H 21 113/71 97 04/03/21 16:20 95 H 17 115/70 98 04/03/21 16:13 36.3 C L 97 H 16 112/75 98 04/03/21 08:15 37.2 C 101 H 16 98/64 L 92 04/03/21 03:36 38.9 C H 128 H 20 127/65 92 04/02/21 23:19 36.6 C 102 H 16 109/68 94 Pain Intensity Abdomen: Pain Intensity: 2 Transfer of Care Handoff Completed per policy Notes Mental Status: alert / awake / arousable and participated in evaluation Patient Amnestic to Procedure: Yes Nausea / Vomiting: adequately controlled Pain: adequately controlled Airway Patency, RR, SpO2: stable & adequate BP & HR: stable & adequate Hydration State: stable & adequate Anesthetic Complications: no major complications apparent and Pt Satisfied with anesthetic care
[2021-04-03] MEDS: NSS + 20MEQ KCL 20 MEQ/1,000 ML BAG IV SCH ×3 (17:42→19:18)
--- NOTE | 2021-04-03 17:42 | Operative Report (OR) ---
DATE OF PROCEDURE: 04/03/2021 NAME OF OPERATION: Exploratory laparotomy, abdominal washout, takedown of colorectal anastomosis and end colostomy. PREOPERATIVE DIAGNOSIS: Peritonitis. POSTOPERATIVE DIAGNOSES: Peritonitis with dehiscence of colorectal anastomosis and feculent ascites. STAFF SURGEON: Humberto Mills MD. CAMPUS RECRUITING INTERN: Fiona Isaacs PA-C. ANESTHESIA: General. DESCRIPTION OF PROCEDURE: The patient was brought in the operating room and placed on the operating table in supine position. His abdomen was prepped and draped in the usual fashion. He had a drain in the right lower quadrant. He had eulalio in place and sutures. He had a colostomy wound and a midline incision. The midline incision was opened encountering gas and purulent fluid. There were adhesions of the omentum and small bowel. These were gently taken down. There was diffuse feculent ascites through the small bowel, right upper quadrant, left upper quadrant and throughout the pelvis. On inspection, I was able to aspirate much of the feculent ascites. The small bowel was mobilized, I was able to examine the anastomosis, which I performed to the small bowel status post resection, which appeared to be intact. At this point, the small bowel was dissected away from the pelvis and then the colorectal anastomosis was examined. It showed dehiscence on the left side over 2-3 cm with feces and purulent fluid. The anastomosis was transected using scissors and clamping the proximal bowel. The proximal bowel was then eventually transected using the PRIYANKA stapler. The rectal stump was viable and oversewn using 2-0 Prolene suture. Sutures were cut long to identify them later. At this point, the distal colon was mobilized and felt to be able to be brought out as an end colostomy through the prior colostomy site, which was opened. The colon was brought out through this site with no tension. The abdomen was irrigated with several liters of warm saline with antibiotic. A 19 round JONATHAN drain was placed through the right lower quadrant up and through the right gutter over the right dome of the liver, secured using 3-0 nylon suture. A second drain placed on the left side of the abdomen from the left upper quadrant down the left gutter into the pelvis, secured using 3-0 nylon suture. This was also a #19 round Feliciano-Castro drain. At this point, closure of the fascia was performed. The colostomy was attached to the fascia and skin using interrupted 0 chromic and 2-0 chromic suture. The fascia was reapproximated using both running and interrupted #1 PDS suture with 2 large retention sutures. The skin was partially left open and closed in 2-3 areas using 2-0 nylon suture with Betadine gauze placed. Dressings were applied, stoma appliance applied and the patient was transferred to recovery room in stable condition. My financial administrative assistant helped with prepping, draping, intra-abdominal surgery including washout, end colostomy and then closure of the wounds. Job ID: [id number] [id number]
[2021-04-03] MEDS: PIPERACILLIN/TAZOBACTAM 3.375 GM in DEXTROSE 5% 100 ML IV SCH ×2 (17:43→21:16)
--- NOTE | 2021-04-03 18:37 | Critical Care Consultation ---
Date of Consultation April 03, 2021 Assessment & Plan (1) Peritonitis (acute) generalized: (2) Perforated bowel: Impression: 75-year-old male with history of diverticulosis status post partial colectomy now with Addison miotic leak requiring abdominal washout and revision of the ostomy with placement of JONATHAN drains. He is being monitored in the ICU postoperatively. Recommendations: 1. Neurologic: The patient does appear mildly encephalopathic currently. He is not had labs drawn since this morning. We will repeat CBC, CMP, blood gas, and lactate. Suspect this is metabolic although cannot rule out potential medication effects as well. Small bilateral pleural effusions were noted. These will need to be followed. Mild cardiomegaly was also noted. 2. Cardiovascular: The patient likely has severe sepsis with septic shock. Repeat labs pending. He may require additional IV fluids currently. We will trend his lactate. His albumin is low and he may benefit from albumin support 3. Pulmonary: Bilateral pleural effusions. Hold on diuresis for now. Continue to wean oxygen as tolerated. Patient does have a pulmonary nodule which will require outpatient radiographic surveillance. 4. ID: Day #1 Zosyn. The patient had previously been receiving cefoxitin. Cultures are pending. Follow white blood cell count. Given his abdominal perforation, he is at risk for fungal abdominal peritonitis as well. We will send the drainage for fungal culture and should the patient clinical deteriorate have a low threshold for initiation of caspofungin. 5. Renal: Patient is at risk for developing acute kidney injury. Postoperative labs are currently pending. Adjustments will be made based on those results. 6. GI: N.p.o. for now until bowel function returns. Long-term diet per general surgery. 7. Heme-onc: Leukopenia likely due to sepsis. Await postoperative labs 8. Endocrine: Glycemic control per ICU protocol. If the patient demonstrates hemodynamic instability would have a low threshold for obtaining random cortisol as he is at risk for relative adrenal insufficiency. 9. Prophylaxis: The patient is on an H2 mayr. Will initiate subcu heparin Patient is critically ill at this point time with significant possibility of clinical deterioration and organ dysfunction. A total of 55 minutes in critical care time was spent in evaluation management stabilization of this patient. History of Present Illness Attending Physician: Humberto Mills MD, FACS History of Present Illness Asked by the surgical service to assist in critical care management of this patient status post and a stenotic leak with urgent exploratory laparotomy and abdominal washout. History is obtained from discussion with the surgeon as well as review the electronic medical record and interview the patient at the bedside although he is somewhat obtunded. This 75-year-old male has a history of diverticular disease. He is status post lysis of adhesions with partial small bowel resection and partial colectomy on 03/28/2021. He had been managed on the floor but this morning was noted to be tachycardic with leukopenia. Repeat CT scan showed more air than would be expected as well as some fluid collections but no overt anastomotic leak. Over the day today he was followed but developed increasing mental status changes and was urgently taken back to the OR this afternoon by Dr. Mills. This demonstrated an and a stenotic leak. The patient underwent revision of the ostomy with abdominal washout and placement of 2 JONATHAN drains. He was extubated in the OR and brought to the ICU. He is hemodynamically stable. He received Zosyn preoperatively postoperatively and perioperatively. He is currently hemodynamically stable but is somewhat confused with regards to speech. Allergies Allergy/AdvReac Type Severity Reaction Status Date / Time No Known Allergies Allergy Verified 03/28/21 07:42 Home Medications Medication Instructions Recorded Confirmed Type cholecalciferol (vitamin D3) 50 2,000 unit PO BID tab 02/12/19 03/28/21 History mcg (2,000 unit) tablet multivitamin 1 tab PO QAM 02/27/19 03/28/21 History garlic 500 mg PO BID 03/24/19 03/28/21 History omega-3 acid ethyl esters 1 gram 1 cap PO BID cap 05/06/19 03/28/21 History capsule gabapentin 300 mg capsule 300 mg PO HS #30 cap 06/03/20 03/28/21 Rx meloxicam 15 mg tablet 15 mg PO DAILY #90 tab 06/09/20 03/28/21 Rx Glucosamine Chondroitin 1 cap PO BID 10/28/20 03/28/21 History acetaminophen 325 mg tablet 650 mg PO QID PRN tab 11/19/20 03/28/21 History zinc 50 mg tablet 50 mg PO DAILY 11/19/20 03/28/21 History ostomy pouch filter #90 ea 01/03/21 02/03/21 Rx aspirin 325 mg PO DAILY 03/28/21 03/28/21 History Patient History Medical History Anal carcinoma History of per records BPH (benign prostatic hyperplasia) Colostomy present PLANS FOR REVERSAL 03/28/21 Elevated cholesterol HX Gastroesophageal reflux disease H/O blood clots 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 10/29/20 Dr. 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 Dr. Mills [place] teeth removed Family History Father ASCVD (arteriosclerotic cardiovascular disease) Myocardial infarction Pacemaker Mother Diabetes Peripheral vascular disease Family history of diabetes mellitus Brother Family history of diabetes mellitus Other No family history of adverse response to anesthesia Denies family history of Ovarian cancer Prostate cancer Breast cancer Colorectal cancer Social History (Updated 03/28/21 @ 22:16 by Jackie Titus MD) Smoking Status: Current every day smoker (STARTED AT 23 YEARS OLD) Tobacco Type: Cigarettes Age Started Using Tobacco: 23; packs per day: 0.5; Years Smoked: 30; Cigarettes Per Day: 1/2ppd; Second Hand Exposure: No; Do You Dip or Chew Tobacco: No; Tobacco Cessation Education Requested by Patient: No Hx Alcohol Use: Yes Alcohol type: beer Alcohol Intake Frequency: 4 or More x per/Week Alcohol Intake Frequency Comment: 2-3 beers daily Preferred Language: Swedish Communication Ability: Effective Visual Impairment: No Limitations Hearing Ability: Use of Hearing Aid [employer] [place] Required: No Beliefs That Will Affect Care: None marital status: Current Living Situation: Family current occupational status: retired Other Information That Helps Us Care for You: No Feels Safe at Home: Yes Safety Concerns: Feels Safe At This Time Childhood Exposure to Second-Hand Smoke: Yes Dental Care, Regularly: Yes Physical Activity Frequency: 3-4 Times per Week Physical Activity Frequency Comment: walking Seatbelt Use: always Sunscreen Use: No Assistive Devices: Walker Review of Systems Review of Systems: Unobtainable due to cognitive status Physical Exam Constitutional: well developed; no acute distress Slightly confused and delirious Neck: trachea midline, no thyromegaly Respiratory: normal respiratory effort, lungs clear to auscultation Cardiovascular: RRR, no murmur, no edema Gastrointestinal (Abdomen): Wounds dressed. JONATHAN drains in both lower quadrants with serous drainage. Ostomy pink with stool output. Bowel sounds are absent. He is not significantly distended Musculoskeletal: Extremities: extremities normal to inspection Skin: no rashes, warm and dry Neurologic: Nonfocal exam Lymphatic: no cervical lymphadenopathy Results & Data Results & Data ([facility]) Vital Signs (Past 12 Hours) Vital Signs Temp Pulse Pulse Pulse Resp BP BP 04/03/21 17:54 36.4 C L 04/03/21 17:41 36.0 C L 04/03/21 17:31 98 H 20 04/03/21 17:30 99 H 20 112/73 04/03/21 17:18 101 H 20 121/77 04/03/21 17:15 98 H 18 107/72 04/03/21 17:10 99 H 22 109/76 04/03/21 17:05 100 H 22 119/75 04/03/21 17:01 98 H 22 04/03/21 17:00 34.8 C L 98 H 100 H 23 117/71 121/77 04/03/21 16:50 36.4 C L 96 H 20 106/70 04/03/21 16:40 98 H 19 109/70 04/03/21 16:30 97 H 21 113/71 04/03/21 16:20 95 H 17 115/70 04/03/21 16:13 36.3 C L 97 H 16 112/75 04/03/21 08:15 37.2 C 101 H 16 98/64 L Pulse Ox 04/03/21 17:54 04/03/21 17:41 04/03/21 17:31 96 04/03/21 17:30 96 04/03/21 17:18 95 04/03/21 17:15 95 04/03/21 17:10 96 04/03/21 17:05 96 04/03/21 17:01 96 04/03/21 17:00 96 04/03/21 16:50 96 04/03/21 16:40 97 04/03/21 16:30 97 04/03/21 16:20 98 04/03/21 16:13 98 04/03/21 08:15 92 Critical Care Results & Data Vital Signs (Past 12 Hours) Vital Signs Temp Pulse Pulse Pulse Resp BP BP 04/03/21 18:31 99 H 22 04/03/21 18:30 100 H 23 113/71 04/03/21 18:15 97 H 21 110/73 04/03/21 18:01 100 H 22 04/03/21 18:00 100 H 24 106/71 04/03/21 17:54 36.4 C L 04/03/21 17:46 102 H 22 112/85 04/03/21 17:41 36.0 C L 04/03/21 17:31 98 H 20 04/03/21 17:30 99 H 20 112/73 04/03/21 17:18 101 H 20 121/77 04/03/21 17:15 98 H 18 107/72 04/03/21 17:10 99 H 22 109/76 04/03/21 17:05 100 H 22 119/75 04/03/21 17:01 98 H 22 04/03/21 17:00 34.8 C L 98 H 100 H 23 117/71 121/77 04/03/21 16:50 36.4 C L 96 H 20 106/70 04/03/21 16:40 98 H 19 109/70 04/03/21 16:30 97 H 21 113/71 04/03/21 16:20 95 H 17 115/70 04/03/21 16:13 36.3 C L 97 H 16 112/75 04/03/21 08:15 37.2 C 101 H 16 98/64 L Pulse Ox 04/03/21 18:31 93 04/03/21 18:30 93 04/03/21 18:15 94 04/03/21 18:01 93 04/03/21 18:00 93 04/03/21 17:54 04/03/21 17:46 93 04/03/21 17:41 04/03/21 17:31 96 04/03/21 17:30 96 04/03/21 17:18 95 04/03/21 17:15 95 04/03/21 17:10 96 04/03/21 17:05 96 04/03/21 17:01 96 04/03/21 17:00 96 04/03/21 16:50 96 04/03/21 16:40 97 04/03/21 16:30 97 04/03/21 16:20 98 04/03/21 16:13 98 04/03/21 08:15 92 Lab & Micro Results (Past 24 Hours) RBC 4.16 M/uL (4.7-6.1) L 04/03/21 WBC 3.49 K/uL (4.8-10.8) L 04/03/21 Hgb 13.5 g/dL (14.0-18.0) L 04/03/21 Hct 38.4 % (42-52) L 04/03/21 MCV 92.3 fL (80-100) 04/03/21 MCH 32.5 pg (25-34) 04/03/21 MCHC 35.2 g/dL (32-36) 04/03/21 RDW Standard Deviation 46.0 fL (36.4-46.3) 04/03/21 RDW Coefficient of Variation 13.7 % (11.5-14.5) 04/03/21 Plt Count 327 K/uL (130-400) 04/03/21 MPV 8.9 fL (7.4-10.4) 04/03/21 Neutrophils (%) (Auto) 77.0 % 04/03/21 Lymphocytes (%) (Auto) 15.8 % 04/03/21 Monocytes # (Auto) 0.22 K/uL (0.11-0.59) 04/03/21 Eosinophils # (Auto) 0.02 K/uL (0-0.5) 04/03/21 Immature Granulocyte % (Auto) 0.3 % 04/03/21 Neutrophils # (Auto) 2.69 K/uL (1.4-6.5) 04/03/21 Lymphocytes # (Auto) 0.55 K/uL (1.2-3.4) L 04/03/21 Monocytes # (Auto) 0.22 K/uL (0.11-0.59) 04/03/21 Eosinophils # (Auto) 0.02 K/uL (0-0.5) 04/03/21 Basophils # (Auto) 0.00 K/uL (0-0.2) 04/03/21 Immature Granulocyte # (Auto) 0.01 K/uL (0.00-0.02) 04/03/21 Echinocytes 1+ 04/03/21 Dohle Bodies 1+ 04/03/21 Na 138 mmol/L (136-145) 04/03/21 K 3.8 mmol/L (3.5-5.1) 04/03/21 Cl 109 mmol/L (98-107) H 04/03/21 CO2 26 mmol/L (21-32) 04/03/21 Anion Gap 3.0 (3-11) 04/03/21 BUN 18 mg/dl (7-18) 04/03/21 Creatinine 0.60 mg/dl (0.6-1.4) 04/03/21 Estimated GFR ( Amer) 112.4 ml/min 04/03/21 Estimated GFR (Non-Af Amer) 97.0 ml/min 04/03/21 BUN/Creatinine Ratio 29.9 (10-20) H 04/03/21 Glu 145 mg/dl (70-99) H 04/03/21 Ca 7.8 mg/dl (8.5-10.1) L 04/03/21 Phosphorus Level 3.2 mg/dl (2.5-4.9) 04/03/21 Total Bilirubin 1.0 mg/dl (0.2-1) 04/03/21 Direct Bilirubin 0.6 mg/dl (0-0.2) H 04/03/21 AST 13 U/L (15-37) L 04/03/21 ALT 16 U/L (12-78) 04/03/21 Alkaline Phosphatase 47 U/L (45-117) 04/03/21 TP 5.4 gm/dl (6.4-8.2) L 04/03/21 Albumin 1.8 gm/dl (3.4-5.0) L 04/03/21 Mg 1.8 mg/dl (1.8-2.4) 04/03/21 08:06 04/03/21 Calcium Level 7.8 mg/dl (8.5-10.1) L 04/03/21 03:57 04/03/21 Microbiology 04/01/21 16:02 Aerobic Blood Culture - Preliminary Blood No growth in Aerobic bottle after 48 hours. Anaerobic Blood Culture - Preliminary No growth in Anaerobic bottle after 48 hours. 04/01/21 15:51 Aerobic Blood Culture - Preliminary Blood No growth in Aerobic bottle after 48 hours. Anaerobic Blood Culture - Preliminary No growth in Anaerobic bottle after 48 hours. Diagnostic Findings (Past 24 Hours) Abdomen/Pelvis CT 04/03/21 03:[address] WITH IV AND ORAL CONTRAST CT DOSE: 551.81 mGy.cm HISTORY: Recent colostomy reversal. Generalized abdominal pain. eval for abdominal abscess TECHNIQUE: Multiaxial CT images of the abdomen and pelvis were performed following the use of intravenous and oral contrast. A dose lowering technique was utilized adhering to the principles of ALARA. COMPARISON STUDY: Abdomen and pelvis CT 03/25/2021. FINDINGS: There are small bilateral pleural effusions. Consolidation within the lower lobes posteriorly favor compressive atelectasis. The heart is mildly enlarged. Moderate to large amount of pneumoperitoneum is noted. There is a small amount of ascites seen predominantly along the right side of the abdomen. Gas within the bladder may be due to recent catheterization. The bladder is mildly distended. There is a midline subcutaneous surgical drain and midline skin eulalio from the recent surgery. There is also a percutaneous drainage catheter seen terminating in the left perirectal location. Immediately adjacent to the distal aspect of the catheter within the deep pelvis there is a 2.2 cm focal fluid collection on image 395. This demonstrates partial peripheral enhancement. This favors a small amount of postoperative fluid. A small developing abscess could also have a similar appearance. There is a small right- sided bladder diverticulum. Patient is status post interval left-sided colostomy takedown with a sigmoid anastomosis. Mild bowel wall thickening at the sigmoid anastomosis. There is also mild bowel wall thickening, a small amount of extra luminal gas, and surrounding inflammatory change/edema at this location. Again, this is nonspecific but can be seen in the immediate postoperative phase. There is thickening of the terminal ileum and proximal colon/cecum. The small bowel loops proximal to the distal ileum are mildly distended. There are a few additional mildly thickened loops of small bowel within the abdomen. The gallbladder is mildly distended. No hepatic or splenic masses. The adrenal glands, pancreas, and kidneys are unremarkable. No hydronephrosis. No retroperitoneal lymphadenopathy. Mild calcified plaque within the normal caliber abdominal aorta. There is an anastomotic suture material seen within the small bowel the right lower quadrant. IMPRESSION: 1. Moderate to large amount of pneumoperitoneum. This is greater than expected g iven the recent surgery on 03/20/2021. A bowel perforation or anastomotic leak must be considered given the amount of pneumoperitoneum. There is a small amount of extraluminal gas and fluid adjacent to the sigmoid anastomosis. Again, this is nonspecific and could be seen in the immediate postoperative phase. Clinical correlation recommended. 2. Bowel wall thickening involving the proximal colon and terminal ileum. This is consistent with a nonspecific ileocolitis and could be due to the postoperative change, and adjacent peritonitis, or inflammatory/infectious process. 3. A 2.2 cm focus of fluid within the deep pelvis anterior to the rectum with partial peripheral enhancement. This is adjacent to the distal intraperitoneal drain. This favors a postoperative fluid collection. A small developing abscess is considered less likely but not entirely excluded. 4. Multiple additional thickened loops of small bowel consistent with a nonspecific enteritis. This could also be due to the recent postoperative change. 5. Mild gallbladder distention. No gallbladder wall thickening. 6. Trace bilateral pleural effusions. 7. Additional findings as described above. ACT 112: Negative or not required by law. Electronically signed by: Julian Steele M.D. 04/03/2021 8:25 AM Chest CTA 04/03/21 04:34 CHEST CTA for PULMONARY ARTERIES CT DOSE: HISTORY: Atypical chest pain. Shortness of breath. TECHNIQUE: Multiaxial CT images of the chest were performed following the intravenous administration of contrast to evaluate the pulmonary arteries. Maximal intensity projection images were also obtained. A dose lowering technique was utilized adhering to the principles of ALARA. COMPARISON STUDY: None. FINDINGS: Please refer the same day abdomen and pelvis CT for further evaluation of the abdominal structures. No pneumothorax. A 5 mm nodular density along the left major fissure on image 144. This is likely benign given the location. There is a similar-appearing 5 mm nodular density along the left major fissure on image 114. Small bilateral pleural effusions. No mediastinal or hilar lymphadenopathy. Mild thickening within the distal esophagus and a small hiatus hernia. The heart is mildly enlarged. No pericardial effusions. Normal caliber thoracic aorta with no evidence for dissection. No filling defects within the pulmonary arteries to suggest pulmonary embolus. Old, healed left-sided rib fractures. No suspicious lytic or blastic osseous lesions. Consolidation within the lower lobes posteriorly likely represent compressive atelectasis from the pleural fusions. IMPRESSION: 1. No evidence for pulmonary embolus. 2. Mild cardiomegaly. 3. Small bilateral pleural effusions. 4. Consolidation within the lower lobes posteriorly favor compressive atelectasis from the pleural effusions. 5. Please refer the same day abdomen and pelvis CT for further evaluation of the abdominal structures. ACT 112: Negative or not required by law. Electronically signed by: Julian Steele M.D. 04/03/2021 8:12 AM I & O Totals 24 Hours 04/02/21 04/03/21 04/04/21 06:59 06:59 06:59 Intake Total 2023.667 / 2023.667 1800 / 1800 2064 / 2064 Output Total 405 / 405 300 / 300 790 / 790 Balance 1618.667 / 0136.943 5877 / 1500 1275 / 1275 Cumulative 03/22/21 09:20 thru 04/03/21 17:42 Intake Total 27780.334 Output Total 62967 Balance 5539.334 RT Ventilator Mngmt (Last Documented) Ventilator Ordered Settings Respiratory Rate 22 04/03/21 18:31 Ventilator - PT Measurements Respiratory Rate 22 Coding Level of Care Code Critical Care 1st 30-74 mins Diagnoses Peritonitis (acute) generalized K65.0 Perforated bowel K63.1 Time Spent (min) 55
[2021-04-03] MEDS ORDERED: CALCIUM GLUCONATE 10% 2,000 MG in SODIUM CHLORIDE 0.9% 50 ML IV ONE (19:00)
[2021-04-03 19:18] LABS: Hematocrit (blood only) 39.8 % (42-52); Hemoglobin 13.9 g/dL (14.0-18.0); Mean Corpuscular Hemoglobin 31.7 pg (25-34); Mean Corpuscular Volume 90.9 fL (80-100); Mean Platelet Volume 8.9 fL (7.4-10.4); Platelet Count 320 K/uL (130-400); RDW Coefficient of Variation 14.1 % (11.5-14.5); RDW Standard Deviation 46.8 fL (36.4-46.3); Red Blood Count 4.38 M/uL (4.7-6.1); White Blood Count 4.77 K/uL (4.8-10.8)
[2021-04-03 19:27] LABS: Base Excess ABG -2.9 mEq/L (-9-1.8); HCO3 ABG 20 mmol/L (19-24); PCO2 ABG 30 mmHg (35-46); PO2 ABG 77 mmHg (80-95); pH ABG 7.45 (7.35-7.45)
[2021-04-03 19:28] LABS: Allen Test POS (Pos)
[2021-04-03 19:28] LABS: Mean Corpuscular Hgb Conc 34.9 g/dL (32-36)
[2021-04-03 19:38] LABS: Albumin Level 1.8 gm/dl (3.4-5.0); BUN Creatinine Ratio 30.6 (10-20); Creatinine Clr Calc Pharmacy 74.2 ml/min; Est GFR (African American) 100.9 ml/min; Est GFR (Non-African American) 87.1 ml/min; Potassium 4.3 mmol/L (3.5-5.1)
[2021-04-03 19:41] LABS: Albumin Globulin Ratio 0.5 (0.9-2); Bilirubin,Total 0.9 mg/dl (0.2-1); Globulin 3.7 gm/dl (2.5-4.0); Total Protein 5.5 gm/dl (6.4-8.2)
[2021-04-03 19:45] LABS: Echinocytes 2+; Eosinophils # (auto) 0.01 K/uL (0-0.5); Eosinophils % (auto) 0.2 %; Immature Granulocytes # (auto) 0.04 K/uL (0.00-0.02); Immature Granulocytes % (auto) 0.8 %; Lymphocytes # (auto) 0.44 K/uL (1.2-3.4); Lymphocytes % (auto) 9.2 %; Monocytes # (auto) 0.14 K/uL (0.11-0.59); Monocytes % (auto) 2.9 %; Neutrophils # (auto) 4.14 K/uL (1.4-6.5); Neutrophils % (auto) 86.9 %; Polychromasia 1+; Toxic Granulation 2+; Toxic Vacuolation 1+
[2021-04-03] MEDS: ICU PROTOCOL FOR HYPERGLYCEMIA SCH (20:31)
[2021-04-04] MEDS: NSS + 20MEQ KCL 20 MEQ/1,000 ML BAG IV SCH ×2 (03:28→10:24)
[2021-04-04 05:04] LABS: Hematocrit (blood only) 38.1 % (42-52); Hemoglobin 13.2 g/dL (14.0-18.0); Mean Corpuscular Hemoglobin 31.8 pg (25-34); Mean Corpuscular Hgb Conc 34.6 g/dL (32-36); Mean Corpuscular Volume 91.8 fL (80-100); Mean Platelet Volume 9.1 fL (7.4-10.4); Platelet Count 351 K/uL (130-400); RDW Coefficient of Variation 14.2 % (11.5-14.5); RDW Standard Deviation 47.3 fL (36.4-46.3); Red Blood Count 4.15 M/uL (4.7-6.1); White Blood Count 11.14 K/uL (4.8-10.8)
[2021-04-04 05:28] LABS: BUN Creatinine Ratio 33.2 (10-20); Calcium 8.6 mg/dl (8.5-10.1); Creatinine Clr Calc Pharmacy 73.2 ml/min; Est GFR (African American) 100.4 ml/min; Est GFR (Non-African American) 86.6 ml/min; Potassium 4.8 mmol/L (3.5-5.1)
[2021-04-04 05:34] LABS: Basophils # (auto) 0.01 K/uL (0-0.2); Basophils % (auto) 0.1 %; Eosinophils # (auto) 0.03 K/uL (0-0.5); Eosinophils % (auto) 0.3 %; Immature Granulocytes # (auto) 0.07 K/uL (0.00-0.02); Immature Granulocytes % (auto) 0.6 %; Lymphocytes # (auto) 0.57 K/uL (1.2-3.4); Lymphocytes % (auto) 5.1 %; Monocytes # (auto) 0.41 K/uL (0.11-0.59); Monocytes % (auto) 3.7 %; Neutrophils # (auto) 10.05 K/uL (1.4-6.5); Neutrophils % (auto) 90.2 %; Toxic Granulation 1+; Toxic Vacuolation 1+
[2021-04-04] MEDS: PIPERACILLIN/TAZOBACTAM 3.375 GM in DEXTROSE 5% 100 ML IV SCH ×3 (05:37→21:15)
[2021-04-04] MEDS ORDERED: SODIUM CHLORIDE 0.9% 1000ML 500 ML IV ONE (06:16)
[2021-04-04] MEDS ORDERED: TPN/PPN CONSULT PHARMACY STA (06:16)
--- NOTE | 2021-04-04 06:29 | Surgery Progress Note ---
Date of Service April 04, 2021 Assessment & Plan (1) H/O exploratory laparotomy: Admission and Anticipated Discharge Date Admission Date: March 28, 2021 Results & Data ([facility]) Vital Signs (Past 12 Hours) Vital Signs Temp Pulse Resp BP Pulse Ox 04/04/21 05:45 111 H 22 132/85 92 04/04/21 05:30 112 H 18 127/83 92 04/04/21 05:15 110 H 18 128/78 93 04/04/21 05:00 109 H 18 125/76 92 04/04/21 04:45 110 H 20 124/74 92 04/04/21 04:30 109 H 21 120/74 92 04/04/21 04:15 110 H 18 117/72 92 04/04/21 04:00 36.4 C L 108 H 16 121/73 92 04/04/21 03:45 109 H 17 122/71 92 04/04/21 03:30 111 H 17 118/70 92 04/04/21 03:15 113 H 24 125/72 92 04/04/21 03:00 114 H 20 130/80 92 04/04/21 02:45 109 H 27 H 134/88 92 04/04/21 02:15 109 H 53 H 129/78 92 04/04/21 02:00 110 H 25 H 127/75 93 04/04/21 01:45 108 H 19 121/72 93 04/04/21 01:30 109 H 25 H 131/74 93 04/04/21 01:15 109 H 24 121/74 92 04/04/21 01:00 108 H 22 130/76 92 04/04/21 00:45 107 H 27 H 120/72 92 04/04/21 00:30 108 H 24 127/76 93 04/04/21 00:15 83 24 109/61 92 04/04/21 00:00 36.6 C 108 H 21 125/79 93 04/03/21 23:45 106 H 22 118/73 92 04/03/21 23:30 105 H 20 124/73 92 04/03/21 23:15 106 H 20 116/76 93 04/03/21 23:00 108 H 17 124/77 93 04/03/21 22:45 107 H 16 124/81 93 04/03/21 22:30 107 H 19 115/74 93 04/03/21 22:15 107 H 19 123/75 93 04/03/21 22:00 107 H 19 116/78 94 04/03/21 21:49 36.5 C 04/03/21 21:45 107 H 18 120/74 93 04/03/21 21:30 106 H 20 118/73 94 04/03/21 21:15 107 H 18 121/73 93 04/03/21 21:00 108 H 21 111/72 94 04/03/21 20:45 108 H 22 121/72 93 04/03/21 20:30 108 H 24 124/78 94 04/03/21 20:15 106 H 25 H 129/74 94 04/03/21 20:00 36.5 C 103 H 18 122/69 94 04/03/21 19:45 102 H 22 117/78 95 04/03/21 19:30 101 H 24 121/73 95 04/03/21 19:15 84 24 119/65 95 04/03/21 19:00 101 H 24 105/70 95 04/03/21 18:31 99 H 22 93 04/03/21 18:30 100 H 23 113/71 93 PG Care Time/CCT Total # of Minutes Spent Total Time Spent with Patient: Total time spent is greater than 50% in coordination of care (as documented) at patient's floor/unit and/or counseling patient: Coding Level of Care Code None Diagnoses H/O exploratory laparotomy Z98.890
--- NOTE | 2021-04-04 06:36 | Surgery Progress Note ---
Date of Service April 04, 2021 Assessment & Plan (1) H/O exploratory laparotomy: Patient is awake, some confusion He is afebrile, tachycardic, blood pressure stable Urine output is marginal-most likely he is hypovolemic His laboratories this morning are relatively stable NG output expected, bilious Drain output is serous for the most part We will give patient saline bolus Order PPN, order a PICC line later after consent from obtained Continue IV antibiotics, blood cultures pending Wound care nurse consulted, at some point may need a wound VAC but for now will use twice daily packing Continue ICU care Admission and Anticipated Discharge Date Admission Date: March 28, 2021 Results & Data ([facility]) Vital Signs (Past 12 Hours) Vital Signs Temp Pulse Resp BP Pulse Ox 04/04/21 05:45 111 H 22 132/85 92 04/04/21 05:30 112 H 18 127/83 92 04/04/21 05:15 110 H 18 128/78 93 04/04/21 05:00 109 H 18 125/76 92 04/04/21 04:45 110 H 20 124/74 92 04/04/21 04:30 109 H 21 120/74 92 04/04/21 04:15 110 H 18 117/72 92 04/04/21 04:00 36.4 C L 108 H 16 121/73 92 04/04/21 03:45 109 H 17 122/71 92 04/04/21 03:30 111 H 17 118/70 92 04/04/21 03:15 113 H 24 125/72 92 04/04/21 03:00 114 H 20 130/80 92 04/04/21 02:45 109 H 27 H 134/88 92 04/04/21 02:15 109 H 53 H 129/78 92 04/04/21 02:00 110 H 25 H 127/75 93 04/04/21 01:45 108 H 19 121/72 93 04/04/21 01:30 109 H 25 H 131/74 93 04/04/21 01:15 109 H 24 121/74 92 04/04/21 01:00 108 H 22 130/76 92 04/04/21 00:45 107 H 27 H 120/72 92 04/04/21 00:30 108 H 24 127/76 93 04/04/21 00:15 83 24 109/61 92 04/04/21 00:00 36.6 C 108 H 21 125/79 93 04/03/21 23:45 106 H 22 118/73 92 04/03/21 23:30 105 H 20 124/73 92 04/03/21 23:15 106 H 20 116/76 93 04/03/21 23:00 108 H 17 124/77 93 04/03/21 22:45 107 H 16 124/81 93 04/03/21 22:30 107 H 19 115/74 93 04/03/21 22:15 107 H 19 123/75 93 04/03/21 22:00 107 H 19 116/78 94 04/03/21 21:49 36.5 C 04/03/21 21:45 107 H 18 120/74 93 04/03/21 21:30 106 H 20 118/73 94 04/03/21 21:15 107 H 18 121/73 93 04/03/21 21:00 108 H 21 111/72 94 04/03/21 20:45 108 H 22 121/72 93 04/03/21 20:30 108 H 24 124/78 94 04/03/21 20:15 106 H 25 H 129/74 94 04/03/21 20:00 36.5 C 103 H 18 122/69 94 04/03/21 19:45 102 H 22 117/78 95 04/03/21 19:30 101 H 24 121/73 95 04/03/21 19:15 84 24 119/65 95 04/03/21 19:00 101 H 24 105/70 95 PG Care Time/CCT Total # of Minutes Spent Total Time Spent with Patient: Total time spent is greater than 50% in coordination of care (as documented) at patient's floor/unit and/or counseling patient: Coding Level of Care Code None Diagnoses H/O exploratory laparotomy Z98.890
--- NOTE | 2021-04-04 07:33 | XRay Report ---
XR KUB/Abdomen 1 view CLINICAL HISTORY: new NG tube placement COMPARISON STUDY: April 01, 2021 FINDINGS: Multiple stool and gas distended loops of small and large bowel are seen throughout the abdomen, with in upper limits of normal. Moderate amount of stool is seen within left hemiabdomen. Interval placement of the gastric tube with tip and fenestrated side-port below level of left hemidia phragm. Gaseous distention of the stomach and possible wall stretching at the tip of NG tube. Few linear densities are seen within the right hemiabdomen and left lower quadrant which might repres ent portions of surgical drainage. Interval removal of the skin eulalio. IMPRESSION: 1. Tip in fenestrated side-port of the gastric tube is seen below level of the left hemidiaphragm. ACT 112: Negative or not required by law. The above report was generated using voice recognition software. It may contain grammatical, syntax o r spelling errors. Electronically signed by: Jannette Kaminski DO 04/04/2021 7:31 AM
--- NOTE | 2021-04-04 08:27 | Critical Care Progress Note ---
Date of Service April 04, 2021 Assessment & Plan (1) Peritonitis (acute) generalized: (2) Perforated bowel: Impression: 75-year-old male with history of diverticulosis status post partial colectomy now with anastomotic leak requiring abdominal washout and revision of the ostomy with placement of JONATHAN drains. Initial surgery 03/28/2021, repeat surgery 04/03/2021 Recommendations: 1. Neurologic: Mild metabolic encephalopathy Likely secondary to underlying sepsis No focal deficits, no dysarthria Patient is awake alert oriented to self place Patient does have to be reminded frequently Does have encephalopathy 2. Cardiovascular: Hemodynamically stable Is tachycardic The patient likely has severe sepsis with septic shock. Repeat labs pending. He may require additional IV fluids currently. We will trend his lactate. His albumin is low and he may benefit from albumin support 3. Pulmonary: -- Bilateral pleural effusions Sticking out Try to maintain euvolemic to negative balance O2 supplementation to keep oxygen saturation between 88-92% -- Dependent atelectasis lower lobe Continue incentive spirometry Hold on diuresis for now. Continue to wean oxygen as tolerated. Patient does have a pulmonary nodule which will require outpatient radiographic surveillance. 4. ID: --Abdominal peritonitis S/p anastomosis leak Taken to the OR again on 04/03/2021 Was on cefoxitin which has anaerobic coverage Currently on Zosyn High risk of fungemia given recent multiple abdominal surgeries Fungal culture from the peritoneum as well as blood ordered 5. Renal: Monitor BUNs/creatinine Avoid nephrotoxic medication 6. GI: N.p.o. for now until bowel function returns. Surgery planning for TPN 7. Heme-onc: Monitor H&H 8. Endocrine: ICU hyperglycemia protocol --Prophylaxis VTE: Heparin GI: Pepcid Lines: Peripheral Diet: N.p.o. Plan: In/out: +1.6 L, urine output 1740 T-max 38.9 on 04/03/2021 3 AM, afebrile since then Remove potassium from the IV fluids. Patient is still encephalopathic. Aspiration precautions. Fungal culture from the blood culture ordered. If the patient spikes fever again we will start the patient on antifungals. I have personally spent 35 minutes of critical care time in the direct management of this patient. This is a life/limb threatening event. This includes time spent evaluating patient, direct bedside care, chart review, placing orders, interpretation of diagnostic studies, discussion with consultants, patient, and family members, as well as other required patient management activities. This time is exclusive of all separately billable procedures, and teaching time and separate from and in addition to any other critical care service time. Please note the above document was generated using voice recognition software. It may contain grammatical, syntax or spelling errors. Admission and Anticipated Discharge Date Admission Date: March 28, 2021 Subjective Patient seen and examined at bedside. No acute distress. Patient was hallucinating overnight. Patient does complain of abdominal discomfort. States that is better than befo re. No nausea or vomiting. No chest pain. Denies any shortness of breath. No headache. Review of Systems Review of Systems: All systems reviewed & are unremarkable except as noted in Subjective Physical Exam Physical Exam: Constitutional: No acute distress HEENT: EOMI, PERRLA Respiratory system: Decreased air entry bilaterally, no wheeze, no rhonchi, mild crackles bilateral lower lobes CVS: S1-S2 positive, no murmurs or gallops, tachycardia Abdomen: Soft, nondistended, positive tenderness right flank, decreased bowel sounds, positive left-sided colostomy, positive JONATHAN drain Extremities: +2 pulses bilaterally radialis/ dorsalis pedis, no cyanosis, no edema Neuro: Awake alert oriented x3 Psych: Normal mood and affect G/U: Positive Lunsford Skin: no rashes, warm and dry Lymphatic: no cervical or axillary lymphadenopathy Results & Data Results & Data ([facility]) Vital Signs (Past 12 Hours) Vital Signs Temp Pulse Resp BP Pulse Ox 04/04/21 05:45 111 H 22 132/85 04/04/21 05:30 112 H 18 127/83 92 04/04/21 05:15 110 H 18 128/78 93 04/04/21 05:00 109 H 18 125/76 04/04/21 04:45 110 H 20 124/74 04/04/21 04:30 109 H 21 120/74 04/04/21 04:15 110 H 18 117/72 04/04/21 04:00 36.4 C L 108 H 16 121/73 92 04/04/21 03:45 109 H 17 122/71 04/04/21 03:30 111 H 17 118/70 04/04/21 03:15 113 H 24 125/72 92 04/04/21 03:00 114 H 20 130/80 92 04/04/21 02:45 109 H 27 H 134/88 92 04/04/21 02:15 109 H 53 H 129/78 92 04/04/21 02:00 110 H 25 H 127/75 93 04/04/21 01:45 108 H 19 121/72 93 04/04/21 01:30 109 H 25 H 131/74 93 04/04/21 01:15 109 H 24 121/74 92 04/04/21 01:00 108 H 22 130/76 92 04/04/21 00:45 107 H 27 H 120/72 92 04/04/21 00:30 108 H 24 127/76 93 04/04/21 00:15 83 24 109/61 92 04/04/21 00:00 36.6 C 108 H 21 125/79 93 04/03/21 23:45 106 H 22 118/73 92 04/03/21 23:30 105 H 20 124/73 92 04/03/21 23:15 106 H 20 116/76 93 04/03/21 23:00 108 H 17 124/77 93 04/03/21 22:45 107 H 16 124/81 93 04/03/21 22:30 107 H 19 115/74 93 04/03/21 22:15 107 H 19 123/75 93 04/03/21 22:00 107 H 19 116/78 94 04/03/21 21:49 36.5 C 04/03/21 21:45 107 H 18 120/74 93 04/03/21 21:30 106 H 20 118/73 94 04/03/21 21:15 107 H 18 121/73 93 04/03/21 21:00 108 H 21 111/72 94 04/03/21 20:45 108 H 22 121/72 93 04/03/21 20:30 108 H 24 124/78 94 04/04/21 04:34 04/04/21 04:34 Coding Level of Care Code Critical Care 1st 30-74 mins Diagnoses Peritonitis (acute) generalized K65.0 Perforated bowel K63.1 Time Spent (min) 35
[2021-04-04] MEDS: FAMOTIDINE 20 MG in SYRINGE 3 ML IV SCH ×2 (08:40→21:20)
[2021-04-04] MEDS: HEPARIN SOD 5,000 UNIT/0.5 ML VIAL SQ SCH ×2 (08:40→21:20)
[2021-04-04] MEDS: ICU PROTOCOL FOR HYPERGLYCEMIA SCH (08:41)
[2021-04-04] MEDS: HYDROmorphone INJ 0.5 MG/0.5 ML SYR IV PRN ×3 (08:47→15:09)
[2021-04-04] MEDS ORDERED: SODIUM CHLORIDE 0.9% 1000ML 1,000 ML IV SCH (10:30)
[2021-04-04 10:59] LABS: Bilirubin,Total 0.6 mg/dl (0.2-1); Magnesium 2.3 mg/dl (1.8-2.4); Phosphorus 2.9 mg/dl (2.5-4.9)
[2021-04-04] MEDS ORDERED: TPN/PPN CONSULT PHARMACY PRN (12:15)
[2021-04-04] MEDS ORDERED: DEXTROSE 10% 1,000 ML IV PRN (12:29)
--- NOTE | 2021-04-04 12:44 | Pharmacy Report ---
Pharmacy PN Initial Consult - Date of Service April 04, 2021 - Scope Pharmacy has been consulted to manage parenteral nutrition orders and order appropriate labs. As part of the Nutrition Support Team guidelines, pharmacy will work in conjunction with dietary when determining the patients caloric needs. - Subjective The patient is a 75 year old M admitted on 03/28/21 11:55 for Colostomy, Diverticulitis. Patient is to receive parenteral nutrition for perforated bowel/ostomy revision. Pertinent PMH: - Objective Height: 5 ft 7 in Weight: 68.3 kg Diet: NPO Vascular Access:: PICC Intake & Output (Last 24Hrs): Intake & Output 04/02/21 04/03/21 04/04/21 04/05/21 06:59 06:59 06:59 06:59 Intake Total 2023.667 / 2023.667 1800 / 1800 3350 / 3350 1479.583 / 1479.583 Output Total 405 / 405 300 / 300 1740 / 1740 90 / 90 Balance 1618.667 / 2013.636 6026 / 1500 1610 / 1610 1389.583 / 1389.583 Weight 66.1 kg 68.3 kg 68.3 kg Additional Fluid Losses/Gains:: Was receiving NS +20 meq kcl @125 mL/hr, changed to NS @ 75 mL/hr this morning (this will be stopped at 1559 when TPN is initiated). Laboratory Data (Last 24 Hrs):: 04/03/21 04/04/21 04/04/21 19:10 04:34 10:29 Sodium 138 141 Potassium 4.3 4.8 Chloride 109 H 110 H Carbon Dioxide 21 25 BUN 24 H 26 H Creatinine 0.78 0.79 Glucose 153 H 131 H Calcium 8.0 L 8.6 Phosphorus 2.9 Magnesium 2.3 Total Bilirubin 0.9 0.6 AST 29 16 ALT 27 21 Alkaline Phosphatase 50 50 Albumin 1.8 L Triglycerides 69 Nutrition Assessment:: Please refer to the Notes section of the EMR for the most recent billet heater note. - Assessment Patient may be at risk for refeeding, will start at ~50% goal dextrose and include phos in the TPN. Discussed with chemical lab supervisor, am hesitant to put potassium in the TPN given K of 4.8 and tending up. Will add only 10 meq KCL to the bag, and ICU team will monitor and supplement any additional potassium as needed. - Plan For day 1 of PN administration, the following will be ordered: Macronutrients Amino acids 100 grams/day Dextrose 100 grams/day Lipids 50 grams/day Micronutrients Combined electrolytes mL - contains 35 mEq Na, 20 meq K, 4.5 mEq Ca, 5 mEq Mg, 35 mEq Cl, 29.5 mEq acetate per 20 mL Sodium phosphate 18 MMol Sodium chloride 20 mEq Sodium acetate 20 mEq Potassium chloride 10 mEq Magnesium sulfate 4.06 mEq Multivitamins 10 mL Trace Elements 10 mL Total volume 1500 mL to be infused over 24 hrs will provide 1240 kcal/day Final osmolarity 1058 mOsm/L (maximum for PPN is 900 mOsm/L) Labs to be ordered per PN order protocol Pharmacy will follow and adjust parenteral nutrition orders on a daily basis. Thank you.
[2021-04-04] MEDS ORDERED: Custom Central Pn 1,500 ML in TPN BAG 0 ML IV SCH (16:00)
[2021-04-05] MEDS: HYDROmorphone INJ 0.5 MG/0.5 ML SYR IV PRN ×5 (01:08→23:40)
[2021-04-05 04:46] LABS: Hematocrit (blood only) 33.6 % (42-52); Hemoglobin 11.5 g/dL (14.0-18.0); Mean Corpuscular Hemoglobin 32.2 pg (25-34); Mean Corpuscular Hgb Conc 34.2 g/dL (32-36); Mean Corpuscular Volume 94.1 fL (80-100); Platelet Count 329 K/uL (130-400); RDW Coefficient of Variation 14.4 % (11.5-14.5); RDW Standard Deviation 49.4 fL (36.4-46.3); Red Blood Count 3.57 M/uL (4.7-6.1); White Blood Count 12.72 K/uL (4.8-10.8)
[2021-04-05 05:09] LABS: BUN Creatinine Ratio 47.1 (10-20); Calcium 8.1 mg/dl (8.5-10.1); Est GFR (African American) 108.8 ml/min; Est GFR (Non-African American) 93.8 ml/min; Magnesium 2.2 mg/dl (1.8-2.4); Phosphorus 2.6 mg/dl (2.5-4.9); Potassium 4.2 mmol/L (3.5-5.1)
[2021-04-05 05:38] LABS: Basophils # (auto) 0.01 K/uL (0-0.2); Basophils % (auto) 0.1 %; Dohle Bodies 1+; Echinocytes 1+; Immature Granulocytes # (auto) 0.03 K/uL (0.00-0.02); Immature Granulocytes % (auto) 0.2 %; Lymphocytes # (auto) 0.82 K/uL (1.2-3.4); Lymphocytes % (auto) 6.4 %; Monocytes # (auto) 0.71 K/uL (0.11-0.59); Monocytes % (auto) 5.6 %; Neutrophils # (auto) 11.15 K/uL (1.4-6.5); Neutrophils % (auto) 87.7 %
[2021-04-05] MEDS: PIPERACILLIN/TAZOBACTAM 3.375 GM in DEXTROSE 5% 100 ML IV SCH ×3 (06:00→22:15)
--- NOTE | 2021-04-05 06:37 | Surgery Progress Note ---
Date of Service April 05, 2021 Assessment & Plan (1) H/O exploratory laparotomy: Patient awake with some confusion His heart rate has improved with additional fluid As well as his urine output Positive fluid balance likely third spacing within his GI tract and tissues as well as low albumin TPN should help Appears to have less NG output, await additional GI function before removal Continue with Lunsford today Favor ICU management at least today possibly change status tomorrow Continue current IV antibiotics Admission and Anticipated Discharge Date Admission Date: March 28, 2021 Results & Data ([facility]) Vital Signs (Past 12 Hours) Vital Signs Temp Pulse Resp BP Pulse Ox 04/05/21 06:00 93 H 18 144/86 H 93 04/05/21 05:00 93 H 14 146/86 H 94 04/05/21 04:01 92 H 16 93 04/05/21 04:00 36.9 C 91 H 16 148/87 H 92 04/05/21 03:01 94 H 15 93 04/05/21 03:00 93 H 13 139/89 93 04/05/21 02:00 97 H 17 143/89 H 91 04/05/21 01:39 98 H 23 93 04/05/21 01:38 100 H 17 141/95 H 92 04/05/21 01:00 81 23 93 04/05/21 00:01 102 H 21 156/104 H 94 04/05/21 00:00 36.9 C 101 H 21 91 04/04/21 23:00 106 H 24 150/106 H 92 04/04/21 22:01 108 H 31 H 156/94 H 93 04/04/21 22:00 106 H 30 H 94 04/04/21 21:01 109 H 23 93 04/04/21 21:00 107 H 27 H 156/118 H 91 04/04/21 20:01 110 H 21 152/97 H 92 04/04/21 20:00 36.9 C 107 H 13 89 L 04/04/21 19:00 109 H 23 146/88 H 93 PG Care Time/CCT Total # of Minutes Spent Total Time Spent with Patient: Total time spent is greater than 50% in coordin ation of care (as documented) at patient's floor/unit and/or counseling patient: Coding Level of Care Code None Diagnoses H/O exploratory laparotomy Z98.890
[2021-04-05] MEDS: HEPARIN SOD 5,000 UNIT/0.5 ML VIAL SQ SCH ×2 (10:09→20:31)
[2021-04-05] MEDS: FAMOTIDINE 20 MG in SYRINGE 3 ML IV SCH ×2 (10:09→20:31)
[2021-04-05] MEDS: ICU PROTOCOL FOR HYPERGLYCEMIA SCH (10:10)
--- NOTE | 2021-04-05 11:12 | Critical Care Progress Note ---
Date of Service April 05, 2021 Assessment & Plan (1) Peritonitis (acute) generalized: (2) Perforated bowel: Impression: 75-year-old male with history of diverticulosis status post partial colectomy now with anastomotic leak requiring abdominal washout and revision of the ostomy with placement of JONATHAN drains. Initial surgery 03/28/2021, repeat surgery 04/03/2021 Recommendations: 1. Neurologic: Mild metabolic encephalopathy Likely secondary to underlying sepsis and pain--> improved No focal deficits, no dysarthria Patient is awake alert oriented to self place Patient does have to be reminded frequently Does have encephalopathy 2. Cardiovascular: Hemodynamically stable 3. Pulmonary: -- Bilateral pleural effusions Try to maintain euvolemic to negative balance O2 supplementation to keep oxygen saturation between 88-92% -- Dependent atelectasis lower lobe Continue incentive spirometry 4. ID: --Abdominal peritonitis S/p anastomosis leak Taken to the OR again on 04/03/2021 Was on cefoxitin which has anaerobic coverage Currently on Zosyn High risk of fungemia given recent multiple abdominal surgeries Fungal culture from the peritoneum as well as blood ordered 5. Renal: Monitor BUNs/creatinine Avoid nephrotoxic medication 6. GI: N.p.o. for now until bowel function returns. Surgery planning for TPN 7. Heme-onc: Monitor H&H 8. Endocrine: ICU hyperglycemia protocol --Prophylaxis VTE: Heparin GI: Pepcid Lines: Peripheral, right arm PICC Diet: N.p.o. getting TPN on the right-sided PICC Plan: In/out: +1 L, urine output 1165 Afebrile Mentation has improved compared to yesterday. Patient is answering appropriate questions. We will try to make the patient sit on the chair today. NGT still draining bilious fluid. We will try to take the Lunsford catheter out in the next 24 hours. Continue monitoring the patient in the ICU till surgeon feels comfortable for the patient to be sent out. Please note the above document was generated using voice recognition software. It may contain grammatical, syntax or spelling errors.Any formal questions or concerns about the content, text or information contained within the body of this dictation should be directly addressed to the provider for clarification. Admission and Anticipated Discharge Date Admission Date: March 28, 2021 Subjective Patient seen and examined bedside. No acute distress. Overnight patient had one episode where he tried to climb out of the bed. Patient is usually not verbal regarding the pain. He responds in an erratic manner when he gets pain. He was given Dilaudid at the time when he did well overnight. Tiana examination patient states that he gets pain on and off in the belly. No complaint of pain at the time of examination, no chest pain, no shortness of breath, no headache. Answering questions more appropriately than yesterday. Review of Systems Review of Systems: All systems reviewed & are unremarkable except as noted in Subjective Physical Exam Physical Exam: Constitutional: No acute distress HEENT: EOMI, PERRLA Respiratory system: Decreased air entry bilaterally, no wheeze, no rhonchi, mild crackles bilateral lower lobes CVS: S1-S2 positive, no murmurs or gallops Abdomen: Soft, nondistended, positive tenderness right flank, decreased bowel sounds, positive left-sided colostomy, positive JONATHAN drain Extremities: +2 pulses bilaterally radialis/ dorsalis pedis, no cyanosis, no edema Neuro: Awake alert oriented x3 Psych: Normal mood and affect G/U: Positive Luns[place] Skin: no rashes, warm and dry Lymphatic: no cervical or axillary lymphadenopathy Results & Data Results & Data ([facility]) Vital Signs (Past 12 Hours) Vital Signs Temp Pulse Resp BP Pulse Ox 04/05/21 10:00 93 H 25 H 143/96 H 94 04/05/21 09:00 84 16 143/87 H 94 04/05/21 08:00 37.1 C 83 18 138/83 94 04/05/21 07:00 94 H 20 150/88 H 98 04/05/21 06:00 93 H 18 144/86 H 93 04/05/21 05:00 93 H 14 146/86 H 94 04/05/21 04:01 92 H 16 93 04/05/21 04:00 36.9 C 91 H 16 148/87 H 92 04/05/21 03:01 94 H 15 93 04/05/21 03:00 93 H 13 139/89 93 04/05/21 02:00 97 H 17 143/89 H 91 04/05/21 01:39 98 H 23 93 04/05/21 01:38 100 H 17 141/95 H 92 04/05/21 01:00 81 23 93 07/06/21 00:01 102 H 21 156/104 H 94 04/05/21 00:00 36.9 C 101 H 21 91 04/05/21 04:15 04/05/21 04:15 Coding Level of Care Code 77176 Subseq [facility] 3 Diagnoses Peritonitis (acute) generalized K65.0 Perforated bowel K63.1
[2021-04-05] MEDS ORDERED: HYDROmorphone INJ 1 MG/ML SYRINGE IV STA (14:35)
[2021-04-05] MEDS ORDERED: HYDROmorphone INJ 1 MG/ML SYRINGE ONE (14:38)
[2021-04-05] MEDS ORDERED: dilTIAZem HCl 5 MG/ML 5 ML VIAL IV STA (14:50)
[2021-04-05] MEDS ORDERED: STAT IV Infusion **Titration per Protocol STA (15:18)
[2021-04-05] MEDS ORDERED: dilTIAZem HCL 125 MG in DEXTROSE 5% 100 ML IV SCH (15:30)
[2021-04-05] MEDS ORDERED: CENTRAL PN IV SCH (16:00)
[2021-04-05] MEDS ORDERED: TPN IV SCH (16:00)
[2021-04-06] MEDS: HYDROmorphone INJ 0.5 MG/0.5 ML SYR IV PRN ×5 (03:09→22:34)
[2021-04-06 04:49] LABS: Hematocrit (blood only) 32.9 % (42-52); Mean Corpuscular Hemoglobin 31.5 pg (25-34); Mean Corpuscular Hgb Conc 33.4 g/dL (32-36); Mean Corpuscular Volume 94.3 fL (80-100); Mean Platelet Volume 9.1 fL (7.4-10.4); Platelet Count 285 K/uL (130-400); RDW Coefficient of Variation 14.4 % (11.5-14.5); RDW Standard Deviation 49.4 fL (36.4-46.3); Red Blood Count 3.49 M/uL (4.7-6.1); White Blood Count 13.52 K/uL (4.8-10.8)
[2021-04-06 05:10] LABS: BUN Creatinine Ratio 60.6 (10-20); Basophils # (auto) 0.01 K/uL (0-0.2); Basophils % (auto) 0.1 %; Creatinine Clr Calc Pharmacy 109.1 ml/min; Dohle Bodies 2+; Eosinophils # (auto) 0.01 K/uL (0-0.5); Eosinophils % (auto) 0.1 %; Est GFR (African American) 118.3 ml/min; Est GFR (Non-African American) 102.1 ml/min; Immature Granulocytes # (auto) 0.03 K/uL (0.00-0.02); Immature Granulocytes % (auto) 0.2 %; Lymphocytes # (auto) 1.34 K/uL (1.2-3.4); Lymphocytes % (auto) 9.9 %; Magnesium 1.9 mg/dl (1.8-2.4); Monocytes # (auto) 1.01 K/uL (0.11-0.59); Monocytes % (auto) 7.5 %; Neutrophils # (auto) 11.12 K/uL (1.4-6.5); Neutrophils % (auto) 82.2 %; Phosphorus 3.9 mg/dl (2.5-4.9); Potassium 3.4 mmol/L (3.5-5.1)
[2021-04-06] MEDS: PIPERACILLIN/TAZOBACTAM 3.375 GM in DEXTROSE 5% 100 ML IV SCH ×3 (05:25→22:34)
[2021-04-06] MEDS ORDERED: MINERAL OIL 30 ML UDC PO ONE (05:58)
[2021-04-06] MEDS: POTASSIUM CHLORIDE / WTR 10 MEQ/100 ML PLCT IV SCH ×4 (06:19→09:55)
--- NOTE | 2021-04-06 06:33 | Electrocardiogram Report ---
Test Reason : Blood Pressure : / mmHG Vent. Rate : 145 BPM Atrial Rate : 129 BPM P-R Int : 000 ms QRS Dur : 092 ms QT Int : 302 ms P-R-T Axes : 000 -33 061 degrees QTc Int : 469 ms Atrial fibrillation with rapid ventricular response Left axis deviation Nonspecific ST and T wave abnormality Abnormal ECG When compared with ECG of 28-OCT-2020 13:39, Atrial fibrillation has replaced Sinus rhythm ST now depressed in Anterolateral leads Nonspecific T wave abnormality is now Present Confirmed by Jonathan Vu ([id number]) on 04/06/2021 6:33:23 AM Referred By: Humberto Mills Confirmed By:Jonathan Vu
--- NOTE | 2021-04-06 06:38 | Surgery Progress Note ---
Date of Service April 06, 2021 Assessment & Plan (1) H/O exploratory laparotomy: Patient's vital signs more stable with normal heart rate after Cardizem Still has moderate NG output however we will try clamping and add senna syrup and a dose of mineral oil Can try to DC Lunsford catheter Continue TPN We will transfer to PCU/MICU-I feel patient should have his own room and needs more attention Than MedSurg telemetry Wound VAC in place Obviously needs physical therapy Admission and Anticipated Discharge Date Admission Date: March 28, 2021 Results & Data ([facility]) Vital Signs (Past 12 Hours) Vital Signs Temp Pulse Resp BP Pulse Ox 04/06/21 04:00 36.8 C 04/06/21 01:00 65 19 105/57 L 93 04/06/21 00:00 68 13 103/64 92 04/05/21 23:51 36.9 C 04/05/21 23:00 67 15 113/61 93 04/05/21 22:00 58 L 20 93 04/05/21 21:00 36.9 C 70 13 106/60 93 04/05/21 20:00 72 15 110/63 93 04/05/21 19:00 75 15 104/68 93 PG Care Time/CCT Total # of Minutes Spent Total Time Spent with Patient: Total time spent is greater than 50% in coordination of care (as documented) at patient's floor/unit and/or counseling patient: Coding Level of Care Code None Diagnoses H/O exploratory laparotomy Z98.890
[2021-04-06] MEDS ORDERED: ENOXAPARIN 80 MG/0.8 ML SYR SQ SCH ×2 (08:00→21:00)
[2021-04-06] MEDS ORDERED: MAGNESIUM SULFATE / D5W 1 GM/100 ML BAG IV ONE (08:15)
--- NOTE | 2021-04-06 08:20 | Critical Care Progress Note ---
Date of Service April 06, 2021 Assessment & Plan (1) Peritonitis (acute) generalized: (2) Perforated bowel: Impression: 75-year-old male with history of diverticulosis status post partial colectomy now with anastomotic leak requiring abdominal washout and revision of the ostomy with placement of JONTAHAN drains. Initial surgery 03/28/2021, repeat surgery 04/03/2021 Recommendations: 1. Neurologic: Mild metabolic encephalopathy Likely secondary to underlying sepsis and pain--> improving No focal deficits, no dysarthria Patient is awake alert oriented to self place and time 2. Cardiovascular: --A. fib with RVR S/p bolus diltiazem and brief diltiazem drip Currently in sinus rhythm with heart rate in high 60s [id number]: 2 Patient is not on any anticoagulation at home Hemodynamically stable 3. Pulmonary: -- Bilateral pleural effusions Try to maintain euvolemic to negative balance O2 supplementation to keep oxygen saturation between 88-92% -- Dependent atelectasis lower lobe Continue incentive spirometry 4. ID: --Abdominal peritonitis S/p anastomosis leak Taken to the OR again on 04/03/2021 Was on cefoxitin which has anaerobic coverage Currently on Zosyn High risk of fungemia given recent multiple abdominal surgeries Fungal culture from the peritoneum as well as blood negative to date 5. Renal: Monitor BUNs/creatinine Avoid nephrotoxic medication 6. GI: N.p.o. for now until bowel function returns. Surgery planning for TPN 7. Heme-onc: Monitor H&H 8. Endocrine: ICU hyperglycemia protocol --Prophylaxis VTE: Heparin GI: Pepcid Lines: Peripheral, right arm PICC Diet: N.p.o. getting TPN on the right-sided PICC Plan: In/out: -245 mm, urine output 2340 Afebrile Mentation is getting better on a day-to-day basis. Patient does have seem to have paroxysmal A. fib. His [id number] being 2, I think therapeutic anticoagulation should be thought of. If surgery is okay for therapeutic anticoagulation Lovenox 1 mg/kg twice daily should be initiated Can start low-dose beta-mary if heart rate starts to creep up. Hypomagnesemia and hypokalemia being replaced Continue with pain medication as needed Patient will benefit from PT/OT. Patient hemodynamically stable to be sent out of the ICU. Please note the above document was generated using voice recognition software. It may contain grammatical, syntax or spelling errors.Any formal questions or concerns about the content, text or information contained within the body of this dictation should be directly addressed to the provider for clarification. (3) Atrial fibrillation with RVR: (4) Encephalopathy: Admission and Anticipated Discharge Date Admission Date: March 28, 2021 Subjective Patient seen and examined at bedside. No acute distress, no adverse events overnight. Yesterday patient went into A. fib with RVR. He got bolus of diltiazem and was briefly on diltiazem drip which has been off. Does complain of belly pain but is fairly controlled. Today's is pending anniversary and tomorrow will be his birthday, he seemed to be a little bit depressed likely being in the hospital during this festivities for him. Has been urinating well. Denies any headache, no shortness of breath, no chest pain Review of Systems Review of Systems: All systems reviewed & are unremarkable except as noted in Subjective Physical Exam Physical Exam: Constitutional: No acute distress HEENT: EOMI, PERRLA Respiratory system: Decreased air entry bilaterally, no wheeze, no rhonchi, mild crackles bilateral lower lobes CVS: S1-S2 positive, no murmurs or gallops Abdomen: Soft, nondistended, positive tenderness right flank, decreased bowel sounds, positive left-sided colostomy, positive JONATHAN drain Extremities: +2 pulses bilaterally radialis/ dorsalis pedis, no cyanosis, no edema Neuro: Awake alert oriented x3 Psych: Flat mood and affect G/U: No [place] Skin: no rashes, warm and dry Lymphatic: no cervical or axillary lymphadenopathy Results & Data Results & Data ([facility]) Vital Signs (Past 12 Hours) Vital Signs Temp Pulse Resp BP Pulse Ox 04/06/21 06:00 55 L 21 125/66 95 04/06/21 05:00 64 16 119/67 95 04/06/21 04:00 36.8 C 65 13 114/66 93 04/06/21 03:00 64 15 110/64 93 04/06/21 02:00 71 18 108/65 93 04/06/21 01:00 65 19 105/57 L 93 04/06/21 00:00 68 13 103/64 92 04/05/21 23:51 36.9 C 04/05/21 23:00 67 15 113/61 93 04/05/21 22:00 58 L 20 93 04/05/21 21:00 36.9 C 70 13 106/60 93 04/06/21 04:17 04/06/21 04:17 Coding Level of Care Code 53851 Subseq [facility] 3 Diagnoses Peritonitis (acute) generalized K65.0 Perforated bowel K63.1 Atrial fibrillation with RVR I48.91 Encephalopathy G93.40
[2021-04-06] MEDS: SENNOSIDES 8.8 MG/5 ML UDC PO SCH ×2 (08:22→20:00)
[2021-04-06] MEDS: FAMOTIDINE 20 MG in SYRINGE 3 ML IV SCH ×2 (08:24→22:34)
[2021-04-06] MEDS ORDERED: [UNRECOGNIZED DRUG - OTHER] IR SCH (10:30)
[2021-04-06] MEDS ORDERED: SODIUM BICARBONATE IR SCH (10:30)
[2021-04-06] MEDS ORDERED: SODIUM CHLORIDE 0.9% IR SCH (10:30)
--- NOTE | 2021-04-06 12:37 | Pharmacy Report ---
PHA: Parenteral Nutrition Con - Date of Service April 06, 2021 - Scope Pharmacy was consulted on 04/04 to manage parenteral nutrition orders for this patient. - Subjective The patient is currently on day [#] of [peripheral or central] parenteral nutrition for [INDICATION]. - Objective Height: 5 ft 7 in Weight: 67.9 kg Diet: NPO Vascular Access:: PICC Intake & Output (24hrs):: Intake & Output 04/04/21 04/05/21 04/06/21 04/07/21 06:59 06:59 06:59 06:59 Intake Total 3350 / 3350 2174.583 / 2174.583 1993.709 / 709 615 / 615 Output Total 1740 / 1740 1165 / 1165 2340 / 2340 150 / 150 Balance 1610 / 1610 1009.583 / 1009.583 -345.291 / -345.291 465 / 465 Weight 68.3 kg 68.3 kg 67.9 kg Additional Fluid Losses/Gains:: 140mL nasogastric drainage yesterday Laboratory Data (Last 24 Hr):: 04/06/21 04:17 Sodium 141 Potassium 3.4 L D Chloride 107 Carbon Dioxide 32 BUN 32 H Creatinine 0.53 L Glucose 136 H Calcium 8.0 L Phosphorus 3.9 D Magnesium 1.9 Nutrition Assessment:: Please refer to the Notes section of the EMR for the most recent pegger note. - Assessment Patient appears to be tolerating increasing dextrose. Will increase to 200g for today's back and anticipate will be at full goal tomorrow. Patient received 40kcl and 1g mag replacement today. Will increase potassium in TPN. - Plan For day 3 of PN administration, the following will be ordered: Macronutrients Amino acids 100 grams/day Dextrose 200 grams/day Lipids 50 grams/day Micronutrients Combined electrolytes mL - contains 35 mEq Na, 20 meq K, 4.5 mEq Ca, 5 mEq Mg, 35 mEq Cl, 29.5 mEq acetate per 20 mL Sodium phosphate 18 MMol Sodium chloride 20 mEq Sodium acetate 10 mEq Potassium chloride 40 mEq Magnesium sulfate 4.06 mEq Multivitamins 10 mL Trace Elements 1 mL Total volume 1600 mL to be infused over 24 hrs will provide 1580 kcal/day Final osmolarity 1332 mOsm/L (maximum for PPN is 900 mOsm/L) Labs, as indicated, will be ordered per protocol Pharmacy will continue to follow and adjust parenteral nutrition orders on a daily basis. Thank you for allowing us to participate in the care of this patient.
[2021-04-06] MEDS ORDERED: CENTRAL PN IV SCH (16:00)
[2021-04-06] MEDS ORDERED: TPN IV SCH (16:00)
--- NOTE | 2021-04-06 16:02 | Hospitalist Progress Note ---
Date of Service April 06, 2021 Assessment & Plan (1) H/O colectomy: S/p laparotomy with lysis of adhesions and enterolysis, small bowel resection, partial colectomy and reversal of colostomy on 03/[address] Mills. - Continue Zosyn per primary team - Still with NG tube as of 04/06; allowing ice chips - Continue TPN (2) Atrial fibrillation with RVR: Had one episode of atrial fibrillation on 04/05 for about 3 hours total. Spontaneously converted back to sinus and remains in sinus presently. - Chads-Vasc of 2 (age only) - Now that he's back in sinus, no need for rate-control; consider beta-mary to avoid RVR if he goes back into afib. - Defer anticoagulation for now given his ostomy output looks bloody. (3) Portal vein thrombosis: Recently completed 3-4 months of treatment with Xarelto for a thrombus of a branch of the portal vein. This was thought to be secondary to acute illness with perforated diverticulitis back in October 2020 as well as he recently had Covid-19 just before that. Repeat CT abdomen/pelvis on 03/25 shows persistent thrombus, but this is likely chronic at this point. - Monitor (4) Current smoker: - Counseled extensively on cessation. (5) Hypercholesterolemia: Holding home omega-3 fish oil Hold home aspirin (6) Prediabetes: Hemoglobin A1c 6.0% 1 year ago. Blood sugars here are acceptable. (7) BPH (benign prostatic hyperplasia): Noted in the chart but also noted on previous hospitalization have difficulty with Luns[place] catheter placement. CT abdomen/pelvis on 03/25 also notes evidence of chronic bladder outlet obstruction as well as enlarged heterogenous prostate gland with median lobe hypertrophy. - Follow for urinary retention after Lunsford catheter is removed - Should follow-up with urology as an outpatient (8) Lumbar spinal stenosis: Holding home gabapentin while NPO. - Restart home dose when able (9) DVT prophylaxis: Lovenox 40 mg SQ daily Admission and Anticipated Discharge Date Admission Date: March 28, 2021 Subjective Has abdominal pain today. No other pain. Reports no fevers/chills, chest pain, shortness of breath, nausea, or vomiting. Physical Exam Constitutional: WD/WN, vitals as above Eyes: EOM intact bilaterally; no conjunctival abnormality ENMT: external ear and nose normal, oropharynx normal Neck: trachea midline, no thyromegaly normal visual inspection Respiratory: normal respiratory effort, lungs clear to auscultation no respiratory distress Cardiovascular: RRR, no murmur, no edema Gastrointestinal (Abdomen): Inspection/Auscultation: normal bowel sounds and + abdominal surgical incision (With wound vac in place and ostomy with some red output); + abdomen abnormal to inspection and abdomen not distended Percussion/Palpation: + abdomen tender and abdomen soft; no guarding and abdomen not rigid Musculoskeletal: no cyanosis or clubbing, extremities motor strength 5/5 Skin: no rashes, warm and dry Neurologic: moves all extremities and awake Psychiatric: Orientation: alert, oriented to person and cooperative Results & Data Results & Data ([facility]) Vital Signs (Past 12 Hours) Vital Signs Temp Pulse Pulse Resp BP BP Pulse Ox 04/06/21 15:02 37.2 C 75 18 141/70 H 94 04/06/21 14:55 79 04/06/21 12:28 69 04/06/21 08:39 75 13 135/74 93 04/06/21 08:00 37.3 C 04/06/21 07:39 64 16 123/65 93 04/06/21 06:00 55 L 21 125/66 95 04/06/21 05:00 64 16 119/67 95 04/06/21 04:00 36.8 C 65 13 114/66 93 PG Care Time/CCT Total # of Minutes Spent Total Time Spent with Patient: Total time spent is greater than 50% in coordination of care (as documented) at patient's floor/unit and/or counseling patient: Coding Level of Care Code 94696 Subseq Hosp Care Lvl 3 Diagnoses H/O colectomy Z90.49 Atrial fibrillation with RVR I48.91 Portal vein thrombosis I81 Current smoker F17.200 Hypercholesterolemia E78.00 Prediabetes R73.03 BPH (benign prostatic hyperplasia) N40.0 Lumbar spinal stenosis M48.061 DVT prophylaxis Z29.9
[2021-04-07] MEDS: HYDROmorphone INJ 0.5 MG/0.5 ML SYR IV PRN ×5 (04:45→21:35)
[2021-04-07 06:14] LABS: Basophils # (auto) 0.01 K/uL (0-0.2); Basophils % (auto) 0.1 %; Eosinophils # (auto) 0.05 K/uL (0-0.5); Eosinophils % (auto) 0.4 %; Hematocrit (blood only) 34.7 % (42-52); Hemoglobin 11.8 g/dL (14.0-18.0); Immature Granulocytes # (auto) 0.12 K/uL (0.00-0.02); Immature Granulocytes % (auto) 0.9 %; Lymphocytes # (auto) 1.53 K/uL (1.2-3.4); Lymphocytes % (auto) 12.1 %; Mean Corpuscular Hemoglobin 31.2 pg (25-34); Mean Corpuscular Volume 91.8 fL (80-100); Monocytes # (auto) 1.27 K/uL (0.11-0.59); Neutrophils # (auto) 9.67 K/uL (1.4-6.5); Neutrophils % (auto) 76.5 %; Platelet Count 293 K/uL (130-400); RDW Coefficient of Variation 13.9 % (11.5-14.5); RDW Standard Deviation 46.9 fL (36.4-46.3); Red Blood Count 3.78 M/uL (4.7-6.1); White Blood Count 12.65 K/uL (4.8-10.8)
[2021-04-07] MEDS: PIPERACILLIN/TAZOBACTAM 3.375 GM in DEXTROSE 5% 100 ML IV SCH ×3 (06:20→21:17)
[2021-04-07] MEDS ORDERED: MINERAL OIL 30 ML UDC PO ONE (06:36)
--- NOTE | 2021-04-07 06:40 | Surgery Progress Note ---
Date of Service April 07, 2021 Assessment & Plan (1) H/O exploratory laparotomy: He is much more awake and alert-his H&H is stable His heart rate is normal He had significant output from his NG tube last night-bilious fluid He is not significantly distended, serous output from his colostomy indicating minimal GI function as yet We will give additional dose of mineral oil via NG tube, try some Reglan From a surgical standpoint regarding his anticoagulation-could try IV heparin with gradual increase and no bolus We will discuss with medical team Overall some slow progress Continue TPN Admission and Anticipated Discharge Date Admission Date: March 28, 2021 Results & Data ([facility]) Vital Signs (Past 12 Hours) Vital Signs Temp Pulse Resp BP Pulse Ox 04/07/21 03:41 36.4 C L 75 22 165/84 H 94 04/07/21 00:07 36.6 C 74 16 156/76 H 95 04/06/21 19:48 37.2 C 83 22 133/70 95 PG Care Time/CCT Total # of Minutes Spent Total Time Spent with Patient: Total time spent is greater than 50% in coordinat ion of care (as documented) at patient's floor/unit and/or counseling patient: Coding Level of Care Code None Diagnoses H/O exploratory laparotomy Z98.890
[2021-04-07 06:51] LABS: BUN Creatinine Ratio 47.9 (10-20); Creatinine Clr Calc Pharmacy 103.5 ml/min; Est GFR (African American) 115.7 ml/min; Est GFR (Non-African American) 99.8 ml/min; Magnesium 2.2 mg/dl (1.8-2.4); Phosphorus 3.6 mg/dl (2.5-4.9); Potassium 3.3 mmol/L (3.5-5.1)
[2021-04-07] MEDS: METOCLOPRAMIDE HCL INJ 5 MG/ML 2 ML VIAL IV SCH ×3 (07:51→18:32)
[2021-04-07] MEDS: SENNOSIDES 8.8 MG/5 ML UDC PO SCH ×2 (07:52→21:16)
[2021-04-07] MEDS: ENOXAPARIN INJ 40 MG/0.4 ML SYR SQ SCH (10:08)
[2021-04-07] MEDS: FAMOTIDINE 20 MG in SYRINGE 3 ML IV SCH ×2 (10:08→21:17)
[2021-04-07] MEDS: POTASSIUM CHLORIDE / WTR 10 MEQ/100 ML PLCT IV SCH ×4 (13:31→16:34)
[2021-04-07] MEDS ORDERED: TPN IV SCH (16:00)
[2021-04-07] MEDS ORDERED: CENTRAL PN IV SCH (16:00)
[2021-04-08] MEDS: HYDROmorphone INJ 0.5 MG/0.5 ML SYR IV PRN ×5 (00:38→21:54)
[2021-04-08] MEDS: METOCLOPRAMIDE HCL INJ 5 MG/ML 2 ML VIAL IV SCH ×4 (00:38→18:14)
[2021-04-08] MEDS: PIPERACILLIN/TAZOBACTAM 3.375 GM in DEXTROSE 5% 100 ML IV SCH ×3 (06:11→21:54)
--- NOTE | 2021-04-08 06:40 | Surgery Progress Note ---
Date of Service April 08, 2021 Assessment & Plan (1) H/O exploratory laparotomy: Patient more awake and alert Heart rate is sinus rhythm Tolerating NG removal Has some flatus in his colostomy bag We will try some clear liquids and advance very slowly Try to mobilize the patient, PT involved Still requiring IV Dilaudid which may slow his GI function Continue TPN Admission and Anticipated Discharge Date Admission Date: March 28, 2021 Results & Data ([facility]) Vital Signs (Past 12 Hours) Vital Signs Temp Pulse Resp BP Pulse Ox 04/08/21 04:05 37.1 C 82 22 150/86 H 95 04/08/21 00:35 37.3 C 80 22 123/83 94 04/07/21 20:47 37.0 C 83 20 152/91 H 94 PG Care Time/CCT Total # of Minutes Spent Total Time Spent with Patient: Total time spent is greater than 50% in coordination of care (as documented) at patient's floor/unit and/or counseling patient: Coding Level of Care Code None Diagnoses H/O exploratory laparotomy Z98.890
[2021-04-08 07:09] LABS: BUN Creatinine Ratio 48.7 (10-20); Calcium 7.8 mg/dl (8.5-10.1); Creatinine Clr Calc Pharmacy 126.5 ml/min; Est GFR (African American) 125.6 ml/min; Est GFR (Non-African American) 108.4 ml/min; Phosphorus 3.3 mg/dl (2.5-4.9); Potassium 3.5 mmol/L (3.5-5.1)
[2021-04-08] MEDS: ENOXAPARIN INJ 40 MG/0.4 ML SYR SQ SCH (09:48)
[2021-04-08] MEDS: SENNOSIDES 8.8 MG/5 ML UDC PO SCH ×2 (09:48→21:54)
[2021-04-08] MEDS: FAMOTIDINE 20 MG in SYRINGE 3 ML IV SCH ×2 (10:48→21:55)
[2021-04-08] MEDS ORDERED: ACETAMINOPHEN 1,000 MG/100 ML VIAL IV PRN (11:23)
[2021-04-08] MEDS: KETOROLAC TROMETHAMINE 15 MG/ML VIAL IV SCH ×2 (11:51→18:14)
[2021-04-08] MEDS ORDERED: CENTRAL PN IV SCH (16:00)
[2021-04-08] MEDS ORDERED: TPN IV SCH (16:00)
[2021-04-09] MEDS: KETOROLAC TROMETHAMINE 15 MG/ML VIAL IV SCH ×4 (00:22→18:13)
[2021-04-09] MEDS: METOCLOPRAMIDE HCL INJ 5 MG/ML 2 ML VIAL IV SCH ×4 (00:22→18:13)
[2021-04-09] MEDS: PIPERACILLIN/TAZOBACTAM 3.375 GM in DEXTROSE 5% 100 ML IV SCH ×3 (06:11→22:23)
[2021-04-09 07:18] LABS: Hemoglobin 11.7 g/dL (14.0-18.0); Mean Corpuscular Hemoglobin 31.6 pg (25-34); Mean Corpuscular Hgb Conc 33.4 g/dL (32-36); Mean Corpuscular Volume 94.6 fL (80-100); Mean Platelet Volume 9.4 fL (7.4-10.4); Platelet Count 446 K/uL (130-400); RDW Coefficient of Variation 14.1 % (11.5-14.5); RDW Standard Deviation 48.1 fL (36.4-46.3); White Blood Count 15.07 K/uL (4.8-10.8)
[2021-04-09 07:26] LABS: BUN Creatinine Ratio 39.3 (10-20); Creatinine Clr Calc Pharmacy 99.9 ml/min; Est GFR (Non-African American) 98.4 ml/min; Phosphorus 2.9 mg/dl (2.5-4.9); Potassium 3.7 mmol/L (3.5-5.1)
[2021-04-09] MEDS: ENOXAPARIN INJ 40 MG/0.4 ML SYR SQ SCH (08:59)
[2021-04-09] MEDS: FAMOTIDINE 20 MG in SYRINGE 3 ML IV SCH ×2 (08:59→21:56)
[2021-04-09] MEDS: SENNOSIDES 8.8 MG/5 ML UDC PO SCH ×2 (08:59→20:55)
--- NOTE | 2021-04-09 09:24 | Surgery Progress Note ---
Date of Service April 09, 2021 Assessment & Plan (1) H/O exploratory laparotomy: -Doing well, WBC did jump to 15 but afebrile, will trend CBC -Tolerating clears, but not taking much in, will leave on clears today but ostomy appears to be functioning -Leave drains in place -Continue TPN Admission and Anticipated Discharge Date Admission Date: March 28, 2021 Subjective Pt seen and examined. Abdominal pain controlled. Afebrile. No N/V but has not tried much clears this morning. Colostomy has started to function. Physical Exam Constitutional: WD/WN, vitals as above Gastrointestinal (Abdomen): Inspection/Auscultation: abdomen not distended Percussion/Palpation: + abdomen tender (appropriately ) and abdomen soft; no guarding +Colostomy in LLQ with stool present +2 drains with serous output Wound vac in place with good seal Results & Data ([place]) Vital Signs (Past 12 Hours) Vital Signs Temp Pulse Pulse Resp BP Pulse Ox 04/09/21 07:21 36.8 C 68 20 131/80 95 04/09/21 07:00 75 04/09/21 04:00 36.6 C 74 20 141/68 H 95 04/08/21 23:59 37.2 C 84 16 153/91 H 95 PG Care Time/CCT Total # of Minutes Spent Total Time Spent with Patient: Total time spent is greater than 50% in coordination of care (as documented) at patient's floor/unit and/or counseling patient: Coding Level of Care Code None Diagnoses H/O exploratory laparotomy Z98.890
--- NOTE | 2021-04-09 15:25 | Hospitalist Progress Note ---
Date of Service April 09, 2021 Assessment & Plan (1) H/O colectomy: S/p laparotomy with lysis of adhesions and enterolysis, small bowel resection, partial colectomy and reversal of colostomy on 03/[address] Mills. - Continue Zosyn per primary team - NG tube out as of 04/08; ostomy functioning. Presently on diet, but also with TPN. - Continue TPN per primary team (2) Atrial fibrillation with RVR: Had one episode of atrial fibrillation on 04/05 for about 3 hours total. Spontaneously converted back to sinus and remains in sinus presently. - Chads-Vasc of 2 (age only) - Now that he's back in sinus, no need for rate-control; consider beta-mary to avoid RVR if he goes back into afib. - Defer anticoagulation for now given the short duration of his atrial fibrillation. (3) Portal vein thrombosis: Recently completed 3-4 months of treatment with Xarelto for a thrombus of a branch of the portal vein. This was thought to be secondary to acute illness with perforated diverticulitis back in October 2020 as well as he recently had Covid-19 just before [address] Repeat CT abdomen/pelvis on 03/25 shows persistent thrombus, but this is likely chronic at this point. - Monitor (4) Current smoker: - Counseled on cessation. (5) Hypercholesterolemia: - Holding home omega-3 fish oil - Hold home aspirin (6) Prediabetes: Hemoglobin A1c 6.0% 1 year ago. Blood sugars here are acceptable. (7) BPH (benign prostatic hyperplasia): Noted in the chart but also noted on previous hospitalization have difficulty with Luns[place] catheter placement. CT abdomen/pelvis on 03/25 also notes evidence of chronic bladder outlet obstruction as well as enlarged heterogenous prostate gland with median lobe hypertrophy. - Follow for urinary retention after Luns[place] catheter is removed - Should follow-up with urology as an outpatient (8) Lumbar spinal stenosis: Holding home gabapentin while NPO. - Restart home dose when able (9) DVT prophylaxis: Lovenox 40 mg SQ daily Given medical stability, Hospital Medicine team will sign off. Please re-consult with any questions or concerns. Thank you for letting us assist in the care of t his patient! Admission and Anticipated Discharge Date Admission Date: March 28, 2021 Subjective Hospitalists following peripherally. Patient doing well today. No complaints of abdominal pain. He is tired this morning, but has no focal complaints. Reports no fevers/chills, chest pain, abdominal pain, nausea, or vomiting. Physical Exam Constitutional: WD/WN, vitals as above Eyes: EOM intact bilaterally; no conjunctival abnormality ENMT: external ear and nose normal, oropharynx normal Neck: trachea midline, no thyromegaly normal visual inspection Respiratory: normal respiratory effort, lungs clear to auscultation no respiratory distress Cardiovascular: RRR, no murmur, no edema Gastrointestinal (Abdomen): Inspection/Auscultation: normal bowel sounds and + abdominal surgical incision (With wound vac in place and ostomy with normal output); + abdomen abnormal to inspection and abdomen not distended Percussion/Palpation: abdomen soft; abdomen nontender, no guarding and abdomen not rigid Musculoskeletal: no cyanosis or clubbing, extremities motor strength 5/5 Skin: no rashes, warm and dry Neurologic: moves all extremities and awake Psychiatric: Orientation: alert, oriented to person and cooperative Results & Data Results & Data ([facility]) Vital Signs (Past 12 Hours) Vital Signs Temp Pulse Pulse Resp BP Pulse Ox 04/09/21 10:40 36.3 C L 83 19 147/86 H 94 04/09/21 07:21 36.8 C 68 20 131/80 95 04/09/21 07:00 75 04/09/21 04:00 36.6 C 74 20 141/68 H 95 PG Care Time/CCT Total # of Minutes Spent Total Time Spent with Patient: Total time spent is greater than 50% in coordination of care (as documented) at patient's floor/unit and/or counseling patient: Coding Level of Care Code 12702 Subseq Hosp Care Lvl 2 Diagnoses H/O colectomy Z90.49 Atrial fibrillation with RVR I48.91 Portal vein thrombosis I81 Current smoker F17.200 Hypercholesterolemia E78.00 Prediabetes R73.03 BPH (benign prostatic hyperplasia) N40.0 Lumbar spinal stenosis M48.061 DVT prophylaxis Z29.9
[2021-04-09] MEDS: CENTRAL PN IV SCH (16:01)
[2021-04-09] MEDS: TPN IV SCH (16:01)
[2021-04-09] MEDS: HYDROmorphone INJ 0.5 MG/0.5 ML SYR IV PRN (22:25)
[2021-04-10] MEDS: KETOROLAC TROMETHAMINE 15 MG/ML VIAL IV SCH ×2 (00:29→06:35)
[2021-04-10] MEDS: METOCLOPRAMIDE HCL INJ 5 MG/ML 2 ML VIAL IV SCH ×4 (00:29→19:56)
[2021-04-10] MEDS: PIPERACILLIN/TAZOBACTAM 3.375 GM in DEXTROSE 5% 100 ML IV SCH ×3 (06:35→22:53)
[2021-04-10 06:36] LABS: Hematocrit (blood only) 36.3 % (42-52); Hemoglobin 12.1 g/dL (14.0-18.0); Mean Corpuscular Hemoglobin 31.1 pg (25-34); Mean Corpuscular Hgb Conc 33.3 g/dL (32-36); Mean Corpuscular Volume 93.3 fL (80-100); Mean Platelet Volume 9.1 fL (7.4-10.4); Platelet Count 485 K/uL (130-400); RDW Coefficient of Variation 14.2 % (11.5-14.5); RDW Standard Deviation 48.2 fL (36.4-46.3); Red Blood Count 3.89 M/uL (4.7-6.1); White Blood Count 15.98 K/uL (4.8-10.8)
[2021-04-10 06:54] LABS: BUN Creatinine Ratio 42.2 (10-20); Creatinine Clr Calc Pharmacy 101.6 ml/min; Est GFR (African American) 114.8 ml/min; Est GFR (Non-African American) 99.1 ml/min
[2021-04-10 07:07] LABS: Basophils # (auto) 0.01 K/uL (0-0.2); Basophils % (auto) 0.1 %; Eosinophils # (auto) 0.21 K/uL (0-0.5); Eosinophils % (auto) 1.3 %; Immature Granulocytes # (auto) 0.15 K/uL (0.00-0.02); Immature Granulocytes % (auto) 0.9 %; Lymphocytes # (auto) 1.54 K/uL (1.2-3.4); Lymphocytes % (auto) 9.6 %; Neutrophils # (auto) 13.27 K/uL (1.4-6.5); Neutrophils % (auto) 83.1 %
[2021-04-10] MEDS: FAMOTIDINE 20 MG in SYRINGE 3 ML IV SCH ×2 (08:34→19:56)
[2021-04-10] MEDS: SENNOSIDES 8.8 MG/5 ML UDC PO SCH ×2 (08:35→19:58)
[2021-04-10] MEDS: ENOXAPARIN INJ 40 MG/0.4 ML SYR SQ SCH (08:35)
--- NOTE | 2021-04-10 10:25 | Surgery Progress Note ---
Date of Service April 10, 2021 Assessment & Plan (1) H/O exploratory laparotomy: POD 7 abdominal washout/colostomy WBC remains 15, afebrile, cont Zosyn advance to full liquids -Leave drains in place -Continue TPN seen with Dr. Lares Admission and Anticipated Discharge Date Admission Date: March 28, 2021 Subjective no nausea, pain better controlled Physical Exam Gastrointestinal (Abdomen): Inspection/Auscultation: + abdominal surgical drain present (minimal output, serous) Percussion/Palpation: abdomen soft wound vac in place, +ostomy output Results & Data ([facility]) Vital Signs (Past 12 Hours) Vital Signs Temp Pulse Pulse Resp BP BP Pulse Ox 04/10/21 07:35 36.7 C 77 20 140/74 97 04/10/21 07:21 73 04/09/21 22:39 37.1 C 78 18 150/88 H 95 PG Care Time/CCT Total # of Minutes Spent Total Time Spent with Patient: Total time spent is greater than 50% in coordination of care (as documented) at patient's floor/unit and/or counseling patient: Coding Level of Care Code None Diagnoses H/O exploratory laparotomy Z98.890
[2021-04-10] MEDS: CENTRAL PN IV SCH ×2 (15:58→17:01)
[2021-04-10] MEDS: TPN IV SCH ×2 (15:58→17:01)
[2021-04-10] MEDS: ONDANSETRON INJ 2 MG/ML 2 ML VIAL IV PRN (19:57)
[2021-04-10] MEDS: HYDROmorphone INJ 0.5 MG/0.5 ML SYR IV PRN (19:57)
[2021-04-11] MEDS: METOCLOPRAMIDE HCL INJ 5 MG/ML 2 ML VIAL IV SCH ×4 (02:08→18:02)
[2021-04-11] MEDS: oxyCODONE HCL IR 5 MG TAB (IMMEDIATE RELEASE) PO PRN ×4 (02:12→20:31)
[2021-04-11] MEDS: PIPERACILLIN/TAZOBACTAM 3.375 GM in DEXTROSE 5% 100 ML IV SCH ×3 (05:12→22:08)
--- NOTE | 2021-04-11 09:30 | Surgery Progress Note ---
Date of Service April 11, 2021 Assessment & Plan (1) H/O exploratory laparotomy: Patient's vital signs are stable He seems to be tolerating full liquids well Drains are serous Wound VAC in place We will advance to a low fiber diet today Continue TPN 1 more day We will remove right abdominal JONATHAN drain We will assess for possible discharge over the next 2 to 3 days-May need extended care But patient wishes to go back to his [facility]per We will need p.o. antibiotics as an outpatient Prefer follow-up with wound VAC at the wound clinic Admission and Anticipated Discharge Date Admission Date: March 28, 2021 Results & Data ([facility]) Vital Signs (Past 12 Hours) Vital Signs Temp Pulse Resp BP Pulse Ox 04/11/21 07:24 36.5 C 75 20 137/78 96 04/11/21 02:52 36.5 C 74 16 122/71 95 04/10/21 23:37 37.2 C 79 22 137/75 94 PG Care Time/CCT Total # of Minutes Spent Total Time Spent with Patient: Total time spent is greater than 50% in coordination of care (as documented) at patient's floor/unit and/or counseling patient: Coding Level of Care Code None Diagnoses H/O exploratory laparotomy Z98.890
[2021-04-11] MEDS: SENNOSIDES 8.8 MG/5 ML UDC PO SCH ×2 (09:37→20:31)
[2021-04-11] MEDS: FAMOTIDINE 20 MG in SYRINGE 3 ML IV SCH ×2 (09:38→20:31)
[2021-04-11] MEDS: HYDROmorphone INJ 0.5 MG/0.5 ML SYR IV PRN (09:38)
[2021-04-11] MEDS: ENOXAPARIN INJ 40 MG/0.4 ML SYR SQ SCH (09:38)
[2021-04-11] MEDS ORDERED: HYDROmorphone INJ 1 MG/ML SYRINGE IV PRN (11:39)
[2021-04-11] MEDS ORDERED: oxyCODONE HCL IR 5 MG TAB (IMMEDIATE RELEASE) PO PRN (11:39)
[2021-04-11] MEDS ORDERED: CENTRAL PN IV SCH (16:00)
[2021-04-11] MEDS ORDERED: TPN IV SCH (16:00)
[2021-04-11] MEDS: TPN IV SCH (16:34)
[2021-04-11] MEDS: CENTRAL PN IV SCH (16:34)
[2021-04-11] MEDS: GABAPENTIN 300 MG CAP PO SCH (20:31)
[2021-04-12] MEDS: METOCLOPRAMIDE HCL INJ 5 MG/ML 2 ML VIAL IV SCH ×4 (00:21→18:44)
[2021-04-12] MEDS: PIPERACILLIN/TAZOBACTAM 3.375 GM in DEXTROSE 5% 100 ML IV SCH ×3 (05:58→20:53)
[2021-04-12] MEDS: oxyCODONE HCL IR 5 MG TAB (IMMEDIATE RELEASE) PO PRN ×3 (06:04→20:58)
[2021-04-12 06:56] LABS: Hematocrit (blood only) 34.2 % (42-52); Hemoglobin 10.7 g/dL (14.0-18.0); Mean Corpuscular Hgb Conc 31.3 g/dL (32-36); Mean Corpuscular Volume 105.6 fL (80-100); Mean Platelet Volume 9.9 fL (7.4-10.4); Platelet Count 556 K/uL (130-400); RDW Coefficient of Variation 15.6 % (11.5-14.5); RDW Standard Deviation 59.8 fL (36.4-46.3); Red Blood Count 3.24 M/uL (4.7-6.1); White Blood Count 13.68 K/uL (4.8-10.8)
[2021-04-12 08:33] LABS: BUN Creatinine Ratio 41.6 (10-20); Creatinine Clr Calc Pharmacy 94.9 ml/min; Est GFR (African American) 111.6 ml/min; Est GFR (Non-African American) 96.3 ml/min
[2021-04-12 08:34] LABS: Phosphorus 3.3 mg/dl (2.5-4.9)
[2021-04-12] MEDS: SENNOSIDES 8.8 MG/5 ML UDC PO SCH ×2 (09:22→20:54)
[2021-04-12] MEDS: FAMOTIDINE 20 MG in SYRINGE 3 ML IV SCH ×2 (09:26→20:53)
[2021-04-12] MEDS: ENOXAPARIN INJ 40 MG/0.4 ML SYR SQ SCH (09:30)
--- NOTE | 2021-04-12 10:38 | Surgery Progress Note ---
Date of Service April 12, 2021 Assessment & Plan (1) H/O exploratory laparotomy: Seems to be tolerating some food Having difficulty participating in physical therapy We will stop his TPN after current bag complete Continue antibiotics for now, leave PICC line for now We will need wound VAC as an outpatient-wound clinic follow-up His Moraima and I feel he would do well at [facility] Possibly this week Admission and Anticipated Discharge Date Admission Date: March 28, 2021 Results & Data ([facility]) Vital Signs (Past 12 Hours) Vital Signs Temp Pulse Pulse Resp BP Pulse Ox 04/12/21 07:26 37.4 C 80 18 152/84 H 94 04/11/21 22:47 37.7 C H 99 H 18 138/78 95 PG Care Time/CCT Total # of Minutes Spent Total Time Spent with Patient: Total time spent is greater than 50% in coordination of care (as documented) at patient's floor/unit and/or counseling patient: Coding Level of Care Code None Diagnoses H/O exploratory laparotomy Z98.890
[2021-04-12] MEDS: GABAPENTIN 300 MG CAP PO SCH (20:53)
[2021-04-13] MEDS: METOCLOPRAMIDE HCL INJ 5 MG/ML 2 ML VIAL IV SCH ×2 (01:05→06:29)
[2021-04-13] MEDS: PIPERACILLIN/TAZOBACTAM 3.375 GM in DEXTROSE 5% 100 ML IV SCH ×2 (06:27→15:31)
[2021-04-13] MEDS ORDERED: ACETAMINOPHEN 1,000 MG/100 ML VIAL IV ONE (07:00)
--- NOTE | 2021-04-13 07:02 | Surgery Progress Note ---
Date of Service April 13, 2021 Assessment & Plan (1) H/O exploratory laparotomy: History of colostomy closure with colorectal anastomosis and subsequent leak with diffuse peritonitis Reoperation with colon resection and end colostomy , abdominal washout, IV antibiotics then p.o. for least 3 weeks Patient is very weak-he is tolerating some p.o., not participating in physical therapy Had a low-grade fever yesterday Has some gas in his colostomy bag, abdomen is slightly distended He does have active bowel sounds Wound VAC in place Drain is serous Seems to be voiding well Continues to receive Dilaudid but he is unsure what his pain is-we will stop IV Dilaudid Currently on p.o. oxycodone We will add IV acetaminophen Leave PICC in place-may need additional TPN Continue IV antibiotics We will check a CAT scan abdomen pelvis to rule out abscess Ask the medical team to continue to follow the patient, was seen by Dr. Antonio Viveros in the past Plan is to transfer to [facility] at some point but not quite yet Admission and Anticipated Discharge Date Admission Date: March 28, 2021 Results & Data ([facility]) Vital Signs (Past 12 Hours) Vital Signs Temp Pulse Resp BP Pulse Ox 04/13/21 06:18 37.3 C 87 16 136/75 93 04/12/21 22:52 37.3 C 99 H 18 135/72 96 PG Care Time/CCT Total # of Minutes Spent Total Time Spent with Patient: Total time spent is greater than 50% in coordination of care (as documented) at patient's floor/unit and/or counseling patient: Coding Level of Care Code None Diagnoses H/O exploratory laparotomy Z98.890
[2021-04-13] MEDS: FAMOTIDINE 20 MG in SYRINGE 3 ML IV SCH ×2 (08:03→20:50)
[2021-04-13] MEDS: ENOXAPARIN INJ 40 MG/0.4 ML SYR SQ SCH (08:03)
[2021-04-13] MEDS: SENNOSIDES 8.8 MG/5 ML UDC PO SCH ×3 (08:04→20:57)
--- NOTE | 2021-04-13 08:27 | Hospitalist Progress Note ---
Date of Service April 13, 2021 Assessment & Plan (1) Fever: Patient is fever and some fluid collection near his Hesham pouch some free air. His fever could be from drug fever but will subsequently change antibiotics to meropenem and covering antifungals with Diflucan. will need to discuss with radiology if the area of fluid collection seen is accessable for culture (2) H/O colectomy: S/p laparotomy with lysis of adhesions and enterolysis, small bowel resection, partial colectomy and reversal of colostomy on 03/[address] Mills. Returned to OR 04/03 due to anastomotic leak, re creation of Colostomy - Continue Zosyn per primary team - NG tube out as of 04/08; ostomy functioning. Presently on diet, but also with TPN. -pt is taking po well (3) Atrial fibrillation with RVR: Had one episode of atrial fibrillation on 04/05 for about 3 hours total. Spontaneously converted back to sinus and remains in sinus presently. - Chads-Vasc of 2 (age only) - Now that he's back in sinus, no need for rate-control; consider beta-mary to avoid RVR if he goes back into afib. - Defer anticoagulation for now given the short duration of his atrial fibrillation. (4) Portal vein thrombosis: Recently completed 3-4 months of treatment with Xarelto for a thrombus of a branch of the portal vein. This was thought to be secondary to acute illness with perforated diverticulitis back in October 2020 as well as he recently had Covid-19 just before [address] Repeat CT abdomen/pelvis on 03/25 shows persistent thrombus, but this is likely chronic at this point. - Monitor (5) Current smoker: - Counseled on cessation. (6) Hypercholesterolemia: - Holding home omega-3 fish oil - Hold home aspirin (7) Prediabetes: Hemoglobin A1c 6.0% 1 year ago. Blood sugars here are acceptable. (8) BPH (benign prostatic hyperplasia): Noted in the chart but also noted on previous hospitalization have difficulty with Luns[place] catheter placement. CT abdomen/pelvis on 03/25 also notes evidence of chronic bladder outlet obstruction as well as enlarged heterogenous prostate gland with median lobe hypertrophy. - Follow for urinary retention after Luns[place] catheter is removed - Should follow-up with urology as an outpatient (9) Lumbar spinal stenosis: Holding home gabapentin while NPO. - Restart home dose when able (10) DVT prophylaxis: Lovenox 40 mg SQ daily Admission and Anticipated Discharge Date Admission Date: March 28, 2021 Subjective Patient feels relatively normal poor appetite some left-sided abdominal discomfort periincisional. Patient had low-grade temperature overnight recent CT scan abdomen pelvis continued concern of extraluminal gas adjacent to the Hesham pouch small bowel dilatation is also noticed Review of Systems Review of Systems: Mild distress and fatigue no headache, no visual changes no speech or swallowing issues no chest pain, pressure or palpitations no shortness of breath, cough or wheezes Left-sided abdominal pain loss of appetite. No nausea or vomiting, diarrhea or constipation no dysuria, hematuria or frequency no focal joint pain or swelling no back pain, CVA tenderness or radicular pain no bruising, bleeding or rashes no focal signs of weakness or numbness or altered sensation no complaints of anxiety or depression.. Physical Exam Physical Exam: The patient appeared well nourished and normally developed. Vital signs as documented. Head exam is normocephalic atraumatic Neck is without JVD, thyromegaly, or carotid bruits. Lungs are clear to auscultation, no focal loss of breath sounds Cardiac exam, Rhythm is regular.. No murmurs, rubs or gallops. Abdominal exam reveals normal bowel sounds, colostomy in his mid abdomen pain just to the left side of it Extremities are nonedematous and both pedal pulses are present Neurologic exam is alert and oriented, no focal loss of strength or sensation Skin is without bruises or rashes Psychologically is without concerns for anxiety or depression Results & Data Results & Data ([facility]) Vital Signs (Past 12 Hours) Vital Signs Temp Pulse Resp BP Pulse Ox 04/13/21 06:18 99.1 F 87 16 136/75 93 04/12/21 22:52 99.1 F 99 H 18 135/72 96 PG Care Time/CCT Total # of Minutes Spent Total Time Spent with Patient: Total time spent is greater than 50% in coordination of care (as documented) at patient's floor/unit and/or counseling patient: Coding Level of Care Code 11334 Subseq Hosp Care Lvl 3 Diagnoses H/O colectomy Z90.49 Atrial fibrillation with RVR I48.91 Portal vein thrombosis I81 Current smoker F17.200 Hypercholesterolemia E78.00 Prediabetes R73.03 BPH (benign prostatic hyperplasia) N40.0 Lumbar spinal stenosis M48.061 DVT prophylaxis Z29.9 Fever R50.9
[2021-04-13] MEDS ORDERED: OPTIRAY 320 100ml IV ONE (10:17)
--- NOTE | 2021-04-13 10:58 | CT Scan Report ---
CT OF THE ABDOMEN AND PELVIS WITH CONTRAST CLINICAL HISTORY: h/o colon perforation COMPARISON STUDY: CT of the abdomen and pelvis and KUB April 03, 2021. TECHNIQUE: Following IV administration of 93 mL of Optiray, axial images of the abdomen and pelvis we re obtained from the lung bases to the proximal femurs. Images were reviewed in the axial, sagittal, and coronal planes. IV contrast was administered without complication. Automated exposure control wa s utilized for the study. A dose lowering technique was utilized adhering to the principles of ALARA . Oral contrast was administered. CT DOSE: 444.07 mGycm FINDINGS: Small right pleural effusion with associated atelectasis is noted. Postoperative findings c onsistent with interval descending colostomy with formation with Hesham pouch is noted. The liver, spleen, adrenal glands, kidneys and pancreatic cancer unremarkable. Moderate gallbladder distention i s unchanged. There is no gallbladder wall thickening. A descending colostomy is noted. Surgical drain is in place. A small amount of pneumoperitoneum is present. This has significantly decreased since C T of April 03, 2021. A small amount of intraluminal gas is noted adjacent to the proximal aspect of the Hesham pouch. A small amount of ascites is noted within the abdomen and pelvis. There is mesenteri c infiltration. No abscess is present. Major vasculature is patent. Mild dilatation of the small maddy l is noted. No well-defined transition point is noted. Oral contrast reaches the colon. Therefore, th ere is no evidence for a high-grade small bowel obstruction. Laparotomy is noted. No significant maddy l wall thickening is identified. IMPRESSION: 1. Interval descending colostomy with formation of a Hesham pouch. Small amount of pneumoperitoneum , significantly decreased since CT of April 03, 2021. This may be postsurgical however is more than exp ected 10 days following surgery. Given extraluminal gas adjacent to the Hesham pouch, perforation c annot be excluded. 2. Small amount of ascites within the abdomen and pelvis with mesenteric infiltration. No abscess. 3. Interval development of mild small bowel dilatation. However, no transition point identified and o ral contrast reaches the colon. Therefore, the findings favor an ileus. ACT 112: Negative or not required by law. Electronically signed by: Filippo Castillo M.D. 04/13/2021 10:57 AM
[2021-04-13] MEDS ORDERED: MEROPENEM CONSULT ACITVE PRN (19:23)
[2021-04-13] MEDS: GABAPENTIN 300 MG CAP PO SCH (20:50)
[2021-04-13] MEDS: FLUCONAZOLE 200 MG/100 ML BAG IV SCH (20:50)
[2021-04-13] MEDS: MEROPENEM 500 MG in SYRINGE 0 ML IV SCH (21:54)
[2021-04-13] MEDS: ACETAMINOPHEN 325 MG TAB PO PRN (23:30)
[2021-04-14] MEDS: MEROPENEM 500 MG in SYRINGE 0 ML IV SCH ×4 (03:35→20:17)
[2021-04-14] MEDS ORDERED: VANCOMYCIN HCL 1,500 MG in SODIUM CHLORIDE 0.9% 500 ML IV ONE (06:04)
[2021-04-14] MEDS ORDERED: VANCOMYCIN CONSULT ACTIVE PRN (06:04)
--- NOTE | 2021-04-14 06:25 | Surgery Progress Note ---
Date of Service April 14, 2021 Assessment & Plan (1) H/O exploratory laparotomy: Plan: Patient with low-grade fever Some tachycardia-history of episode of A. fib We will obtain blood cultures Some concern for PICC line-May consider removing this later this morning We will add an empiric dose of vancomycin He does have bowel sounds and is colostomy has been functioning Continue diet as ordered Check EKG Admission and Anticipated Discharge Date Admission Date: March 28, 2021 Results & Data ([place]) Vital Signs (Past 12 Hours) Vital Signs Temp Pulse Resp BP Pulse Ox 04/14/21 00:53 37.2 C 04/13/21 23:14 38.0 C H 107 H 18 138/79 94 PG Care Time/CCT Total # of Minutes Spent Total Time Spent with Patient: Total time spent is greater than 50% in coordination of care (as documented) at patient's floor/unit and/or counseling patient: Coding Level of Care Code None Diagnoses H/O exploratory laparotomy Z98.890
[2021-04-14 07:15] LABS: BUN Creatinine Ratio 28.7 (10-20); Calcium 8.4 mg/dl (8.5-10.1); Creatinine Clr Calc Pharmacy 109.5 ml/min; Est GFR (African American) 118.4 ml/min; Est GFR (Non-African American) 102.1 ml/min; Potassium 3.6 mmol/L (3.5-5.1)
[2021-04-14 07:22] LABS: Creatinine Clr Calc Pharmacy 99.9 ml/min; Est GFR (Non-African American) 98.4 ml/min
[2021-04-14 07:42] LABS: Hematocrit (blood only) 34.3 % (42-52); Hemoglobin 11.4 g/dL (14.0-18.0); Mean Corpuscular Hemoglobin 30.9 pg (25-34); Mean Corpuscular Hgb Conc 33.2 g/dL (32-36); Platelet Count 639 K/uL (130-400); Red Blood Count 3.69 M/uL (4.7-6.1); White Blood Count 13.72 K/uL (4.8-10.8)
[2021-04-14] MEDS: FAMOTIDINE 20 MG in SYRINGE 3 ML IV SCH ×2 (08:13→20:17)
[2021-04-14] MEDS: ENOXAPARIN INJ 40 MG/0.4 ML SYR SQ SCH (08:14)
[2021-04-14] MEDS: SENNOSIDES 8.8 MG/5 ML UDC PO SCH ×2 (08:14→20:18)
--- NOTE | 2021-04-14 09:19 | Pharmacy Report ---
Pharmacy Abx Dose Short Note - Date of Service April 14, 2021 - Assessment & Plan Assessment 76 year old M admitted on 03/28/21 s/p laparotomy with lysis of adhesions and enterolysis, small bowel resection, partial colectomy and reversal of colostomy. * PMHx significant for perforated diverticulitis s/p colostomy in 10/2020, portal vein thrombosis, anal cancer, GERD, PUD, prediabetes, and current every day smoker. * Patient received 10 days of Zosyn from 04/03/21-04/13/21. He had a PICC line plac ed on 04/04/21 for initiation of TPN which has now been discontinued. * Yesterday, the patient developed a fever (Tmax of 38oC) and CT A/P showed some fluid collection near his Hesham pouch with some free air. There were concerns for patient's status worsening so he was initially switched from Zosyn to Meropenem and Fluconazole. * This morning, surgical team added empiric vancomycin for possible PICC line infection. * Currently, he is afebrile with a leukocytosis of 13.7k. Renal fxn is stable. Will follow blood cultures. Possible removal of PICC line today. Plan Vancomycin - ordered empirically (48 hour stop) * AUC/NATHAN is the preferred PK/PD target for Vancomycin dosing * Loading Dose: 1500 mg (23 mg/kg) IV x 1 * Maintenance Dose: 750 mg (11 mg/kg) IV every 8 hours * AUC based dosing. This regimen is predicted to achieve a steady-state AUC/NATHAN of 555 mg/L.hr and trough of 18.5 mcg/mL. This regimen has a 15% risk of nephrotoxicity. * Will order a trough level for 04/15/21 prior to the 1400 dose in case Vancomycin is to continue beyond 48 hours of therapy Meropenem - pharmacy consult * 500 mg IV every 6 hours * Appropriate per indication and renal function Fluconazole - NOT a pharmacy consult * 200 mg IV every 24 hours * This is below the FDA-approved dose of 400 mg IV once daily for candidemia. Will follow-up with provider. Pharmacy will continue to follow and will adjust dose/frequency as necessary. Thank you.
[2021-04-14] MEDS: oxyCODONE HCL IR 5 MG TAB (IMMEDIATE RELEASE) PO PRN ×3 (14:24→23:04)
[2021-04-14] MEDS: VANCOMYCIN HCL 750 MG in SODIUM CHLORIDE 0.9% 250 ML IV SCH ×2 (14:25→21:36)
--- NOTE | 2021-04-14 16:47 | Electrocardiogram Report ---
Test Reason : Blood Pressure : / mmHG Vent. Rate : 089 BPM Atrial Rate : 089 BPM P-R Int : 132 ms QRS Dur : 088 ms QT Int : 372 ms P-R-T Axes : 069 -07 055 degrees QTc Int : 452 ms Sinus rhythm with Fusion complexes Otherwise normal ECG When compared with ECG of 05-APR-2021 14:46, Sinus rhythm has replaced Atrial fibrillation Vent. rate has decreased BY [address] no longer depressed in Anterolateral leads Nonspecific T wave abnormality no longer evident in Anterolateral leads Confirmed by Fox Vidal ([id number]) on 04/14/2021 4:47:12 PM Referred By: Humberto Mills Confirmed By:Miguel Vidal
--- NOTE | 2021-04-14 18:48 | Hospitalist Progress Note ---
Date of Service April 14, 2021 Assessment & Plan (1) Fever: Plan: New onset fever in the perioperative period approximately 11 days from surgery for peritoneal soilage from dehiscence of bowel anastomosis. Patient with left- sided abdominal pain persistent low-grade temperature and white count in the low teens. Blood culture obtained antibiotics were amended to meropenem and fluconazole. Vancomycin added 715 for concern for possible line infection. Alternative source would be drug fever however with persistent physical pain we will continue to survey for intra-abdominal issues (2) H/O colectomy: Plan: Colostomy is functioning well (3) Atrial fibrillation with RVR: Plan: Of atrial fibrillation now in sinus rhythm not on long-term anticoagulation at this point time. The patient had 1 episode of 3 hours of atrial fibrillation on 04/05 felt to be secondary to significant illness (4) Portal vein thrombosis: Plan: Patient recently completed 3 to 4 months of Xarelto treatment for branch of the portal vein thrombosis. This was felt secondary to acute perforated diverticulitis in 2020. (5) Current smoker: Plan: Patient now been hospitalized for some time continues to be counseled for smoking cessation (6) Hypercholesterolemia: (7) Prediabetes: Plan: Hemoglobin A1c as an outpatient was 6.0 (8) BPH (benign prostatic hyperplasia): Plan: Previous imaging shows chronic bladder outlet obstruction with enlarged heterogeneous prostate gland previously difficult [place] catheter placement recommends outpatient follow-up with urology (9) Lumbar spinal stenosis: Plan: Patient with very little symptoms from's lumbar spinal stenosis continuing to consider gabapentin restarting if symptoms recur he also typically will take meloxicam if needed pain (10) DVT prophylaxis: Plan: Lovenox 40 mg a day Admission and Anticipated Discharge Date Admission Date: March 28, 2021 Subjective Patient continues to have some left abdominal discomfort in an area that is seen to be mildly abnormal on CT scan abdomen pelvis. Again fever was had overnight blood cultures were obtained concern from surgery for PICC line infection. PICC line site is not tender nor red vancomycin was initiated in addition to meropenem and fluconazole Review of Systems Review of Systems: Mild distress and fatigue no headache, no visual changes no speech or swallowing issues no chest pain, pressure or palpitations no shortness of breath, cough or wheezes Continues with left-sided abdominal pain loss of appetite. No nausea or vom iting, diarrhea or constipation no dysuria, hematuria or frequency no focal joint pain or swelling no back pain, CVA tenderness or radicular pain no bruising, bleeding or rashes right arm PICC line site is clean dry without tenderness or erythema no focal signs of weakness or numbness or altered sensation no complaints of anxiety or depression.. Physical Exam Physical Exam: The patient appeared well nourished and normally developed. Vital signs as documented. Head exam is normocephalic atraumatic Neck is without JVD, thyromegaly, or carotid bruits. Lungs are clear to auscultation, no focal loss of breath sounds Cardiac exam, Rhythm is regular.. No murmurs, rubs or gallops. Abdominal exam reveals normal bowel sounds, colostomy in his mid abdomen pain just to the left side of it Extremities are nonedematous and both pedal pulses are present Neurologic exam is alert and oriented, no focal loss of strength or sensation Skin is without bruises or rashes Psychologically is without concerns for anxiety or depression Results & Data Results & Data ([facility]) Vital Signs (Past 12 Hours) Vital Signs Temp Pulse Resp BP Pulse Ox 04/14/21 15:47 98.6 F 92 H 16 141/79 H 95 04/14/21 07:28 98.6 F 84 18 135/80 95 PG Care Time/CCT Total # of Minutes Spent Total Time Spent with Patient: Total time spent is greater than 50% in coordination of care (as documented) at patient's floor/unit and/or counseling patient: Coding Level of Care Code 13450 Subseq Hosp Care Lvl 3 Diagnoses Fever R50.9 H/O colectomy Z90.49 Atrial fibrillation with RVR I48.91 Portal vein thrombosis I81 Current smoker F17.200 Hypercholesterolemia E78.00 Prediabetes R73.03 BPH (benign prostatic hyperplasia) N40.0 Lumbar spinal stenosis M48.061 DVT prophylaxis Z29.9
[2021-04-14] MEDS: FLUCONAZOLE 200 MG/100 ML BAG IV SCH (20:17)
[2021-04-14] MEDS: GABAPENTIN 300 MG CAP PO SCH (20:18)
[2021-04-15] MEDS: MEROPENEM 500 MG in SYRINGE 0 ML IV SCH ×4 (03:50→19:31)
[2021-04-15] MEDS: VANCOMYCIN HCL 750 MG in SODIUM CHLORIDE 0.9% 250 ML IV SCH ×3 (06:06→21:32)
[2021-04-15 06:31] LABS: Hemoglobin 10.9 g/dL (14.0-18.0); Mean Corpuscular Volume 93.8 fL (80-100); Mean Platelet Volume 9.2 fL (7.4-10.4); Platelet Count 662 K/uL (130-400); RDW Coefficient of Variation 14.1 % (11.5-14.5); RDW Standard Deviation 48.3 fL (36.4-46.3); Red Blood Count 3.52 M/uL (4.7-6.1); White Blood Count 10.83 K/uL (4.8-10.8)
[2021-04-15 06:54] LABS: BUN Creatinine Ratio 31.3 (10-20); Calcium 8.3 mg/dl (8.5-10.1); Creatinine Clr Calc Pharmacy 118.2 ml/min; Est GFR (African American) 122.3 ml/min; Est GFR (Non-African American) 105.6 ml/min; Potassium 3.5 mmol/L (3.5-5.1)
[2021-04-15] MEDS: ENOXAPARIN INJ 40 MG/0.4 ML SYR SQ SCH (08:27)
[2021-04-15] MEDS: FAMOTIDINE 20 MG in SYRINGE 3 ML IV SCH ×2 (08:27→19:38)
[2021-04-15] MEDS: SENNOSIDES 8.8 MG/5 ML UDC PO SCH ×2 (08:27→19:32)
--- NOTE | 2021-04-15 08:49 | Surgery Progress Note ---
Date of Service April 15, 2021 Assessment & Plan (1) H/O exploratory laparotomy: Plan: Patient more awake and alert Vital signs are stable and he is afebrile Currently on Diflucan, vancomycin/empirically, and meropenem Blood cultures are negative so far Seems to be tolerating food better with improved GI function PICC line in place for now Needs significant physical therapy-[facility] when felt stable Admission and Anticipated Discharge Date Admission Date: March 28, 2021 Results & Data ([facility]) Vital Signs (Past 12 Hours) Vital Signs Temp Pulse Pulse Resp BP Pulse Ox 04/15/21 07:16 36.8 C 84 16 144/82 H 94 04/14/21 22:24 37.2 C 81 15 162/85 H 95 PG Care Time/CCT Total # of Minutes Spent Total Time Spent with Patient: Total time spent is greater than 50% in coordin ation of care (as documented) at patient's floor/unit and/or counseling patient: Coding Level of Care Code None Diagnoses H/O exploratory laparotomy Z98.890
[2021-04-15] MEDS: oxyCODONE HCL IR 5 MG TAB (IMMEDIATE RELEASE) PO PRN (10:08)
[2021-04-15] MEDS: ACETAMINOPHEN 325 MG TAB PO PRN (11:53)
[2021-04-15] MEDS ORDERED: VANCOMYCIN TROUGH ONE (13:30)
[2021-04-15] MEDS ORDERED: HYDROmorphone INJ 0.5 MG/0.5 ML SYR IV STA (13:50)
--- NOTE | 2021-04-15 15:07 | Pharmacy Report ---
Pharmacy Abx Dose Short Note - Date of Service April 15, 2021 - Assessment & Plan Assessment 76 year old M admitted on 03/28/21 s/p laparotomy with lysis of adhesions and enterolysis, small bowel resection, partial colectomy and reversal of colostomy. * Day #2 of vancomycin, meropenem and fluconazole therapy. * Afebrile greater than 24 hours. Leukocytosis improved. Renal fxn stable. * Cultures with no growth to date but still preliminary * Per surgical team, continue Vancomycin until cultures are final. Extended therapy. Plan Vancomycin * Trough level of 12.4 mcg/mL is subtherapeutic but predicts a AUC/NATHAN of greater than 400 mg/L.hr * Continue dose of 750 mg IV every 8 hours * No further troughs will be ordered unless therapy to continue beyond another 48 hours Meropenem * Continue 500 mg IV every 6 hours Pharmacy will continue to follow and will adjust dose/frequency as necessary. Thank you.
--- NOTE | 2021-04-15 19:01 | Hospitalist Progress Note ---
Date of Service April 15, 2021 Assessment & Plan (1) Fever: Plan: New onset fever in the perioperative period approximately 11 days from surgery for peritoneal soilage from dehiscence of bowel anastomosis. Patient with left- sided abdominal pain persistent low-grade temperature and white count in the low teens. Blood culture obtained antibiotics were amended to meropenem and fluconazole. Vancomycin added 715 for concern for possible line infection. Alternative source would be drug fever however with persistent physical pain we will continue to survey for intra-abdominal issues. no fever with antibiotic change continue to monitor (2) H/O colectomy: Plan: Colostomy is functioning well (3) Atrial fibrillation with RVR: Plan: Of atrial fibrillation now in sinus rhythm not on long-term anticoagulation at this point time. The patient had 1 episode of 3 hours of atrial fibrillation on 04/05 felt to be secondary to significant illness (4) Portal vein thrombosis: Plan: Patient recently completed 3 to 4 months of Xarelto treatment for branch of the portal vein thrombosis. This was felt secondary to acute perforated diverticulitis in 2020. (5) Current smoker: Plan: Patient now been hospitalized for some time continues to be counseled for smoking cessation (6) Hypercholesterolemia: (7) Prediabetes: Plan: Hemoglobin A1c as an outpatient was 6.0 (8) BPH (benign prostatic hyperplasia): Plan: Previous imaging shows chronic bladder outlet obstruction with enlarged heterogeneous prostate gland previously difficult [place] catheter placement recommends outpatient follow-up with urology (9) Lumbar spinal stenosis: Plan: Patient with very little symptoms from's lumbar spinal stenosis continuing to consider gabapentin restarting if symptoms recur he also typically will take meloxicam if needed pain (10) DVT prophylaxis: Plan: Lovenox 40 mg a day Admission and Anticipated Discharge Date Admission Date: March 28, 2021 Subjective Patient continues with left abdominal discomfort in an area that is seen to be mildly abnormal on CT scan abdomen pelvis. no fever since antibiotic change, PICC line site is not tender nor red vancomycin was initiated in addition to meropenem and fluconazole Review of Systems Review of Systems: Mild distress and fatigue no headache, no visual changes no speech or swallowing issues no chest pain, pressure or palpitations no shortness of breath, cough or wheezes Continues with left-sided abdominal pain loss of appetite. No nausea or vomiting, diarrhea or constipation no dysuria, hematuria or frequency no focal joint pain or swelling no back pain, CVA tenderness or radicular pain no bruising, bleeding or rashes right arm PICC line site is clean dry without tenderness or erythema no focal signs of weakness or numbness or altered sensation no complaints of anxiety or depression.. Physical Exam Physical Exam: The patient appeared well nourished and normally developed. Vital signs as documented. Head exam is normocephalic atraumatic Neck is without JVD, thyromegaly, or carotid bruits. Lungs are clear to auscultation, no focal loss of breath sounds Cardiac exam, Rhythm is regular.. No murmurs, rubs or gallops. Abdominal exam reveals normal bowel sounds, colostomy in his mid abdomen pain just to the left side of it Extremities are nonedematous and both pedal pulses are present Neurologic exam is alert and oriented, no focal loss of strength or sensation Skin is without bruises or rashes Psychologically is without concerns for anxiety or depression Results & Data Results & Data ([facility]) Vital Signs (Past 12 Hours) Vital Signs Temp Pulse Pulse Resp BP Pulse Ox 04/15/21 15:17 97.7 F 78 16 116/70 94 04/15/21 07:16 98.2 F 84 16 144/82 H 94 PG Care Time/CCT Total # of Minutes Spent Total Time Spent with Patient: Total time spent is greater than 50% in coordination of care (as documented) at patient's floor/unit and/or counseling patient: Coding Level of Care Code 16321 Subseq Hosp Care Lvl 2 Diagnoses Fever R50.9 H/O colectomy Z90.49 Atrial fibrillation with RVR I48.91 Portal vein thrombosis I81 Current smoker F17.200 Hypercholesterolemia E78.00 Prediabetes R73.03 BPH (benign prostatic hyperplasia) N40.0 Lumbar spinal stenosis M48.061 DVT prophylaxis Z29.9
[2021-04-15] MEDS: FLUCONAZOLE 200 MG/100 ML BAG IV SCH (19:27)
[2021-04-15] MEDS: GABAPENTIN 300 MG CAP PO SCH (19:31)
[2021-04-16] MEDS: MEROPENEM 500 MG in SYRINGE 0 ML IV SCH ×4 (03:03→20:24)
[2021-04-16] MEDS: VANCOMYCIN HCL 750 MG in SODIUM CHLORIDE 0.9% 250 ML IV SCH ×3 (05:33→21:24)
[2021-04-16] MEDS: oxyCODONE HCL IR 5 MG TAB (IMMEDIATE RELEASE) PO PRN ×3 (05:37→15:20)
[2021-04-16 06:09] LABS: Hematocrit (blood only) 31.4 % (42-52); Hemoglobin 10.3 g/dL (14.0-18.0); Mean Corpuscular Hemoglobin 30.7 pg (25-34); Mean Corpuscular Hgb Conc 32.8 g/dL (32-36); Mean Corpuscular Volume 93.7 fL (80-100); Mean Platelet Volume 8.7 fL (7.4-10.4); Platelet Count 614 K/uL (130-400); RDW Standard Deviation 48.3 fL (36.4-46.3); Red Blood Count 3.35 M/uL (4.7-6.1); White Blood Count 7.08 K/uL (4.8-10.8)
[2021-04-16 06:44] LABS: BUN Creatinine Ratio 25.3 (10-20); Calcium 8.1 mg/dl (8.5-10.1); Creatinine Clr Calc Pharmacy 126.5 ml/min; Est GFR (African American) 125.6 ml/min; Est GFR (Non-African American) 108.4 ml/min; Potassium 3.4 mmol/L (3.5-5.1)
[2021-04-16] MEDS ORDERED: POTASSIUM CHLORIDE CRTAB 20 MEQ TABCR PO STA (08:54)
[2021-04-16] MEDS: SENNOSIDES 8.8 MG/5 ML UDC PO SCH ×2 (09:39→20:24)
[2021-04-16] MEDS: ENOXAPARIN INJ 40 MG/0.4 ML SYR SQ SCH (09:41)
--- NOTE | 2021-04-16 09:48 | Surgery Progress Note ---
Date of Service April 16, 2021 Assessment & Plan (1) H/O exploratory laparotomy: Plan: s/p reversal of colostomy complicated by anastamotic breakdown and repeat colostomy on 04/03. Slowly improving. Needs to continue to work with PT/OT to get stronger. D/c planning. On low fiber diet. Ostomy functioning. On antibiotics - no further fevers since 04/13, normal WBC today. PICC line in place. Admission and Anticipated Discharge Date Admission Date: March 28, 2021 Subjective Pt wants to go home. Wondering about discharge plans. Tolerating diet. Still with some pain but this is managed. Low appetite. No nausea/ vomiting. Physical Exam Constitutional: WD/WN, vitals as above Respiratory: normal respiratory effort, lungs clear to auscultation Cardiovascular: RRR, no murmur, no edema Gastrointestinal (Abdomen): Inspection/Auscultation: + abdomen distended (mild), normal bowel sounds and + abdominal surgical scar (wound vac in place) Percussion/Palpation: abdomen soft ostomy with gas/ stool in bag Neurologic: awake; no focal motor deficits Results & Data ([facility]) Vital Signs (Past 12 Hours) Vital Signs Temp Pulse Resp BP Pulse Ox 04/16/21 07:28 36.5 C 82 16 147/85 H 94 04/15/21 22:51 37.5 C 90 16 156/82 H 96 Laboratory Results Abnormal lab results 04/16/21 04/16/21 Range/Units 05:48 05:48 RBC 3.35 L (4.7-6.1) M/uL Hgb 10.3 L (14.0-18.0) g/dL Hct 31.4 L (42-52) % RDW Std Deviation 48.3 H (36.4-46.3) fL Plt Count 614 H (130-400) K/uL Potassium 3.4 L (3.5-5.1) mmol/L Creatinine 0.45 L (0.6-1.4) mg/dl BUN/Creatinine Ratio 25.3 H (10-20) Calcium 8.1 L (8.5-10.1) mg/dl
[2021-04-16] MEDS: FAMOTIDINE 20 MG in SYRINGE 3 ML IV SCH ×2 (09:52→20:24)
--- NOTE | 2021-04-16 17:46 | Hospitalist Progress Note ---
Date of Service April 16, 2021 Assessment & Plan (1) Fever: Plan: New onset fever in the perioperative period approximately 11 days from surgery for peritoneal soilage from dehiscence of bowel anastomosis. Patient with left- sided abdominal pain persistent low-grade temperature and white count in the low teens. Blood culture obtained antibiotics were amended to meropenem and fluconazole. Vancomycin added 715 for concern for possible line infection. Alternative source would be drug fever however with persistent physical pain we will continue to survey for intra-abdominal issues. no fever with antibiotic change continue to monitor no new medical changes at this time (2) H/O colectomy: Plan: Colostomy is functioning well (3) Atrial fibrillation with RVR: Plan: Of atrial fibrillation now in sinus rhythm not on long-term anticoagulation at this point time. The patient had 1 episode of 3 hours of atrial fibrillation on 04/05 felt to be secondary to significant illness (4) Portal vein thrombosis: Plan: Patient recently completed 3 to 4 months of Xarelto treatment for branch of the portal vein thrombosis. This was felt secondary to acute perforated diverticulitis in 2020. (5) Current smoker: Plan: Patient now been hospitalized for some time continues to be counseled for smoking cessation (6) Hypercholesterolemia: (7) Prediabetes: Plan: Hemoglobin A1c as an outpatient was 6.0 (8) BPH (benign prostatic hyperplasia): Plan: Previous imaging shows chronic bladder outlet obstruction with enlarged heterogeneous prostate gland previously difficult [place] catheter placement recommends outpatient follow-up with urology (9) Lumbar spinal stenosis: Plan: Patient with very little symptoms from's lumbar spinal stenosis continuing to consider gabapentin restarting if symptoms recur he also typically will take meloxicam if needed pain (10) DVT prophylaxis: Plan: Lovenox 40 mg a day Admission and Anticipated Discharge Date Admission Date: March 28, 2021 Subjective pt feels slightly improved still has some abdominal pain, wants to go home but understands that will have antibiotics thru the weekend Review of Systems Review of Systems: Mild distress and fatigue no headache, no visual changes no speech or swallowing issues no chest pain, pressure or palpitations no shortness of breath, cough or wheezes Continues with left-sided abdominal pain loss of appetite. No nausea or vomiting, diarrhea or constipation no dysuria, hematuria or frequency no focal joint pain or swelling no back pain, CVA tenderness or radicular pain no bruising, bleeding or rashes right arm PICC line site is clean dry without tenderness or erythema no focal signs of weakness or numbness or altered sensation no complaints of anxiety or depression.. Physical Exam Physical Exam: The patient appeared well nourished and normally developed. Vital signs as documented. Head exam is normocephalic atraumatic Neck is without JVD, thyromegaly, or carotid bruits. Lungs are clear to auscultation, no focal loss of breath sounds Cardiac exam, Rhythm is regular.. No murmurs, rubs or gallops. Abdominal exam reveals normal bowel sounds, colostomy in his mid abdomen pain just to the left side of it Extremities are nonedematous and both pedal pulses are present Neurologic exam is alert and oriented, no focal loss of strength or sensation Skin is without bruises or rashes Psychologically is without concerns for anxiety or depression Results & Data Results & Data ([facility]) Vital Signs (Past 12 Hours) Vital Signs Temp Pulse Resp BP Pulse Ox 04/16/21 15:15 99.0 F 85 16 160/85 H 94 04/16/21 07:28 97.7 F 82 16 147/85 H 94 PG Care Time/CCT Total # of Minutes Spent Total Time Spent with Patient: Total time spent is greater than 50% in coordination of care (as documented) at patient's floor/unit and/or counseling patient: Coding Level of Care Code 31123 Subseq Hosp Care Lvl 2 Diagnoses Fever R50.9 H/O colectomy Z90.49 Atrial fibrillation with RVR I48.91 Portal vein thrombosis I81 Current smoker F17.200 Hypercholesterolemia E78.00 Prediabetes R73.03 BPH (benign prostatic hyperplasia) N40.0 Lumbar spinal stenosis M48.061 DVT prophylaxis Z29.9
[2021-04-16] MEDS: FLUCONAZOLE 200 MG/100 ML BAG IV SCH (20:24)
[2021-04-16] MEDS: GABAPENTIN 300 MG CAP PO SCH (20:24)
[2021-04-16] MEDS: ACETAMINOPHEN 325 MG TAB PO PRN (22:42)
[2021-04-17] MEDS: MEROPENEM 500 MG in SYRINGE 0 ML IV SCH ×4 (04:31→20:53)
[2021-04-17] MEDS: VANCOMYCIN HCL 750 MG in SODIUM CHLORIDE 0.9% 250 ML IV SCH ×2 (05:09→14:43)
[2021-04-17 06:36] LABS: Hematocrit (blood only) 34.7 % (42-52); Hemoglobin 11.3 g/dL (14.0-18.0); Mean Corpuscular Hemoglobin 31.2 pg (25-34); Mean Corpuscular Hgb Conc 32.6 g/dL (32-36); Mean Corpuscular Volume 95.9 fL (80-100); Mean Platelet Volume 9.1 fL (7.4-10.4); Platelet Count 665 K/uL (130-400); RDW Coefficient of Variation 13.8 % (11.5-14.5); RDW Standard Deviation 48.3 fL (36.4-46.3); Red Blood Count 3.62 M/uL (4.7-6.1); White Blood Count 7.17 K/uL (4.8-10.8)
[2021-04-17 07:18] LABS: BUN Creatinine Ratio 19.2 (10-20); Calcium 8.7 mg/dl (8.5-10.1); Creatinine Clr Calc Pharmacy 109.5 ml/min; Est GFR (African American) 118.4 ml/min; Est GFR (Non-African American) 102.1 ml/min; Potassium 3.5 mmol/L (3.5-5.1)
[2021-04-17] MEDS: SENNOSIDES 8.8 MG/5 ML UDC PO SCH ×2 (08:39→20:53)
[2021-04-17] MEDS: ENOXAPARIN INJ 40 MG/0.4 ML SYR SQ SCH (08:39)
[2021-04-17] MEDS: oxyCODONE HCL IR 5 MG TAB (IMMEDIATE RELEASE) PO PRN ×3 (08:43→19:33)
[2021-04-17] MEDS: FAMOTIDINE 20 MG in SYRINGE 3 ML IV SCH ×2 (08:44→20:53)
--- NOTE | 2021-04-17 09:34 | Surgery Progress Note ---
Date of Service April 17, 2021 Assessment & Plan (1) H/O exploratory laparotomy: Plan: s/p reversal of colostomy complicated by anastamotic breakdown and repeat colostomy on 04/03. Slowly improving. Needs to continue to work with PT/OT to get stronger. D/c planning. On low fiber diet. Ostomy functioning. On antibiotics - no further fevers since 04/13, labs looks OK. PICC line in place. Awaiting final culture results but no growth to date. No new recommendations. Admission and Anticipated Discharge Date Admission Date: March 28, 2021 Subjective Having pain this morning. Just received some pain meds and is now resting comfortably. Tolerating diet but low appetite. Ostomy is functional. Physical Exam Constitutional: WD/WN, vitals as above Respiratory: normal respiratory effort, lungs clear to auscultation Cardiovascular: RRR, no murmur, no edema Gastrointestinal (Abdomen): Inspection/Auscultation: + abdomen distended (mild), normal bowel sounds and + abdominal surgical scar (wound vac in place) Percussion/Palpation: abdomen soft Neurologic: awake; no focal motor deficits Results & Data ([facility]) Vital Signs (Past 12 Hours) Vital Signs Temp Pulse Resp BP Pulse Ox 04/17/21 07:41 37.2 C 98 H 16 168/88 H 94 04/16/21 23:12 37.4 C 04/16/21 22:33 37.8 C H 99 H 16 150/89 H 95 Laboratory Results Abnormal lab results 04/17/21 04/17/21 Range/Units 05:44 05:44 RBC 3.62 L (4.7-6.1) M/uL Hgb 11.3 L (14.0-18.0) g/dL Hct 34.7 L (42-52) % RDW Std Deviation 48.3 H (36.4-46.3) fL Plt Count 665 H (130-400) K/uL Creatinine 0.52 L (0.6-1.4) mg/dl
--- NOTE | 2021-04-17 12:47 | Hospitalist Progress Note ---
Date of Service April 17, 2021 Assessment & Plan (1) Fever: Plan: fever in the perioperative period approximately 11 days from surgery for peritoneal soilage from dehiscence of bowel anastomosis. Patient with left- sided abdominal pain fever now resolved with meropenem, fluconazole and Vancomycin added 715 challenge to create po antibiotics for home, can do levaquin to cover gram neg and pseudomonas, diflucan po, but will decide if need mrsa coverage, line still is not painful, and blood cultures are negative (2) H/O colectomy: Plan: Colostomy is functioning well (3) Atrial fibrillation with RVR: Plan: Of atrial fibrillation now in sinus rhythm not on long-term anticoagulation at this point time. The patient had 1 episode of 3 hours of atrial fibrillation on 04/05 felt to be secondary to significant illness (4) Portal vein thrombosis: Plan: Patient recently completed 3 to 4 months of Xarelto treatment for branch of the portal vein thrombosis. This was felt secondary to acute perforated diverticulitis in 2020. (5) Current smoker: Plan: Patient now been hospitalized for some time continues to be counseled for smoking cessation (6) Hypercholesterolemia: (7) Prediabetes: Plan: Hemoglobin A1c as an outpatient was 6.0 (8) BPH (benign prostatic hyperplasia): Plan: Previous imaging shows chronic bladder outlet obstruction with enlarged heterogeneous prostate gland previously difficult [place] catheter placement recommends outpatient follow-up with urology (9) Lumbar spinal stenosis: Plan: Patient with very little symptoms from's lumbar spinal stenosis continuing to consider gabapentin restarting if symptoms recur he also typically will take meloxicam if needed pain (10) DVT prophylaxis: Plan: Lovenox 40 mg a day Admission and Anticipated Discharge Date Admission Date: March 28, 2021 Subjective Pt continues to have improvement, still not walking in halls, encourage, is improved with current antibiotic regimen, will need to consider po regimen Review of Systems Review of Systems: Mild distress and fatigue no headache, no visual changes no speech or swallowing issues no chest pain, pressure or palpitations no shortness of breath, cough or wheezes Continues with left-sided abdominal pain loss of appetite. No nausea or vomiting, diarrhea or constipation no dysuria, hematuria or frequency no focal joint pain or swelling no back pain, CVA tenderness or radicular pain no bruising, bleeding or rashes right arm PICC line site is clean dry without tenderness or erythema no focal signs of weakness or numbness or altered sensation no complaints of anxiety or depression.. Physical Exam Physical Exam: The patient appeared well nourished and normally developed. Vital signs as documented. Head exam is normocephalic atraumatic Neck is without JVD, thyromegaly, or carotid bruits. Lungs are clear to auscultation, no focal loss of breath sounds Cardiac exam, Rhythm is regular.. No murmurs, rubs or gallops. Abdominal exam reveals normal bowel sounds, colostomy in his mid abdomen, continues with pain just to the left side of it Extremities are nonedematous and both pedal pulses are present Neurologic exam is alert and oriented, no focal loss of strength or sensation Skin is without bruises or rashes Psychologically is without concerns for anxiety or depression Results & Data Results & Data ([facility]) Vital Signs (Past 12 Hours) Vital Signs Temp Pulse Resp BP Pulse Ox 04/17/21 07:41 99.0 F 98 H 16 168/88 H 94 PG Care Time/CCT Total # of Minutes Spent Total Time Spent with Patient: Total time spent is greater than 50% in coordination of care (as documented) at patient's floor/unit and/or counseling patient: Coding Level of Care Code 45351 Subseq Hosp Care Lvl 2 Diagnoses Fever R50.9 H/O colectomy Z90.49 Atrial fibrillation with RVR I48.91 Portal vein thrombosis I81 Current smoker F17.200 Hypercholesterolemia E78.00 Prediabetes R73.03 BPH (benign prostatic hyperplasia) N40.0 Lumbar spinal stenosis M48.061 DVT prophylaxis Z29.9
[2021-04-17] MEDS ORDERED: VANCOMYCIN TROUGH ONE (13:30)
--- NOTE | 2021-04-17 15:53 | Pharmacy Report ---
Pharmacy Abx Dose Short Note - Date of Service April 17, 2021 - Assessment & Plan Assessment 76 year old M admitted on 03/28/21 s/p laparotomy with lysis of adhesions and enterolysis, small bowel resection, partial colectomy and reversal of colostomy. * Day #4 of vancomycin, meropenem and fluconazole therapy. * Leukocytosis improved. Renal fxn stable. * Blood cultures with no growth to date but still preliminary * Per surgical team, continue Vancomycin until cultures are final. Extended therapy Plan Vancomycin * AUC/NATHAN is the preferred PK/PD target for vancomycin * Target AUC/NATHAN = 400-600 * Trough level of 14.6 mcg/mL is predicted to achieve target AUC/NATHAN * AUC guided dosing is effective and associated with decreased risk of nephrotoxicity * Continue dose of 750 mg IV every 8 hours until cultures finalize * No further trough ordered Pharmacy will continue to follow and will adjust dose/frequency as necessary. Thank you.
[2021-04-17] MEDS: FLUCONAZOLE 200 MG/100 ML BAG IV SCH (20:52)
[2021-04-17] MEDS: GABAPENTIN 300 MG CAP PO SCH (20:54)
[2021-04-18] MEDS: MEROPENEM 500 MG in SYRINGE 0 ML IV SCH ×4 (03:59→19:58)
--- NOTE | 2021-04-18 06:24 | Surgery Progress Note ---
Date of Service April 18, 2021 Assessment & Plan (1) H/O exploratory laparotomy: Plan: Patient more awake and alert Seems to be tolerating diet with colostomy function Temp 37. 8 2 days ago Wound VAC in place with no erythema, abdomen is softer Patient apparently is moving more and out of bed more Blood cultures are negative so far His drain does have some purulent fluid which is not unexpected and will leave drain Clinically he is stable-we will discuss with medical team if ID consult would be helpful Likely should stay on antibiotics 1-2 additional weeks Discharge to [facility] at some point Admission and Anticipated Discharge Date Admission Date: March 28, 2021 Results & Data ([facility]) Vital Signs (Past 12 Hours) Vital Signs Temp Pulse Resp BP Pulse Ox 04/17/ 22:20 37.5 C 93 H 16 147/85 H 94 PG Care Time/CCT Total # of Minutes Spent Total Time Spent with Patient: Total time spent is greater than 50% in coordination of care (as documented) at patient's floor/unit and/or counseling patient: Coding Level of Care Code None Diagnoses H/O exploratory laparotomy Z98.890
[2021-04-18 06:41] LABS: Creatinine Clr Calc Pharmacy 125.7 ml/min; Est GFR (African American) 125.6 ml/min; Est GFR (Non-African American) 108.4 ml/min
--- NOTE | 2021-04-18 07:50 | Hospitalist Progress Note ---
Date of Service April 18, 2021 Assessment & Plan (1) Fever: Plan: fever in the perioperative period approximately 11 days from surgery for peritoneal soilage from dehiscence of bowel anastomosis. Patient with left- sided abdominal pain fever now resolved with meropenem, fluconazole and Vancomycin added 715-> out pt regime recommends cipro/flagyl/diflucan (2) H/O colectomy: Plan: Colostomy is functioning well (3) Atrial fibrillation with RVR: Plan: Of atrial fibrillation now in sinus rhythm not on long-term anticoagulation at this point time. The patient had 1 episode of 3 hours of atrial fibrillation on 04/05 felt to be secondary to significant illness (4) Portal vein thrombosis: Plan: Patient recently completed 3 to 4 months of Xarelto treatment for branch of the portal vein thrombosis. This was felt secondary to acute perforated diverticulitis in 2020. (5) Current smoker: Plan: Patient now been hospitalized for some time continues to be counseled for smoking cessation (6) Hypercholesterolemia: (7) Prediabetes: Plan: Hemoglobin A1c as an outpatient was 6.0 (8) BPH (benign prostatic hyperplasia): Plan: Previous imaging shows chronic bladder outlet obstruction with enlarged heterogeneous prostate gland previously difficult [place] catheter placement recommends outpatient follow-up with urology (9) Lumbar spinal stenosis: Plan: Patient with very little symptoms from's lumbar spinal stenosis continuing to consider gabapentin restarting if symptoms recur he also typically will take meloxicam if needed pain (10) DVT prophylaxis: Plan: Lovenox 40 mg a day Admission and Anticipated Discharge Date Admission Date: March 28, 2021 Subjective Pt continues to have improvement, still not walking in halls, encourage, is improved with current antibiotic regimen, will need to consider po regimen Review of Systems Review of Systems: Mild distress and fatigue no headache, no visual changes no speech or swallowing issues no chest pain, pressure or palpitations no shortness of breath, cough or wheezes Continues with left-sided abdominal pain loss of appetite. No nausea or vomiting, diarrhea or constipation no dysuria, hematuria or frequency no focal joint pain or swelling no back pain, CVA tenderness or radicular pain no bruising, bleeding or rashes right arm PICC line site is clean dry without tenderness or erythema no focal signs of weakness or numbness or altered sensation no complaints of anxiety or depression.. Physical Exam Physical Exam: The patient appeared well nourished and normally developed. Vital signs as documented. Head exam is normocephalic atraumatic Neck is without JVD, thyromegaly, or carotid bruits. Lungs are clear to auscultation, no focal loss of breath sounds Cardiac exam, Rhythm is regular.. No murmurs, rubs or gallops. Abdominal exam reveals normal bowel sounds, colostomy in his mid abdomen, continues with pain just to the left side of it Extremities are nonedematous and both pedal pulses are present Neurologic exam is alert and oriented, no focal loss of strength or sensation Skin is without bruises or rashes Psychologically is without concerns for anxiety or depression Results & Data Results & Data ([facility]) Vital Signs (Past 12 Hours) Vital Signs Temp Pulse Resp BP Pulse Ox 04/18/21 06:36 98.2 F 89 14 146/85 H 95 04/17/21 22:20 99.5 F 93 H 16 147/85 H 94 PG Care Time/CCT Total # of Minutes Spent Total Time Spent with Patient: Total time spent is greater than 50% in coordination of care (as documented) at patient's floor/unit and/or counseling patient: Coding Level of Care Code 35932 Subseq Hosp Care Lvl 2 Diagnoses Fever R50.9 H/O colectomy Z90.49 Atrial fibrillation with RVR I48.91 Portal vein thrombosis I81 Current smoker F17.200 Hypercholesterolemia E78.00 Prediabetes R73.03 BPH (benign prostatic hyperplasia) N40.0 Lumbar spinal stenosis M48.061 DVT prophylaxis Z29.9
[2021-04-18] MEDS: FAMOTIDINE 20 MG in SYRINGE 3 ML IV SCH ×2 (08:36→20:00)
[2021-04-18] MEDS: ENOXAPARIN INJ 40 MG/0.4 ML SYR SQ SCH (08:37)
[2021-04-18] MEDS: SENNOSIDES 8.8 MG/5 ML UDC PO SCH ×2 (08:37→20:00)
[2021-04-18] MEDS: oxyCODONE HCL IR 5 MG TAB (IMMEDIATE RELEASE) PO PRN ×3 (10:12→19:57)
[2021-04-18] MEDS: ACETAMINOPHEN 325 MG TAB PO PRN (16:18)
[2021-04-18] MEDS: FLUCONAZOLE 200 MG/100 ML BAG IV SCH (19:57)
[2021-04-18] MEDS: GABAPENTIN 300 MG CAP PO SCH (19:58)
[2021-04-19] MEDS: MEROPENEM 500 MG in SYRINGE 0 ML IV SCH ×2 (03:09→09:18)
[2021-04-19 06:30] LABS: Creatinine Clr Calc Pharmacy 128.6 ml/min; Est GFR (African American) 126.8 ml/min; Est GFR (Non-African American) 109.4 ml/min
--- NOTE | 2021-04-19 08:58 | Surgery Progress Note ---
Date of Service April 19, 2021 Assessment & Plan (1) H/O exploratory laparotomy: Plan: Patient's vital signs are stable He is tolerating p.o. IV antibiotics continue He needs significant physical therapy's especially with ambulation and will need assisted with rehab Wound VAC is in place Colostomy functioning We will need to decide on p.o. antibiotics-Cipro/Flagyl or Augmentin which I would prefer, also patient is on Diflucan We will leave drain in place for now May consider transfer in 1 to 2 days Admission and Anticipated Discharge Date Admission Date: March 28, 2021 Results & Data ([facility]) Vital Signs (Past 12 Hours) Vital Signs Temp Pulse Resp BP Pulse Ox 04/19/21 07:54 37.0 C 88 16 137/80 94 04/19/21 00:22 36.6 C 91 H 16 147/83 H 94 PG Care Time/CCT Total # of Minutes Spent Total Time Spent with Patient: Total time spent is greater than 50% in coordination of care (as documented) at patient's floor/unit and/or counseling patient: Coding Level of Care Code None Diagnoses H/O exploratory laparotomy Z98.890
[2021-04-19] MEDS: oxyCODONE HCL IR 5 MG TAB (IMMEDIATE RELEASE) PO PRN (09:17)
[2021-04-19] MEDS: ENOXAPARIN INJ 40 MG/0.4 ML SYR SQ SCH (09:17)
[2021-04-19] MEDS: SENNOSIDES 8.8 MG/5 ML UDC PO SCH ×2 (09:18→19:56)
[2021-04-19] MEDS: FAMOTIDINE 20 MG in SYRINGE 3 ML IV SCH ×2 (09:18→19:56)
[2021-04-19] MEDS ORDERED: metroNIDAZOLE 500 MG TAB PO SCH (14:00)
[2021-04-19] MEDS ORDERED: HYDROCODONE/ACETAMOPHEN 5/325MG TAB PO PRN ×2 (14:25)
[2021-04-19] MEDS: SODIUM CHLORIDE 0.9% 1000ML 1,000 ML IV SCH (14:33)
--- NOTE | 2021-04-19 15:37 | Hospitalist Progress Note ---
Date of Service April 19, 2021 Assessment & Plan (1) Fever: Plan: fever in the perioperative period approximately 11 days from surgery for peritoneal soilage from dehiscence of bowel anastomosis. Patient with left- sided abdominal pain fever now resolved with meropenem, fluconazole and Vancomycin added 715-> out pt regime recommends cipro/flagyl/diflucan. This was discussed with Dr. Mills who is preferring Augmentin/Diflucan. Will transition to oral antibiotic therapy now and continue to monitor to ensure patient does not have any further leukocytosis/fever spikes He does seem very depressed. Likely situational given his lengthy hospitalization and postoperative complications. We will hold off on adding any new medication for now (2) H/O colectomy: Plan: Colostomy is functioning well (3) Atrial fibrillation with RVR: Plan: Has remained in normal sinus rhythm with controlled ventricular rate. Likely was related to catecholamine release from peritonitis. not on long-term anticoagulation at this point time. The patient had 1 episode of 3 hours of atrial fibrillation on 04/05 felt to be secondary to significant illness (4) Portal vein thrombosis: Plan: Patient recently completed 3 to 4 months of Xarelto treatment for branch of the portal vein thrombosis. This was felt secondary to acute perforated diverticulitis in 2020. (5) Current smoker: Plan: Patient now been hospitalized for some time continues to be counseled for smoking cessation (6) Hypercholesterolemia: (7) Prediabetes: Plan: Hemoglobin A1c as an outpatient was 6.0 (8) BPH (benign prostatic hyperplasia): Plan: Previous imaging shows chronic bladder outlet obstruction with enlarged heterogeneous prostate gland previously difficult [place] catheter placement recommends outpatient follow-up with urology (9) Lumbar spinal stenosis: Plan: Patient with very little symptoms from's lumbar spinal stenosis continuing to consider gabapentin restarting if symptoms recur he also typically will take meloxicam if needed pain (10) DVT prophylaxis: Plan: Lovenox 40 mg a day Plan: * From a medical standpoint, no contraindications to proceed with discharge to [facility] facility. Patient remains afebrile without leukocytosis. He is tolerating oral intake and denies any abdominal discomfort. He is stooling in the colostomy bag. Would advise 14 days of antibiotic therapy. Disposition/discharge at discretion of primary team. Admission and Anticipated Discharge Date Admission Date: March 28, 2021 Subjective Patient seen on daily rounds today. He is a 76-year-old white male with a past medical history of a portal vein thrombosis, impaired fasting glucose, BPH, and lumbar spinal stenosis. He is under the services of Dr. Mills. Medicine has been following daily. Patient has had a complicated hospital course. Admitted 03/28 for lap assisted open colostomy closure and anastomosis along with lysis of adhesions. (Had perforated diverticulitis in October 2020 resulting in a diverting colostomy). Developed a postoperative ileus with fever starting postop day #4. On postop day #5, patient developed leukocytosis of 16,000 with altered mental status. Follow-up CT scan showed developing abscess. Patient taken to the operating room on 04/03 where he had evidence of peritonitis for colorectal anastomosis dehiscence. He had a washout with JONATHAN drain and subsequently a wound VAC. Was on Cefoxitin. Despite that, had persistent fevers. On 04/13, antibiotic regimen changed to Merrem/Diflucan. Still with low-grade fever for which vancomycin added on 04/14. Patient defervesced around 04/16 and he has remained afebrile since. White blood cell count has remained within normal limits. Patient has remained very depressed and unmotivated. Has gotten out of bed very little. He denies fevers, chills, chest pain, shortness of breath, abdominal pain, nausea or vomiting. He is tolerating oral intake. He is passing flatus and stooling in the colostomy bag. Case management is on board as plan is for discharge to [facility] pending authorization. Review of Systems Review of Systems: All systems reviewed and are unremarkable except as noted in HPI and below Denies fevers, chills, headache, nasal congestion, sore throat, cough, chest pain, shortness of breath, abdominal pain, nausea, vomiting, dysuria, hematuria, frequency, skin lesions or rashes. Physical Exam Physical Exam: General: Resting comfortably in his hospital bed. Very flat affect. Does not appear ill or toxic Neck: No JVD. Negative hepatojugular reflex Cardiac: RRR without M/G/R Lungs: CTA without W/R/R Abdomen: Normoactive X4. Abdomen is nondistended. It is soft and nontender. JONATHAN drain to left abdomen. Wound VAC noted. Dressing dry and intact. Extremities: No peripheral clubbing cyanosis or edema Neuro: A&O X4 cranial nerves II through XII are grossly intact no focal neuro deficits Skin: No obvious skin lesions or rashes other than abdominal wound noted Results & Data Results & Data ([facility]) Vital Signs (Past 12 Hours) Vital Signs Temp Pulse Resp BP Pulse Ox 04/19/21 07:54 37.0 C 88 16 137/80 94 Laboratory Results No lab data today PG Care Time/CCT Total # of Minutes Spent Total Time Spent with Patient: Total time spent is greater than 50% in coordination of care (as documented) at patient's floor/unit and/or counseling patient: Coding [place] [address] Inpt Consult Level 3 Patient Type Established History Expanded Problem Focused Exam Expanded Problem Focused Medical Decision Making Low Complexity Diagnoses Fever R50.9 H/O colectomy Z90.49 Atrial fibrillation with RVR I48.91 Portal vein thrombosis I81 Current smoker F17.200 Hypercholesterolemia E78.00 Prediabetes R73.03 BPH (benign prostatic hyperplasia) N40.0 Lumbar spinal stenosis M48.061 DVT prophylaxis Z29.9
[2021-04-19 15:50] LABS: Albumin Level 1.8 gm/dl (3.4-5.0); BUN Creatinine Ratio 18.9 (10-20); Calcium 8.3 mg/dl (8.5-10.1); Creatinine Clr Calc Pharmacy 125.7 ml/min; Est GFR (African American) 125.6 ml/min; Est GFR (Non-African American) 108.4 ml/min; Magnesium 1.9 mg/dl (1.8-2.4); Potassium 3.4 mmol/L (3.5-5.1)
[2021-04-19 15:52] LABS: Albumin Globulin Ratio 0.4 (0.9-2); Bilirubin,Total 0.4 mg/dl (0.2-1); Globulin 4.4 gm/dl (2.5-4.0); Phosphorus 3.2 mg/dl (2.5-4.9); Total Protein 6.2 gm/dl (6.4-8.2)
[2021-04-19] MEDS: AMOXICILLIN/CLAVULANATE 875 MG TAB PO SCH (17:06)
[2021-04-19] MEDS: GABAPENTIN 300 MG CAP PO SCH (19:56)
[2021-04-19] MEDS ORDERED: CIPROFLOXACIN 500 MG TAB PO SCH (21:00)
[2021-04-20] MEDS: SODIUM CHLORIDE 0.9% 1000ML 1,000 ML IV SCH (03:26)
[2021-04-20 06:07] LABS: Basophils # (auto) 0.01 K/uL (0-0.2); Basophils % (auto) 0.2 %; Eosinophils # (auto) 0.09 K/uL (0-0.5); Eosinophils % (auto) 1.4 %; Hematocrit (blood only) 31.3 % (42-52); Hemoglobin 10.3 g/dL (14.0-18.0); Immature Granulocytes # (auto) 0.01 K/uL (0.00-0.02); Immature Granulocytes % (auto) 0.2 %; Lymphocytes % (auto) 23.9 %; Mean Corpuscular Hemoglobin 30.4 pg (25-34); Mean Corpuscular Hgb Conc 32.9 g/dL (32-36); Mean Corpuscular Volume 92.3 fL (80-100); Mean Platelet Volume 8.9 fL (7.4-10.4); Monocytes # (auto) 0.96 K/uL (0.11-0.59); Monocytes % (auto) 15.3 %; Platelet Count 471 K/uL (130-400); RDW Coefficient of Variation 13.6 % (11.5-14.5); RDW Standard Deviation 45.6 fL (36.4-46.3); Red Blood Count 3.39 M/uL (4.7-6.1); White Blood Count 6.27 K/uL (4.8-10.8)
--- NOTE | 2021-04-20 06:28 | Surgery Progress Note ---
Date of Service April 20, 2021 Assessment & Plan (1) H/O exploratory laparotomy: Plan: Patient's vital signs are stable He does seem somewhat depressed-expected in this situation I believe a new environment will help significantly His urine output is very good He is tolerating his diet Colostomy is functioning Wound VAC in place no evidence of infection Leave drain until next week Continue Augmentin, Diflucan, currently on hydrocodone with acetaminophen I believe the patient will benefit from transfer to [facility] for acute rehab and [facility] care We will see him in the office next week We will discuss with the medical team Admission and Anticipated Discharge Date Admission Date: March 28, 2021 Results & Data ([facility]) Vital Signs (Past 12 Hours) Vital Signs Temp Pulse Resp BP Pulse Ox 04/19/21 23:21 36.6 C 87 16 131/79 85 L PG Care Time/CCT Total # of Minutes Spent Total Time Spent with Patient: Total time spent is greater than 50% in coordination of care (as documented) at patient's floor/unit and/or counseling patient: Coding Level of Care Code None Diagnoses H/O exploratory laparotomy Z98.890
[2021-04-20 06:45] LABS: BUN Creatinine Ratio 17.3 (10-20); Calcium 7.9 mg/dl (8.5-10.1); Creatinine Clr Calc Pharmacy 161.6 ml/min; Est GFR (African American) 139.3 ml/min; Est GFR (Non-African American) 120.2 ml/min; Magnesium 1.7 mg/dl (1.8-2.4)
[2021-04-20] MEDS: AMOXICILLIN/CLAVULANATE 875 MG TAB PO SCH (08:43)
[2021-04-20] MEDS: FAMOTIDINE 20 MG in SYRINGE 3 ML IV SCH (08:44)
[2021-04-20] MEDS: ENOXAPARIN INJ 40 MG/0.4 ML SYR SQ SCH (08:44)
[2021-04-20] MEDS: SENNOSIDES 8.8 MG/5 ML UDC PO SCH (08:45)
[2021-04-20] MEDS ORDERED: FLUCONAZOLE 100 MG TAB PO SCH (09:00)
[2021-04-20] MEDS ORDERED: POTASSIUM CHLORIDE CRTAB 20 MEQ TABCR PO STA (09:40)
[2021-04-20] MEDS ORDERED: MAGNESIUM OXIDE 400 MG TAB PO STA (09:40)
[2021-04-20] MEDS ORDERED: ALUMINUM/MAGNESIUM SUSP 30 ML UDC PO STA (10:53)
[2021-04-20] MEDS ORDERED: ALUMINUM/MAGNESIUM SUSP 30 ML UDC ONE (11:03)
--- NOTE | 2021-04-20 16:25 | Hospitalist Progress Note ---
Date of Service April 20, 2021 Assessment & Plan (1) Fever: Plan: fever in the perioperative period approximately 11 days from surgery for peritoneal soilage from dehiscence of bowel anastomosis. Patient with left- sided abdominal pain fever now resolved with meropenem, fluconazole and Vancomycin added 715-> out pt regime recommends cipro/flagyl/diflucan. This was discussed with Dr. Mills who is preferring Augmentin/Diflucan. Patient to complete full course (total of 2 weeks) From a medical standpoint, no contraindication to proceed with discharge He does seem very depressed. Likely situational given his lengthy hospitalization and postoperative complications. We will hold off on adding any new medication for now (2) Electrolyte abnormality: Plan: * Hypokalemia and hypomagnesemiareplaced prior to discharge. * Rx for continued supplementation * Recommend follow-up lab data by house physician to trend (3) H/O colectomy: Plan: Colostomy is functioning well Follow-up with general surgery as suggested by them (4) Atrial fibrillation with RVR: Plan: Has remained in normal sinus rhythm with controlled ventricular rate. Likely was related to catecholamine release from peritonitis. not on long-term anticoagulation at this point time. The patient had 1 episode of 3 hours of atrial fibrillation on 04/05 felt to be secondary to significant illness (5) Portal vein thrombosis: Plan: Patient recently completed 3 to 4 months of Xarelto treatment for branch of the portal vein thrombosis. This was felt secondary to acute perforated diverticulitis in 2020. (6) Current smoker: Plan: Patient now been hospitalized for some time continues to be counseled for smoking cessation (7) Hypercholesterolemia: (8) Prediabetes: Plan: Hemoglobin A1c as an outpatient was 6.0 (9) BPH (benign prostatic hyperplasia): Plan: Previous imaging shows chronic bladder outlet obstruction with enlarged heterogeneous prostate gland previously difficult Lunsford catheter placement recommends outpatient follow-up with urology (10) Lumbar spinal stenosis: Plan: Patient with very little symptoms from's lumbar spinal stenosis continuing to consider gabapentin restarting if symptoms recur he also typically will take meloxicam if needed pain (11) DVT prophylaxis: Plan: Lovenox 40 mg a day Plan: * From a medical standpoint, no contraindications to proceed with discharge to [facility] facility. Patient remains afebrile without leukocytosis. He is tolerating oral intake and denies any abdominal discomfort. He is stooling in the colostomy bag. Would advise 14 days of antibiotic therapy. Disposition/discharge at discretion of primary team. * sign off on this patient from a medical standpoint. Do not hesitate to reconsult should a problem arise. I did take the liberty in addressing his medication reconciliation form to prepare for discharge. Admission and Anticipated Discharge Date Admission Date: March 28, 2021 Subjective Patient seen on daily rounds today during a dressing change. Very dysthymic. Offers no complaints. Not very conversant today. Seen by Dr. Mills and plan is for discharge to [facility] for inpatient rehab. Lab data done this morning showing no evidence of leukocytosis. Patient's potassium is slightly low as is his magnesium. These will be replaced prior to discharge. Otherwise he is hemodynamically stable and afebrile. Wound nurse reports wound to surface and no longer recommending wound VAC Review of Systems Review of Systems: All systems reviewed and are unremarkable except as noted in HPI and below Denies fevers, chills, headache, nasal congestion, sore throat, cough, chest pain, shortness of breath, abdominal pain, nausea, vomiting, dysuria, hematuria, frequency, skin lesions or rashes. Physical Exam Physical Exam: General: Resting comfortably in his hospital bed. Very flat affect/dysthymic. Does not appear ill or toxic Neck: No JVD. Negative hepatojugular reflex Cardiac: RRR without M/G/R Lungs: CTA without W/R/R Abdomen: Normoactive X4. Abdomen is nondistended. It is soft and nontender. JONATHAN drain to left abdomen. Wound VAC removed by wound nurse during my exam. Wound with granulation tissue to surface both at the proximal and distal portion of the incision. Extremities: No peripheral clubbing cyanosis or edema Neuro: A&O X4 cranial nerves II through XII are grossly intact no focal neuro deficits Skin: No obvious skin lesions or rashes other than abdominal wound noted Results & Data Results & Data ([facility]) Vital Signs (Past 12 Hours) Vital Signs Temp Pulse Pulse Pulse Resp BP Pulse Ox 04/20/21 08:40 37.2 C 87 84 85 16 144/87 H 94 04/20/21 08:00 37.2 C 85 16 144/87 H 94 PG Care Time/CCT Total # of Minutes Spent Total Time Spent with Patient: Total time spent is greater than 50% in coordination of care (as documented) at patient's floor/unit and/or counseling patient: [place] [address] Inpt Consult Level 3 Patient Type Established History Expanded Problem Focused Exam Expanded Problem Focused Medical Decision Making Moderate Complexity Diagnoses Fever R50.9 H/O colectomy Z90.49 Atrial fibrillation with RVR I48.91 Portal vein thrombosis I81 Current smoker F17.200 Hypercholesterolemia E78.00 Prediabetes R73.03 BPH (benign prostatic hyperplasia) N40.0 Lumbar spinal stenosis M48.061 DVT prophylaxis Z29.9 Electrolyte abnormality E87.8
[2021-04-20] MEDS ORDERED: FAMOTIDINE 20 MG TAB PO SCH (21:00)
--- NOTE | 2021-05-13 10:42 | Discharge Summary ---
Date of Service May 13, 2021 Principal Diagnosis history of colectomy perforated bowel h/o exploratory laparotomy Discharge Exam awake/alert Constitutional no acute distress Gastrointestinal (Abdomen) Inspection/Auscultation: + abdominal surgical incision and + abdominal surgical drain present; abdomen not distended Percussion/Palpation: abdomen soft; abdomen nontender Discharge Data Allergies Allergy/AdvReac Type Severity Reaction Status Date / Time No Known Allergies Allergy Verified 05/11/21 10:48 Consultations 03/28/21 11:55 Consult Hospitalist Routine 04/03/21 18:58 Consult Paper Goods Machine Set Up Operator Routine 04/11/21 09:24 Consult Wound Care Provider Routine 04/13/21 06:56 Consult Hospitalist Routine Procedures Performed Operation Date: 03/28/21 08:40 Actual Procedures p Laparoscopic Assisted Open Colostomy Closure with Colorectal Anastomosis(Not Applicable) - Humberto Mills MD, FACS Operation Date: 04/03/21 13:05 Actual Procedures p Exploratory Laparotomy, Abdominal Wash out, Creation of Colostomy(Not Applicable) - Humberto Mills MD, FACS Ordered Studies 04/03/21 03:41 CT abd pelvis oral and IV con Urgent 04/03/21 04:34 CT angio chest PE protocol Urgent 04/13/21 06:55 CT abd pelvis oral and IV con Urgent Hospital Course (1) H/O colectomy: This is a 76y M with a history of colectomy for perforated diverticulitis requiring an end ostomy in Oct. On 03/28/21 he was admitted to [facility] and went to the OR for a planned colostomy reversal. On 03/28 Dr. Mills performed a laparotomy, lysis of adhesions, partial small bowel resection with anastomosis, and partial colectomy with colorectal anastomosis with reversal of colostomy. The patient tolerated the procedure well, see op note for full details. The patient recovered in the PACU and was transferred to the nursing floor in stable condition NPO with IVF, JONATHAN & marissa drain, Lunsford catheter, and post op abx. The hospitalists were consulted to follow along for medical management throughout patient's hospitalization. Post op activity encouraged. Pain tolerable with prn medications. He remained npo with ice/sips due to post op ileus while awaiting return of bowel function. Around 04/01-04/02 patient spiking some fevers and he continued to be monitored. A CT a/p was performed on 04/03 for further evaluation that revealed pneumoperitoneum with concern for bowel perforation. The patient was subsequently booked for the OR and underwent an exploratory laparotomy and abdominal washout, pt was found to have breakdown of the colonic anastomosis and was subsequently given an end colostomy. Post op the patient was transferred to the ICU for close monitoring post procedure. Post op patient continued on IV abx. An NGT remained in place while awaiting return of bowel function. A PICC line was placed for patient to start TPN for nutrition. On 04/06 the patient was deemed stable for transfer out of the ICU to nursing unit. Wound care service evaluated patient and placed a wound vac in midline wound. Starting 04/08 patient beginning to have some output from his colostomy, NGT removed and diet was advanced slowly as tolerated. Patient was ultimately able to be weaned off TPN once diet tolerated. Activity continued to be encouraged. Patient unmotivated to work with PT/OT, but ultimately agreeable. Adjustments made to patient's abx postop with the help of the hospitalists recommendations for ongoing WBC and low grade fevers. A repeat CT scan around this time showed decrease of pneumoperitoneum, no abscess. Blood cultures negative. WBC slowly improved and patient's fever curve improved with the adjustments made. Patient continued to make slow progress. As ostomy functioning well, diet advanced of which patient was able to tolerate. Pt/OT recommend placement to [facility] and patient/ agreeable. Case management helped with discharged planning. On 04/20 the patient was deemed stable for transfer to [facility]. On discharge patient's ostomy functioning, diet tolerated, patient afebrile, and wound vac in place with JONATHAN drain. Plan to send patient out on a course of augmentin and diflucan. He was instructed to follow up with Dr. Mills in clinic within 1 week. The patient was discharged on 04/20/21. (2) Perforated bowel: (3) H/O exploratory laparotomy: Total Time Total Time Spent Total Time Spent (In Minutes): 20 Discharge Plan Discharge Items Patient Disposition: Transfer [facility] Reason For Visit: Colostomy, Diverticulitis Discharge Diagnosis: small bowel resection, partial colectomy, and colostomy reversal Condition on Discharge: Fair Activity: Per Instructions section Activity Comment: light activity for 4 weeks Lifting: No more than 10 pounds Bathing Comment: may shower; no soaking in tubs/pools Sexual Activity: When tolerated Exercise/Sports: Wait until after follow-up appointment Exercise Comment: wait 4 weeks Driving/Machine Use: no driving while taking narcotics for pain Non-emergency contact: Primary Care Provider and Surgeon Call non-emergency contact if: you have any medication questions, your symptoms worsen, your pain is not controlled, your pain is worsening, you have a fever, your temperature is above 101.5, your wound has increased redness, your wound has increased drainage and your wound pain has increased Follow-up/Referrals: Humberto Mills MD, FACS [Physician] - Chato Gonzales III, CRNP [Primary Care Provider] - Megan Parker DO, FACEP [Physician] - 04/27/21 9:10 am Diet: Low Fiber Addtl Attending Provider Instructions: SPECIAL CARE INSTRUCTIONS: * Cover incisions and change daily for comfort/drainage. * Empty drain twice daily and record * routine wound vac care and followup at Wound clinic * May use ibuprofen for pain as tolerated. * Expect some swelling and bruising. Call your doctor if: * Temperature above 101 degrees * Pain not relieved by pain medicine ordered * There is increased drainage or redness from any incision * You have any unanswered questions or concerns [phone]. FOLLOW UP VISIT: If not already scheduled, please call the office for a follow-up visit. For next week Sunday or Sundaycheckup and drain check OFFICE PHONE NUMBER: Dr. Mills Office Addtl Stave Block Splitter Provider Instructions: - patient to complete full course of antibiotic therapy (Augmentin + Florastore while on abx therapy) in addition to Diflucan - Patient started on Potassium and Magnesium supplementation--> encourage FU labs in 1-2 weeks to trend (at discretion of house Physician) - Patient now with profound dysthymia. Offered Addition of SSRI, patient refused. Consider this if patient agreeable - Wound care Follow as outlined by Dr. Mills - follow up with House Physician within 24-48 hours Pending Studies at Discharge: Yes Studies:: surgical pathology Stand-Alone Forms: My [facility] [employer] Skilled Items Patient informed of condition?: Yes DNR: No Discharge Level of Care: Skilled Communicable Disease: No Discharge Prognosis: Improving Lines: None and PICC Urinary Catheter: No Medications and DC Order Prescriptions: New fluconazole 100 mg Tablet 100 mg PO QAM Qty: 6 RF: 0 amoxicillin-pot clavulanate [Augmentin] 875-125 mg Tablet 1 tab PO BIDM Qty: 13 RF: 0 Saccharomyces boulardii [Florastor] 250 mg capsule 250 mg PO BID Qty: 14 RF: 0 hydrocodone-acetaminophen 5-325 mg Tablet 1 tab PO Q4HWA PRN (Reason: pain at injection site) Qty: 36 RF: 0 sennosides [senna] 8.8 mg/5 mL Syrup 5 ml PO BID Qty: 50 RF: 0 potassium chloride [K-Tab] 10 mEq tablet extended release 10 meq PO DAILY Qty: 30 RF: 0 magnesium oxide 400 mg (241.3 mg magnesium) tablet 400 mg PO DAILY Qty: 30 RF: 0 Continued gabapentin 300 mg capsule 300 mg PO HS Qty: 30 RF: 5 meloxicam 15 mg tablet 15 mg PO DAILY Qty: 90 RF: 1 (DME) ostomy pouch filter Misc See Rx Instructions .ROUTE .MEDSUPPLY Qty: 90 RF: 1 acetaminophen 325 mg tablet 650 mg PO QID PRN (Reason: Pain) RF: 0 garlic tablet 500 mg PO BID RF: 0 cholecalciferol (vitamin D3) 2,000 unit tablet 2,000 unit PO BID RF: 0 multivitamin [Multiple Vitamins] tablet 1 tab PO QAM RF: 0 omega-3 acid ethyl esters 1 gram capsule 1 cap PO BID RF: 0 Glucosamine Chondroitin 550-30-1 mg Capsule 1 cap PO BID RF: 0 aspirin 325 mg Tablet 325 mg PO DAILY RF: 0 Discontinued zinc 50 mg tablet 50 mg PO DAILY RF: 0 Discharge Orders: Discharge Order (Routine); Ordered 04/20/21 Ordered By: Humberto Mills Admission Data Admit Date/Time: 03/28/21 11:55 Attending Provider: Humberto Mills Admit Provider: Humberto Mills Primary Care Provider: Chato Gonzales III Other Providers: Monica Jeffries ; Chavo Guerin ; Humberto Matthews ; Krishna Rodriguez ; Alfredito Coronado ; Jackie Titus ; Raya Li ; Inez Araujo ; Elizabeth Garcia ; Antonio Viveros ; Chapito Palacios ; Mitchell Cha ; Lukas Guardado ; Elsi Berrios ; Dominic Blank ; Chavo Dos Santos ; Russel Donald ; Sarita Conley ; Guero Uribe ; Inez Branch ; Branden Gamboa ; Chito Hirsch ; Eugenia Ibarra ; Dominic Gates ; Megan Parker ; Siddhartha Lares ; Aliya Cueva Whitefield ; Valentín Gonzalez Other Interventions: Discharge Summary Assessment (RN) Last Done: 04/20/21 08:40 Coding Level of Care Code D/C DAY MANAGEMENT <30 MINS Diagnoses H/O colectomy Z90.49 Perforated bowel K63.1 H/O exploratory laparotomy Z98.890
== END 2021-04-20 11:25 | DRG 329 ==
LOC: ASU 06:48 → 3N 11:55 → 1E 04-03 16:01 → 2E 04-06 06:38 → 3N 04-11 09:30
DX: Y83.8 Other surgical procedures as the cause of abnormal reaction of the patient, or of later complication, without mention of misadventure at the time of the procedure; J98.11 Atelectasis; Z93.3 Colostomy status; R50.82 Postprocedural fever; J90 Pleural effusion, not elsewhere classified; Y92.239 Unspecified place in hospital as the place of occurrence of the external cause; Z43.3 Encounter for attention to colostomy; N40.0 Benign prostatic hyperplasia without lower urinary tract symptoms; Z79.82 Long term (current) use of aspirin; Y83.2 Surgical operation with anastomosis, bypass or graft as the cause of abnormal reaction of the patient, or of later complication, without mention of misadventure at the time of the procedure; Z83.3 Family history of diabetes mellitus; R73.03 Prediabetes; K91.89 Other postprocedural complications and disorders of digestive system; I48.91 Unspecified atrial fibrillation; Z86.718 Personal history of other venous thrombosis and embolism; T81.32XA Disruption of internal operation (surgical) wound, not elsewhere classified, initial encounter; D62 Acute posthemorrhagic anemia; F17.200 Nicotine dependence, unspecified, uncomplicated; R18.8 Other ascites; K21.9 Gastro-esophageal reflux disease without esophagitis; G93.41 Metabolic encephalopathy; K66.0 Peritoneal adhesions (postprocedural) (postinfection); E83.42 Hypomagnesemia; E87.6 Hypokalemia; M48.061 Spinal stenosis, lumbar region without neurogenic claudication; Y92.009 Unspecified place in unspecified non-institutional (private) residence as the place of occurrence of the external cause; Z85.048 Personal history of other malignant neoplasm of rectum, rectosigmoid junction, and anus; K65.8 Other peritonitis; Z86.16 Personal history of COVID-19; R65.21 Severe sepsis with septic shock; K57.90 Diverticulosis of intestine, part unspecified, without perforation or abscess without bleeding